=== PATIENT | female | born 1960 | race Caucasian/White ===

== ENCOUNTER → 2017-11-13 10:33 | Outpatient (CLI) | payer MEDICARE, MEDICAID, SELFPAY ==
--- NOTE | 2017-11-13 10:44 | CT_ITS ---
STUDY: CT BRAIN WITHOUT CONTRAST REASON FOR EXAM: Female, 57 years old. Dizziness. Blurred vision. Upper extremity tingling x4 months. RADIATION DOSAGE (If Supplied By Facility): CTDIvol = ( 44.99 ) mGy, DLP = ( 728.62 ) mGycm TECHNIQUE: Transaxial CT imaging of the brain was performed without administration of intravenous contrast material. Coronal and sagittal reconstructions were performed. Individualized dose optimization techniques were used for this CT. COMPARISON: None. FINDINGS: Normal soft tissue structures. Normal calvarium. Prominent CSF space overlying the left anterior temporal pole may represent benign arachnoid cyst. The ventricles and cisterns are normal. Normal white matter tracts of the cerebral hemispheres. Normal basal ganglia and thalami. Normal brainstem. Normal cerebellum. There is no intracranial hemorrhage. There are no findings of an acute ischemic infarction. Normal visualized paranasal sinuses. CT/Brain/Head without Contrast IMPRESSION: 1. 0.7 x 1.6 cm benign arachnoid cyst overlying the left anterior temporal pole. 2. Normal CT brain without contrast. Electronically Signed: Brennon Quick MD at 12:20 EDT , Service support ,
--- NOTE | 2017-11-13 10:44 | CT_ITS ---
STUDY: CT CERVICAL SPINE WITHOUT CONTRAST REASON FOR EXAM: Female, 57 years old. Dizziness, blurring vision and upper extremity tingling x4 months. History of Parkinson's. RADIATION DOSAGE (If Supplied By Facility): CTDIvol = ( 12.74 ) mGy, DLP = ( 213.98 ) mGycm TECHNIQUE: High resolution transaxial imaging was performed without contrast material. Sagittal and coronal images were reconstructed. Individualized dose optimization techniques were used for this CT. COMPARISON: None FINDINGS: Normal craniovertebral junction. Normal anterior atlantoaxial articulation. Normal odontoid process. Normal cervical lordosis. Normal vertebral bodies and posterior osseous elements. C2-3: Normal endplates. Normal disc height and morphology. Normal central canal and intervertebral neuroforamina. Moderate left C2-C3 due to facet arthropathy. Normal right facet joint. C3-4: Normal endplates. Normal disc height and morphology. Normal central canal and intervertebral neuroforamina. Mild to moderate degenerative facet arthropathy. C4-5: Normal endplates. Normal disc height and morphology. Normal central canal and intervertebral neuroforamina. C5-6: Pronounced disc space height narrowing with anterior and posterior marginal spurs. Normal central canal. Degenerative vacuum phenomenon in the medial aspect of the left intervertebral neural foramina coming from the disc space. Normal bilateral intervertebral neural foramina. C6-7: Pronounced disc space height narrowing with anterior and posterior marginal spurs. Normal central canal and bilateral intervertebral neural foramina. C7-T1: Normal endplates. Normal disc height and morphology. Normal central canal and intervertebral neuroforamina. Normal visualized soft tissue structures. CT/Spine Cervical without Contras IMPRESSION: 1. No acute fracture or malalignment of the cervical spine and the craniocervical junction. 2. Pronounced C5-C6 and C6-C7 degenerative disc space height narrowing. 3. No CT evidence of central canal stenosis or intervertebral neuroforamina stenosis. Electronically Signed: Brennon Quick MD at 12:31 EDT , Service support ,
== END ==
PROVIDERS: Family Provider Family Medicine; PCP Family Medicine; Visit Provider Nurse Practitioner Acute Care
DX: G93.0 Cerebral cysts (principal); M48.02 Spinal stenosis, cervical region; H53.8 Other visual disturbances; R42 Dizziness and giddiness; R20.2 Paresthesia of skin
CPT/HCPCS: 70450; 72125

== ENCOUNTER 2018-07-29 16:30 | Outpatient (RCR) | payer MEDICARE, MEDICAID, SELFPAY ==
--- NOTE | 2018-09-12 09:35 | HP.PTEVAL_ITS ---
Patient's Visit Information EDSON SHEPPARD is a 58 year old F referred to Physical Therapy by JOSE JUAN Antunez with a diagnosis of Cervical spine pain. Date of Evaluation: 06/22/18 Physical Therapist: Neno Antunez DPT - Visit Plan Frequency: 2x /Week Duration: 4 Weeks Plan: Start with stretching, DN, posture control exercises to reduce stress on cervical spine and shoulders. - Subjective Findings: Pt. is here today for her initial evaluation with dianosis of neck pain. Pt. has a history of PD for many years. Pt. reports taking new medication and his having more tremoring and neck pain. She reports I know its the meds that I am taking, its a side effect. Pt. reports being very limited in mobility and after taking her medication she tremorrs uncomtrollable at rest and with mobility. Pt. reports having pain throughout cervical spine 5/10 pain currently. No radiating pain into UEs. Pt. reprots pain is at times unbearable. Pt. reports that if she does not take her meds she can not move. Pt. is hopeful to reduce symptoms in order to get back to all recreational and daily activities without limitations. - Pain Cervical spine Pain Intensity (Out of 10): 3 Pain Intensity Range: 2, 8 - Objective POSTURE: Pt. has rounded shoulders, FH posture. Pt. while sitting has writhing movements of arms and neck. pt. reports these are uncomtrollable and seem to happen after ttaking her new medications. PALPATION: Pt. has very tight muscle tone throughotu neck extensors, bilaterally. Pt. has tenderness throughout cervical spine and UT musculature. NEURO: Pt. has normal DTR of bilateral UEs, normal senation of bilateral UEs. ROM: CERVICAL SPINE: flexion nil loss increase NW, ext mod loss increase NW, rotation mod loss bilat increase NW, SB mod loss bilat increase NW. MMT: Pt. has 4/5 cervical isometrics and 4/5 BUE strength generally. - Special Tests C/S Radiculapathy - Left Upper limb tension test: Negative C/S Radiculapathy - Right Upper limb tension test: Negative C/S Radiculapathy - Left Spurlings: Negative C/S Radiculapathy - Right Spurlings: Negative C/S Radiculapathy - Left Cervical distraction: Negative C/S Radiculapathy - Right Cervical distraction: Negative C/S Radiculapathy - Left Relief test: Negative C/S Radiculapathy - Right Relief test: Negative C/S Radiculapathy - Valsalva: Negative Cervical Sitting: Protrusion - Mechanical Response: No effect Cervical Sitting: Protrusion - Symptoms During Testing: No effect Cervical Sitting: Protrusion - Symptoms After Testing: No effect Cervical Sitting: Retraction - Mechanical Response: No effect Cervical Sitting: Retraction - Symptoms During Testing: Increases Cervical Sitting: Retraction - Symptoms After Testing: No worse Cervical Sitting: Retraction-Extension - Mechanical Response: No effect Cerv Sitting: Retraction-Extension - Symptoms During Testing: Abolishes Cerv Sitting: Retraction-Extension - Symptoms After Testing: No worse Cervical Sitting: Sidebend Right - Mechanical Response: No effect Cervical Sitting: Sidebend Right - Symptoms During Testing: Increases Cervical Sitting: Sidebend Right - Symptoms After Testing: No worse Cervical Sitting: Sidebend Left - Mechanical Response: No effect Cervical Sitting: Sidebend Left - Symptoms During Testing: Increases Cervical Sitting: Sidebend Left - Symptoms After Testing: No worse Cervical Sitting: Rotation Right - Mechanical Response: No effect Cervical Sitting: Rotation Right - Symptoms During Testing: Increases Cervical Sitting: Rotation Right - Symptoms After Testing: No worse Cervical Sitting: Rotation Left - Symptoms During Testing: Increases Cervical Sitting: Rotation Left - Symptoms After Testing: No worse Cervical Sitting: Flexion - Mechanical Response: No effect Cervical Sitting: Flexion - Symptoms During Testing: Increases Cervical Sitting: Flexion - Symptoms After Testing: No worse - Goals Goal 1:: Pt. to be I with HEP. Goal Time Frame: 4-6 Weeks Goal 2:: Pt. to have decreased cervical spine pain at rest to 0-2/10 pain. Goal Time Frame: 4-6 Weeks Goal 3:: Pt. to sleep throughout the night without increase in symptoms. Goal Time Frame: 4-6 Weeks Goal 4:: Pt. to have improved posture throughout therapy session. Goal Time Frame: 4-6 Weeks Goal 5:: Pt. to be educated in good prophalaxis to reduce cervical spine symptoms. Goal Time Frame: 4-6 Weeks - Rehabilitation Potential Physical Therapy Diagnosis: Pt. has signs and symptoms of neck pain and shoulder pain related to tightness and posture from PD symptoms. Pt. has limited cerivcal spine ROM and difficulty maintaining proper posture. Pt. has increased symtoms with stretching with higher levels of msucle tone. Pt. would benefit from PT to reduce muscle tightness and progess postural control. Rehabilitation Potential: Fair - Anticipated Interventions Patient/Client Instruction: Educate patient on: Condition, Plan of Care, Risk Factors, Benefits of Fitness Program For the Purpose of:: To decrease pain, To increase ROM, To facilitate caregiver knowledge, To improve self management, To prevent re-injury, To improve ability to perform tasks related to life management, To improve tolerance to ADL's Therapeutic Exercise to Include: Strength training, Power training, Postural training, Flexibilty training, via Neurocom Balance Mas, Active ROM, Dot Exercises For the Purpose of:: To decrease pain, To increase ROM, To improve nutrient delivery to tissue, To increase oxygenation perfusion, To improve muscle pe rformance and motor function, To improve health of tissue, To decrease soft tissue restriction Manual Therapy Techniques to Include: Mobilization, Passive ROM, Functional dry needling, Soft tissue mobilization For the Purpose of:: To decrease pain, To increase ROM, To improve nutrient delivery to tissue, To increase oxygenation perfusion, To improve muscle performance and motor function Thank you for the opportunity to evaluate your patient. For Medicare and Medicare HMO plans, please review the plan of care and approve it. It will need to be FAXED BACK to us at [phone] for Medicare purposes. For Medicare only, by signing this I certify the plan of care. Please let me know if there are questions or concerns regarding this plan of care. Physician Signature: Date:
--- NOTE | 2018-09-26 13:47 | HP.PTDCSUM ---
HP - PT D/C Summary It has been my pleasure to treat EDSON SHEPPARD under orders from JOSE JUAN Antunez, for the diagnosis of Cervical spine pain for a total of 7 visit(s). Discharge Date: 07/29/18 Please see the following information for a summary of their discharge status. - Subjective Subjective: Pt. reports overall minimal change in her neck pain. Pt. reports that she continues to have increased writhing movements of her neck, but seem to have reduced in clinic. Pt. reprots ahving 3/10 pain in her neck this date. - Pain Cervical spine Pain Intensity (Out of 10): 3 - Overall Improvement % Improvement: 50 - Objective Objective/Function: ROM: cervical spine: flexion nil loss, ext mod loss, rotation min loss bilat, SB min loss bilat. Pain with end range ext this date, no pain with rest of movement. Pt. continues to have increased difficulty with postural corrections and difficulty maintaining proper postures. Pt. continues to have difficulty with walking. Pt. reports that she has noticing now increased stiffness throughout with body since reducing meds. Pt. desires to trial stretching and activites on own at this point intime, - Goals Goal 1:: Pt. to be I with HEP. Goal Progress: Goal Met Goal 2:: Pt. to have decreased cervical spine pain at rest to 0-2/10 pain. Goal Progress: Progressing Goal 3:: Pt. to sleep throughout the night without increase in symptoms. Goal Progress: Progressing Goal 4:: Pt. to have improved posture throughout therapy session. Goal Progress: Not Progressing Goal 5:: Pt. to be educated in good prophalaxis to reduce cervical spine symptoms. Goal Progress: Progressing - Plan Plan: Start with stretching, DN, posture control exercises to reduce stress on cervical spine and shoulders. - D/C Information Discharge Comments: Pt. was seen for her neck pain and stiffness. In PT, pt. trialed stretching, manual activities, DN and postural control. Pt. had mild relief with stretching and DN. Pt. will be DC to HEP at this point in time. If there are questions or concerns regarding this patient's physical therapy, please feel free to call me at [phone]. Thank you for the referral of this patient. Sincerely, Neno Antunez DPT
== END 2018-07-29 19:00 | disposition home or self-care (01) ==
LOC: PT 16:30
PROVIDERS: Family Provider Family Medicine; PCP Family Medicine; Referring Provider Nurse Practitioner Acute Care; Visit Provider Nurse Practitioner Acute Care
DX: M54.2 Cervicalgia (principal); M25.512 Pain in left shoulder; M25.511 Pain in right shoulder
CPT/HCPCS: 97110; 97140; 97162

== ENCOUNTER 2022-07-21 13:06 | Observation (INO) | payer MEDICARE, MEDICAID, SELFPAY ==
[2022-07-21 13:07] VITALS: BP 147/94; PULSE 74; RESP 16; TEMP 37.1; O2SAT 100; BMI 21.9
--- NOTE | 2022-07-21 14:59 | EKG12_ITS ---
Test Reason : WEAKNESS Blood Pressure : / mmHG Vent. Rate : 074 BPM Atrial Rate : 074 BPM P-R Int : 138 ms QRS Dur : 086 ms QT Int : 454 ms P-R-T Axes : 107 075 102 degrees QTc Int : 503 ms Normal sinus rhythm Cannot rule out Inferior infarct , age undetermined Abnormal ECG Confirmed by ALBERTO BERGERON, FRIDA ([id number]), photographic editor KAREY ALVARADO ([id number]) on 07/22/2022 9:18:14 AM Referred By: Confirmed By:FRIDA DOMINGUEZ MD
--- NOTE | 2022-07-21 15:00 | EX.ED.DYSGE1 ---
HPI History of Present Illness Chief Complaint: Weakness Detail of Chief Complaint: Unable to ambulate Informant: patient Onset/Context/Timing Onset: Weeks Context: Gradual Onset Timing: Continuous Current Severity: Mild Maximum Severity: Mild Narrative Narrative: 61-year-old female history stroke, ITP and Parkinson's disease. States she is progressively been getting more weak over the last 2 weeks. States she is having difficulty even walking around her home now with her walker and does not think she is able to even do so now. Lives at home with her son. She denies any nausea vomiting or diarrhea. No dysuria or cough. No chest or abdominal pain. She denies any recent illness or hospitalization. Prior similar symptoms: Yes Recent Illness/Hospitalization: No PFSH PFSH Medical History Abnormality of gait Acquired hypothyroidism Balance problems Chronic ITP (idiopathic thrombocytopenia) CVA (cerebral vascular accident) Left foot drop Osteoarthritis Home Medications carbidopa 10 mg-levodopa 100 mg tablet 0.5 tab PO TID 05/22/16 [History Last Taken Unknown] levothyroxine 112 mcg tablet 100 mcg PO DAILY 05/22/16 [History Last Taken Unknown] lisinopril 20 mg tablet 20 mg PO DAILY 05/22/16 [History Last Taken Unknown] ropinirole 0.25 mg tablet (Requip) 0.25 mg PO QHS 05/22/16 [History Last Taken Unknown] diclofenac sodium 1 % topical gel (Voltaren Arthritis Pain) 1 ea topical 4X/DAY PRN PRN Pain 07/21/22 [History Last Taken Unknown] docusate sodium 100 mg capsule 100 mg PO BID PRN Constipation 07/21/22 [History Last Taken Unknown] polyethylene glycol 3350 17 gram oral powder packet (Miralax) 17 g PO DAILY 07/21/22 [History Last Taken Unknown] Allergy/AdvReac Type Severity Reaction Status Date / Time omeprazole Allergy Unknown Verified 07/21/22 13:09 simvastatin [From Zocor] Allergy Unknown Verified 07/21/22 13:09 ropinirole AdvReac Mild Unknown Verified 07/21/22 13:09 Social History Smoking Status: Former smoker ROS ROS ED ROS Narrative Denies recent illness. Generalized weakness. Review of Systems ROS Unobtainable: Denies due to encephalopathy Constitutional Constitutional ED: Denies chills or fever(s) Eyes Eyes: Denies blurry vision ENT ENT ED: Denies ear pain Cardiovascular Cardiovascular: Denies chest pain Respiratory/Chest Respiratory/Chest: Denies cough or dyspnea Gastrointestinal Gastrointestinal: Denies abdominal pain, diarrhea, melena, nausea or vomiting Genitourinary Genitourinary ED: Denies dysuria or hematuria Musculoskeletal Musculoskeletal: Denies arthralgias Integumentary Denies abscess Neurologic Neurologic: Denies headache(s) Psychiatric Psychiatric: Denies anxiety Endocrine Endocrinology: Denies cold intolerance Hematologic/Lymphatic Hematologic/Lymphatic: Reports none Allergic/Immunologic Allergic/Immunologic ED: Denies mouth swelling or tongue swelling EXAM Physical Exam Narrative Exam Narrative: 61-year-old female no acute distress. Vital signs stable afebrile. Pulse ox high percent on room air no hypoxia. H EENT exam unremarkable. Neck nontender. Lungs clear to auscultation bilaterally. Heart regular rhythm rate about 75 no murmur. Chest wall nontender. Abdomen soft nontender. Moving all 4 extremities. Normal bods developer strength. Dorsi plantarflexion intact. She does seem generally weak. But there is no localized or unilateral weakness. Back nontender. Neurologically she is awake and alert. Const Vital Signs: 07/21/22 13:07 07/21/22 14:32 Temperature 98.8 F Temperature Source Temporal Pulse Rate 74 Respiratory Rate 16 Respiratory Effort Normal Non-Labored Respiratory Pattern Normal Blood Pressure 147/94 H Blood Pressure Mean 111 Pulse Ox 100 Oxygen Delivery Method Room Air Positive well nourished and well developed; Negative for obese, cachectic, contractures or unkempt General Appearance ED: well developed and NAD; Negative for unkempt, cachectic, contractures, cyanotic, diaphoretic or pallor Nutritional Appearance: Negative for cachectic or obese HEENT Reports dry mucous membranes Negative for trauma Mouth ED: Yes dry mucous membranes Mouth: dry mucous membranes Eyes PERRL and EOMs intact bilaterally General Eye ED: Negative for pale conjunctiva, scleral icterus or other Neck no lymphadenopathy, supple and no JVD General: Negative for tenderness Lymph Lymphatic: Negative for other Chest Wall inspection of chest normal and palpation of chest normal Chest: Negative for other Resp normal respiratory effort and clear to auscultation bilaterally Effort and Inspection: Negative for retractions Auscultation: Negative for rales, rhonchi or wheezes Cardio regular rate, regular rhythm, S1 normal heart sound, S2 normal heart sound and no murmurs Palpation: Negative for palpable S3 Rate: Negative for bradycardia Rhythm: Negative for abnormal rhythm GI normal to inspection, nondistended, normoactive bowel sounds, non-distended and no masses Inspection: Negative for abdominal distention Auscultation: normoactive bowel sounds Palpation: soft; Negative for tender or guarding Back/Spine no CVA tenderness General Back: Negative for CVA tenderness Cervical Spine: Negative for cervical spine tenderness Thoracic Spine / Upper Back: Negative for thoracic spinal tenderness Lumbar Spine / Lower Back: Negative for lumbar spinal tenderness Extremity normal to inspection General Extremety ED: Negative for edema or tenderness General Extremity: Negative for edema Neuro oriented x3 and CN's II-XII intact bilaterally Sensorium / Orientation: alert Motor Exam: general weakness; Negative for strength 5/5 throughout Psych mental status grossly normal Appearance: Negative for unkempt Attitude: No agitated Mood & Affect: Negative for depressed, anxious or tearful Skin no rashes or lesions noted and no wounds General Skin Exam: Negative for jaundice or pallor Lesions: No lesion noted Rashes: No rashes noted Trauma: Negative for abrasion MDM MDM MDM Narrative Medical decision making narrative: 61-year-old female with history of Parkinson's generally developed weakness over last 2 weeks and now is unable to ambulate. Exam benign other than generalized weakness. Screening labs will be performed. Most likely she is going to need to be admitted for physical therapy and further evaluation. Repeat exam unchanged. At 4:30 PM. Patient is unable to ambulate she is too weak. I will speak to the hospitalist about admission. Lab Data Attestation: I reviewed the patient's lab results. Lab results narrative: CBC shows a white count of 6.1. H&H of 13.2 and 38. Platelets 237. CMP shows a gap of 9 normal BUN of 13 creatinine 0.77. Glucose of 91 liver enzymes are normal. Labs: Laboratory Results - last 24 hr 07/21/22 07/21/22 15:14 15:14 WBC 6.1 RBC 4.11 L Hgb 13.2 Hct 38.3 MCV 93.2 MCH 32.1 H MCHC 34.5 RDW Std Deviation 42.8 RDW Coeff of Annie 12.5 Plt Count 237 MPV 11.6 Sodium 142 Potassium 3.8 Chloride 108 H Carbon Dioxide 25.0 Anion Gap 9 BUN 13 Creatinine 0.77 Estim Creat Clear Calc 67.29 Est GFR (MDRD) Af Amer 97 Est GFR (MDRD) Non-Af 80 BUN/Creatinine Ratio 16.9 Glucose 91 Calcium 9.3 Total Bilirubin 0.40 AST 25 ALT 19 Alkaline Phosphatase 77 Total Protein 7.3 Albumin 3.9 Globulin 3.4 Albumin/Globulin Ratio 1.1 Rhythm Strip Rhythm Strip: Sinus Rhythm Rate: 74 Ectopy: None EKG Initial EKG: Attestation: I personally reviewed and interpreted this EKG as follows: Interpretation: Sinus Rhythm and No Acute Injury Pattern Comments: Normal sinus rhythm rate of 74 there is a bunch of artifact on the EKG due to her tremors due to Parkinson's disease. There is significant artifact. Discharge Plan Dx/Rx/DC Orders Clinical Impression: Generalized weakness, Unable to ambulate, Hx of Parkinson's disease Disposition Disposition: Acute Care Hospital [facility]
[2022-07-21] MEDS: 0.9% Normal Saline 1,000 ML 1000 ML IV (15:15)
[2022-07-21 15:19] LABS: Hematocrit 38.3 % (37-47); Hemoglobin 13.2 g/dL (12.0-15.0); Mean Corp Hgb Conc 34.5 g/dL (32-36); Mean Corpuscular Hgb 32.1 pg (27.0-32.0); Mean Corpuscular Volume 93.2 fL (81-99); Mean Platelet Vol. 11.6 fl (6.2-12.0); Platelet Count 237 K/mm3 (150-450); RBC Distribution Width CV 12.5 % (11.6-14.6); RBC Distribution Width SD 42.8 fl (35.1-43.9); Red Blood Count 4.11 M/mm3 (4.2-5.4); White Blood Count 6.1 K/mm3 (4.4-11.0)
[2022-07-21 15:52] LABS: ALB/GLOB Ratio 1.1 RATIO (0.9-2.4); AST(SGOT) 25 U/L (15-37); Alanine Aminotransfer ALT/SGPT 19 U/L (13-56); Albumin, Serum 3.9 g/dL (3.2-5.0); Alkaline Phosphatase 77 U/L (45-117); Anion Gap 9 (5-15); BUN 13 mg/dL (7-18); BUN/Creat Ratio 16.9 RATIO (10-20); Calcium,Total 9.3 mg/dL (8.5-10.1); Chloride 108 mmol/L (98-107); Creatinine, Serum 0.77 mg/dL (0.55-1.02); EST Glomerular Filtration Rate 80 mL/min (>60); Est Glom Filt Rate - Afr Amer 97 mL/min (>60); Estimated Creatinine Clearance 67.29 ml/min; Globulin 3.4 g/dL (2.2-4.2); Glucose 91 mg/dL (74-106); Potassium 3.8 mmol/L (3.5-5.1); Protein, Total 7.3 g/dL (6.4-8.2); Sodium Level 142 mmol/L (136-145)
[2022-07-21 16:21] LABS: Bacteria 0 SEEN /hpf (None Seen); Mucous, Urine 0 SEEN /hpf (<or=2+); Red Blood Cells-Urine 0 SEEN /hpf (0-5); Squamous Epithelial Cells - UA 0 SEEN /hpf (5-10)
[2022-07-21 16:47] LABS: Color, Urine Yellow (Yellow); Glucose, Dipstick Normal (Normal); Ketone-Dipstick Negative (Negative); Leukocyte Esterase-Dipstick Negative /ul (Negative); Nitrite-Dipstick Negative (Negative); Occult Blood-Urine 50 /ul (Negative); Protein-Dipstick Negative (Negative); Urine Bilirubin Dipstick Negative (Negative); Urine Clarity Clear (Clear); Urine Urobilinogen Normal (Normal); Urine pH 6.5 (5.0 - 8.0)
[2022-07-21 16:55] LABS: White Blood Cells 0-5 SEEN /hpf (0-5)
[2022-07-21 17:01] VITALS: BP 130/88; PULSE 87; RESP 19; TEMP 36.9; O2SAT 97
[2022-07-21 17:02] VITALS: O2SAT 97
--- NOTE | 2022-07-21 17:51 | PCM.HP.STD ---
HPI - General General Date of Admission: 07/21/22 Date of Service: 07/21/22 Chief Complaint: Neurolysed weakness, inability to walk HPI Narrative EDSON SHEPPARD, is a 61 F who presents to the emergency room at [facility] with complaints of extreme weakness today and inability to ambulate and perform ADLs at home. Patient lives with her son, she has a long history of Parkinson's disease-it appears she is on minimal medicine for the Parkinson's disease however-she states that in the past she was on larger doses but she had side effects. Work-up in the emergency room included labs which were unremarkable except for some occult blood in the urine. Patient will be placed in observation status on [facility] 3, she will be seen by PT and OT, she may need to go to an extended care facility for short-term inpatient rehab services, I briefly discussed this with her in the presence of her son, she states that she was not able to make up her mind without input from her sister who is her POA. FORMERLY [facility], [facility] Medical History Abnormality of gait Acquired hypothyroidism Balance problems Chronic ITP (idiopathic thrombocytopenia) CVA (cerebral vascular accident) Left foot drop Osteoarthritis Home Medications carbidopa 10 mg-levodopa 100 mg tablet 0.5 tab PO TID parkinsons 05/22/16 [History Last Taken 07/21/22] levothyroxine 112 mcg tablet 100 mcg PO DAILY thyroid 05/22/16 [History Last Taken 07/21/22] lisinopril 20 mg tablet 20 mg PO DAILY bp 05/22/16 [History Last Taken 07/21/22] ropinirole 0.25 mg tablet (Requip) 0.25 mg PO QHS restless leg 05/22/16 [History Last Taken 07/20/22] acetaminophen 500 mg tablet 500 mg PO Q6H PRN Pain 07/21/22 [History Last Taken 07/21/22] polyethylene glycol 3350 17 gram oral powder packet (Miralax) 17 g PO DAILY PRN Constipation 07/21/22 [History Last Taken 3 Days Ago ~07/18/22] Allergy/AdvReac Type Severity Reaction Status Date / Time omeprazole Allergy Unknown Verified 07/21/22 13:09 simvastatin [From Zocor] Allergy Unknown Verified 07/21/22 13:09 ropinirole AdvReac Mild Unknown Verified 07/21/22 13:09 Social History Smoking Status: Former smoker ROS Constitutional Constitutional: Reports fatigue and weakness; Denies anorexia, change in weight, chills, fever(s), malaise or night sweats Eyes Eyes: Denies blurry vision, change in vision, discharge from eye(s) or eye pain Cardiovascular Cardiovascular: Denies chest pain, claudication, dyspnea on exertion, edema, lightheadedness or palpitations Respiratory/Chest Respiratory/Chest: Denies cough, excessive phlegm production, hemoptysis, shortness of breath at rest or shortness of breath with exertion Gastrointestinal Gastrointestinal: Denies abdominal pain, constipation, diarrhea, dyspepsia, hematemesis, hematochezia, melena, nausea or vomiting Genitourinary Genitourinary: Denies dysuria, hematuria, nocturia, urinary frequency, urinary hesitancy, urinary incontinence or urinary urgency Musculoskeletal Musculoskeletal: Denies back pain, joint pain, joint stiffness, joint swelling, myalgias or neck pain Neurologic Neurologic: Reports abnormal gait and focal weakness; Denies abnormal speech, confusion, dizziness, headache(s), loss of vision, numbness, other visual disturbances, paresthesias, syncope or tingling Psychiatric Psychiatric: Denies anxiety, cognitive impairment, depression, irritability, mood swings or suicidal ideation Endocrine Endocrinology: Denies change in body appearance, cold intolerance, excessive sweating, heat intolerance, polydipsia or polyuria Hematologic/Lymphatic Hematologic/Lymphatic: Denies none, anemia, easy bleeding, easy bruising or lymphadenopathy Allergic/Immunologic Allergic/Immunologic: Denies rhinitis, urticaria, eczemia or asthma Vital Signs Vital Signs Vital Signs: 07/21/22 13:07 07/21/22 14:32 07/21/22 17:01 Temperature 98.8 F 98.4 F Temperature Source Temporal Temporal Pulse Rate 74 87 Respiratory Rate 16 19 H Respiratory Effort Normal Non-Labored Respiratory Pattern Normal Blood Pressure 147/94 H 130/88 H Blood Pressure Mean 111 102 Pulse Ox 100 97 Oxygen Delivery Method Room Air Room Air 07/21/22 17:02 Temperature Temperature Source Pulse Rate Respiratory Rate Respiratory Effort Respiratory Pattern Blood Pressure Blood Pressure Mean Pulse Ox 97 Oxygen Delivery Method Room Air Weight Weight: 59.874 kg Body Mass Index (BMI) 21.9 Physical Exam Const alert, oriented x3 and no apparent distress Constitutional Narrative: She appears frail, appears older than stated General Appearance: cooperative, well kempt and well developed Orientation / Consciousness: awake, oriented to person, oriented to place and oriented to time HEENT normocephalic, head/scalp atraumatic, hearing grossly normal bilaterally and moist oral mucous membranes Eyes PERRL, EOMs intact bilaterally and conjunctivae normal Neck supple, no JVD, thyroid normal and no carotid bruits General: trachea midline Resp normal respiratory effort, no retractions, no use of accessory muscles and clear to auscultation bilaterally Auscultation: Negative for rales, rhonchi or wheezes Cardio regular rate, regular rhythm, S1 normal heart sound, S2 normal heart sound, no murmurs, no rub and no gallops GI normal to inspection, nondistended, normoactive bowel sounds, soft to palpation, non-tender and non-distended Extremity no clubbing, cyanosis or edema Skin no rashes or lesions noted General Skin Exam: no breakdown Neuro oriented x3, CN's II-XII intact bilaterally, moves all extremities, no focal motor deficits and no sensory deficits noted Neuro Narrative: Patient exhibits overall weakness, she has a resting tremor which is obvious in her feet Sensorium / Orientation: awake, alert, oriented to person, oriented to place and oriented to time Speech: speech normal Psych affect normal Results Lab / Micro Data Result Diagrams: 07/21/22 15:14 07/21/22 15:14 Labs: Laboratory Results - last 24 hr 07/21/22 15:14: WBC 6.1, RBC 4.11 L, Hgb 13.2, Hct 38.3, MCV 93.2, MCH 32.1 H, MCHC 34.5, RDW Std Deviation 42.8, RDW Coeff of Annie 12.5, Plt Count 237, MPV 11.6 07/21/22 15:14: Sodium 142, Potassium 3.8, Chloride 108 H, Carbon Dioxide 25.0, Anion Gap 9, BUN 13, Creatinine 0.77, Estim Creat Clear Calc 67.29, Est GFR (MDRD) Af Amer 97, Est GFR (MDRD) Non-Af 80, BUN/Creatinine Ratio 16.9, Glucose 91, Calcium 9.3, Total Bilirubin 0.40, AST 25, ALT 19, Alkaline Phosphatase 77, Total Protein 7.3, Albumin 3.9, Globulin 3.4, Albumin/Globulin Ratio 1.1 07/21/22 16:16: Urine Color Yellow, Urine Clarity Clear, Urine pH 6.5, Ur Specific [place] 1.010, Urine Protein Negative, Urine Glucose (UA) Normal, Urine Ketones Negative, Urine Occult Blood 50 H, Urine Nitrite Negative, Urine Bilirubin Negative, Urine Urobilinogen Normal, Ur Leukocyte Esterase Negative, Urine RBC 0 SEEN, Urine WBC 0-5 SEEN, Ur Squamous Epith Cells 0 SEEN, Urine Bacteria 0 SEEN, Urine Mucus 0 SEEN Rhythm Strip Rhythm Strip: Sinus Rhythm Rate: 74 Ectopy: None Assessment & Plan Assessment/Plan (1) Parkinson disease: PLAN: Plan 1. Generalized weakness/debility-patient will be placed into observation status on [facility] 3, she will be seen by PT and OT, she may need short-term placement in a halfway facility for rehab services. #2 Parkinson's disease-I have kept her on her home medications for Parkinson's disease #3 hypothyroidism-patient will remain on Synthroid #4 essential hypertension-patient will remain on her lisinopril Charges/Coding Visit Charges OBSV E&M: 41129 Initial observation care L3
[2022-07-21 18:00] VITALS: BMI 21.8
[2022-07-21] MEDS: Acetaminophen 500 MG Tablet PO (19:48)
[2022-07-21 21:15] VITALS: BP 123/81; PULSE 78; RESP 16; TEMP 36.6; O2SAT 97
[2022-07-21] MEDS: Pramipexole Di-HCl 0.125 MG Tablet PO (21:42)
[2022-07-21] MEDS: Heparin Injection (Vial) 5,000 UNIT/ML VIAL 5000 UNIT SC (21:46)
[2022-07-22] VITALS (9 sets, daily range): BP systolic 78–115; BP diastolic 45–78; PULSE 64–81; RESP 16; TEMP 36.6–37.7; O2SAT 96–99
[2022-07-22] MEDS: Levothyroxine 100 MCG Tablet PO (06:03)
--- NOTE | 2022-07-22 07:44 | PCM.PN.HOSP ---
Objective Data Objective Data Vital Signs: Vital Signs Temp Pulse Resp BP Pulse Ox O2 Del Method 98.4 F 81 16 115/67 97 Room Air 07/22/22 06:08 07/22/22 06:08 07/22/22 06:08 07/22/22 06:08 07/22/22 06:08 07/22/22 06:08 Oxygen Delivery Method Room Air Weight: 131 lb Body Mass Index (BMI) 21.8 Intake & Output: Intake and Output for Last 24 Hours 07/20/22 07/21/22 07/22/22 23:59 23:59 23:59 Intake Total 1000 / 1000 Output Total 300 / 300 Balance 1000 / 1000 -300 / -300 Lab / Micro Data Result Diagrams: 07/21/22 15:14 07/21/22 15:14 Labs: Laboratory Results - last 24 hr 07/21/22 15:14: WBC 6.1, RBC 4.11 L, Hgb 13.2, Hct 38.3, MCV 93.2, MCH 32.1 H, MCHC 34.5, RDW Std Deviation 42.8, RDW Coeff of Annie 12.5, Plt Count 237, MPV 11.6 07/21/22 15:14: Sodium 142, Potassium 3.8, Chloride 108 H, Carbon Dioxide 25.0, Anion Gap 9, BUN 13, Creatinine 0.77, Estim Creat Clear Calc 67.29, Est GFR (MDRD) Af Amer 97, Est GFR (MDRD) Non-Af 80, BUN/Creatinine Ratio 16.9, Glucose 91, Calcium 9.3, Total Bilirubin 0.40, AST 25, ALT 19, Alkaline Phosphatase 77, Total Protein 7.3, Albumin 3.9, Globulin 3.4, Albumin/Globulin Ratio 1.1 07/21/22 16:16: Urine Color Yellow, Urine Clarity Clear, Urine pH 6.5, Ur Specific [place] 1.010, Urine Protein Negative, Urine Glucose (UA) Normal, Urine Ketones Negative, Urine Occult Blood 50 H, Urine Nitrite Negative, Urine Bilirubin Negative, Urine Urobilinogen Normal, Ur Leukocyte Esterase Negative, Urine RBC 0 SEEN, Urine WBC 0-5 SEEN, Ur Squamous Epith Cells 0 SEEN, Urine Bacteria 0 SEEN, Urine Mucus 0 SEEN Rhythm Strip Rhythm Strip: Sinus Rhythm Rate: 74 Ectopy: None Physical Exam Narrative Seen and examined. Patient has history of Parkinson disease and a stroke. She has chronic bilateral lower extremity weakness, right more than left. Physical exam General: Alert, Oriented x3, Cooperative HEENT: Atraumatic, PERRLA, EOMI, Normocephalic Oral: No Gingival or Mucosal Lesions/ Ulcerations Neck: Supple, No JVD, Negative Carotid Bruits Lungs: Air entry diminished in bilateral lung bases. No crepitation/rhonchi Cardiovascular: Regular rate, Regular Rhythm, Normal S1, Normal S2, No murmurs Abdomen: Bowel Sounds Present, Soft, Non Tender, Non-Distended : No renal angle tenderness. No suprapubic tenderness. Extremities: No edema, Capillary Refill Less than 3 Seconds Skin: No rashes, No breakdown Musculoskeletal: No Tenderness to Palpation of Joints or Extremities, right leg gradually fall to bed by 5 seconds and left leg drops immediately. ROM restricted. Left foot drop. Neurological: Cranial nerves II-XII grossly intact, Hypertonia. DTR 2/4. Muscle strength decreased. Resting tremors Psych/Mental Status: Flat affect. Assessment & Plan Assessment/Plan (1) Parkinson disease: PLAN: Plan Patient has history of Parkinson's disease, stroke and ITP admitted with fatigue, progressively weak and frail for last 2 weeks. 1. Generalized weakness/debility- patient is admitted under observation status on [facility] 3, PT and OT, she may need short-term placement in a long term facility for rehab services. patient was having difficult ambulation even with walker. No dysuria, nausea vomiting or diarrhea. No URI symptoms. No focal chest pain or headache. Patient has bilateral lower extremity weakness, chronic in nature. She also has history of a stroke as mentioned in past history. #2 Parkinson's disease- home medications for Parkinson's disease. Continue Sinemet. She follows neurologist in [facility], [place], Dr. Phyllis Brooks #3 hypothyroidism-on Synthroid #4 essential hypertension-monitor BP, continue lisinopril 5. Bowel and bladder care: Patient did not have bowel movement for 2 to 3 days. On senna S and MiraLAX. Teardrop. Charges/Coding Visit Charges Inpatient E&M: 68273 Subs Hosp L2
--- NOTE | 2022-07-22 08:07 | CASEMGMT ---
Social Work Taya Fulton ([phone]) Direction Home CM called to report pt has Passport Waiver services and requested discharge information be sent to when pt leaves. Pt receives home delivered meals, a manager personal through [employer] and an Emergency Response Button. ANANDA Gonzalez
[2022-07-22] MEDS: Carbidopa/Levodopa 10/100 Tablet PO ×3 (09:32→17:07)
[2022-07-22] MEDS: Lisinopril 20 MG Tablet PO (09:32)
[2022-07-22] MEDS: Heparin Injection (Vial) 5,000 UNIT/ML VIAL 5000 UNIT SC ×2 (09:33→22:12)
--- NOTE | 2022-07-22 09:52 | CASEMGMT ---
Social Work? SW in to meet with pt following update from physical therapy team that pt would benefit from rehab unit placement due to Parkinson's diagnosis. SW introduced self and role at the hospital. Pt agreeable to discussing discharge planning. A list of rehab providers including quality and resource use data and consistent with the patient?s preferred geographic region, medical needs, and insurance network were provided from the [employer] Guide. Pt preferred provider is [facility]. Pt shared concern with home responsibilities and is hopefully to be home within 1-2 weeks so financial responsibilities can be cared for before they are due. REYNA checked with Chichi at [facility]. Chichi able to accept pt. Precert has been started. PLAN: [facility], pending precert.? ANANDA Gonzalez?
--- NOTE | 2022-07-22 10:48 | CASEMGMT ---
DONITA CM in to discuss ROSE form with patient. RN CM explained ROSE form, patient voiced understanding. Pt signed form and filed in chart. Pt provided with a copy of signed ROSE form. Patient had no further questions or concerns at this time.
[2022-07-22] MEDS: Acetaminophen 500 MG Tablet PO (11:53)
--- NOTE | 2022-07-22 12:10 | CHAPLAIN ---
Type of Pastoral Visit _x__ Initial Visit ___ Follow-up Visit ___ On-call Visit ___ General Patient Visit ___ Spiritual Assessment ___ Family Conference ___ Bereavement ___ Rapid Response ___ Code Blue ___ Other (describe below) Pastoral Care Referral From _x__ Patient ___ Family ___ Nurse ___ Physician ___ Tourist Escort ___ Calculator Operator ___ Other (describe below) Sacrament/Intervention _x__ Active listening ___ Anointing ___ Rastafari ___ Bereavement ___ Communion ___ Gabriela exploration ___ _x__ Life review _x__ Prayer ___ Reconciliation ___ Sacrament of Sick _x__ Supportive presence ___ Wedding ___ Other (describe below) Pastoral Comments patient is very welcoming and expresses interest in talking about life, her health situation, son, and past gabriela experience; pt desires contact/presence and prayer for support;
[2022-07-22] MEDS: Senna/Docusate Sodium 1 Tablet 2 TABLET PO ×2 (15:27→22:12)
[2022-07-22] MEDS: Glycerin/Hypromellose/PEG400 15 ml Bottle 1 DRP EACH EYE (15:27)
[2022-07-22] MEDS: Pramipexole Di-HCl 0.125 MG Tablet PO (22:11)
[2022-07-23 03:54] VITALS: BP 95/72; PULSE 66; RESP 16; TEMP 36.7; O2SAT 100
[2022-07-23] MEDS: Levothyroxine 100 MCG Tablet PO (05:34)
[2022-07-23] MEDS: Carbidopa/Levodopa 10/100 Tablet PO ×3 (07:44→16:55)
[2022-07-23] MEDS: Senna/Docusate Sodium 1 Tablet 2 TABLET PO (07:44)
[2022-07-23] MEDS: Lisinopril 20 MG Tablet PO (07:45)
[2022-07-23] MEDS: Polyethylene Glycol 3350 17 GM PACKET PO (07:45)
[2022-07-23] MEDS: Heparin Injection (Vial) 5,000 UNIT/ML VIAL 5000 UNIT SC ×2 (07:45→21:10)
[2022-07-23 08:19] VITALS: BP 109/73; PULSE 62; RESP 18; TEMP 37.2; O2SAT 100
--- NOTE | 2022-07-23 13:14 | PN.HOSP_ITS ---
Subjective Subjective Patient seen and examined. She had no active complaints today and had an uneventful night. Review of systems is otherwise negative. SHe has remained hemodynamically stable. Objective Data Objective Data Vital Signs: Vital Signs Temp Pulse Resp BP Pulse Ox O2 Del Method 99 F 62 18 109/73 100 Room Air 07/23/22 08:19 07/23/22 08:19 07/23/22 08:19 07/23/22 08:19 07/23/22 08:19 07/23/22 08:19 Oxygen Delivery Method Room Air Weight: 131 lb Body Mass Index (BMI) 21.8 Intake & Output: Intake and Output for Last 24 Hours 07/21/22 07/22/22 07/23/22 23:59 23:59 23:59 Intake Total 1000 / 1000 Output Total 650 / 650 1000 / 1000 Balance 1000 / 1000 -650 / -650 -1000 / -1000 Lab / Micro Data Result Diagrams: 07/21/22 15:14 07/21/22 15:14 Rhythm Strip Rhythm Strip: Sinus Rhythm Rate: 74 Ectopy: None Physical Exam Const alert, oriented x3 and no apparent distress HEENT head/scalp atraumatic, moist oral mucous membranes and oropharynx normal Head and Scalp: normocephalic Mouth: oral and palatal mucosa normal Eyes PERRL, EOMs intact bilaterally and conjunctivae normal Neck no lymphadenopathy and supple Resp normal respiratory effort, no retractions and no use of accessory muscles Cardio regular rate, regular rhythm, S1 normal heart sound, S2 normal heart sound and no murmurs GI normal to inspection, nondistended, normoactive bowel sounds, soft to palpation, non-tender and non-distended Extremity normal to inspection, full ROM and no clubbing, cyanosis or edema Neuro oriented x3, CN's II-XII intact bilaterally, moves all extremities and no focal motor deficits Sensorium / Orientation: awake and alert Motor Exam: strength 5/5 throughout Psych affect normal Assessment & Plan Assessment/Plan (1) Parkinson disease: (2) Unable to ambulate: (3) Dyskinesia: PLAN: Plan #Debility and weakness due to Parkinson's disease * PT/OT On board * fall precautions * #Parkinson;s disease: on levodopa/carbidopa #HYpothyroidism: on synthroid # Benign essential hypertension; on lisinopril DVT prophylaxis: lovenox Disposition: awaiting placement Charges/Coding Visit Charges OBSV E&M: 27205 Subsequent observation care L2
[2022-07-23 14:30] VITALS: BP 91/59; PULSE 78; RESP 18; TEMP 37.9; O2SAT 99
[2022-07-23] MEDS: Acetaminophen 500 MG Tablet PO (15:57)
[2022-07-23 16:00] LABS: Color, Urine Yellow (Yellow); Glucose, Dipstick Normal (Normal); Ketone-Dipstick 5 mg/dl (Negative); Leukocyte Esterase-Dipstick 500 /ul (Negative); Mucous, Urine 0 SEEN /hpf (<or=2+); Nitrite-Dipstick Negative (Negative); Occult Blood-Urine 50 /ul (Negative); Protein-Dipstick Negative (Negative); Specific Gravity, Urine 1.015 (1.002-1.030); Urine Bilirubin Dipstick Negative (Negative); Urine Clarity Clear (Clear); Urine Urobilinogen Normal (Normal)
[2022-07-23 16:15] LABS: Red Blood Cells-Urine 0-5 SEEN /hpf (0-5); White Blood Cells 5-10 SEEN /hpf (0-5)
[2022-07-23 16:16] LABS: Bacteria RARE /hpf (None Seen); Squamous Epithelial Cells - UA 0-5 SEEN /hpf (5-10)
[2022-07-23 21:06] VITALS: BP 98/65; PULSE 67; RESP 18; TEMP 36.6; O2SAT 98
[2022-07-23] MEDS: Pramipexole Di-HCl 0.125 MG Tablet PO (21:10)
[2022-07-24 03:04] VITALS: BP 93/58; PULSE 65; RESP 18; TEMP 36.8; O2SAT 97
[2022-07-24] MEDS: Levothyroxine 100 MCG Tablet PO (06:16)
[2022-07-24 06:17] LABS: Absolute Lymphocyte Count 1.96 X10^3/uL (0.83-4.51); Absolute Neutrophil Count 3.1 X10^3/uL (2.0-7.7); Basophil# 0.04 X10^3/uL; Basophil% 0.7 % (0-1); Eosinophil# 0.29 X10^3/uL; Eosinophils% 5.1 % (0-5); Hematocrit 41.4 % (37-47); Hemoglobin 13.2 g/dL (12.0-15.0); Lymphocyte # 1.96 X10^3/ul (0.83-4.51); Lymphocyte % 34.4 % (19-41); Mean Corp Hgb Conc 31.9 g/dL (32-36); Mean Corpuscular Hgb 30.4 pg (27.0-32.0); Mean Corpuscular Volume 95.4 fL (81-99); Mean Platelet Vol. 12.3 fl (6.2-12.0); Monocyte% 5.3 % (0-10); NRBC Flagged by Analyzer 0 % (0-5); Neutrophil # 3.08 X10^3/uL (2.7-7.7); Neutrophil % 54.1 % (47-70); Platelet Count 230 K/mm3 (150-450); RBC Distribution Width CV 12.5 % (11.6-14.6); RBC Distribution Width SD 44.6 fl (35.1-43.9); Red Blood Count 4.34 M/mm3 (4.2-5.4); White Blood Count 5.7 K/mm3 (4.4-11.0)
[2022-07-24 06:45] LABS: Anion Gap 6 (5-15); BUN 28 mg/dL (7-18); BUN/Creat Ratio 26.4 RATIO (10-20); Calcium,Total 8.6 mg/dL (8.5-10.1); Chloride 106 mmol/L (98-107); Creatinine, Serum 1.06 mg/dL (0.55-1.02); EST Glomerular Filtration Rate 56 mL/min (>60); Est Glom Filt Rate - Afr Amer 67 mL/min (>60); Estimated Creatinine Clearance 48.88 ml/min; Glucose 95 mg/dL (74-106); Potassium 4.2 mmol/L (3.5-5.1); Sodium Level 138 mmol/L (136-145)
--- NOTE | 2022-07-24 07:41 | PCM.DC ---
Discharge Instructions Diet Discharge Diet: Low fat / Low cholesterol Activity Discharge Activity: Return to Normal Activity Weight Bearing Status: Weight bearing as tolerated Dressing / Incision Call your doctor if you observe: Fever of 101 or Higher, Shortness of breath, Dizziness, Swelling in the ankles, Chest pain, Increased palpitations (irregular heartbeat) and Calf discomfort Follow Up Care Test Results: Test results from this visit will be discussed in further detail at your follow-up appointment, if applicable. Discharge Plan Admission Admit Date/Time: 07/21/22 17:40 Primary Reason for Your Visit: debility and weakness Attending Provider: Jeanna Rose Primary Care Provider: Lamonte Rolon Consulting Providers: Daren Cardenas ; Germain Jo Discharge Orders/Prescriptions Prescriptions: New lisinopril 5 mg tablet 5 mg PO DAILY Qty: 30 2RF Continued ropinirole [Requip] 0.25 MG tablet 0.25 mg PO QHS carbidopa-levodopa 1 TABLET tablet 0.5 tab PO TID levothyroxine 112 MCG tablet 100 mcg PO DAILY polyethylene glycol 3350 [Miralax] 17 gram Powder In Packet 17 g PO DAILY PRN (Reason: Constipation) acetaminophen 500 mg Tablet 500 mg PO Q6H PRN (Reason: Pain) Discontinued lisinopril 20 MG tablet 20 mg PO DAILY Referrals / Follow Up: Lamonte Rolon MD [Primary Care Provider] - Within 1 Week Disposition Disposition (needs filled in before D/C Order can be placed): [facility]
[2022-07-24] MEDS: Carbidopa/Levodopa 10/100 Tablet PO (08:01)
[2022-07-24] MEDS: Heparin Injection (Vial) 5,000 UNIT/ML VIAL 5000 UNIT SC (08:01)
[2022-07-24] MEDS: Senna/Docusate Sodium 1 Tablet 2 TABLET PO (08:01)
[2022-07-24 08:59] VITALS: BP 97/66; PULSE 64; RESP 18; TEMP 36.7; O2SAT 98
--- NOTE | 2022-07-24 14:00 | DS.PCM_ITS ---
Providers Date of Admission: 07/21/22 Date of Discharge: 07/24/22 Primary Care Physician: Dr. Lamonte Rolon MD Reason For Visit: GENERALIZED WEAKNESS, DEBILITY Diagnosis Discharge Diagnosis (1) Parkinson disease: Status: Chronic Code(s): G20 - Parkinson's disease (2) Unable to ambulate: Status: Acute Code(s): R26.2 - Difficulty in walking, not elsewhere classified (3) Dyskinesia: Status: Chronic Code(s): G24.9 - Dystonia, unspecified Plan #Debility and weakness due to Parkinson's disease * PT/OT On board * fall precautions * #Parkinson;s disease: on levodopa/carbidopa #HYpothyroidism: on synthroid # Benign essential hypertension; on lisinopril DVT prophylaxis: lovenox Disposition: awaiting placement Medications at Discharge Home Medications carbidopa 10 mg-levodopa 100 mg tablet 0.5 tab PO TID parkinsons 05/22/16 levothyroxine 112 mcg tablet 100 mcg PO DAILY thyroid 05/22/16 ropinirole 0.25 mg tablet (Requip) 0.25 mg PO QHS restless leg 05/22/16 acetaminophen 500 mg tablet 500 mg PO Q6H PRN Pain 07/21/22 polyethylene glycol 3350 17 gram oral powder packet (Miralax) 17 g PO DAILY PRN Constipation 07/21/22 lisinopril 5 mg tablet 5 mg PO DAILY bp 07/24/22 Hospital Course Operations None Procedures None Summary of Care Provided Minutes Spent on Discharge: 40 Hospital Course: Patient is a 61-year-old female with a past medical history as outlined was admitted through the ED with a complaint of generalized weakness and inability to ambulate and perform activities of daily living. Patient had a history of Parkinson's disease. She lives with her son. On admission labs were essentially unremarkable so she was admitted to be managed for debility likely due to Parkinson's disease. PT OT worked with her and she was deemed as needing skilled placement. Patient remained stable throughout her admission and was discharged to a alf facility on 07/24/2022. She is follow-up with her primary care doctor within 1 to 2 weeks. Patient seen and examined prior to discharge. She had no active complaints and had an uneventful night. She does still feel weak. Review of systems otherwise negative. Labs and vitals reviewed. Home medication reviewed and reconciled. Physical Exam Const alert, oriented x3 and no apparent distress Constitutional Narrative: She appears frail, appears older than stated General Appearance: cooperative, comfortable, well kempt and well developed Orientation / Consciousness: awake, oriented to person, oriented to place and oriented to time HEENT normocephalic, head/scalp atraumatic, hearing grossly normal bilaterally, moist oral mucous membranes and oropharynx normal Eyes PERRL, EOMs intact bilaterally and conjunctivae normal Neck no lymphadenopathy, supple, no JVD, thyroid normal and no carotid bruits General: trachea midline Resp normal respiratory effort, no retractions, no use of accessory muscles and clear to auscultation bilaterally Auscultation: Negative for rales, rhonchi or wheezes Cardio regular rate, regular rhythm, S1 normal heart sound, S2 normal heart sound, no murmurs, no rub and no gallops GI normal to inspection, nondistended, normoactive bowel sounds, soft to palpation, non-tender and non-distended Extremity normal to inspection, full ROM and no clubbing, cyanosis or edema Skin no rashes or lesions noted General Skin Exam: no breakdown Neuro oriented x3, CN's II-XII intact bilaterally, moves all extremities, no focal motor deficits and no sensory deficits noted Sensorium / Orientation: awake, alert, oriented to person, oriented to place and oriented to time Speech: speech normal Motor Exam: strength 5/5 throughout Psych affect normal Weight / BMI Weight Weight: 131 lb Body Mass Index (BMI) 21.8 ABG / Lab / Microbiology Data Result Diagrams: 07/24/22 05:53 07/24/22 05:53 Laboratory: Laboratory Results - last 24 hr 07/23/22 15:50: Urine Color Yellow, Urine Clarity Clear, Urine pH 5.0, Ur Specific [place] 1.015, Urine Protein Negative, Urine Glucose (UA) Normal, Urine Ketones 5 H, Urine Occult Blood 50 H, Urine Nitrite Negative, Urine Bilirubin Negative, Urine Urobilinogen Normal, Ur Leukocyte Esterase 500 H, Urine RBC 0-5 SEEN, Urine WBC 5-10 SEEN, Ur Squamous Epith Cells 0-5 SEEN, Urine Bacteria RARE, Urine Mucus 0 SEEN 07/24/22 05:53: WBC 5.7, RBC 4.34, Hgb 13.2, Hct 41.4, MCV 95.4, MCH 30.4, MCHC 31.9 L D, RDW Std Deviation 44.6 H, RDW Coeff of Annie 12.5, Plt Count 230, MPV 12.3 H, Immature Gran % (Auto) 0.400, Neut % (Auto) 54.1, Lymph % (Auto) 34.4, Petroleum % (Auto) 5.3, Eos % (Auto) 5.1 H, Baso % (Auto) 0.7, Absolute Neuts (auto) 3.1, Absolute Lymphs (auto) 1.96, Nucleated RBC % 0 07/24/22 05:53: Sodium 138, Potassium 4.2, Chloride 106, Carbon Dioxide 26.0, Anion Gap 6, BUN 28 H, Creatinine 1.06 H, Estim Creat Clear Calc 48.88, Est GFR (MDRD) Af Amer 67, Est GFR (MDRD) Non-Af 56 L, BUN/Creatinine Ratio 26.4 H, Glucose 95, Calcium 8.6 D/C Instructions Discharge Diet: Low fat / Low cholesterol Weight Bearing Status: Weight bearing as tolerated Call your doctor if you observe: Fever of 101 or Higher, Shortness of breath, Dizziness, Swelling in the ankles, Chest pain, Increased palpitations (irregular heartbeat) and Calf discomfort Meaningful Use Info Meaningful Use Diagnoses (Choose all that apply): None applicable Discharge Plan Admission Admit Date/Time: 07/21/22 17:40 Primary Reason for Your Visit: debility and weakness Attending Provider: Jeanna Rose Primary Care Provider: Lamonte Rolon Consulting Providers: Daren Cardenas ; Germain Jo Discharge Orders/Prescriptions Prescriptions: Continued ropinirole [Requip] 0.25 MG tablet 0.25 mg PO QHS carbidopa-levodopa 1 TABLET tablet 0.5 tab PO TID levothyroxine 112 MCG tablet 100 mcg PO DAILY polyethylene glycol 3350 [Miralax] 17 gram Powder In Packet 17 g PO DAILY PRN (Reason: Constipation) acetaminophen 500 mg Tablet 500 mg PO Q6H PRN (Reason: Pain) Discontinued lisinopril 20 MG tablet 20 mg PO DAILY No Action lisinopril 5 mg tablet 5 mg PO DAILY Referrals / Follow Up: Lamonte Rolon MD [Primary Care Provider] - Within 1 Week Disposition Disposition (needs filled in before D/C Order can be placed): [facility] Charges/Coding Visit Charges OBSV E&M: 38003 Observation care discharge
== END 2022-07-24 09:50 | disposition skilled nursing facility (03) ==
LOC: ED 16:32 → MS3 17:53
PROVIDERS: Admitting Provider Internal Medicine; Emergency Provider Emergency Medicine; PCP Family Medicine; Visit Provider Student in an Organized Health Care Education/Training Program
DX: G20 Parkinson's disease (principal); D69.3 Immune thrombocytopenic purpura; R53.81 Other malaise; Z86.73 Personal history of transient ischemic attack (TIA), and cerebral infarction without residual deficits; R26.2 Difficulty in walking, not elsewhere classified; G24.9 Dystonia, unspecified; Z87.891 Personal history of nicotine dependence; E03.9 Hypothyroidism, unspecified; I10 Essential (primary) hypertension; Z79.899 Other long term (current) drug therapy; Z79.890 Hormone replacement therapy
CPT/HCPCS: 99285; 36415; 80048; 80053; 81001; 85025; 85027; 87086; 87088; 92526; 92610; 93005; 96360; 96361; 96372; 97110; 97116; 97162; 97166; 97535; 99218; 99406; J7030; A4216; G0378

== ENCOUNTER 2022-07-24 10:00 | Inpatient (IN) | payer MEDICARE, MEDICAID, SELFPAY ==
[2022-07-24 10:11] VITALS: BP 114/77; PULSE 80; RESP 15; TEMP 36.8; O2SAT 99; BMI 21.4
[2022-07-24] MEDS: Acetaminophen 500 MG Tablet PO ×2 (12:39→20:34)
[2022-07-24] MEDS: Carbidopa/Levodopa 25/100 Tablet PO ×2 (14:31→17:16)
[2022-07-24 17:15] VITALS: O2SAT 100
[2022-07-24 20:00] VITALS: BP 104/68; PULSE 71; RESP 16; TEMP 37; O2SAT 97
[2022-07-24] MEDS: Heparin Injection (Vial) 5,000 UNIT/ML VIAL 5000 UNIT SC (20:35)
[2022-07-24] MEDS: Pramipexole Di-HCl 0.125 MG Tablet PO (20:35)
[2022-07-25 05:39] LABS: Hematocrit 37.4 % (37-47); Hemoglobin 12.1 g/dL (12.0-15.0); Mean Corp Hgb Conc 32.4 g/dL (32-36); Mean Corpuscular Volume 95.9 fL (81-99); Mean Platelet Vol. 12.2 fl (6.2-12.0); Platelet Count 213 K/mm3 (150-450); RBC Distribution Width CV 12.7 % (11.6-14.6); RBC Distribution Width SD 44.9 fl (35.1-43.9); White Blood Count 6.2 K/mm3 (4.4-11.0)
[2022-07-25 06:08] LABS: AST(SGOT) 22 U/L (15-37); Alanine Aminotransfer ALT/SGPT 25 U/L (13-56); Albumin, Serum 3.3 g/dL (3.2-5.0); Alkaline Phosphatase 66 U/L (45-117); Anion Gap 5 (5-15); BUN 35 mg/dL (7-18); BUN/Creat Ratio 34.3 RATIO (10-20); Calcium,Total 8.5 mg/dL (8.5-10.1); Chloride 107 mmol/L (98-107); Creatinine, Serum 1.02 mg/dL (0.55-1.02); EST Glomerular Filtration Rate 58 mL/min (>60); Est Glom Filt Rate - Afr Amer 70 mL/min (>60); Globulin 3.4 g/dL (2.2-4.2); Glucose 98 mg/dL (74-106); Magnesium 2.3 mg/dL (1.6-2.6); Phosphorus 4.1 mg/dL (2.5-4.9); Potassium 4.5 mmol/L (3.5-5.1); Protein, Total 6.7 g/dL (6.4-8.2); Sodium Level 138 mmol/L (136-145)
[2022-07-25] MEDS: Levothyroxine 100 MCG Tablet PO (06:12)
[2022-07-25] MEDS: Lisinopril 5 MG Tablet PO (07:49)
[2022-07-25] MEDS: Senna/Docusate Sodium 1 Tablet 2 TABLET PO ×2 (07:49→21:38)
[2022-07-25] MEDS: Carbidopa/Levodopa 25/100 Tablet PO ×3 (07:50→17:03)
[2022-07-25] MEDS: Heparin Injection (Vial) 5,000 UNIT/ML VIAL 5000 UNIT SC (08:23)
[2022-07-25 09:20] VITALS: BP 112/73; PULSE 83; RESP 18; TEMP 37.3; O2SAT 98
--- NOTE | 2022-07-25 09:54 | HP.PCM_ITS ---
HPI - General General Date of Admission: 07/24/22 Date of Service: 07/25/22 Chief Complaint: Generalized weakness and debility due to PD with inability to ambulate. HPI Narrative EDSON SHEPPARD, is a 61 YO F with a PMH of Parkinson's disease, hypothyroidism, chronic ITP, history of CVA?, left foot drop, hypertension and osteoarthritis who presented to the emergency department at [facility] on 07/21/2022 complaining of severe weakness with inability to ambulate. Lab was unremarkable. Vital signs were within normal limits and she was afebrile. She was admitted to the hospital for observation and was evaluated by PT/OT/ST. PT/OT recommended acute inpt rehab at discharge. She was transferred to the acute inpt unit at [facility] on 07/24/22 for 3 hours of therapy daily to restore function to a level she can safely go home with her son. All lab drawn this AM was personally reviewed. Other than having an elevated BUN/creatinine ratio her lab is unremarkable. The EMR for the most recent visit and past visits was reviewed. Notes form the PT/OT/ST evaluations at admission were reviewed. She had a fever on 07/23/2022 of 100.3 and a UA was done that showed 0-5 WBCs. The culture grew mixed gram-negative's and gram-positive's. She lists Ropinirole as an allergy but, she is currently taking Ropinirole? She has been diagnosed with mild oral pharyngeal dysphagia on a barium swallow in 2013. REPLACED BY [facility] Medical History (Updated 07/25/22 @ 11:[address] Kaylee Blankenship, ) Abnormality of gait Acquired hypothyroidism Balance problems Chronic ITP (idiopathic thrombocytopenia) CVA (cerebral vascular accident) Insomnia Left foot drop Osteoarthritis Home Medications carbidopa 10 mg-levodopa 100 mg tablet 0.5 tab PO TID parkinsons 05/22/16 [History Last Taken 07/21/22] levothyroxine 112 mcg tablet 100 mcg PO DAILY thyroid 05/22/16 [History Last Taken 07/21/22] ropinirole 0.25 mg tablet (Requip) 0.25 mg PO QHS restless leg 05/22/16 [History Last Taken 07/20/22] acetaminophen 500 mg tablet 500 mg PO Q6H PRN Pain 07/21/22 [History Last Taken 07/21/22] polyethylene glycol 3350 17 gram oral powder packet (Miralax) 17 g PO DAILY PRN Constipation 07/21/22 [History Last Taken 3 Days Ago ~07/18/22] lisinopril 5 mg tablet 5 mg PO DAILY bp 07/24/22 [History Last Taken Unknown] Allergy/AdvReac Type Severity Reaction Status Date / Time omeprazole Allergy Unknown Verified 07/21/22 13:09 simvastatin [From Zocor] Allergy Unknown Verified 07/21/22 13:09 ropinirole AdvReac Mild Unknown Verified 07/21/22 13:09 Social History (Updated 07/25/22 @ 10:[address] Kaylee Blankenship, DO) household members: family housing: house Smoking Status: Former smoker ROS Constitutional Constitutional: Reports body ache(s), difficulty sleeping, fatigue, malaise and weakness; Denies anorexia or chills Eyes Eyes: Denies blurry vision, burning, diplopia, discharge from eye(s) or double vision ENT HEENT: Reports dizziness and dry mouth; Denies dysphagia or vertigo Cardiovascular Cardiovascular: Reports cold extremities and dizziness; Denies chest pain or dyspnea Respiratory/Chest Respiratory/Chest: Reports chest tightness; Denies change in mental status, chest congestion, cough, tachypnea or wheezing Gastrointestinal Gastrointestinal: Reports constipation; Denies abdominal pain, belching, nausea or vomiting Genitourinary Genitourinary: Reports low back pain and urinary incontinence; Denies burning urination or dysuria Musculoskeletal Musculoskeletal: Reports difficulty walking, joint stiffness, muscle cramps, muscle weakness and tingling Neurologic Neurologic: Reports abnormal gait, abnormal movements, dizziness, tremor(s) and weakness; Denies behavior changes, confusion, disequilibrium, frequent falls, loss of vision, memory loss or vertigo Psychiatric Psychiatric: Reports abnormal sleep pattern, anhedonia, anxiety, depression, hopelessness, panic attacks and other Details: Has had hallucinations in the past associated with medications. She is not currently having hallucinations. Endocrine Endocrinology: Reports other Details: BP increases with anxiety ; Denies palpitations Hematologic/Lymphatic Hematologic/Lymphatic: Denies easy bleeding or easy bruising Allergic/Immunologic Allergic/Immunologic: Denies eczemia or asthma Vital Signs Vital Signs Vital Signs: 07/24/22 10:11 07/24/22 17:15 07/24/22 20:00 Temperature 98.2 F 98.6 F Temperature Source Temporal Temporal Pulse Rate 80 71 Respiratory Rate 15 16 Respiratory Effort Respiratory Depth Respiratory Pattern Blood Pressure 114/77 104/68 Blood Pressure Mean 89 80 Blood Pressure Source Monitor Monitor Blood Pressure Position Sitting Semi-Fowlers Blood Pressure Location Right Arm Left Arm Pulse Ox 99 100 97 Oxygen Delivery Method Room Air Room Air 07/24/22 20:00 07/25/22 09:20 Temperature 99.1 F Temperature Source Temporal Pulse Rate 71 83 Respiratory Rate 16 18 Respiratory Effort Normal Non-Labored Respiratory Depth Normal Respiratory Pattern Normal Blood Pressure 112/73 Blood Pressure Mean 86 Blood Pressure Source Monitor Blood Pressure Position Sitting Blood Pressure Location Left Arm Pulse Ox 97 98 Oxygen Delivery Method Room Air Room Air Weight Weight: 129 lb Body Mass Index (BMI) 21.4 Physical Exam Const alert, oriented x3 and no apparent distress Constitutional Narrative: she is very engaged in our conversation and is [id number] good eye contact. She has masked facies. Voice is a little weak but, projects fairly well and I have no difficulty understanding her. Having some resting tremors ....this increased when she started feeling anxious. General Appearance: cooperative and well developed HEENT normocephalic and hearing grossly normal bilaterally HEENT Narrative: MM are very dry Head and Scalp: atraumatic Face and Sinus: face symmetric Mouth: No thrush Eyes PERRL, EOMs intact bilaterally, conjunctivae normal and no scleral icterus Eyes Narrative: No mattering of the eyelids/eyelashes. Neck supple Chest Chest: symmetrical chest wall rise Resp normal respiratory effort, normal air movement and clear to auscultation bilaterally Effort and Inspection: able to speak in complete sentences Cardio regular rate, regular rhythm, S1 normal heart sound, S2 normal heart sound, no murmurs, no rub and no gallops Cardio Narrative: No ectopy GI normal to inspection, nondistended, normoactive bowel sounds, soft to palpation and non-tender GI Narrative: No guarding with palpation Extremity normal to inspection, normal capillary refill, no calf tenderness and no pedal edema Skin General Skin Exam: no breakdown Rashes: no rashes Neuro oriented x3, CN's II-XII intact bilaterally and moves all extremities Psych mental status grossly normal, thought process normal and cooperative; Negative for denies hallucinations, denies homicidal ideation or denies suicidal ideation Psych Narrative: Admits to having decreased motivation, apathy, hopelessness, anxiety, trouble staying asleep. Appearance: grossly normal, appropriate and well kempt Attitude: other anxious at times. Activity / Motor Behavior: appropriate eye contact Speech: soft Results Lab / Micro Data Result Diagrams: 07/25/22 05:11 07/25/22 05:11 Labs: Laboratory Results - last 24 hr 07/25/22 05:11: WBC 6.2, RBC 3.90 L, Hgb 12.1, Hct 37.4, MCV 95.9, MCH 31.0, MCHC 32.4, RDW Std Deviation 44.9 H, RDW Coeff of Annie 12.7, Plt Count 213, MPV 12.2 H 07/25/22 05:11: Sodium 138, Potassium 4.5, Chloride 107, Carbon Dioxide 26.0, Anion Gap 5, BUN 35 H, Creatinine 1.02, Estim Creat Clear Calc 50.80, Est GFR (MDRD) Af Amer 70, Est GFR (MDRD) Non-Af 58 L, BUN/Creatinine Ratio 34.3 H, Glucose 98, Calcium 8.5, Phosphorus 4.1, Magnesium 2.3, Total Bilirubin 0.30, AST 22, ALT 25, Alkaline Phosphatase 66, Total Protein 6.7, Albumin 3.3, Globulin 3.4, Albumin/Globulin Ratio 1.0 Assessment & Plan Assessment/Plan (1) Physical debility: (2) Generalized weakness: (3) Parkinson disease: (4) Abnormality of gait: (5) Balance problems: (6) Dyskinesia: (7) Dehydration: (8) Insomnia: (9) Mixed anxiety depressive disorder: (10) Gastroesophageal reflux disease: (11) Hypertension: (12) Hypothyroid: PLAN: On Levothyroxine (13) Chronic ITP (idiopathic thrombocytopenia): PLAN: Not currently thrombocytopenic. (14) Left foot drop: PLAN: Why? (15) Urge urinary incontinence: PLAN: Plan PLAN PT for gait stability OT for ADL's ST for evaluation Analgesics as needed Bowel protocol Fall precautions Assess for Anxiety/Depression GI prophylaxis-not needed at this time, she has no complaints of heartburn, epigastric pain or nausea. IDANIA hose and ambulation.....no hx of VTE and she is more active now than she has been at home Follow up with PCP and neurology following DC from IP Rehab AM lab including CMP, CBC, Mag and Phos personally reviewed Check a TSH and a T4. Start Effexor XR 37.5 mg daily. Start Estrogen vaginal cream for urge incontinence IV NS at 75cc/hr X 3 liters. Check orthostatic VS in the AM Unit Exclusion This patient is an acute care inpatient being housed in the excluded unit because of capacity issues related to the disaster or emergency.: Yes Charges/Coding Visit Charges Inpatient E&M: 76879 Init Hosp L2
--- NOTE | 2022-07-25 10:15 | REHABEVAL_ITS ---
Admission Information Primary Diagnosis:: Physical OD with generalized weakness, inability to ambulate or perform ADLs secondary to Parkinson's disease. Status Changes from Prescreening?: No changes Identified Actual Problem List:: Pain, ALteration in Cmfrt, Cognitve Impr/Memory Loss, Depression (suspected.), Bowel, Constipation, Mobility Impaired, Self Care Deficit, Fluid Change-Dehydration and Alteration-Leisure Activ. Potential Problem List:: DVT, Bleeding, Infection, UTI, Aspiration, Falls, Skin Integrity and Depression Risk of Complications DVT: IDANIA Marvin and - (Heparin 5000 units subcu every 12 hours) Bleeding: Monitor Lab Values, Nursing to Teach Precautions for anti-coagulation therapy., Wound, if applicable, to be assessed every shift. and Stroke patients assessed for lethargy or change in status. Infection: Clinical Staff to Monitor for S/S of infection: and S/S of infection include fever, redness, warmth, etc. Urinary Tract Infection: Monitor for frequency, burning, discomfort, or incontinence. and Nursing will obtain urine sample for urinalysis and C&S when ordered. Aspiration: Clinical staff will monitor for coughing, drooling, congestion., Speech will evaluate swallowing and dsyphasia. and Nursing will monitor patient swallowing during meals. Falls: Patient will be evaluated for Fall Precautions and Patient will be placed on Fall Precautions as indicated per protocol. Skin Breakdown: Nursing will assess skin daily using assessment tool. and Nursing will place on Skin Breakdown Precautions as indicated. Pain: Clinical staff will assess patient's pain level per protocol., Medications will be given, if needed, and the pain level reassessed. and Other methods: Massage, distraction, decrease stimulus, etc. used PRN. Plan of Care Patient requires physician specializing in physical medicine and rehab oversight to provide close medical supervision of rehab issues including: Pain Management, Sleep Problems, Bowel and Bladder, Medical and co-morbidity Management, DVT prophylaxis, Rehabilitation Leadership and Coordination of treatment team Patient needs Physical Therapy: For a minimum of 1 hour and At least 5 out of 7 days Patient needs Physical Therapy to improve:: Mobility, Strengthening, Transfers, Stretching, ROM, Endurance, Stairs, Gait and Balance Patient needs Occupational Therapy: For a minimum of 1 hour and At least 5 out of 7 days Patient needs Occupational Therapy to improve ADL's incl.: Eating, Grooming, Bathing, Dressing, Toileting, Toilet transfers, Community Reintegration, Higher functioning activities, Household tasks, Adaptive Equipment, Splinting and Other activities as determined Patient requires speech therapy: For a minimum of 1 hour and At least 5 out of 7 days Patient requires speech therapy for: Swallowing, Cognition, Language Skills and Compensatory Strategies Patient requires 24/7 Rehabilitation Nursing for: Pain Issues, Identifying and preventing risk factors, Monitoring and reporting current medical conditions, Assisting with ambulation, transfer, and all ADL's, Teaching patients about disease process and medications, Family teaching, Providing safe environment, Bowel and Bladder Issues, Skin integrity and Medication Management Patient needs International Controller/ Case Management for: Discharge Planning, Arranging Home Equipment or Services and Family Interventions Patient needs Dietary and Nutrition Services for: Adequate Nutrition, Nutritional Supplements and Nutritional Education Goals Patient will remain: free from falls and or injury at time of discharge. Patient will perform bed mobility at: MOD I level of assist. Patient will complete transfers from bed to chair at: MOD I level of assist. Patient will ambulate: with LRD and - (150 feet with the least restrictive device on various surfaces at mod I) Patient will complete upper body dressing at: MOD I level of assist. Patient will complete lower body dressing at: MOD I level of assist. Patient will complete toileting at: MOD I level of assist. Patient will perform bathing at: MOD I level of assist. Patient will complete grooming at: MOD I level of assist. Patient will complete home management skills at: MOD I level of assist. Patient will achieve: - (1 curb step with least restrictive device) Patient will have pain level of: of 3 or less Patient's skin will: remain intact Patient will receive: adequate nutrition. Discharge Planning Pt Prognosis for Sig. Practical Improv. w/in Reasonable Time: Good Estimated Length of stay (days): 21 Was Preadmission Assessment Accurate?: Yes
[2022-07-25 11:09] LABS: T4 Free Direct 1.38 ng/dL (0.76-1.46); Thyroid Stim Hormone (TSH) 1.18 uIU/mL (0.358-3.74)
[2022-07-25 11:17] VITALS: BP 119/84; BP 97/55; BP 98/53; PULSE 75; PULSE 77; PULSE 89
[2022-07-25] MEDS: Venlafaxine XR 37.5 MG Capsule PO (12:04)
[2022-07-25 15:15] VITALS: O2SAT 98
[2022-07-25] MEDS: 0.9% Normal Saline 1,000 ML 75 ML IV (15:37)
[2022-07-25] MEDS: Acetaminophen 500 MG Tablet PO (17:04)
[2022-07-25 19:33] VITALS: BP 98/53; PULSE 77; RESP 16; TEMP 37; O2SAT 100
[2022-07-25] MEDS: 0.9% Saline Lock 10 ML Syringe IV (20:35)
[2022-07-25] MEDS: Pramipexole Di-HCl 0.125 MG Tablet PO (21:38)
[2022-07-25] MEDS: Estrogens,Conj. 1 Tube 1 DOSE VAGINAL (21:38)
[2022-07-26] MEDS: 0.9% Normal Saline 1,000 ML 75 ML IV ×2 (05:36→20:07)
[2022-07-26] MEDS: Levothyroxine 100 MCG Tablet PO (05:36)
[2022-07-26] MEDS: Acetaminophen 500 MG Tablet PO ×2 (06:00→19:54)
[2022-07-26 07:14] VITALS: O2SAT 97
[2022-07-26] MEDS: Senna/Docusate Sodium 1 Tablet 2 TABLET PO (07:42)
[2022-07-26] MEDS: Venlafaxine XR 37.5 MG Capsule PO (07:42)
[2022-07-26] MEDS: Carbidopa/Levodopa 25/100 Tablet PO ×3 (07:42→17:18)
[2022-07-26] MEDS: Lisinopril 5 MG Tablet PO (07:43)
[2022-07-26 08:06] VITALS: BP 100/48; PULSE 74; RESP 16; TEMP 37.1; O2SAT 97
[2022-07-26 19:05] VITALS: BP 98/60; PULSE 69; RESP 17; TEMP 36.4; O2SAT 98
[2022-07-26] MEDS: Pramipexole Di-HCl 0.125 MG Tablet PO (21:00)
[2022-07-26] MEDS: Estrogens,Conj. 1 Tube 1 DOSE VAGINAL (21:00)
[2022-07-27] MEDS: Levothyroxine 100 MCG Tablet PO (05:07)
[2022-07-27 07:44] VITALS: BP 98/58; PULSE 78; RESP 12; TEMP 37.4; O2SAT 96
[2022-07-27] MEDS: Lisinopril 5 MG Tablet PO (08:02)
[2022-07-27] MEDS: Carbidopa/Levodopa 25/100 Tablet PO ×3 (08:04→16:45)
[2022-07-27] MEDS: Senna/Docusate Sodium 1 Tablet 2 TABLET PO ×2 (08:05→20:25)
[2022-07-27] MEDS: Venlafaxine XR 37.5 MG Capsule PO (08:05)
[2022-07-27] MEDS: Acetaminophen 500 MG Tablet PO ×2 (13:33→20:24)
--- NOTE | 2022-07-27 15:28 | PN_ITS ---
Subjective Subjective She had a temp of 99.4 this AM. No increased temps prior to this. BP has ranged from 91/50 9-119/84 since admission to rehab. She received 3 liters of IV NS over the weekend. Post void residuals are unremarkable. Nursing reports redness and some swelling at the site of a previous IV. Reviewed the PT and OT notes. Medication list was reviewed. Faith says that the tremors and cramping in her legs she gets at night has resolved with discontinuation of the ropinirole and Transition to Mirapex. She tells me that she is having pain in the trapezius muscles BL and also in the low back. The back pain gets better with stretching. She has a hard time standing up straight when using the FWW and she is bent at the waist. She had a CT of the cervical spine in 2018 that showed pronounced C5-C6 and C6-C7 degenerative disc space narrowing. There was no CT evidence of central canal stenosis or intravertebral neural foraminal stenosis at that time. Has not had thoracic or lumbar XRAYs at [facility]. she is also c/o chills and fatigue and attributes this to Effexor. I explained it is most likely due to 3 hours of therapy daily in a pt who is deconditioned. She denies CP, SOB at rest, palpitations, dysuria and cough. No N/V/abd cramping, diaphoresis. She tells me that her nose bled a little this AM and she has a dry scratchy throat. Objective Data Objective Data Vital Signs: Vital Signs Temp Pulse Resp BP Pulse Ox O2 Del Method 99.4 F H 78 12 98/58 L 96 Room Air 07/27/22 07:44 07/27/22 07:44 07/27/22 07:44 07/27/22 07:44 07/27/22 07:44 07/27/22 07:44 Oxygen Delivery Method Room Air Weight: 129 lb Body Mass Index (BMI) 21.4 Intake & Output: Intake and Output for Last 24 Hours 07/25/22 07/26/22 07/27/22 23:59 23:59 23:59 Intake Total 840 / 840 3360 / 3360 1240 / 1240 Output Total 150 / 150 375 / 375 500 / 500 Balance 690 / 690 2985 / 2985 740 / 740 Lab / Micro Data Result Diagrams: 07/25/22 05:11 07/25/22 05:11 Physical Exam Const alert, oriented x3 and no apparent distress Constitutional Narrative: Sitting in the recliner at the bedside. Appear to be in no acute distress. Having some tremors of her hands. Not classic pill rolling. She has a mild to mod masked faces. General Appearance: cooperative and well developed HEENT normocephalic Eyes PERRL and EOMs intact bilaterally Resp normal respiratory effort, normal air movement and clear to auscultation bilaterally Resp Narrative: No conversational dyspnea. Effort and Inspection: Negative for tachypneic Cardio regular rate, regular rhythm and no gallops GI normal to inspection, nondistended, normoactive bowel sounds, soft to palpation and non-tender GI Narrative: No guarding with palpation. Extremity no calf tenderness Extremity Narrative: She has tightness of the Trapezius muscles and has pain at the helen attachments of the trapezius and this is why she has a RUIZ at the back of her head. The lumbar paravertebral MM are also tight. General Extremity: Negative for edema Skin General Skin Exam: no breakdown Rashes: no rashes Neuro CN's II-XII intact bilaterally and no focal motor deficits Neuro Narrative: she has rigidity of muscles and tremors and also masked facies. She tends to somaticize and attributes muscle tightness to the new medicine she is taking. she has not had her dose of Carbidopa/Levodopa changed for a long time and she is willing to try increasing the dose. She is talkative and appropriate. Does not seem to be depressed to a significant degree. Psych Psych Narrative: anxious, making good eye contact. Sleeping well at night and denies hallucinati ons. Assessment & Plan Assessment/Plan (1) Physical debility: PLAN: Continue therapy. She is making progress. She is afraid to walk upright because she feels as though she is going to lose her balance. (2) Generalized weakness: PLAN: Very deconditioned. She is currently only on 5 mg of lisinopril today and her systolic blood pressure is in the 90s. She was taking 20 mg daily at home and was too weak to even stand up from a chair. Will decrease the dose to 2.5 mg daily and hold the dose if the systolic is less than 105. We will check orthostatic vital signs today. (3) Parkinson disease: PLAN: Still with rigidity and tremors. Will try increasing the AM dose of the Carbidopa/Levodopa to 100 mg/25 mg and see how it goes. Continue the Mirapex at night.....she is no longer getting the tremors and nightmares since she was changed to Mirapex that she was having at home. (4) Hypertension: PLAN: Continue to monitor at different times of the day. (5) Balance problems: (6) Dehydration: PLAN: Recheck a BMP in the AM....MM are still very dry. (7) Mixed anxiety depressive disorder: PLAN: COntinue Effexor XR 37.5 mg in the AM (8) Abnormality of gait: (9) Urge urinary incontinence: PLAN: UA was negative for infection in the hospital. OAB? Will have her follow up with Dr. Nova post NE. (10) Muscle tightness: PLAN: Arthritis compounded cream ordered BID. Will also schedule Tylenol every 8 H since it helps with her pain. Charges/Coding Visit Charges Inpatient E&M: 71957 Subs Hosp L2
[2022-07-27 15:31] VITALS: BP 125/82; BP 126/78; BP 138/90; PULSE 76; PULSE 78; PULSE 82
--- NOTE | 2022-07-27 17:54 | CASEMGMT ---
Social Work See attached assessment for complete details. Met with patient in room. Introduced self and social services manager role. Patient agreeable to speak with this social services manager. Patient plans to discharge to home with patient son. This social services manager educated patient on insurance benefits and next insurance update being due on 08/06/2022 with no guarantee of continued stay approval, patient voiced understanding. Patient to have team meeting in and reports that main contact lens polisher for patient is patient sister, Sarah. Social work to continue to follow. Светлана LEW, STUART
--- NOTE | 2022-07-27 17:57 | CASEMGMT ---
Social work Patient with high PHQ-9 score of 10/27 - Moderate depression on admission. Patient states to attribute depression to medical issues. This psychiatric social worker supervisor provided active listening and support. Patient reports to have been recently started on an antidepressant and hopeful that this will assist patient in managing mental health. Patient denies suicidal thoughts, plans, intents or history of. Patient aware of social work services and that social work will continue to follow up with patient throughout patient stay. Social Work to continue to follow. Светлана LEW, STUART
[2022-07-27 19:42] VITALS: BP 97/56; PULSE 80; RESP 16; TEMP 37.2; O2SAT 99
[2022-07-27] MEDS: Arthritis Pain Compound 60 CLICK TUBE TOPICAL (20:24)
[2022-07-27] MEDS: Pramipexole Di-HCl 0.125 MG Tablet PO (20:25)
[2022-07-27] MEDS: Estrogens,Conj. 1 Tube 1 DOSE VAGINAL (20:25)
[2022-07-27 20:37] VITALS: BP 92/54; PULSE 71
[2022-07-28] MEDS: Levothyroxine 100 MCG Tablet PO (05:31)
[2022-07-28] MEDS: Acetaminophen 500 MG Tablet PO ×3 (05:31→20:42)
[2022-07-28 05:40] VITALS: BP 94/49; PULSE 68; RESP 18; TEMP 36.8; O2SAT 96
[2022-07-28 06:07] LABS: Erythrocyte Sedimentation Rate 3 mm/hr (0-30)
[2022-07-28 06:09] LABS: Hematocrit 35.2 % (37-47); Hemoglobin 11.7 g/dL (12.0-15.0)
[2022-07-28 06:32] LABS: Anion Gap 6 (5-15); BUN 21 mg/dL (7-18); BUN/Creat Ratio 32.6 RATIO (10-20); Calcium,Total 8.9 mg/dL (8.5-10.1); Chloride 108 mmol/L (98-107); Creatinine, Serum 0.64 mg/dL (0.55-1.02); EST Glomerular Filtration Rate 99 mL/min (>60); Est Glom Filt Rate - Afr Amer 119 mL/min (>60); Estimated Creatinine Clearance 80.96 ml/min; Glucose 99 mg/dL (74-106); Potassium 3.8 mmol/L (3.5-5.1); Sodium Level 139 mmol/L (136-145)
[2022-07-28 07:27] VITALS: BP 98/60; PULSE 69; RESP 16; TEMP 36.8; O2SAT 97
[2022-07-28] MEDS: Carbidopa/Levodopa 25/100 Tablet PO ×3 (08:15→17:13)
[2022-07-28] MEDS: Venlafaxine XR 37.5 MG Capsule PO (08:15)
[2022-07-28] MEDS: Arthritis Pain Compound 60 CLICK TUBE TOPICAL ×2 (08:15→20:42)
[2022-07-28] MEDS: Senna/Docusate Sodium 1 Tablet 2 TABLET PO ×2 (08:16→20:42)
[2022-07-28] MEDS: Lisinopril 2.5 MG Tablet PO (08:16)
--- NOTE | 2022-07-28 13:39 | PN_ITS ---
Subjective Subjective Afebrile VSS - Lisinopril held today due to the systolic being < 105. Maintaining appropriate oxygen saturation on RA Oral intake is good. Discussed with nursing - no problems that need addressed Reviewed the PT/OT/ST notes - she was able to stand up straight at the parallel bars today but, then she had a back spasm and she had to sit sophie,. Medication list reviewed. Faith tells me the arthritis cream has helped with the pain in the shoulders and the low back. She is having less tremors with the increase in the Carbidopa/levodopa today. Still with some muscle rigidity. she is complaining of an occipital HE again today and I explained once again that the RUIZ is due to tight trapezius muscles secondary to muscle strain from OT/PT.......she has not exercised these muscles in a long time. She tells me she slept very well last night and awoke rested today. She denies chest pain, shortness of breath, lightheadedness, discharge. Lab was personally reviewed.Hemoglobin is down to 5.7 from 13.2 on 07/24/2022 but I suspect this is secondary to better hydration.The BUN is down from 35-21 and her creatinine today is 0.64 which is within her baseline. This is down from 1.06 on 07/24/2022.ESR is 3. Objective Data Objective Data Vital Signs: Vital Signs Temp Pulse Resp BP Pulse Ox O2 Del Method 98.2 F 69 16 98/60 97 Room Air 07/28/22 07:27 07/28/22 07:27 07/28/22 07:27 07/28/22 07:27 07/28/22 07:27 07/28/22 07:27 Oxygen Delivery Method Room Air Weight: 129 lb Body Mass Index (BMI) 21.4 Intake & Output: Intake and Output for Last 24 Hours 07/26/22 07/27/22 07/28/22 23:59 23:59 23:59 Intake Total 3360 / 3360 1490 / 1490 510 / 510 Output Total 375 / 375 500 / 500 Balance 2985 / 2985 990 / 990 510 / 510 Lab / Micro Data Result Diagrams: 07/28/22 05:52 07/28/22 05:52 Labs: Laboratory Results - last 24 hr 07/28/22 05:52: Hgb 11.7 L, Hct 35.2 L, ESR 3 07/28/22 05:52: Sodium 139, Potassium 3.8, Chloride 108 H, Carbon Dioxide 25.0, Anion Gap 6, BUN 21 H, Creatinine 0.64, Estim Creat Clear Calc 80.96, Est GFR (MDRD) Af Amer 119, Est GFR (MDRD) Non-Af 99, BUN/Creatinine Ratio 32.6 H, Glucose 99, Calcium 8.9 Physical Exam Const alert Constitutional Narrative: Less tremors today. Pleasant and appears in no distress. Talkative and smilin g. Cooperative with therapy and tries everything that is asked of her. Resp normal respiratory effort, normal air movement and clear to auscultation bilaterally Cardio regular rate, regular rhythm and no gallops GI normal to inspection, nondistended, normoactive bowel sounds, soft to palpation and non-tender Extremity no calf tenderness Extremity Narrative: she is having trapezius spasms and the muscles are tender to the touch. She is also having spasms of the paravertebral muscles of the lumbar spine. General Extremity: Negative for edema Skin General Skin Exam: no breakdown Rashes: no rashes Wounds: Negative for wounds noted Assessment & Plan Assessment/Plan (1) Physical debility: PLAN: Continue therapy (2) Parkinson disease: PLAN: Tolerating the increase in the dose of the carbidopa/levodopa in the AM.....will continue to give the whole tablet in the AM and continue to observe throughout the day......if no problems with the increased dose after a few days will increase the afternoon dose to a whole tablet for increased tremors and stiffness. (3) Generalized weakness: PLAN: Getting stronger. (4) Balance problems: (5) Insomnia: PLAN: not longer having trouble with sleep. (6) Mixed anxiety depressive disorder: PLAN: Continue the Effexor XR. (7) Urge urinary incontinence: PLAN: Hopefully will improve with the addition of the estrogen cream to her drug regimen. (8) Dehydration: PLAN: She is drinking more than she did and the creat has come down. (9) Muscle spasm of back: PLAN: Add Flexeril 5 mg TID PRN muscle spasm. Charges/Coding Visit Charges Inpatient E&M: 64711 Subs Hosp L2
[2022-07-28 14:00] VITALS: BP 95/56; PULSE 71; RESP 16; TEMP 36.7; O2SAT 100
--- NOTE | 2022-07-28 14:05 | RAD_ITS ---
EXAM: XR LUMBOSACRAL SPINE COMPLETE WITH FLEXION/EXTENSION, 6 OR MORE VIEWS CLINICAL INDICATION: pain and muscle spasm TECHNIQUE: Lateral, frontal, oblique and lateral flexion/extension views of the lumbar spine and sacrum. This report was created using [employer] report Optensity technology. COMPARISON: None. FINDINGS: VERTEBRAE: Diffuse facet arthropathy. No significant lino or retrolisthesis in neutral, flexed or extended position. Preserved vertebral body height. No fracture. No spondylolisthesis. Preservation of the normal lumbar lordosis. DISC SPACES: Degenerative changes of the intervertebral discs. GASTROINTESTINAL TRACT: Unremarkable as visualized. Included bowel gas pattern is non-obstructive. RAD/L/S Spine Comp/w Bending Views IMPRESSION: 1. No acute injuries identified involving the cervical spine. 2. Degenerative changes. Electronically Signed: Balwinder Harding MD at 0:21 EST ,
--- NOTE | 2022-07-28 16:04 | CHAPLAIN ---
Type of Pastoral Visit _x__ Initial Visit ___ Follow-up Visit ___ On-call Visit ___ General Patient Visit ___ Spiritual Assessment ___ Family Conference ___ Bereavement ___ Rapid Response ___ Code Blue ___ Other (describe below) Pastoral Care Referral From _x__ Patient ___ Family ___ Nurse ___ Physician ___ Axle Turner ___ Local [employer] ___ Other (describe below) Sacrament/Intervention _x__ Active listening ___ Anointing ___ Caodaism ___ Bereavement ___ Communion ___ Gabriela exploration ___ ___ Life review _x__ Prayer ___ Reconciliation ___ Sacrament of Sick _x__ Supportive presence ___ Wedding ___ Other (describe below) Pastoral Comments previously met this patient on [facility] and this is a follow up; pt is welcoming; pt expresses being tired from the therapy sessions but also states that I am more optimistic now than before and I feel better since the DR is giving me some medication for anxiety and changing my BP meds; pt welcomes the visit and a prayer for her support today
[2022-07-28 20:30] VITALS: BP 101/63; PULSE 68; RESP 18; TEMP 36.6; O2SAT 99
[2022-07-28] MEDS: Estrogens,Conj. 1 Tube 1 DOSE VAGINAL (20:41)
[2022-07-28] MEDS: Pramipexole Di-HCl 0.125 MG Tablet PO (20:42)
[2022-07-28 20:45] VITALS: O2SAT 98
[2022-07-29 05:12] VITALS: BP 100/60; PULSE 73; RESP 16; TEMP 36.7; O2SAT 96
[2022-07-29] MEDS: Acetaminophen 500 MG Tablet PO ×3 (05:13→20:07)
[2022-07-29] MEDS: Levothyroxine 100 MCG Tablet PO (05:13)
[2022-07-29] MEDS: Arthritis Pain Compound 60 CLICK TUBE TOPICAL ×3 (06:20→20:08)
[2022-07-29] MEDS: Carbidopa/Levodopa 25/100 Tablet PO ×3 (08:07→17:10)
[2022-07-29] MEDS: Venlafaxine XR 37.5 MG Capsule PO (08:07)
[2022-07-29] MEDS: Senna/Docusate Sodium 1 Tablet 2 TABLET PO (08:07)
[2022-07-29] MEDS: Lisinopril 2.5 MG Tablet PO (08:08)
[2022-07-29 09:00] VITALS: BP 120/70; PULSE 75; RESP 16; TEMP 36.8; O2SAT 95
[2022-07-29 14:00] VITALS: BP 103/62; PULSE 70; RESP 16; TEMP 36.7; O2SAT 95
[2022-07-29] MEDS: Pramipexole Di-HCl 0.125 MG Tablet PO (20:08)
[2022-07-29] MEDS: Estrogens,Conj. 1 Tube 1 DOSE VAGINAL (20:09)
[2022-07-29 21:10] VITALS: BP 102/64; PULSE 66; RESP 17; TEMP 36.6; O2SAT 98
[2022-07-30 05:00] VITALS: BP 105/62; PULSE 71; RESP 17; TEMP 37.1; O2SAT 96
[2022-07-30] MEDS: Acetaminophen 500 MG Tablet PO ×3 (05:40→21:06)
[2022-07-30] MEDS: Arthritis Pain Compound 60 CLICK TUBE TOPICAL ×3 (05:41→21:00)
[2022-07-30] MEDS: Levothyroxine 100 MCG Tablet PO (05:42)
[2022-07-30] MEDS: Lisinopril 2.5 MG Tablet PO (09:19)
[2022-07-30] MEDS: Carbidopa/Levodopa 25/100 Tablet PO ×3 (09:19→16:54)
[2022-07-30] MEDS: Venlafaxine XR 37.5 MG Capsule PO (09:19)
--- NOTE | 2022-07-30 12:45 | CASEMGMT ---
Social Work IDT met with patient and sister via conference call for Team meeting. Discussed patient's progress in PT/OT/ST/SN. Educated to [facility] [place] [facility] with [employer] 08/06 and continued stay is not guaranteed with each review. Pts goal is to return home with son and continuing with [employer] services. Cautioned insurance may issue DC for 08/07 as pt is making good progress. IDT recommending outpatient therapy at [facility] for PT/ST. Pt questioned about transportation. SW educated to [facility]. Pt agreeable. Educated to Parkinson's classes and support group at [facility]. Pt interested. SW provided resources for [facility] and Parkinson's groups. Pt appreciative. SW to continue to follow for DC planning. Kina Ortiz, ELECTRIC TRANSFER OPERATOR SENIOR MANAGEMENT CONSULTANT
[2022-07-30] MEDS: Naproxen 375 MG Tablet PO (16:55)
--- NOTE | 2022-07-30 18:58 | PN_ITS ---
Subjective Subjective Faith was seen on team rounds today. Her Sister Sarah participated by phone. Afebrile VSS-blood pressures have improved and have ranged from 100/60 to 120/70 for the past 2 days with the decrease in the Lisinopril dose to 2.5 mg daily. Maintaining appropriate oxygen saturation on RA Oral intake is good. She is eating 75 to 100% of her meals. Discussed with nursing - no problems that need addressed Reviewed the PT/OT/ST notes - Cognition is good and the ST is now addressing voice quality. Medication list reviewed. Low dose Flexeril was added to the drug regimen on Wednesday but, she has not requested this medication yet. She continues to c/o low back pain. Johanny tells me that now that we have increased the carbidopa/levodopa to 1 whole tablet of 100/25 in the AM that she is less stiff and he is ready to go when therapy comes to get her. I have noticed that she has less tremors in the mor nings also. No dyskinesia. She tells me that she awakens at night with tremors......may need to add a bedtime dose. She denies trouble swallowing, CP, SOB, palpitations, n/v/abd pain, burning with urination, calf pain. She is eating better at the hospital than she does at home. She receives Meals on Wheels at home. She is very motivated to get stronger so that she can continue to do more for herself at home and she is agreeable to attending the exercise program at [facility] for patients with PD. She was made aware that the hospital van can pick her up for class and then drop her back home when she is done. The LS spine XRAYS showed normal lumbar curve and no subluxation with flexion or extension. There is facet arthropathy and DDD and the disc space between L5-S1 is very narrow and it looks and though she may have an anterior spur. She denies any hx of PUD/GI bleed and also denies epigastric pain, N/V. Objective Data Objective Data Vital Signs: Vital Signs Temp Pulse Resp BP Pulse Ox O2 Del Method 98.7 F 71 17 105/62 96 Room Air 07/30/22 05:00 07/30/22 05:00 07/30/22 05:00 07/30/22 05:00 07/30/22 05:00 07/30/22 05:00 Oxygen Delivery Method Room Air Weight: 129 lb Body Mass Index (BMI) 21.4 Intake & Output: Intake and Output for Last 24 Hours 07/28/22 07/29/22 07/30/22 23:59 23:59 23:59 Intake Total 510 / 510 120 / 120 1280 / 1280 Output Total 600 / 600 Balance 510 / 510 120 / 120 680 / 680 Lab / Micro Data Result Diagrams: 07/28/22 05:52 07/28/22 05:52 Radiography Diagnostic Testing: Radiology Impression Lumbar Spine X-Ray 07/28/22 14:05 IMPRESSION: 1. No acute injuries identified involving the cervical spine. 2. Degenerative changes. Electronically Signed: Balwinder Harding MD at 0:21 EST , Physical Exam Const alert, oriented x3 and no apparent distress Resp normal respiratory effort, normal air movement and clear to auscultation bilaterally Cardio regular rate, regular rhythm and no gallops GI normal to inspection, nondistended, normoactive bowel sounds, soft to palpation and non-tender Extremity no calf tenderness General Extremity: Negative for edema Skin General Skin Exam: no breakdown Rashes: no rashes Assessment & Plan Assessment/Plan (1) Physical debility: (2) Generalized weakness: PLAN: Making good progress in therapy. (3) Parkinson disease: PLAN: Increase the dose of carbidopa/levodopa to 100/25 mg 3 times daily ....if she continues to be awakened at night with Tremors will add an HS dose. (4) Balance problems: (5) Abnormality of gait: (6) Chronic back pain: PLAN: Start a NSAID. Naprosyn 375 mg BID with food. Continue the arthritic compounded cream. (7) Facet arthropathy, lumbar: (8) Degenerative disc disease, lumbar: PLAN: Nahun prominent at L5-S1 (9) Dehydration: PLAN: Recheck a BMP on Wednesday. she is drinking more fluids. (10) Insomnia: PLAN: resolved (11) Mixed anxiety depressive disorder: PLAN: Tolerating Effexor at 37.5 mg with no adverse reactions. (12) Urge urinary incontinence: PLAN: Will see how she tolerates the changes in the medications listed above. If after a few days she is still having urge incontinence will consider a trial of Myrbetriq. Charges/Coding Visit Charges Inpatient E&M: 25711 Subs Hosp L2
[2022-07-30] MEDS: Pramipexole Di-HCl 0.125 MG Tablet PO (21:02)
[2022-07-30] MEDS: Estrogens,Conj. 1 Tube 1 DOSE VAGINAL (21:03)
[2022-07-30] MEDS: Senna/Docusate Sodium 1 Tablet 2 TABLET PO (21:04)
[2022-07-30 22:00] VITALS: BP 110/62; PULSE 69; RESP 18; TEMP 37.2; O2SAT 98
[2022-07-31] MEDS: Arthritis Pain Compound 60 CLICK TUBE TOPICAL ×3 (05:41→21:28)
[2022-07-31] MEDS: Levothyroxine 100 MCG Tablet PO (05:41)
[2022-07-31] MEDS: Carbidopa/Levodopa 25/100 Tablet PO ×3 (05:42→16:02)
[2022-07-31] MEDS: Acetaminophen 500 MG Tablet PO ×3 (05:47→21:26)
[2022-07-31 07:54] VITALS: BP 100/56; PULSE 68; RESP 16; TEMP 37; O2SAT 97
[2022-07-31] MEDS: Venlafaxine XR 37.5 MG Capsule PO (08:20)
[2022-07-31] MEDS: Naproxen 375 MG Tablet PO ×2 (08:20→17:33)
[2022-07-31] MEDS: Lisinopril 2.5 MG Tablet PO (08:21)
[2022-07-31] MEDS: Senna/Docusate Sodium 1 Tablet 2 TABLET PO ×2 (08:21→21:26)
[2022-07-31 19:28] VITALS: BP 92/61; PULSE 73; RESP 18; TEMP 37.3; O2SAT 98
[2022-07-31] MEDS: Pramipexole Di-HCl 0.125 MG Tablet PO (21:26)
[2022-07-31] MEDS: Estrogens,Conj. 1 Tube 1 DOSE VAGINAL (21:27)
[2022-08-01] MEDS: Acetaminophen 500 MG Tablet PO ×3 (05:56→20:49)
[2022-08-01] MEDS: Carbidopa/Levodopa 25/100 Tablet PO ×3 (05:56→16:36)
[2022-08-01] MEDS: Levothyroxine 100 MCG Tablet PO (05:57)
[2022-08-01] MEDS: Arthritis Pain Compound 60 CLICK TUBE TOPICAL ×3 (05:57→20:42)
[2022-08-01] MEDS: Naproxen 375 MG Tablet PO ×2 (07:45→16:36)
[2022-08-01] MEDS: Venlafaxine XR 37.5 MG Capsule PO (07:46)
[2022-08-01] MEDS: Lisinopril 2.5 MG Tablet PO (07:46)
[2022-08-01] MEDS: Senna/Docusate Sodium 1 Tablet 2 TABLET PO ×2 (07:46→20:43)
[2022-08-01 08:34] VITALS: BP 99/57; PULSE 70; RESP 16; TEMP 37; O2SAT 98
[2022-08-01] MEDS: Pramipexole Di-HCl 0.125 MG Tablet PO (20:43)
[2022-08-01 21:17] VITALS: BP 92/50; PULSE 70; RESP 16; TEMP 37.2; O2SAT 99
[2022-08-02] MEDS: Acetaminophen 500 MG Tablet PO ×3 (05:24→21:20)
[2022-08-02] MEDS: Carbidopa/Levodopa 25/100 Tablet PO ×3 (05:24→16:15)
[2022-08-02] MEDS: Levothyroxine 100 MCG Tablet PO (05:24)
[2022-08-02] MEDS: Arthritis Pain Compound 60 CLICK TUBE TOPICAL ×3 (05:25→21:20)
[2022-08-02] MEDS: Venlafaxine XR 37.5 MG Capsule PO (08:00)
[2022-08-02] MEDS: Senna/Docusate Sodium 1 Tablet 2 TABLET PO (08:00)
[2022-08-02] MEDS: Lisinopril 2.5 MG Tablet PO (08:01)
[2022-08-02] MEDS: Naproxen 375 MG Tablet PO ×2 (08:01→16:15)
[2022-08-02 08:34] VITALS: BP 100/56; PULSE 69; RESP 16; TEMP 36.6; O2SAT 96
--- NOTE | 2022-08-02 12:11 | PCM.PROGNOTE ---
Subjective Subjective Afebrile VSS - BP still on the low side even though the Lisinopril has been decreased from 20 mg daily to 2.5 mg daily Maintaining appropriate oxygen saturation on RA Oral intake is good Discussed with nursing - no problems that need addressed Reviewed the PT/OT/ST notes Medication list reviewed. She stated she has been sleeping well until last night. Last night she states she was up going to the BR. she is having urge incontinence.She had 1 week of Estrogen cream daily and is now on twice a week. She attributes this to a new medication but, the problem existed prior to this admission. The UA she had on 07/23 grew mixed GM neg and GM+ organisms. She tells me that she hardly has any tremors during the day now and only mild tremors at night. Not c/o dyskinesia. denies burning with urination and also denies CP, SOB, calf pain. She tells me her back is feeling better since the Naprosyn was added to the drug regimen. Objective Data Objective Data Vital Signs: Vital Signs Temp Pulse Resp BP Pulse Ox O2 Del Method 97.9 F 69 16 100/56 L 96 Room Air 08/02/22 08:34 08/02/22 08:34 08/02/22 08:34 08/02/22 08:34 08/02/22 08:34 08/02/22 08:34 Oxygen Delivery Method Room Air Weight: 133 lb 6.075 oz Body Mass Index (BMI) 21.4 Intake & Output: Intake and Output for Last 24 Hours 07/31/22 08/01/22 08/02/22 23:59 23:59 23:59 Intake Total 1720 / 1720 360 / 360 Output Total 1350 / 1350 200 / 200 Balance 370 / 370 160 / 160 Lab / Micro Data Result Diagrams: 07/28/22 05:52 07/28/22 05:52 Assessment & Plan Assessment/Plan (1) Debility: (2) Generalized weakness: (3) Parkinson disease: (4) Hypotension: (5) Urge urinary incontinence: (6) Mixed anxiety depressive disorder: PLAN: Plan 1. straight cath and send the urine for UA. 2. If no UTI consider trial of Ditropan or Myrbetriq 3. Continue therapy 4. DC Lisinopril 5. BMP and CBC in the AM Charges/Coding Visit Charges Inpatient E&M: 16342 Subs Hosp L2
[2022-08-02 16:25] LABS: Bacteria 0 SEEN /hpf (None Seen); Mucous, Urine 0 SEEN /hpf (<or=2+)
[2022-08-02 16:35] LABS: Color, Urine Yellow (Yellow); Urine Clarity Sl Cloudy (Clear)
[2022-08-02 16:36] LABS: Glucose, Dipstick Normal (Normal); Ketone-Dipstick 5 mg/dl (Negative); Leukocyte Esterase-Dipstick 100 /ul (Negative); Nitrite-Dipstick Negative (Negative); Occult Blood-Urine 150 /ul (Negative); Protein-Dipstick 30 mg/dl (Negative); Specific Gravity, Urine 1.015 (1.002-1.030); Urine Bilirubin Dipstick Negative (Negative); Urine Urobilinogen Normal (Normal)
[2022-08-02 16:41] LABS: Amorphous Sediment 1+ URATE; Red Blood Cells-Urine 10-25 SEEN /hpf (0-5); Squamous Epithelial Cells - UA 0-5 SEEN /hpf (5-10); White Blood Cells 10-25 SEEN /hpf (0-5)
[2022-08-02 19:54] VITALS: BP 90/53; PULSE 71; RESP 16; TEMP 36.6; O2SAT 98
[2022-08-02] MEDS: Pramipexole Di-HCl 0.125 MG Tablet PO (21:20)
[2022-08-03] MEDS: Levothyroxine 100 MCG Tablet PO (05:38)
[2022-08-03] MEDS: Acetaminophen 500 MG Tablet PO ×3 (05:38→20:43)
[2022-08-03] MEDS: Carbidopa/Levodopa 25/100 Tablet PO ×3 (05:38→16:19)
[2022-08-03] MEDS: Arthritis Pain Compound 60 CLICK TUBE TOPICAL ×3 (05:39→20:48)
[2022-08-03 05:51] LABS: Hematocrit 37.3 % (37-47); Hemoglobin 12.4 g/dL (12.0-15.0); Mean Corp Hgb Conc 33.2 g/dL (32-36); Mean Corpuscular Hgb 32.3 pg (27.0-32.0); Mean Corpuscular Volume 97.1 fL (81-99); Mean Platelet Vol. 11.7 fl (6.2-12.0); Platelet Count 232 K/mm3 (150-450); RBC Distribution Width CV 13.2 % (11.6-14.6); RBC Distribution Width SD 47.2 fl (35.1-43.9); Red Blood Count 3.84 M/mm3 (4.2-5.4); White Blood Count 5.8 K/mm3 (4.4-11.0)
[2022-08-03 06:28] LABS: Anion Gap 4 (5-15); BUN 23 mg/dL (7-18); BUN/Creat Ratio 34.5 RATIO (10-20); Calcium,Total 8.8 mg/dL (8.5-10.1); Chloride 109 mmol/L (98-107); Creatinine, Serum 0.67 mg/dL (0.55-1.02); EST Glomerular Filtration Rate 95 mL/min (>60); Est Glom Filt Rate - Afr Amer 115 mL/min (>60); Estimated Creatinine Clearance 77.34 ml/min; Glucose 95 mg/dL (74-106); Sodium Level 141 mmol/L (136-145)
[2022-08-03 07:23] VITALS: BP 111/70; PULSE 65; RESP 16; TEMP 36.9; O2SAT 99
[2022-08-03] MEDS: Senna/Docusate Sodium 1 Tablet 2 TABLET PO ×2 (08:05→20:43)
[2022-08-03] MEDS: Venlafaxine XR 37.5 MG Capsule PO (08:05)
[2022-08-03] MEDS: Naproxen 375 MG Tablet PO ×2 (08:05→16:19)
--- NOTE | 2022-08-03 12:21 | PCM.PROGNOTE ---
Subjective Subjective Afebrile VSS Maintaining appropriate oxygen saturation on RA Oral intake is not being accurately recorded. Patient tells me she drinks at least 1 large cup (800 cc) of water daily. Discussed with nursing - no problems that need addressed Reviewed the PT/OT/ST notes Medication list reviewed. All lab was personally reviewed. Hemoglobin is 12.4 today. Platelets and white blood cell count are within normal limits. The BUN is elevated at 23 and the creatinine is 0.67 which is stable. Urine yesterday had 10-25 WBCs and 10-25 RBCs with +1 urate and no bacteria. Urine culture is pending. she conitnues to complain of urge incontinence and nocturia. She denies dysuria. Faith denies cough, lightheadedness, chest pain, shortness of breath, abdominal pain, nausea, vomiting and abdominal pain. She tells me she has a hard time sleeping at night because she is up to urinate a lot. The nurses say she is sleeping well and they only have her 1-2 times at night. IDANIA hose are in place, Objective Data Objective Data Vital Signs: Vital Signs Temp Pulse Resp BP Pulse Ox O2 Del Method 98.4 F 65 16 111/70 99 Room Air 08/03/22 07:23 08/03/22 07:23 08/03/22 07:23 08/03/22 07:23 08/03/22 07:23 08/03/22 07:23 Oxygen Delivery Method Room Air Weight: 133 lb 6.075 oz Body Mass Index (BMI) 21.4 Intake & Output: Intake and Output for Last 24 Hours 08/01/22 08/02/22 08/03/22 23:59 23:59 23:59 Intake Total 1720 / 1720 760 / 760 360 / 360 Output Total 1350 / 1350 500 / 500 200 / 200 Balance 370 / 370 260 / 260 160 / 160 Lab / Micro Data Result Diagrams: 08/03/22 05:32 08/03/22 05:32 Labs: Laboratory Results - last 24 hr 08/02/22 16:00: Urine Color Yellow, Urine Clarity Sl Cloudy, Urine pH 5.0, Ur Specific [place] 1.015, Urine Protein 30 H, Urine Glucose (UA) Normal, Urine Ketones 5 H, Urine Occult Blood 150 H, Urine Nitrite Negative, Urine Bilirubin Negative, Urine Urobilinogen Normal, Ur Leukocyte Esterase 100 H, Urine RBC 10-25 SEEN, Urine WBC 10-25 SEEN, Ur Squamous Epith Cells 0-5 SEEN, Amorphous Sediment 1+ URATE, Urine Bacteria 0 SEEN, Urine Mucus 0 SEEN 08/03/22 05:32: WBC 5.8, RBC 3.84 L, Hgb 12.4, Hct 37.3, MCV 97.1, MCH 32.3 H, MCHC 33.2, RDW Std Deviation 47.2 H, RDW Coeff of Annie 13.2, Plt Count 232, MPV 11.7 08/03/22 05:32: Sodium 141, Potassium 4.0, Chloride 109 H, Carbon Dioxide 28.0, Anion Gap 4 L, BUN 23 H, Creatinine 0.67, Estim Creat Clear Calc 77.34, Est GFR (MDRD) Af Amer 115, Est GFR (MDRD) Non-Af 95, BUN/Creatinine Ratio 34.5 H, Glucose 95, Calcium 8.8 Physical Exam Const alert General Appearance: cooperative HEENT Mouth: dry mucous membranes Resp clear to auscultation bilaterally Cardio regular rate and regular rhythm GI normal to inspection, nondistended, normoactive bowel sounds, soft to palpation and non-tender Extremity no calf tenderness Skin General Skin Exam: no breakdown Rashes: no rashes Assessment & Plan Assessment/Plan (1) Physical debility: (2) Generalized weakness: (3) Parkinson disease: (4) Hypotension: (5) Chronic back pain: (6) Insomnia: (7) Dehydration: (8) Balance problems: PLAN: Plan 1. Continue therapy 2. Plan DC for Wednesday - home with OP therapy or HHC? Pt is still in the process of deciding what she wants. 3. Await the results of the urine culture to make a decision about antibiotics 4. Continue estrogen 5. Consider a trial of Ditropan at at bedtime to see if her complaints of nocturia decrease although I am not sure she is even having nocturia because there is a discrepancy between what Faith tells me and what the night nurses tell me. 6. I think she may benefit from some psychotherapy as an outpatient. She has many somatic complaints, she is anxious and she blames how she is feeling on side effects of new meds with regularity even though the medications are not known to cause the complaints she has. Charges/Coding Visit Charges Inpatient E&M: 08862 Subs Hosp L2
[2022-08-03 13:13] LABS: Uric Acid 5.1 mg/dL (2.6-6.0)
--- NOTE | 2022-08-03 14:22 | CASEMGMT ---
Addendum entered by Kina Ortiz 08/05/22 10:10: [facility] can accept pt with SOC 08/10. Notified pt. Left message with [employer] CM to notify of DC and request to start services. Addendum entered by Kina Ortiz 08/04/22 10:08: SW followed up on all 4 [facility] agencies to determine acceptance. Will continue to follow. Original Note: Social Work Collaborated with IDT and discussed setting DC date for pt. IDT in agreement for DC 08/07. SW spoke with pt and pt excited and agreeable to DC. Pt requesting HHC vs OP therapy r/t the upcoming weather and not wanting to go out of the house. No DME needs. Provided [facility] Van resources and [employer], support group resources. D/t pt's insurance, SW made referral to several [facility] agencies and will present options to pt to choose. Plan: DC home 08/07, [facility] PT/OT/[facility]
[2022-08-03 20:00] VITALS: BP 98/42; PULSE 73; RESP 14; TEMP 36.9; O2SAT 99
[2022-08-03 20:15] VITALS: O2SAT 99
[2022-08-03] MEDS: Pramipexole Di-HCl 0.125 MG Tablet PO (20:43)
[2022-08-03] MEDS: Estrogens,Conj. 1 Tube 1 DOSE VAGINAL (20:45)
[2022-08-04] MEDS: Acetaminophen 500 MG Tablet PO ×3 (04:35→22:30)
[2022-08-04] MEDS: Arthritis Pain Compound 60 CLICK TUBE TOPICAL ×3 (04:35→22:31)
[2022-08-04] MEDS: Levothyroxine 100 MCG Tablet PO (04:35)
[2022-08-04] MEDS: Carbidopa/Levodopa 25/100 Tablet PO ×3 (06:08→16:29)
[2022-08-04 07:36] VITALS: BP 104/55; PULSE 69; RESP 16; TEMP 37.2; O2SAT 97
[2022-08-04] MEDS: Naproxen 375 MG Tablet PO ×2 (08:57→16:29)
[2022-08-04] MEDS: Venlafaxine XR 37.5 MG Capsule PO (08:57)
[2022-08-04] MEDS: Senna/Docusate Sodium 1 Tablet 2 TABLET PO ×2 (08:57→22:30)
[2022-08-04 20:17] VITALS: BP 123/77; PULSE 65; RESP 16; TEMP 37.1; O2SAT 97
[2022-08-04] MEDS: Pramipexole Di-HCl 0.125 MG Tablet PO (22:30)
[2022-08-05] MEDS: Acetaminophen 500 MG Tablet PO ×3 (05:25→21:23)
[2022-08-05] MEDS: Carbidopa/Levodopa 25/100 Tablet PO ×3 (05:26→16:07)
[2022-08-05] MEDS: Levothyroxine 100 MCG Tablet PO (05:26)
[2022-08-05] MEDS: Arthritis Pain Compound 60 CLICK TUBE TOPICAL ×3 (07:29→21:24)
[2022-08-05 07:47] VITALS: BP 126/79; PULSE 70; RESP 12; TEMP 37.2; O2SAT 97
[2022-08-05] MEDS: Naproxen 375 MG Tablet PO ×2 (08:00→16:06)
[2022-08-05] MEDS: Venlafaxine XR 37.5 MG Capsule PO (08:00)
--- NOTE | 2022-08-05 13:52 | PN_ITS ---
Subjective Subjective Day 09/05 of Keflex Afebrile VSS-blood pressures are better off lisinopril and the blood pressure this a.m. was 126/79. Heart rate is within normal limits. Maintaining appropriate oxygen saturation on RA Oral intake is good Discussed with nursing - Nursing tells me that Faith is sleeping well at night and not getting up to use the restroom frequently Reviewed the PT/OT/ST notes Medication list reviewed. Urine culture done 08/02/2022 grew less than 1000 colonies of E. coli. It was a straight cath. She is doing well. Her only complaint is urinary frequency and urgency. She was incontinent last night again and this is embarrassing to her. She is sleeping well at night. She tells me that she got up 6 times last night to urinate. No F/C/S. No flank pain and no nausea. She feels much calmer now than she did at admission to rehab. She is gaining more confidence in her ability to do well at home. Still thinking that any new change in how she is feeling is due to medication. Told me today that she is wondering if some medication she was on in the past could have caused the PD. Objective Data Objective Data Vital Signs: Vital Signs Temp Pulse Resp BP Pulse Ox O2 Del Method 98.9 F 70 12 126/79 H 97 Room Air 08/05/22 07:47 08/05/22 07:47 08/05/22 07:47 08/05/22 07:47 08/05/22 07:47 08/05/22 07:47 Oxygen Delivery Method Room Air Weight: 133 lb 6.075 oz Body Mass Index (BMI) 21.4 Intake & Output: Intake and Output for Last 24 Hours 08/03/22 08/04/22 08/05/22 23:59 23:59 23:59 Intake Total 960 / 960 Output Total 1000 / 1000 200 / 200 Balance -40 / -40 -200 / -200 Lab / Micro Data Result Diagrams: 08/03/22 05:32 08/03/22 05:32 Micro: Microbiology 08/02/22 Unknown Urine Catheter - Catheter Urine Culture - Final Escherichia coli Physical Exam Const alert, oriented x3 and no apparent distress General Appearance: cooperative Neck supple Resp normal respiratory effort, normal air movement and clear to auscultation bi laterally Resp Narrative: No conversational dyspnea. Effort and Inspection: able to speak in complete sentences Cardio regular rate, regular rhythm, no murmurs and no gallops GI normal to inspection, nondistended, normoactive bowel sounds, soft to palpation and non-tender GI Narrative: No guarding with palpation. Extremity no calf tenderness Extremity Narrative: Tells me that her back is feeling better. she is able to stand up str General Extremity: Negative for edema Skin General Skin Exam: no breakdown Rashes: no rashes Neuro CN's II-XII intact bilaterally, moves all extremities and no focal motor deficits Assessment & Plan Assessment/Plan (1) Debility: (2) Generalized weakness: (3) Parkinson disease: (4) Hypotension: (5) Urge urinary incontinence: (6) Mixed anxiety depressive disorder: PLAN: Plan 1. Start Keflex since this was a straight cath urine and she has urgency and frequency 2. Start Ditropan 5 mg QHS to help with nocturia 3. Plan DC home for Wednesday and she is good with this. She is looking forward to going home and being with her son. 4. We discussed the need to maintain a regular exercise routine to prevent the decline that happens when patients with PD quit moving. She plans on going to the PD therapy classes at [facility]. Charges/Coding Visit Charges Inpatient E&M: 55210 Subs Hosp L2
[2022-08-05] MEDS: Cephalexin 500 MG Capsule PO ×2 (14:50→21:23)
[2022-08-05 19:47] VITALS: BP 124/71; PULSE 69; RESP 15; TEMP 37; O2SAT 97
[2022-08-05] MEDS: Pramipexole Di-HCl 0.125 MG Tablet PO (21:23)
[2022-08-05] MEDS: Senna/Docusate Sodium 1 Tablet 2 TABLET PO (21:23)
[2022-08-05] MEDS: Oxybutynin 5 MG Tablet PO (21:23)
[2022-08-06] MEDS: Acetaminophen 500 MG Tablet PO ×3 (04:57→21:10)
[2022-08-06] MEDS: Levothyroxine 100 MCG Tablet PO (04:58)
[2022-08-06] MEDS: Carbidopa/Levodopa 25/100 Tablet PO ×3 (04:58→16:21)
[2022-08-06] MEDS: Cephalexin 500 MG Capsule PO ×3 (04:58→21:09)
[2022-08-06] MEDS: Arthritis Pain Compound 60 CLICK TUBE TOPICAL ×3 (06:08→21:08)
[2022-08-06 07:40] VITALS: BP 107/66; PULSE 66; RESP 12; TEMP 37.4; O2SAT 97
[2022-08-06] MEDS: Naproxen 375 MG Tablet PO ×2 (07:45→16:21)
[2022-08-06] MEDS: Venlafaxine XR 37.5 MG Capsule PO (07:45)
[2022-08-06 19:58] VITALS: BP 99/57; PULSE 75; RESP 16; TEMP 36.8; O2SAT 96
[2022-08-06] MEDS: Estrogens,Conj. 1 Tube 1 DOSE VAGINAL (21:08)
[2022-08-06] MEDS: Pramipexole Di-HCl 0.125 MG Tablet PO (21:09)
[2022-08-06] MEDS: Oxybutynin 5 MG Tablet PO (21:09)
[2022-08-06] MEDS: Senna/Docusate Sodium 1 Tablet 2 TABLET PO (21:11)
[2022-08-07] MEDS: Levothyroxine 100 MCG Tablet PO (05:01)
[2022-08-07] MEDS: Carbidopa/Levodopa 25/100 Tablet PO ×2 (05:01→11:04)
[2022-08-07] MEDS: Cephalexin 500 MG Capsule PO (05:01)
[2022-08-07] MEDS: Arthritis Pain Compound 60 CLICK TUBE TOPICAL (05:02)
[2022-08-07] MEDS: Acetaminophen 500 MG Tablet PO (05:06)
[2022-08-07] MEDS: Naproxen 375 MG Tablet PO (07:34)
[2022-08-07] MEDS: Venlafaxine XR 37.5 MG Capsule PO (07:35)
[2022-08-07] MEDS: Senna/Docusate Sodium 1 Tablet 2 TABLET PO (07:38)
[2022-08-07 08:39] VITALS: BP 123/75; PULSE 74; RESP 18; TEMP 36.6; O2SAT 99
--- NOTE | 2022-08-07 10:21 | PCM.DC ---
Discharge Instructions Diet Discharge Diet: - (heart healthy - low fat, low salt.) Activity Discharge Activity: May Not Drive, May Shower and Use Walker Weight Bearing Status: Full weight bearing Dressing / Incision Call your doctor if you observe: Fever of 101 or Higher, Inability to urinate, Inability to have a bowel movement, Shortness of breath, Dizziness, Fainting spells, Swelling in the ankles, Chest pain, Increased palpitations (irregular heartbeat), Calf discomfort and Uncontrolled pain Follow Up Care Please Follow Up With: Lamonte Rolon MD When: 08/14/2022 at 10 AM Test Results: Test results from this visit will be discussed in further detail at your follow-up appointment, if applicable. Pending Tests Upon Discharge: none Discharge Plan Admission Admit Date/Time: 07/24/22 10:00 Primary Reason for Your Visit: Generalized weakness in pt with Parkinson's disease. Attending Provider: Kaylee Blankenship Primary Care Provider: Lamonte Rolon Instructions Patient Instructions: Parkinson Disease Medicine Tips, Parkinson Disease Day to Day, Parkinson Disease Emotions Additional Instructions / Restrictions: 1. I think the low blood pressure had a lot to do with the recent decline in your abilities. You were too weak to exercise properly and you lost muscle. Your blood pressure is normal now and you are on no medications for blood pressure. I recommend you purchase a BP cuff and take your BP at home. Write the numbers down along with the date and time of day and take this record to your family doctor. I believe you get very anxious when you go to the doctor and this increases your BP when you are there and so the doctor increases your medication. Once you are home the BP goes down because you are relaxed and when you take the medication the BP gets too low. 2. As you know Parkinson's disease is a progressive illness and medications have to be adjusted when your symptoms change. this is normal. One thing that really helps to prevent functional decline is regular exercise. There is an exercise program specifically for patients with Parkinson's disease at [facility]. I [id number] you sign up for the program. The hospital van can pick you up at home and drop you at [facility] and then take you home when you are through. It is a free service. 3. Take your medications exactly as instructed and with Parkinson's disease it helps to take the medications at the same time every day. 4. the only place you can get the cream we have been applying to your back is the hospital retail pharmacy. I am giving you a written prescription for the cream. Insurance may not pay for this. 5. It has been a pleasure meeting you Faith and I am very happy to see how much you improved. If you ever need a tune up in the future we will be happy to care for you again. Take care of yourself and HAPPY HOLIDAYS. IF YOU HAVE ANY QUESTIONS AFTER LEAVING REHAB PLEASE DO NOT HESITATE TO CALL ME. OFFICE: [phone] CELL: [phone]. Discharge Orders/Prescriptions Prescriptions: New cephalexin 500 mg Capsule 500 mg PO Q8 Qty: 15 0RF Rx Instructions: 1 TAB EVERY 8 HOURS until gone for urinary tract infection. Premarin 0.625 mg/gram Cream 1 dose vaginal MoTh@2200 Qty: 1 0RF pramipexole 0.125 mg Tablet 0.125 mg PO QHS Qty: 30 0RF carbidopa-levodopa 25-100 mg Tablet 1 tab PO 0600,1100,1600 Qty: 90 0RF venlafaxine 37.5 mg Capsule,Extended Release 24hr 37.5 mg PO DAILY Qty: 30 0RF naproxen 375 mg Tablet 375 mg PO BIDCM Qty: 60 0RF sennosides-docusate sodium [Stool Softener-Stimulant Laxat] 8.6-50 mg Tablet 2 tab PO BID Qty: 120 0RF oxybutynin chloride 5 mg Tablet 5 mg PO QHS Qty: 30 0RF Continued polyethylene glycol 3350 [Miralax] 17 gram Powder In Packet 17 g PO DAILY PRN (Reason: Constipation) acetaminophen 500 mg Tablet 500 mg PO Q6H PRN (Reason: Pain) levothyroxine 112 MCG tablet 100 mcg PO DAILY Qty: 30 0RF Discontinued ropinirole [Requip] 0.25 MG tablet 0.25 mg PO QHS carbidopa-levodopa 1 TABLET tablet 0.5 tab PO TID lisinopril 5 mg tablet 5 mg PO DAILY Referrals / Follow Up: Lamonte Rolon MD [Primary Care Provider] - 08/14/22 10:00 am ([facility] [phone]) Gale Ramos MD [Non-Staff] - 01/19/23 1:30 pm ([facility] [address] [facility], [address] [phone]) Disposition Disposition (needs filled in before D/C Order can be placed): Home Health Service
--- NOTE | 2022-08-07 11:05 | PCM.DC.SUM ---
Providers Date of Admission: 07/24/22 Date of Discharge: 08/07/22 Primary Care Physician: Dr. Lamonte Rolon MD Reason For Visit: DEBILITY due to generalizerd weakness due to PD Diagnosis Discharge Diagnosis (1) Debility: Status: Acute Code(s): R53.81 - Other malaise Plan: Good improvement with therapy. suspect she was not able to exercise at home due to severe fatigue and lightheadedness related to hypotension. (2) Generalized weakness: Status: Acute Code(s): R53.1 - Weakness (3) Parkinson disease: Status: Chronic Code(s): G20 - Parkinson's disease Plan: Carbidopa/levodopa 100/25 mg increased to 1 whole tablet 3 times daily with good results. (4) Hypotension: Status: Acute Code(s): I95.9 - Hypotension, unspecified Plan: Resolved with discontinuation of lisinopril. Blood pressure on the day of discharge was 123/75 with a pulse of 74. I suspect she has white coat hypertension and I recommended she obtain a BP cuff and take her BP at home and record it to take to her next appt with her PCP. (5) Urge urinary incontinence: Status: Chronic Code(s): N39.41 - Urge incontinence Plan: Started on Estrogen cream with no significant improvement but, it may take a few months to help so it is continued at discharge. Straight cath UA had 10-25 WBCs per high-power field and 10-25 RBCs per high-powered field. Culture grew less than 1000 colonies of E. coli however since she is symptomatic we elected to treat with 7 days of Keflex 500 mg p.o. 3 times daily. She has complained of nocturia many times......at times telling me she had to get 6 times at night but, nursing tells me that she has been sleeping through the night? She tells me that the Ditropan helped so will continue at [facility]. (6) Mixed anxiety depressive disorder: Status: Acute Code(s): F41.8 - Other specified anxiety disorders Plan: Started on Effexor and anxiety has lessened. She is more verbal and outgoing than at admission. No adverse SE with Effexor. DC on current dose of 37.5 mg daily (7) Cystitis: Status: Acute Code(s): N30.90 - Cystitis, unspecified without hematuria Plan: E. Coli - will treat with 7 days of Keflex. R to fluoroquinolones. Suggest she follow up with Dr. Patsy Nova, urologist, if the aforementioned tx is not successful. (8) Chronic back pain: Status: Chronic Code(s): M54.9 - Dorsalgia, unspecified; G89.29 - Other chronic pain Plan: Much better with the addition of Naprosyn 375 mg BID to her drug regimen. (9) Degenerative disc disease, lumbar: Status: Chronic Code(s): M51.36 - Other intervertebral disc degeneration, lumbar region (10) Facet arthropathy, lumbar: Status: Chronic Code(s): M47.816 - Spondylosis without myelopathy or radiculopathy, lumbar region (11) Left foot drop: Status: Chronic Code(s): M21.372 - Foot drop, left foot (12) Chronic ITP (idiopathic thrombocytopenia): Status: Chronic Code(s): D69.3 - Immune thrombocytopenic purpura Plan: Has had no thrombocytopenia while on acute rehab. (13) Balance problems: Status: Acute Code(s): R26.89 - Other abnormalities of gait and mobility (14) Gastroesophageal reflux disease: Status: Chronic Code(s): K21.9 - Gastro-esophageal reflux disease without esophagitis (15) Hypothyroid: Status: Chronic Code(s): E03.9 - Hypothyroidism, unspecified Plan DC home with [facility] F/U with Dr. Rolon F/U with Dr. Patsy Nova for urine incontinence if the sx continue. Recommend she follow up at [facility] for the Parkinson's exercise program following discontinuation from [facility] therapy No driving. Medications at Discharge Home Medications acetaminophen 500 mg tablet 500 mg PO Q6H PRN Pain 07/21/22 polyethylene glycol 3350 17 gram oral powder packet (Miralax) 17 g PO DAILY PRN Constipation 07/21/22 carbidopa 25 mg-levodopa 100 mg tablet 1 tab PO 0600,1100,1600 #90 tabs 08/07/22 cephalexin 500 mg capsule 500 mg PO Q8 #15 caps 08/07/22 conjugated estrogens 0.625 mg/gram vaginal cream (Premarin) 1 dose vaginal MoTh@2200 #1 tube 08/07/22 levothyroxine 100 mcg tablet (Euthyrox) 100 mcg PO DAILY #30 tabs 08/07/22 naproxen 375 mg tablet 375 mg PO BIDCM #60 tabs 08/07/22 oxybutynin chloride 5 mg tablet 5 mg PO QHS #30 tabs 08/07/22 pramipexole 0.125 mg tablet 0.125 mg PO QHS #30 tabs 08/07/22 sennosides 8.6 mg-docusate sodium 50 mg tablet (Stool Softener-Stimulant Laxative) 2 tab PO BID #120 tabs 08/07/22 venlafaxine 37.5 mg capsule,extended release 24 hr 37.5 mg PO DAILY #30 caps 08/07/22 Hospital Course Operations None Procedures None Summary of Care Provided Minutes Spent on Discharge: 40 Hospital Course: FAITH SHEPPARD, is a 61 YO F with a PMH of Parkinson's disease, hypothyroidism, chronic ITP, history of CVA?, left foot drop, hypertension and osteoarthritis who presented to the emergency department at [facility] on 07/21/2022 complaining of severe weakness with inability to ambulate.?Does exercises daily but, recently had to exercise while lying in bed due to severe weakness/fatigue and lightheadedness when standing. Lab was unremarkable at admission. She was admitted to the hospital for observation and was evaluated by PT/OT/ST.? PT/OT recommended acute inpt rehab at discharge.? BP's were very low in the hospital and the Lisinopril dose was decreased from 20 mg daily to 5 mg at [facility] from the acute side of [facility]. She was transferred to the acute inpt unit at [facility] on 07/24/22 for 3 hours of therapy daily to restore function to a level she can safely go home with her son. Faith was very anxious at admission to rehab, fidgeting and restless and increased tremors when anxious. She admitted to feeling depressed. After discussing options for tx with we elected to start Effexor XR which may also help with chronic pain in addition to treating anxiety and depression. She had no adverse reactions to this medication and it was effective in controlling anxiety and improving depression. At [facility] she was still anxious about going home but, she was coping better. She was interactive with staff, less tentative when talking and feeling more positive ablout her future. Faith had continued lightheadedness and fatigue the first few days of admission to rehab and the BP's were low. Lisinopril was decreased to 2.5 mg daily and BP's still remained low and it was discontinued. I suspect Faith has an element of white coat hypertension. When she is anxious her BP goes up...this happened in the ED when her BP was good and following transfer to the [facility] she was hypotensive. I recommended she obtain a BP cuff and start taking her BP at home. She is to keep a record of the day and time of day and bring the record to Dr. Rolon at her next visit. After the hypotension resolved she did very well in therapy and did everything that was asked of her. She complained of urge urinary incontinence while in the hospital and a clean catch UA showed 0-5 RBCs and 5-10 WBCs per high-power field. The culture grew 1000-10,000 mixed gram-negative's and gram-positive's. She was not treated for a UTI. After arriving in rehab she was started on Estrogen cream. After 7-10 days she continued to c/o urge incontinence and nocturia. She told me at one point that she had gotten 6 times at night and it was interfering with her sleep. I queried the nurses and was told that she slept well and was up 1 time only? We obtained another UA on 08/02/2022 and it was obtained via straight cath. Urine was slightly cloudy and had 10-25 RBCs and 10-25 WBCs per high-power field it was negative for nitrite and there were no bacteria seen. There were + 1 urate crystals in the urine. Because she had a low-grade temp of 99.3 on 08/06/2022, she had persistent complaints of urge incontinence and she had not been previously treated for UTI we elected to treat with Keflex for 7 days. The urine culture grew E. coli that was resistant to ciprofloxacin and levofloxacin but, there were only 1,000 colonies (it was a straight cath). She was given Ditropan at HS for a few nights prior to DC and she told me that the nocturia had resolved. She was discharged with RX's for estrogen cream, 5 days of Keflex to complete a 7 day course and Ditropan at HS. she was instructed to increase her water intake. Rhonda did very well in therapy. Prior to [facility] she was independent with eating and grooming and supervision/set up for upper body dressing, lower body dressing and bathing. She was independent with toileting and toilet transfer. She was supervision/set up for tub/shower transfer. She was able to do 5 sit to stands in 30 seconds from a chair using her upper extremities. She had ambulated 245 feet with a Rollator walker at mod I. She had completed 1 modified [address] step with a Rollator walker at standby assist. Faith was discharged from acute rehab on 08/07/22. Faith requested home health care rather than outpatient therapy at discharge. She had no DME needs. She was made aware that [facility] has a regular exercise program for patients with PD and the hospital van could transport her if she desired to participate in this program. Faith has many somatic complaints and when she complains she uusually attributes the complaint to one of the new meds, The things she complains about are not common side effects of the medications and when she is informed of this she quits complaining and does not mention it again. She even wonders if one of the medications she has had in the past made her get Parkinson's disease. At discharge she told me she had gained 6 lbs while in rehab and her clothes were feeling to tight. She weighed 132 lbs at presentation to the hospital and 132.9 at [facility]. I told her weights in the hospital are not always accurate and vary with the time of day the weight was obtained, the clothing she has on, if she was weighed with her shoes on, etc. I think Faith would benefit from psychotherapy and may need to have the Effexor increased to 75 mg daily in aonther 2 weeks if she continues to have somatic complaints. Physical Exam Const alert, oriented x3 and no apparent distress Constitutional Narrative: Voice is projecting better and is louder and more understandable General Appearance: cooperative and well developed HEENT normocephalic and hearing grossly normal bilaterally Mouth: dry mucous membranes Eyes PERRL, EOMs intact bilaterally, conjunctivae normal and no scleral icterus Eyes Narrative: No mattering of the eyelids/eyelashes. Neck supple Resp normal respiratory effort, normal air movement and clear to auscultation bilaterally Resp Narrative: No conversational dyspnea. Effort and Inspection: Negative for tachypneic Cardio regular rate, regular rhythm, S1 normal heart sound, S2 normal heart sound, no murmurs, no rub and no gallops Cardio Narrative: No ectopy GI normal to inspection, nondistended, normoactive bowel sounds, soft to palpation and non-tender GI Narrative: No guarding with palpation. Extremity normal to inspection, normal capillary refill, no calf tenderness and no pedal edema Extremity Narrative: Tells me that her back is feeling better. She is able to stand up straight now and is no longer having muscle spasms when she stands up straight. General Extremity: Negative for edema Skin General Skin Exam: no breakdown Rashes: no rashes Wounds: Negative for wounds noted Neuro oriented x3, CN's II-XII intact bilaterally, moves all extremities and no focal motor deficits Coordination / Balance: [id number] test normal and [id number] test normal Psych mental status grossly normal, thought process normal and cooperative; Negative for denies hallucinations, denies homicidal ideation or denies suicidal ideation Psych Narrative: Anxious about going home and having a lot to do, making good eye contact. Sleeping well at night and denies hallucinations since she has been in the hosptal. Appearance: grossly normal, appropriate and well kempt Attitude: other anxious at times. No longer fidgeting and restless when I am talking with her. Affect is less flat than at admission. More modulation to her voice and she is speaking louder and projecting better Activity / Motor Behavior: appropriate eye contact Speech: soft Weight / BMI Weight Weight: 132 lb 15.02 oz Body Mass Index (BMI) 21.4 ABG / Lab / Microbiology Data Result Diagrams: 08/03/22 05:32 08/03/22 05:32 Microbiology: Microbiology 08/02/22 Unknown Urine Catheter - Catheter Urine Culture - Final Escherichia coli D/C Instructions Discharge Diet: - (heart healthy - low fat, low salt.) Weight Bearing Status: Full weight bearing Call your doctor if you observe: Fever of 101 or Higher, Inability to urinate, Inability to have a bowel movement, Shortness of breath, Dizziness, Fainting spells, Swelling in the ankles, Chest pain, Increased palpitations (irregular heartbeat), Calf discomfort and Uncontrolled pain Pending Tests Upon Discharge: none Please Follow Up With: Lamonte Rolon MD When: 08/14/2022 at 10 AM Meaningful Use Info Meaningful Use Diagnoses (Choose all that apply): None applicable Discharge Plan Admission Admit Date/Time: 07/24/22 10:00 Primary Reason for Your Visit: Generalized weakness in pt with Parkinson's disease. Attending Provider: Kaylee Blankenship Primary Care Provider: Lamonte Rolon Instructions Patient Instructions: Parkinson Disease Medicine Tips, Parkinson Disease Day to Day, Parkinson Disease Emotions Additional Instructions / Restrictions: 1. I think the low blood pressure had a lot to do with the recent decline in your abilities. You were too weak to exercise properly and you lost muscle. Your blood pressure is normal now and you are on no medications for blood pressure. I recommend you purchase a BP cuff and take your BP at home. Write the numbers down along with the date and time of day and take this record to your family doctor. I believe you get very anxious when you go to the doctor and this increases your BP when you are there and so the doctor increases your medication. Once you are home the BP goes down because you are relaxed and when you take the medication the BP gets too low. 2. As you know Parkinson's disease is a progressive illness and medications have to be adjusted when your symptoms change. this is normal. One thing that really helps to prevent functional decline is regular exercise. There is an exercise program specifically for patients with Parkinson's disease at [facility]. I [id number] you sign up for the program. The hospital van can pick you up at home and drop you at [facility] and then take you home when you are through. It is a free service. 3. Take your medications exactly as instructed and with Parkinson's disease it helps to take the medications at the same time every day. 4. the only place you can get the cream we have been applying to your back is the hospital retail pharmacy. I am giving you a written prescription for the cream. Insurance may not pay for this. 5. It has been a pleasure meeting you Faith and I am very happy to see how much you improved. If you ever need a tune up in the future we will be happy to care for you again. Take care of yourself and HAPPY HOLIDAYS. IF YOU HAVE ANY QUESTIONS AFTER LEAVING REHAB PLEASE DO NOT HESITATE TO CALL ME. OFFICE: [phone] CELL: [phone]. Discharge Orders/Prescriptions Prescriptions: New cephalexin 500 mg Capsule 500 mg PO Q8 Qty: 15 0RF Rx Instructions: 1 TAB EVERY 8 HOURS until gone for urinary tract infection. Premarin 0.625 mg/gram Cream 1 dose vaginal MoTh@2200 Qty: 1 0RF pramipexole 0.125 mg Tablet 0.125 mg PO QHS Qty: 30 0RF carbidopa-levodopa 25-100 mg Tablet 1 tab PO 0600,1100,1600 Qty: 90 0RF venlafaxine 37.5 mg Capsule,Extended Release 24hr 37.5 mg PO DAILY Qty: 30 0RF naproxen 375 mg Tablet 375 mg PO BIDCM Qty: 60 0RF sennosides-docusate sodium [Stool Softener-Stimulant Laxat] 8.6-50 mg Tablet 2 tab PO BID Qty: 120 0RF oxybutynin chloride 5 mg Tablet 5 mg PO QHS Qty: 30 0RF levothyroxine [Euthyrox] 100 mcg tablet 100 mcg PO DAILY Qty: 30 0RF Continued polyethylene glycol 3350 [Miralax] 17 gram Powder In Packet 17 g PO DAILY PRN (Reason: Constipation) acetaminophen 500 mg Tablet 500 mg PO Q6H PRN (Reason: Pain) Discontinued ropinirole [Requip] 0.25 MG tablet 0.25 mg PO QHS carbidopa-levodopa 1 TABLET tablet 0.5 tab PO TID levothyroxine 112 MCG tablet 100 mcg PO DAILY lisinopril 5 mg tablet 5 mg PO DAILY Referrals / Follow Up: Lamonte Rolon MD [Primary Care Provider] - 08/14/22 10:00 am ([facility] [phone]) Gale Ramos MD [Non-Staff] - 01/19/23 1:30 pm ([facility] [address], [address] [phone]) Disposition Disposition (needs filled in before D/C Order can be placed): Home Health Service Charges/Coding Visit Charges Inpatient E&M: 09932 Disch Hosp
[2022-08-07 13:20] VITALS: BP 123/75; PULSE 74; RESP 18; TEMP 36.6; O2SAT 99
--- NOTE | 2022-08-07 13:20 | NURSING ---
Patient aware of discharge instructions and verbalized understanding. Son here to pick up driver patient.
== END 2022-08-07 13:20 | disposition home health service (06) | DRG 57 ==
PROVIDERS: Admitting Provider Internal Medicine; PCP Family Medicine; Visit Provider Internal Medicine
DX: G20 Parkinson's disease (principal); D69.3 Immune thrombocytopenic purpura; N30.00 Acute cystitis without hematuria; M51.36 Other intervertebral disc degeneration, lumbar region; I10 Essential (primary) hypertension; F41.8 Other specified anxiety disorders; K21.9 Gastro-esophageal reflux disease without esophagitis; E03.9 Hypothyroidism, unspecified; M21.372 Foot drop, left foot; N39.41 Urge incontinence; B96.20 Unspecified Escherichia coli [E. coli] as the cause of diseases classified elsewhere; Z87.891 Personal history of nicotine dependence; G89.29 Other chronic pain; Z79.899 Other long term (current) drug therapy; Z79.890 Hormone replacement therapy
CPT/HCPCS: 36415; 72114; 80048; 80053; 81001; 83735; 84100; 84439; 84443; 84550; 85014; 85018; 85025; 85027; 85652; 87077; 87086; 87088; 87186; 92507; 92523; 92526; 92610; 93005; 97110; 97116; 97129; 97130; 97162; 97166; 97530; 97535; 97760; 97802; 99285; 99406; J7030; A4216

== ENCOUNTER 2023-07-08 10:18 | Observation (INO) | payer MEDICARE, MEDICAID, SELFPAY ==
[2023-07-08 10:20] VITALS: BP 145/94; PULSE 89; RESP 18; TEMP 37; O2SAT 98; BMI 22.2
--- NOTE | 2023-07-08 10:41 | EKG12_ITS ---
Test Reason : Blood Pressure : / mmHG Vent. Rate : 079 BPM Atrial Rate : 079 BPM P-R Int : 138 ms QRS Dur : 074 ms QT Int : 396 ms P-R-T Axes : 069 056 045 degrees QTc Int : 454 ms Normal sinus rhythm Normal ECG Confirmed by YADIEL BERGERON, GENNY ([id number]), editor at large LEVAR HESTER ([id number]) on 07/12/2023 8:12:38 AM Referred By: Confirmed By:TATI COTTO MD
--- NOTE | 2023-07-08 10:47 | EX.ED.DYSGE1 ---
HPI History of Present Illness Chief Complaint: Weakness Informant: patient Onset/Context/Timing Onset: Days Narrative Narrative: .Patient presents with complaints of increased weakness and neck and head pain head she states she is has the symptoms chronically they seem to worsen over the past day or 2. Her Parkinson's medication was decreased about a week ago and she is not sure if this is related. She also reports increased frequency in urination and pressure in her lower abdomen and in the flank area bilaterally. She felt that she had a fever at home. She states that she was on the commode this morning and too weak to get up. [facility] Medical History Abnormality of gait Acquired hypothyroidism Balance problems Chronic back pain Chronic ITP (idiopathic thrombocytopenia) CVA (cerebral vascular accident) Degenerative disc disease, lumbar Dyskinesia Facet arthropathy, lumbar Gastroesophageal reflux disease Generalized weakness Hypertension Hypothyroid Insomnia Left foot drop Osteoarthritis Parkinson disease Home Medications acetaminophen 500 mg tablet 500 mg PO Q6H PRN Pain 07/21/22 [History Last Taken 07/21/22] polyethylene glycol 3350 17 gram oral powder packet (Miralax) 17 g PO DAILY PRN Constipation 07/21/22 [History Last Taken 3 Days Ago ~07/18/22] levothyroxine 100 mcg tablet (Euthyrox) 100 mcg PO DAILY #30 tabs 08/07/22 [Rx Last Taken Unknown] naproxen 375 mg tablet 375 mg PO BIDCM #60 tabs 08/07/22 [Rx Last Taken Unknown] carbidopa 25 mg-levodopa 100 mg tablet 0.5 tab PO .6X/DAY 07/08/23 [History Last Taken Unknown] polyethylene glycol 3350 17 gram/dose oral powder (ClearLax) 17 g PO DAILY 07/08/23 [History Last Taken Unknown] sertraline 25 mg tablet 25 mg PO DAILY 07/08/23 [History Last Taken Unknown] Allergy/AdvReac Type Severity Reaction Status Date / Time omeprazole Allergy Unknown Verified 07/08/23 10:20 simvastatin [From Zocor] Allergy Unknown Verified 07/08/23 10:20 ropinirole AdvReac Mild Unknown Verified 07/08/23 10:20 Social History household members: family housing: house Smoking Status: Former smoker ROS ROS ED Constitutional Constitutional ED: Reports fever(s) and subjective; Denies chills Eyes Eyes: Denies change in vision or discharge from eye(s) ENT ENT ED: Denies discharge from eye(s), rhinorrhea or sore throat Cardiovascular Cardiovascular: Reports chest pain; Denies palpitations Respiratory/Chest Respiratory/Chest: Denies cough or dyspnea Gastrointestinal Gastrointestinal: Denies abdominal pain, diarrhea, nausea or vomiting Genitourinary Genitourinary ED: Reports dysuria and urinary frequency Musculoskeletal Musculoskeletal: Reports back pain and neck pain; Denies extremity pain Integumentary Denies Abrasions or rash Neurologic Neurologic: Reports headache(s); Denies weakness Psychiatric Psychiatric: Reports anxiety; Denies depression Endocrine Endocrinology: Denies polydipsia or polyuria Allergic/Immunologic Allergic/Immunologic ED: Denies lip swelling or urticaria EXAM Physical Exam Const Vital Signs: 07/08/23 10:20 07/08/23 10:25 07/08/23 12:11 Temperature 98.6 F Temperature Source Oral Pulse Rate 89 80 Respiratory Rate 18 18 Respiratory Effort Normal Non-Labored Respiratory Pattern Normal Blood Pressure 145/94 H 128/88 H Blood Pressure Mean 111 101 Pulse Ox 98 100 Oxygen Delivery Method Room Air Room Air 07/08/23 13:16 Temperature Temperature Source Pulse Rate 82 Respiratory Rate 18 Respiratory Effort Respiratory Pattern Blood Pressure 135/81 H Blood Pressure Mean 99 Pulse Ox 99 Oxygen Delivery Method Room Air Positive cachectic General Appearance ED: cachectic Nutritional Appearance: cachectic HEENT Reports moist mucous membranes Eyes EOMs intact bilaterally Chest Wall inspection of chest normal and palpation of chest normal Resp normal respiratory effort and clear to auscultation bilaterally Cardio regular rate and regular rhythm GI non-tender Palpation: soft Extremity normal to inspection Neuro oriented x3 Neuro Narrative: Tremor noted to the bilateral upper extremities consistent with her Parkinson's. Psych mental status grossly normal Skin no rashes or lesions noted MDM MDM MDM Narrative Medical decision making narrative: Patient placed on maple products maker. EKG obtained to evaluate for cardiac arrhythmia/ischemia. Labwork obtained to evaluate for leukocytosis, anemia, and electrolyte derangement. Chest x-ray obtained to evaluate for acute lung pathology, cardiac size, or mediastinal abnormality. Urinalysis obtained to evaluate for infection/hematuria. CT flank obtained given patient's urinary symptoms and bilateral flank pain. History & Record Review Discussion w/independent historian: Patient Additional record(s) reviewed:: Prior labs Lab Data Attestation: I reviewed the patient's lab results. Labs: Laboratory Results - last 24 hr 07/08/23 07/08/23 10:55 12:00 WBC 5.1 RBC 4.59 Hgb 13.8 Hct 42.5 MCV 92.6 MCH 30.1 MCHC 32.5 RDW Std Deviation 42.1 RDW Coeff of Annie 12.5 Plt Count 248 MPV 12.1 H Immature Gran % (Auto) 0.400 Neut % (Auto) 64.4 Lymph % (Auto) 27.1 [place] % (Auto) 6.3 Eos % (Auto) 1.0 Baso % (Auto) 0.8 Absolute Neuts (auto) 3.3 Absolute Lymphs (auto) 1.38 Nucleated RBC % 0 Sodium 139 Potassium 4.3 Chloride 107 Carbon Dioxide 28.0 Anion Gap 4 L BUN 11 Creatinine 0.76 Estim Creat Clear Calc 67.29 Est GFR (MDRD) Af Amer 99 Est GFR (MDRD) Non-Af 82 BUN/Creatinine Ratio 14.6 Glucose 100 Calcium 9.2 Urine Color Yellow Urine Clarity Sl. Cloudy Urine pH 7.0 Ur Specific [place] 1.010 Urine Protein Negative Urine Glucose (UA) Normal Urine Ketones 5 H Urine Occult Blood 25 H Urine Nitrite Negative Urine Bilirubin Negative Urine Urobilinogen Normal Ur Leukocyte Esterase 25 H Urine RBC 0 SEEN Urine WBC 0 SEEN Ur Squamous Epith Cells 10-25 SEEN Urine Bacteria 0 SEEN Urine Mucus 0 SEEN Radiography Chest X-Ray - ED: 1 View, Read by ED Physician, Chronic Changes and No Infiltrates Diagnostic Testing: Clinical Impression(s) from Imaging Studies Chest X-Ray 07/08/23 11:28 IMPRESSION: No acute abnormality seen. Electronically Signed: Alistair Glynn MD at 12:02 EST , Abdomen/Pelvis CT 07/08/23 11:35 IMPRESSION: Negative examination for renal stone. Colonic diverticulosis without acute diverticulitis. Moderate stool in the colon. Electronically Signed: Angela Gamez MD at 12:05 EST , EKG Initial EKG: Attestation: I personally reviewed and interpreted this EKG as follows: Interpretation: Sinus Rhythm (Sinus at 79 with no acute ischemia.) Treatment and Re-Evaluation :: CBC was normal white count 5.1 with a hemoglobin of 13.8. Differential unremarkable. Chemistry is unremarkable and glucose is normal at 100. Urinalysis obtained via straight cath reveals 10-25 epithelial cells but no evidence of infection. No hematuria. Chest x-ray per my interpretation was chronic changes with no focal infiltrate. EKG is sinus rhythm with no ischemia. CT flank obtained given her bilateral flank pain. This reveals moderate stool burden with no obstruction. Test results are discussed with the patient. She states that she was not able to walk at home today. I asked nursing staff to get her up and ambulate her with her walker. Staff states she was able to stand at the side of the bed but not take any steps. I will speak with hospitalist regarding admission for weakness and inability to ambulate. Discharge Plan Triage Chief Complaint: Weakness ED Provider: Marisol Campa Dx/Rx/DC Orders Clinical Impression: Weakness generalized, Unable to ambulate, Parkinson's disease Prescriptions: No Action polyethylene glycol 3350 [Miralax] 17 gram Powder In Packet 17 g PO DAILY PRN (Reason: Constipation) acetaminophen 500 mg Tablet 500 mg PO Q6H PRN (Reason: Pain) naproxen 375 mg Tablet 375 mg PO BIDCM Qty: 60 0RF levothyroxine [Euthyrox] 100 mcg tablet 100 mcg PO DAILY Qty: 30 0RF polyethylene glycol 3350 [ClearLax] 17 gram/dose powder 17 g PO DAILY sertraline 25 mg tablet 25 mg PO DAILY carbidopa-levodopa 25-100 mg Tablet 0.5 tab PO .6X/DAY Rx Instructions: 0630,0930,1230,1530,1830,2100 Primary Care Provider: Lamonte Rolon Referrals: Lamonte Rolon MD [Primary Care Provider] - Disposition Disposition: Acute Care [facility]
[2023-07-08 11:05] LABS: Absolute Lymphocyte Count 1.38 X10^3/uL (0.83-4.51); Absolute Neutrophil Count 3.3 X10^3/uL (2.0-7.7); Basophil# 0.04 X10^3/uL; Basophil% 0.8 % (0-1); Eosinophil# 0.05 X10^3/uL; Hematocrit 42.5 % (37-47); Hemoglobin 13.8 g/dL (12.0-15.0); Lymphocyte # 1.38 X10^3/ul (0.83-4.51); Lymphocyte % 27.1 % (19-41); Mean Corp Hgb Conc 32.5 g/dL (32-36); Mean Corpuscular Hgb 30.1 pg (27.0-32.0); Mean Corpuscular Volume 92.6 fL (81-99); Mean Platelet Vol. 12.1 fl (6.2-12.0); Monocyte# 0.32 X10^3/uL; Monocyte% 6.3 % (0-10); NRBC Flagged by Analyzer 0 % (0-5); Neutrophil # 3.28 X10^3/uL (2.7-7.7); Neutrophil % 64.4 % (47-70); Platelet Count 248 K/mm3 (150-450); RBC Distribution Width CV 12.5 % (11.6-14.6); RBC Distribution Width SD 42.1 fl (35.1-43.9); Red Blood Count 4.59 M/mm3 (4.2-5.4); White Blood Count 5.1 K/mm3 (4.4-11.0)
[2023-07-08] MEDS: LORazepam 0.5 MG Tablet PO (11:22)
[2023-07-08] MEDS: 0.9% Normal Saline (1000mL) 1,000 ML 150 ML IV (11:22)
--- NOTE | 2023-07-08 11:28 | RAD_ITS ---
STUDY: X-RAY CHEST REASON FOR EXAM: Female, 62 years old. Cp TECHNIQUE: Single AP portable view of the chest. COMPARISON: None. FINDINGS: The lungs are clear and expanded. There is no demonstrated pleural abnormality. Normal size heart. Normal mediastinum and tim. Normal visualized pulmonary arteries. There is atherosclerotic calcification of the aortic arch with tortuosity. There are degenerative changes of the visualized thoracic spine. Normal visualized ribs, clavicles, and shoulders. There is no demonstrated abnormality of the visualized soft tissue structures of the upper abdomen. RAD/Chest 1 View (Portable) IMPRESSION: No acute abnormality seen. Electronically Signed: Alistair Glynn MD at 12:02 [facility] ,
[2023-07-08 11:30] LABS: Anion Gap 4 (5-15); BUN 11 mg/dL (7-18); BUN/Creat Ratio 14.6 RATIO (10-20); Calcium,Total 9.2 mg/dL (8.5-10.1); Chloride 107 mmol/L (98-107); Creatinine, Serum 0.76 mg/dL (0.55-1.02); EST Glomerular Filtration Rate 82 mL/min (>60); Est Glom Filt Rate - Afr Amer 99 mL/min (>60); Estimated Creatinine Clearance 67.29 ml/min; Glucose 100 mg/dL (74-106); Potassium 4.3 mmol/L (3.5-5.1); Sodium Level 139 mmol/L (136-145)
--- NOTE | 2023-07-08 11:35 | CT_ITS ---
HISTORY: flank pain. TECHNIQUE: Helically acquired images were obtained of the abdomen and pelvis without oral or IV contrast. A radiation dose optimization technique was used for this scan. 425 images. COMPARISON: None. FINDINGS: LOWER CHEST: Calcified right lower lobe granuloma. Calcified paraesophageal lymph nodes. BOWEL: Bowel including appendix nondilated. Moderate stool in the colon. Colonic diverticulosis without focal pericolonic inflammatory change. PERITONEUM: No significant free fluid. Calcified gastrohepatic lymph nodes. LIVER: Nonenlarged. GALLBLADDER/BILIARY TREE: Gallbladder present. SPLEEN: Calcified granulomas. PANCREAS/ADRENAL GLANDS: Unremarkable. KIDNEYS AND URETERS: No nephrolithiasis or obstructing ureteral calculus. VESSELS: No abdominal aortic aneurysm. Mild atherosclerosis. PELVIC ORGANS: Unremarkable. BONES: Degenerative change. CT/Abdomen/Pelvis without Cont IMPRESSION: Negative examination for renal stone. Colonic diverticulosis without acute diverticulitis. Moderate stool in the colon. Electronically Signed: Angela Gamez MD at 12:05 EST ,
[2023-07-08 12:03] LABS: Bacteria 0 SEEN /hpf (None Seen); Color, Urine Yellow (Yellow); Glucose, Dipstick Normal (Normal); Ketone-Dipstick 5 mg/dl (Negative); Leukocyte Esterase-Dipstick 25 /ul (Negative); Mucous, Urine 0 SEEN /hpf (<or=2+); Nitrite-Dipstick Negative (Negative); Occult Blood-Urine 25 /ul (Negative); Protein-Dipstick Negative (Negative); Red Blood Cells-Urine 0 SEEN /hpf (0-5); Urine Bilirubin Dipstick Negative (Negative); Urine Clarity Sl. Cloudy (Clear); Urine Urobilinogen Normal (Normal); White Blood Cells 0 SEEN /hpf (0-5)
[2023-07-08 12:09] LABS: Squamous Epithelial Cells - UA 10-25 SEEN /hpf (5-10)
[2023-07-08 12:11] VITALS: BP 128/88; PULSE 80; RESP 18; O2SAT 100
[2023-07-08 13:16] VITALS: BP 135/81; PULSE 82; RESP 18; O2SAT 99
--- NOTE | 2023-07-08 13:49 | ED.RN ---
pt took own parkinson med per Dr Lokesh guadalupe
[2023-07-08 13:56] VITALS: BP 135/81; PULSE 81; RESP 16; TEMP 37; O2SAT 98
--- NOTE | 2023-07-08 14:25 | PCM.HP.STD ---
HPI - General General Date of Admission: 07/08/23 HPI Narrative EDSON SHEPPARD, is a 62 F who presents to the hospital with weakness this been going on for the last several months however she has noticed it worse over the last couple of days and this is about a week after her Parkinson's medications were adjusted. She went from taking Sinemet 1 tablet 3 times a day to half a tablet 6 times a day but she does not feel like this has done anything. She denies any fevers or chills, infectious work-up is negative. She talks about having worsening tremors and during my evaluation she is holding her arms across her chest and she is having a body roll type of movement in her upper body with her legs being still. When I do do my physical exam and take her arms to see if she has any leadpipe rigidity the body roll stops if I do any other type of physical exam the body roll stops but then when we start talking about her tremors it restarts again. She states that she lives alone and in the ED today when they try to get her up she was able to stand with a walker but unable to walk. [facility] Medical History Abnormality of gait Acquired hypothyroidism Balance problems Chronic back pain Chronic ITP (idiopathic thrombocytopenia) CVA (cerebral vascular accident) Degenerative disc disease, lumbar Dyskinesia Facet arthropathy, lumbar Gastroesophageal reflux disease Generalized weakness Hypertension Hypothyroid Insomnia Left foot drop Osteoarthritis Parkinson disease Home Medications acetaminophen 500 mg tablet 500 mg PO Q6H PRN Pain 07/21/22 [History Last Taken 07/21/22] polyethylene glycol 3350 17 gram oral powder packet (Miralax) 17 g PO DAILY PRN Constipation 07/21/22 [History Last Taken 3 Days Ago ~07/18/22] levothyroxine 100 mcg tablet (Euthyrox) 100 mcg PO DAILY #30 tabs 08/07/22 [Rx Last Taken Unknown] naproxen 375 mg tablet 375 mg PO BIDCM #60 tabs 08/07/22 [Rx Last Taken Unknown] carbidopa 25 mg-levodopa 100 mg tablet 0.5 tab PO .6X/DAY 07/08/23 [History Last Taken Unknown] polyethylene glycol 3350 17 gram/dose oral powder (ClearLax) 17 g PO DAILY 07/08/23 [History Last Taken Unknown] sertraline 25 mg tablet 25 mg PO DAILY 07/08/23 [History Last Taken Unknown] Allergy/AdvReac Type Severity Reaction Status Date / Time omeprazole Allergy Unknown Verified 07/08/23 10:20 simvastatin [From Zocor] Allergy Unknown Verified 07/08/23 10:20 ropinirole AdvReac Mild Unknown Verified 07/08/23 10:20 Family History (Updated 07/08/23 @ 15:[address] Tyrel Jj MD) Other Heart disease no surgical history Social History household members: family housing: house Smoking Status: Former smoker ROS Constitutional Constitutional: Reports weakness; Denies chills, fatigue, fever(s) or malaise Eyes Eyes: Denies blurry vision ENT HEENT: Denies headache(s) or nasal discharge Cardiovascular Cardiovascular: Denies chest pain, dyspnea on exertion or syncope Respiratory/Chest Respiratory/Chest: Denies cough, shortness of breath at rest or shortness of breath with exertion Gastrointestinal Gastrointestinal: Denies constipation, diarrhea, nausea or vomiting Genitourinary Genitourinary: Denies dysuria Neurologic Neurologic: Reports tremor(s); Denies focal weakness or numbness Psychiatric Psychiatric: Denies anxiety or depression Vital Signs Vital Signs Vital Signs: 07/08/23 10:20 07/08/23 10:25 07/08/23 12:11 Temperature 98.6 F Temperature Source Oral Pulse Rate 89 80 Respiratory Rate 18 18 Respiratory Effort Normal Non-Labored Respiratory Pattern Normal Blood Pressure 145/94 H 128/88 H Blood Pressure Mean 111 101 Pulse Ox 98 100 Oxygen Delivery Method Room Air Room Air 07/08/23 13:16 07/08/23 13:56 Temperature 98.6 F Temperature Source Pulse Rate 82 81 Respiratory Rate 18 16 Respiratory Effort Respiratory Pattern Blood Pressure 135/81 H 135/81 H Blood Pressure Mean 99 99 Pulse Ox 99 98 Oxygen Delivery Method Room Air Weight Weight: 133 lb 13.129 oz Body Mass Index (BMI) 22.2 Physical Exam Narrative General: Alert, Oriented x3, Cooperative, No apparent distress HEENT: Atraumatic, PERRLA, EOMI, Normocephalic Oral: Moist Mucosa Neck: Supple, No JVD Lungs: Diminished, Normal air movement, No rhonchi, No wheeze, No rales Cardiovascular: Regular rate, Regular Rhythm, Normal S1, Normal S2, No murmurs Abdomen: Soft, Non Tender, Non-Distended, No Hepato-splenomegaly Extremities: No edema, Capillary Refill Less than 3 Seconds Skin: No rashes, No breakdown Musculoskeletal: No Tenderness to Palpation of Joints or Extremities Neurological: She has tremors that resolved when distracted, no leadpipe rigidity, strength appears to be intact, sensation is normal Psych/Mental Status: Flat Results Lab / Micro Data 07/08/23 10:55 07/08/23 10:55 Labs: Laboratory Results - last 24 hr 07/08/23 10:55: WBC 5.1, RBC 4.59, Hgb 13.8, Hct 42.5, MCV 92.6, MCH 30.1, MCHC 32.5, RDW Std Deviation 42.1, RDW Coeff of Annie 12.5, Plt Count 248, MPV 12.1 H, Immature Gran % (Auto) 0.400, Neut % (Auto) 64.4, Lymph % (Auto) 27.1, [place] % (Auto) 6.3, Eos % (Auto) 1.0, Baso % (Auto) 0.8, Absolute Neuts (auto) 3.3, Absolute Lymphs (auto) 1.38, Nucleated RBC % 0, Sodium 139, Potassium 4.3, Chloride 107, Carbon Dioxide 28.0, Anion Gap 4 L, BUN 11, Creatinine 0.76, Estim Creat Clear Calc 67.29, Est GFR (MDRD) Af Amer 99, Est GFR (MDRD) Non-Af 82, BUN/Creatinine Ratio 14.6, Glucose 100, Calcium 9.2 07/08/23 12:00: Urine Color Yellow, Urine Clarity Sl. Cloudy, Urine pH 7.0, Ur Specific [place] 1.010, Urine Protein Negative, Urine Glucose (UA) Normal, Urine Ketones 5 H, Urine Occult Blood 25 H, Urine Nitrite Negative, Urine Bilirubin Negative, Urine Urobilinogen Normal, Ur Leukocyte Esterase 25 H, Urine RBC 0 SEEN, Urine WBC 0 SEEN, Ur Squamous Epith Cells 10-25 SEEN, Urine Bacteria 0 SEEN, Urine Mucus 0 SEEN Radiology Impression Chest X-Ray 07/08/23 11:28 IMPRESSION: No acute abnormality seen. Electronically Signed: Alistair Glynn MD at 12:02 EST , Abdomen/Pelvis CT 07/08/23 11:35 IMPRESSION: Negative examination for renal stone. Colonic diverticulosis without acute diverticulitis. Moderate stool in the colon. Electronically Signed: Angela Gamez MD at 12:05 EST , Assessment & Plan Assessment/Plan (1) Parkinson's disease: (2) Unable to ambulate: (3) Weakness generalized: PLAN: Plan 1. Generalized weakness and debility ? Unclear as to the etiology at this time, she does have Parkinson's disease with recent medication adjustments of the cumulative dose is still the same per day ? We will have her evaluated by PT and OT ? Will consult case management for disposition 2. Parkinson's disease ? We will continue with her current dosing as this was just changed about a week ago 3. Hypothyroidism ? Stable ? Continue with Synthroid 4. Anxiety/depression ? Stable ? Continue Zoloft DVT: Lovenox, it is listed that she has a history of ITP so we will monitor platelet count and if necessary discontinue Lovenox and place her on SCDs 75 minutes was spent on direct patient care, including documentation as well as chart review and collaboration with colleagues Charges/Coding Visit Charges Inpatient E&M: 96641 Init Hosp L3
[2023-07-08 18:00] VITALS: BMI 20.6
[2023-07-08 18:12] VITALS: BP 100/65; PULSE 71; RESP 16; TEMP 37.3; O2SAT 98
[2023-07-08] MEDS: 0.9% Saline Lock 10 ML Syringe IV (19:01)
[2023-07-08 20:02] VITALS: BP 108/73; PULSE 78; RESP 18; TEMP 36.9; O2SAT 100
[2023-07-08] MEDS: Ensure Plus High Protein 120 ML LIQUID PO (20:15)
[2023-07-08] MEDS: Carbidopa/Levodopa 25/100 Tablet PO (20:15)
[2023-07-08] MEDS: Naproxen 375 MG Tablet PO (20:15)
[2023-07-09 04:30] VITALS: BP 114/72; PULSE 70; RESP 18; TEMP 37.1; O2SAT 98
[2023-07-09 05:08] LABS: Absolute Lymphocyte Count 1.81 X10^3/uL (0.83-4.51); Absolute Neutrophil Count 2.1 X10^3/uL (2.0-7.7); Basophil# 0.03 X10^3/uL; Basophil% 0.7 % (0-1); Eosinophil# 0.26 X10^3/uL; Eosinophils% 5.7 % (0-5); Hematocrit 37.7 % (37-47); Hemoglobin 12.2 g/dL (12.0-15.0); Lymphocyte # 1.81 X10^3/ul (0.83-4.51); Lymphocyte % 39.6 % (19-41); Mean Corp Hgb Conc 32.4 g/dL (32-36); Mean Corpuscular Hgb 31.1 pg (27.0-32.0); Mean Corpuscular Volume 96.2 fL (81-99); Mean Platelet Vol. 12.3 fl (6.2-12.0); Monocyte# 0.32 X10^3/uL; NRBC Flagged by Analyzer 0 % (0-5); Neutrophil # 2.14 X10^3/uL (2.7-7.7); Neutrophil % 46.8 % (47-70); Platelet Count 218 K/mm3 (150-450); RBC Distribution Width CV 12.7 % (11.6-14.6); RBC Distribution Width SD 44.9 fl (35.1-43.9); Red Blood Count 3.92 M/mm3 (4.2-5.4); White Blood Count 4.6 K/mm3 (4.4-11.0)
[2023-07-09 05:31] LABS: Anion Gap 5 (5-15); BUN 12 mg/dL (7-18); BUN/Creat Ratio 20.4 RATIO (10-20); Calcium,Total 8.3 mg/dL (8.5-10.1); Chloride 111 mmol/L (98-107); Creatinine, Serum 0.59 mg/dL (0.55-1.02); EST Glomerular Filtration Rate 109 mL/min (>60); Est Glom Filt Rate - Afr Amer 132 mL/min (>60); Estimated Creatinine Clearance 85.62 ml/min; Glucose 98 mg/dL (74-106); Sodium Level 142 mmol/L (136-145)
[2023-07-09] MEDS: Levothyroxine 100 MCG Tablet PO (06:12)
[2023-07-09] MEDS: Carbidopa/Levodopa 25/100 Tablet PO ×6 (06:14→21:53)
--- NOTE | 2023-07-09 07:54 | PCM.PN.HOSP ---
Reason for Visit Reason for Visit: Diagnoses Parkinson's disease without dyskinesia, without mention of fluctuations (07/08/23) Difficulty in walking, not elsewhere classified (07/08/23) Weakness (07/08/23) Subjective Subjective Patient has diagnosis of Parkinson disease since 2007 . Objective Data Objective Data Vital Signs: Vital Signs Temp Pulse Resp BP Pulse Ox O2 Del Method 98.7 F 70 18 114/72 98 Room Air 07/09/23 04:30 07/09/23 04:30 07/09/23 04:30 07/09/23 04:30 07/09/23 04:30 07/09/23 04:30 Oxygen Delivery Method Room Air Weight: 124 lb 1.924 oz Body Mass Index (BMI) 20.6 Intake & Output: Intake and Output for Last 24 Hours 07/07/23 07/08/23 07/09/23 23:59 23:59 23:59 Intake Total 1000 / 1120 520 / 520 Output Total 800 / 800 Balance 1000 / 1120 -280 / -280 Lab / Micro Data 07/09/23 04:30 07/09/23 04:30 Labs: Laboratory Results - last 24 hr 07/08/23 10:55: WBC 5.1, RBC 4.59, Hgb 13.8, Hct 42.5, MCV 92.6, MCH 30.1, MCHC 32.5, RDW Std Deviation 42.1, RDW Coeff of Annie 12.5, Plt Count 248, MPV 12.1 H, Immature Gran % (Auto) 0.400, Neut % (Auto) 64.4, Lymph % (Auto) 27.1, [place] % (Auto) 6.3, Eos % (Auto) 1.0, Baso % (Auto) 0.8, Absolute Neuts (auto) 3.3, Absolute Lymphs (auto) 1.38, Nucleated RBC % 0, Sodium 139, Potassium 4.3, Chloride 107, Carbon Dioxide 28.0, Anion Gap 4 L, BUN 11, Creatinine 0.76, Estim Creat Clear Calc 67.29, Est GFR (MDRD) Af Amer 99, Est GFR (MDRD) Non-Af 82, BUN/Creatinine Ratio 14.6, Glucose 100, Calcium 9.2 07/08/23 12:00: Urine Color Yellow, Urine Clarity Sl. Cloudy, Urine pH 7.0, Ur Specific [place] 1.010, Urine Protein Negative, Urine Glucose (UA) Normal, Urine Ketones 5 H, Urine Occult Blood 25 H, Urine Nitrite Negative, Urine Bilirubin Negative, Urine Urobilinogen Normal, Ur Leukocyte Esterase 25 H, Urine RBC 0 SEEN, Urine WBC 0 SEEN, Ur Squamous Epith Cells 10-25 SEEN, Urine Bacteria 0 SEEN, Urine Mucus 0 SEEN 07/09/23 04:30: WBC 4.6, RBC 3.92 L, Hgb 12.2, Hct 37.7, MCV 96.2, MCH 31.1, MCHC 32.4, RDW Std Deviation 44.9 H, RDW Coeff of Annie 12.7, Plt Count 218, MPV 12.3 H, Immature Gran % (Auto) 0.200, Neut % (Auto) 46.8 L, Lymph % (Auto) 39.6, [place] % (Auto) 7.0, Eos % (Auto) 5.7 H, Baso % (Auto) 0.7, Absolute Neuts (auto) 2.1, Absolute Lymphs (auto) 1.81, Nucleated RBC % 0, Sodium 142, Potassium 4.0, Chloride 111 H, Carbon Dioxide 26.0, Anion Gap 5, BUN 12, Creatinine 0.59, Estim Creat Clear Calc 85.62, Est GFR (MDRD) Af Amer 132, Est GFR (MDRD) Non-Af 109, BUN/Creatinine Ratio 20.4 H, Glucose 98, Calcium 8.3 L Radiography Diagnostic Testing: Radiology Impression Chest X-Ray 07/08/23 11:28 IMPRESSION: No acute abnormality seen. Electronically Signed: Alistair Glynn MD at 12:02 EST , Abdomen/Pelvis CT 07/08/23 11:35 IMPRESSION: Negative examination for renal stone. Colonic diverticulosis without acute diverticulitis. Moderate stool in the colon. Electronically Signed: Angela Gamez MD at 12:05 EST , Physical Exam Narrative Seen and examined. Patient has long history of Parkinson's disease diagnosed in . Patient follows neurologist Dr. Irene Brooks's as an outpatient. Has been on Sinemet since then. Patient started having symptoms of dyskinesia, dystonia, tiredness and fatigue for last 5 years. She has end of dose deterioration of involuntary movement which gets better about 1 hour after taking medication about and then restart saturating in 3 hours. She has difficulty in the posturing herself. She states he did not have a significant tremor but has difficulty in posture, rigidity, balance as her symptoms of Parkinson during diagnosis. Physical exam General: Alert, Oriented x3, Cooperative, looks older than her age. HEENT: Atraumatic, PERRLA, EOMI, Normocephalic Oral: No Gingival or Mucosal Lesions/ Ulcerations Neck: Supple, No JVD, Negative Carotid Bruits Lungs: Air entry diminished in bilateral lung bases. No crepitation/rhonchi Cardiovascular: Regular rate, Regular Rhythm, Normal S1, Normal S2, No murmurs Abdomen: Bowel Sounds Present, Soft, Non Tender, Non-Distended : No renal angle tenderness. No suprapubic tenderness. Extremities: No edema, Capillary Refill Less than 3 Seconds Skin: No rashes, No breakdown Musculoskeletal: No Tenderness to Palpation of Joints or Extremities Neurological: Cranial nerves II-XII grossly intact, DTR 2+/4. dyskinesia, involuntary movement and dystonia of an upper trunk, head and neck. No significant resting tremor. No hypertonia. Psych/Mental Status: Flat affect. Flat facies Assessment & Plan Assessment/Plan (1) Parkinson's disease: (2) Unable to ambulate: (3) Weakness generalized: PLAN: Plan 62-year-old female came to ED with generalized weakness, neck and head pain with involuntary motor movements, dyskinesia ongoing for last several months but worse over last couple days to 1 week after her Parkinson medications were adjusted. No fever or chills. 1. Generalized weakness and debility mainly involuntary motor movement dysmetria, dyskinesia and dystonia, gait ataxia ? Most likely due to end of dose deterioration and on and off phenomena of Sinemet. Orthostatic blood pressure ordered for tomorrow and. SOC consult. Will need adjustment of her medications mainly Sinemet ? Evaluation and management by PT and OT ? consult case management for disposition 2. Parkinson's disease ? continue with her current dosing as this was just changed about a week ago 3. Hypothyroidism ? Continue with Synthroid 4. Anxiety/depression ? 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 Repeat platelet count is 218,000. Charges/Coding Addendum Addendum: Total time of the visit including total time spent in counseling or coordination of care, (more than 50% of the total time, spent in obtaining medical information from nurses and other ancillary care providers,explaining to the patient about labs, imaging, diagnosis and management of active complex medical conditions), detailed history taking, side effects of Sinemet, review of labs and imaging is 40 minutes. Visit Charges Inpatient E&M: 49048 Subs Hosp L3
[2023-07-09] MEDS: Sertraline 50 MG Tablet 25 MG PO (08:17)
[2023-07-09] MEDS: Polyethylene Glycol 3350 17 GM PACKET PO (08:17)
[2023-07-09] MEDS: Naproxen 375 MG Tablet PO ×2 (08:17→15:58)
[2023-07-09] MEDS: Enoxaparin 40 MG/0.4 ML Syringe SC (08:20)
[2023-07-09 10:30] VITALS: BP 108/69; PULSE 70; RESP 18; TEMP 37.2; O2SAT 100
--- NOTE | 2023-07-09 12:14 | CASEMGMT ---
Social Work SW?to room to meet with patient for initial transition planning/care coordination?assessment.?SW?introduced self and role at [facility].? Pt voices understanding and consents to?assessment.? Pt is A/Ox4 and answers all questions appropriately.?? Care providers, pharmacy, and demographics verified. PCP: Ольга Specialists: [facility] Preferred Pharmacy: [facility] Insurance: [employer] Prescription Benefit:?yes Living Will/HPOA:?yes, pt states she has completed a living will and health care POA naming her son and sister. Documents are not currently on file. LNOK: son Omar Olivier and sister Keri Fraser Living Arrangements: Pt lives in a one story apartment with no steps to enter. Pt lives with her son who works nights and often sleeps during the day. Pt states she has difficulty with ADLs but has been able to complete. Pt can microwave meals but do nothing else. Transportation:?pt's son drives pt to appointments and get groceries DME: ? rollator and shower bench PLAN: Pt requesting SNF placement for short term rehab prior to returning home. A list of SNF providers including quality and resource use data and consistent with the patient?s preferred geographic region, medical needs, and insurance network were provided from the [employer] Guide. Pt prefers to stay at [facility] for rehab, but if unable next choice is [facility]. Referral to RU/TCU and they are unable to accept. Referral sent to [facility]. SW will await determination of acceptance. ANANDA Rodrigez
--- NOTE | 2023-07-09 12:55 | CASEMGMT ---
Addendum entered by Evelyn Paredes 07/09/23 14:41: Social Work SW met with pt to follow up on discharge plan. Pt states she spoke with her sister and has decided to go to SNF for short term rehab. Pt preferred provider is [facility]. Referral to [facility] and they are able to accept and will start precert at this time. Plan: [facility], pending precert ANANDA Rodrigez Original Note: Social Work Phone call to [facility] who state admissions is out of the building today. REYNA met with pt and updated that [facility] RU[facility]TCU is unable to accept and CC is not available. SW redirected pt back to the SNF list. Pt now asking if she can return home. Discharge options discussed. Pt is requesting time to consider and speak with her sister. SW will follow up. ANANDA Rodrigez
--- NOTE | 2023-07-09 15:03 | CASEMGMT ---
Social Work PASRR completed in [facility]. Pt made aware that [facility] can accept. Precert is pending at this time and [facility] will call the unit when precert has been obtained. Plan: [facility], pending precert ANANDA Rodrigez
--- NOTE | 2023-07-09 15:08 | CASEMGMT ---
Social Work Pt has services through the [facility] Home Waiver program. Taya Fulton is pt Grain Farmworker and pt receives home health aids 2xweek, home delivered meals and a medical alert. Phone call to Taya and updated on admission and discharge plan. Discharge orders to be faxed to Taya at discharge. ANANDA Rodrigez
[2023-07-09] MEDS: Ensure Plus High Protein 120 ML LIQUID PO (16:00)
[2023-07-09 17:00] VITALS: BP 110/73; PULSE 85; RESP 18; TEMP 36.7; O2SAT 99
[2023-07-09 21:50] VITALS: BP 108/73; PULSE 68; RESP 18; TEMP 36.8; O2SAT 98
[2023-07-09] MEDS: APIXABAN 2.5 MG TABLET (WCH) PO (22:00)
[2023-07-10] VITALS (7 sets, daily range): BP systolic 99–137; BP diastolic 62–97; PULSE 72–91; RESP 16–18; TEMP 36.6–37.2; O2SAT 98
[2023-07-10] MEDS: Carbidopa/Levodopa 25/100 Tablet PO ×6 (05:51→21:46)
[2023-07-10] MEDS: Levothyroxine 100 MCG Tablet PO (05:51)
[2023-07-10 07:11] LABS: Absolute Lymphocyte Count 1.36 X10^3/uL (0.83-4.51); Absolute Neutrophil Count 3.2 X10^3/uL (2.0-7.7); Basophil# 0.04 X10^3/uL; Basophil% 0.8 % (0-1); Eosinophil# 0.15 X10^3/uL; Hematocrit 38.3 % (37-47); Hemoglobin 12.5 g/dL (12.0-15.0); Lymphocyte # 1.36 X10^3/ul (0.83-4.51); Lymphocyte % 27.1 % (19-41); Mean Corp Hgb Conc 32.6 g/dL (32-36); Mean Corpuscular Hgb 30.9 pg (27.0-32.0); Mean Corpuscular Volume 94.8 fL (81-99); Mean Platelet Vol. 12.2 fl (6.2-12.0); Monocyte# 0.24 X10^3/uL; Monocyte% 4.8 % (0-10); NRBC Flagged by Analyzer 0 % (0-5); Neutrophil # 3.22 X10^3/uL (2.7-7.7); Neutrophil % 64.1 % (47-70); Platelet Count 218 K/mm3 (150-450); RBC Distribution Width CV 12.5 % (11.6-14.6); RBC Distribution Width SD 43.8 fl (35.1-43.9); Red Blood Count 4.04 M/mm3 (4.2-5.4)
[2023-07-10 07:45] LABS: Anion Gap 2 (5-15); BUN 22 mg/dL (7-18); BUN/Creat Ratio 32.7 RATIO (10-20); Calcium,Total 8.6 mg/dL (8.5-10.1); Chloride 112 mmol/L (98-107); Creatinine, Serum 0.67 mg/dL (0.55-1.02); EST Glomerular Filtration Rate 94 mL/min (>60); Est Glom Filt Rate - Afr Amer 113 mL/min (>60); Estimated Creatinine Clearance 75.39 ml/min; Glucose 102 mg/dL (74-106); Potassium 3.8 mmol/L (3.5-5.1); Sodium Level 141 mmol/L (136-145)
[2023-07-10] MEDS: Naproxen 375 MG Tablet PO ×2 (08:32→16:58)
[2023-07-10] MEDS: Sertraline 50 MG Tablet 25 MG PO (10:00)
[2023-07-10] MEDS: Polyethylene Glycol 3350 17 GM PACKET PO (10:00)
[2023-07-10] MEDS: APIXABAN 2.5 MG TABLET (WCH) PO ×2 (10:07→21:50)
[2023-07-10] MEDS: Ensure Plus High Protein 120 ML LIQUID PO (10:07)
[2023-07-10] MEDS: Glycerin/Hypromellose/PEG400 15 ml Bottle 2 DRP EACH EYE (12:30)
[2023-07-10] MEDS: Menthol/Lanolin/Calamine/Znox 113 GM Tube 1 APPLIC TOPICAL ×2 (12:58→21:46)
--- NOTE | 2023-07-10 13:18 | PCM.PN.HOSP ---
Reason for Visit Reason for Visit: Diagnoses Parkinson's disease without dyskinesia, without mention of fluctuations (07/08/23) Difficulty in walking, not elsewhere classified (07/08/23) Weakness (07/08/23) Objective Data Objective Data Vital Signs: Vital Signs Temp Pulse Resp BP Pulse Ox O2 Del Method 97.9 F 80 16 105/67 98 Room Air 07/10/23 12:44 07/10/23 12:52 07/10/23 12:44 07/10/23 12:44 07/10/23 12:44 07/10/23 12:52 Oxygen Delivery Method Room Air Weight: 124 lb 1.924 oz Body Mass Index (BMI) 20.6 Intake & Output: Intake and Output for Last 24 Hours 07/08/23 07/09/23 07/10/23 23:59 23:59 23:59 Intake Total 1000 / 1120 1370 / 1570 320 / 320 Output Total 1100 / 1100 400 / 400 Balance 1000 / 1120 270 / 470 -80 / -80 Lab / Micro Data 07/10/23 06:37 07/10/23 06:37 Labs: Laboratory Results - last 24 hr 07/10/23 06:37: WBC 5.0, RBC 4.04 L, Hgb 12.5, Hct 38.3, MCV 94.8, MCH 30.9, MCHC 32.6, RDW Std Deviation 43.8, RDW Coeff of Annie 12.5, Plt Count 218, MPV 12.2 H, Immature Gran % (Auto) 0.200, Neut % (Auto) 64.1, Lymph % (Auto) 27.1, [place] % (Auto) 4.8, Eos % (Auto) 3.0, Baso % (Auto) 0.8, Absolute Neuts (auto) 3.2, Absolute Lymphs (auto) 1.36, Nucleated RBC % 0, Sodium 141, Potassium 3.8, Chloride 112 H, Carbon Dioxide 27.0, Anion Gap 2 L, BUN 22 H, Creatinine 0.67, Estim Creat Clear Calc 75.39, Est GFR (MDRD) Af Amer 113, Est GFR (MDRD) Non-Af 94, BUN/Creatinine Ratio 32.7 H, Glucose 102, Calcium 8.6 Physical Exam Narrative Seen and examined. Patient still has significant symptoms of upper body involuntary movements as described below. Not seen by SOC neurologist yet. Patient has long history of Parkinson's disease diagnosed in . Patient follows neurologist Dr. Irene Brooks's as an outpatient. Has been on Sinemet since then. Patient started having symptoms of dyskinesia, dystonia, tiredness and fatigue for last 5 years. She has end of dose deterioration of involuntary movement which gets better about 1 hour after taking medication about and then restart saturating in 3 hours. She has difficulty in the posturing herself. She states he did not have a significant tremor but has difficulty in posture, rigidity, balance as her symptoms of Parkinson during diagnosis. Physical exam General: Alert, Oriented x3, Cooperative, looks older than her age. HEENT: Atraumatic, PERRLA, EOMI, Normocephalic Oral: No Gingival or Mucosal Lesions/ Ulcerations Neck: Supple, No JVD, Negative Carotid Bruits Lungs: Air entry diminished in bilateral lung bases. No crepitation/rhonchi Cardiovascular: Regular rate, Regular Rhythm, Normal S1, Normal S2, No murmurs Abdomen: Bowel Sounds Present, Soft, Non Tender, Non-Distended : No renal angle tenderness. No suprapubic tenderness. Extremities: No edema, Capillary Refill Less than 3 Seconds Skin: No rashes, No breakdown Musculoskeletal: No Tenderness to Palpation of Joints or Extremities. ROM full and intact. Muscle strength 4+/5 at knees and hip joints. Neurological: Cranial nerves II-XII grossly intact, DTR 2+/4. dyskinesia, involuntary movement and dystonia of an upper trunk, head and neck. No significant resting tremor. No hypertonia. Psych/Mental Status: Flat affect. Flat facies Assessment & Plan Assessment/Plan (1) Parkinson's disease: QUALIFIERS: Dyskinesia presence: with dyskinesia Fluctuating manifestations: with fluctuating manifestations Qualified Code(s): G20.B2 - Parkinson's disease with dyskinesia, with fluctuations (2) Unable to ambulate: (3) Weakness generalized: PLAN: Plan [id number] female came to ED with generalized weakness, neck and head pain with involuntary motor movements, dyskinesia ongoing for last several months but worse over last couple days to 1 week after her Parkinson medications were adjusted. No fever or chills. 1. Generalized weakness and debility mainly involuntary motor movement dysmetria, dyskinesia and dystonia, gait ataxia ? Most likely due to end of dose deterioration and on and off phenomena of Sinemet. SOC consult. Will need adjustment of her medications mainly Sinemet ? Evaluation and management by PT and OT 07/10: Significant symptoms of dyskinesia, gait ataxia. Orthostatic blood pressure ordered without standing. Patient might need SNF. SOC consult ordered not seen yet. Consult case management for disposition 2. Parkinson's disease ? continue with her current dosing as this was just changed about a week ago 3. Hypothyroidism ? Continue with Synthroid 4. Anxiety/depression ? 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 Repeat platelet count is 218,000. Charges/Coding Visit Charges Inpatient E&M: 01679 Subs Hosp L2
[2023-07-10] MEDS: 0.9% Saline Lock 10 ML Syringe IV ×2 (16:45→18:57)
[2023-07-10] MEDS: Lactated Ringers 500 ML 999 ML IV (16:48)
[2023-07-11 02:00] VITALS: BP 104/64; PULSE 67; RESP 16; TEMP 37; O2SAT 97
[2023-07-11] MEDS: Levothyroxine 100 MCG Tablet PO (06:03)
[2023-07-11] MEDS: Menthol/Lanolin/Calamine/Znox 113 GM Tube 1 APPLIC TOPICAL ×3 (06:03→21:23)
[2023-07-11] MEDS: Carbidopa/Levodopa 25/100 Tablet PO ×6 (06:03→21:20)
[2023-07-11] MEDS: Naproxen 375 MG Tablet PO ×2 (07:54→16:38)
[2023-07-11] MEDS: Ensure Plus High Protein 120 ML LIQUID PO (07:54)
[2023-07-11 08:00] VITALS: BP 103/63; PULSE 65; RESP 18; TEMP 36.6; O2SAT 97
--- NOTE | 2023-07-11 09:33 | PCM.PN.HOSP ---
Reason for Visit Reason for Visit: Diagnoses Parkinson's disease without dyskinesia, without mention of fluctuations (07/08/23) Parkinson's disease with dyskinesia, with fluctuations (07/08/23) Difficulty in walking, not elsewhere classified (07/08/23) Weakness (07/08/23) Objective Data Objective Data Vital Signs: Vital Signs Temp Pulse Resp BP Pulse Ox O2 Del Method 97.8 F 65 18 103/63 97 Room Air 07/11/23 08:00 07/11/23 08:00 07/11/23 08:00 07/11/23 08:00 07/11/23 08:00 07/11/23 08:00 Oxygen Delivery Method Room Air Weight: 124 lb 1.924 oz Body Mass Index (BMI) 20.6 Intake & Output: Intake and Output for Last 24 Hours 07/09/23 07/10/23 07/11/23 23:59 23:59 23:59 Intake Total 1370 / 1570 820 / 820 Output Total 1100 / 1100 400 / 600 550 / 550 Balance 270 / 470 420 / 220 -550 / -550 Lab / Micro Data 07/10/23 06:37 07/10/23 06:37 Physical Exam Narrative Seen and examined. Patient states that her back and lower extremities are very stiff. She has hard time in walking. Her upper body shaking/involuntary movements are better. Waiting to see SOC neurologist. Patient has not bowel movement for last 3 to 4 days. Additional history: Patient has long history of Parkinson's disease diagnosed in . Patient follows neurologist Dr. Irene Brooks's as an outpatient. Has been on Sinemet since then. Patient started having symptoms of dyskinesia, dystonia, tiredness and fatigue for last 5 years. She has end of dose deterioration of involuntary movement which gets better about 1 hour after taking medication about and then restart saturating in 3 hours. She has difficulty in the posturing herself. She states he did not have a significant tremor but has difficulty in posture, rigidity, balance as her symptoms of Parkinson during diagnosis. Physical exam General: Alert, Oriented x3, Cooperative, looks older than her age. HEENT: Atraumatic, PERRLA, EOMI, Normocephalic Oral: No Gingival or Mucosal Lesions/ Ulcerations Neck: Supple, No JVD, Negative Carotid Bruits Lungs: Air entry diminished in bilateral lung bases. No crepitation/rhonchi Cardiovascular: Regular rate, Regular Rhythm, Normal S1, Normal S2, No murmurs Abdomen: Bowel Sounds Present, Soft, Non Tender, Non-Distended : No renal angle tenderness. No suprapubic tenderness. Extremities: No edema, Capillary Refill Less than 3 Seconds Skin: No rashes, No breakdown Musculoskeletal: No Tenderness to Palpation of Joints or Extremities. ROM full and intact. Muscle strength 4+/5 at knees and hip joints. Neurological: Cranial nerves II-XII grossly intact, DTR 2+/4. dyskinesia, involuntary movement and dystonia of an upper trunk, head and neck. No significant resting tremor. No hypertonia. Psych/Mental Status: Flat affect. Flat facies Assessment & Plan Assessment/Plan (1) Parkinson's disease: QUALIFIERS: Dyskinesia presence: with dyskinesia Fluctuating manifestations: with fluctuating manifestations Qualified Code(s): G20.B2 - Parkinson's disease with dyskinesia, with fluctuations (2) Unable to ambulate: (3) Weakness generalized: PLAN: Plan [id number] female came to ED with generalized weakness, neck and head pain with involuntary motor movements, dyskinesia ongoing for last several months but worse over last couple days to 1 week after her Parkinson medications were adjusted. No fever or chills. 1. Generalized weakness and debility mainly involuntary motor movement dysmetria, dyskinesia and dystonia, gait ataxia ? Most likely due to end of dose deterioration and on and off phenomena of Sinemet. SOC consult. Will need adjustment of her medications mainly Sinemet ? Evaluation and management by PT and OT 07/10: Significant symptoms of dyskinesia, gait ataxia. Orthostatic blood pressure ordered without standing. Patient might need SNF. SOC consult ordered not seen yet. Consult case management for disposition 07/11: Patient back and lower extremities are more stiff. Dyskinesia symptoms involuntary movement are better. Has left hand resting tremor typical of Parkinson's disease. Waiting for SOC consult. 2. Parkinson's disease ? continue with her current dosing as this was just changed about a week ago 3. Hypothyroidism ? Continue with Synthroid 07/11: TSH ordered for tomorrow AM 4. Anxiety/depression ? Continue Zoloft 5. Patient complained of constipation has not moved bowel for 2 to 3 days. Stool softeners including Dulcolax suppository ordered. DVT: Lovenox, it is listed that she has a history of ITP so we will monitor platelet count and if necessary discontinue Lovenox and place her on SCDs. Repeat platelet count is 218,000. Charges/Coding Visit Charges Inpatient E&M: 10265 Subs Hosp L2
[2023-07-11] MEDS: Glycerin/Hypromellose/PEG400 15 ml Bottle 2 DRP EACH EYE (09:51)
[2023-07-11] MEDS: Sertraline 50 MG Tablet 25 MG PO (09:51)
[2023-07-11] MEDS: APIXABAN 2.5 MG TABLET (WCH) PO ×2 (10:11→21:23)
--- NOTE | 2023-07-11 12:34 | NURSING ---
talked with patient regarding SOC consult as camera/robot in room. pt states this a.m. when robot was brought into room someone came on and said physician would be with her then noone else ever popped on.
--- NOTE | 2023-07-11 14:45 | NURSING ---
talked with [facility] staff member states they are aware of consult and physician's are occupied with code strokes at this time. Verbalized they are hopeful they will have someone assigned to the patient soon. [id number] received call from PCU charge nurse whom states received call from [facility] stating they will have someone seeing the patient by 17:00
[2023-07-11 14:57] VITALS: BP 128/72; PULSE 81; RESP 18; TEMP 36.6; O2SAT 100
[2023-07-11 20:00] VITALS: BP 126/77; PULSE 75; RESP 16; TEMP 37.2; O2SAT 96
[2023-07-11] MEDS: Senna/Docusate Sodium 1 Tablet 2 TABLET PO (21:21)
[2023-07-12 02:00] VITALS: BP 112/68; PULSE 76; RESP 16; TEMP 37.1; O2SAT 100
[2023-07-12] MEDS: Levothyroxine 100 MCG Tablet PO (05:37)
[2023-07-12] MEDS: Carbidopa/Levodopa 25/100 Tablet PO ×6 (05:37→21:04)
[2023-07-12] MEDS: Menthol/Lanolin/Calamine/Znox 113 GM Tube 1 APPLIC TOPICAL ×3 (05:38→21:08)
[2023-07-12 05:53] LABS: Thyroid Stim Hormone (TSH) 0.02 uIU/mL (0.358-3.74)
--- NOTE | 2023-07-12 07:51 | PCM.PN.HOSP ---
Reason for Visit Reason for Visit: Diagnoses Parkinson's disease without dyskinesia, without mention of fluctuations (07/08/23) Parkinson's disease with dyskinesia, with fluctuations (07/08/23) Difficulty in walking, not elsewhere classified (07/08/23) Weakness (07/08/23) Subjective Subjective Still with tremulousness. Feels ok after taking Sinemet, then stiff again. Objective Data Objective Data Vital Signs: Vital Signs Temp Pulse Resp BP Pulse Ox O2 Del Method 37.1 C 76 16 112/68 100 Room Air 07/12/23 02:00 07/12/23 02:00 07/12/23 02:00 07/12/23 02:00 07/12/23 02:00 07/12/23 02:00 Oxygen Delivery Method Room Air Weight: 56.3 kg Body Mass Index (BMI) 20.6 Intake & Output: Intake and Output for Last 24 Hours 07/10/23 07/11/23 07/12/23 23:59 23:59 23:59 Intake Total 820 / 820 Output Total 400 / 600 550 / 1050 1300 / 1300 Balance 420 / 220 -550 / -1050 -1300 / -1300 Lab / Micro Data 07/10/23 06:37 07/10/23 06:37 Labs: Laboratory Results - last 24 hr 07/12/23 04:36: TSH 0.02 L Physical Exam Const alert and no apparent distress Constitutional Narrative: up in chair. gives very thorough history of her symptoms, medication history. HEENT head/scalp atraumatic and moist oral mucous membranes Neuro Sensorium / Orientation: awake and alert Assessment & Plan Assessment/Plan (1) Parkinson's disease: QUALIFIERS: Dyskinesia presence: with dyskinesia Fluctuating manifestations: with fluctuating manifestations Qualified Code(s): G20.B2 - Parkinson's disease with dyskinesia, with fluctuations (2) Unable to ambulate: (3) Weakness generalized: PLAN: Plan Generalized weakness and debility mainly involuntary motor movement dysmetria, dyskinesia and dystonia, gait ataxia 07/10: Significant symptoms of dyskinesia, gait ataxia. Orthostatic blood pressure ordered without standing. Patient might need SNF. SOC consult ordered not seen yet. Consult case management for disposition 07/11: Patient back and lower extremities are more stiff. Dyskinesia symptoms involuntary movement are better. Has left hand resting tremor typical of Parkinson's disease. Waiting for SOC consult. Through [facility]: Patient had a visit on June 29 where her pramipexole was discontinued and the carbidopa/levodopa was increased from 1 tab 4 times per day(0620, 1120, 1620 and 4095-1903) (previously TID). Also started on sertraline. When I spoke with the patient today, she states that she couldn't tolerate the 1 QID and was changed to 6x/day, which was better tolerated. PT OT eval and treat. UA abnormal (unfortunately a dipstick) start CTX. Follow up Ucx. Parkinson's disease? continue with her current dosing as this was just changed about a week ago Hypothyroidism? Continue with Synthroid 07/11: TSH ordered for tomorrow AM Anxiety/depression? Continue Zoloft constipation has not moved bowel for 2 to 3 days. Stool softeners including Dulcolax suppository ordered. DVT: Lovenox, it is listed that she has a history of ITP so we will monitor platelet count and if necessary discontinue Lovenox and place her on SCDs. Repeat platelet count is 218,000. Disposition: plan for SNF upon discharge. Charges/Coding Visit Charges Inpatient E&M: 29201 Subs Hosp L2
[2023-07-12] MEDS: Naproxen 375 MG Tablet PO ×2 (08:21→18:18)
[2023-07-12 08:33] VITALS: BP 123/67; PULSE 90; RESP 18; TEMP 36.9; O2SAT 97
[2023-07-12] MEDS: APIXABAN 2.5 MG TABLET (WCH) PO ×2 (08:43→21:04)
[2023-07-12] MEDS: Senna/Docusate Sodium 1 Tablet 2 TABLET PO ×2 (08:44→21:05)
[2023-07-12] MEDS: Polyethylene Glycol 3350 17 GM PACKET PO (08:44)
[2023-07-12] MEDS: Sertraline 50 MG Tablet 25 MG PO (08:45)
--- NOTE | 2023-07-12 09:49 | CASEMGMT ---
Social Work As per [facility], we have authorization for pt go to go [facility] today, SW will notify physician. STUART Noriega
[2023-07-12 11:52] LABS: T4 Free Direct 1.46 ng/dL (0.76-1.46)
[2023-07-12] MEDS: Glycerin/Hypromellose/PEG400 15 ml Bottle 2 DRP EACH EYE (12:47)
[2023-07-12 14:36] LABS: Color, Urine Yellow (Yellow); Glucose, Dipstick Normal (Normal); Ketone-Dipstick 5 mg/dl (Negative); Leukocyte Esterase-Dipstick 500 /ul (Negative); Nitrite-Dipstick Negative (Negative); Occult Blood-Urine 50 /ul (Negative); Protein-Dipstick 15 mg/dl (Negative); Specific Gravity, Urine 1.025 (1.002-1.030); Urine Clarity Sl. Cloudy (Clear); Urine Urobilinogen 1 mg/dl (Normal)
[2023-07-12 14:37] LABS: Urine Bilirubin Dipstick 1 mg/dL (Negative)
[2023-07-12 15:14] VITALS: BP 117/69; PULSE 78; RESP 16; TEMP 36.7; O2SAT 98
[2023-07-12] MEDS: 0.9% Normal Saline (250mL Bag) 250 ML 15 ML IV (18:17)
[2023-07-12] MEDS: Ceftriaxone 1 GM/50 ML BAG IV (18:17)
[2023-07-12] MEDS: 0.9% Saline Lock 10 ML Syringe IV (18:17)
[2023-07-12 21:16] VITALS: BP 94/60; PULSE 72; RESP 18; TEMP 36.9; O2SAT 97
[2023-07-13 05:00] VITALS: BP 101/62; PULSE 69; RESP 16; TEMP 37.2; O2SAT 96
[2023-07-13] MEDS: Levothyroxine 100 MCG Tablet PO (06:20)
[2023-07-13] MEDS: Carbidopa/Levodopa 25/100 Tablet PO ×4 (06:20→15:15)
[2023-07-13] MEDS: Menthol/Lanolin/Calamine/Znox 113 GM Tube 1 APPLIC TOPICAL (06:21)
--- NOTE | 2023-07-13 07:36 | PN.HOSP_ITS ---
Subjective Subjective Feels weak after working with therapy. Objective Data Objective Data Vital Signs: Vital Signs Temp Pulse Resp BP Pulse Ox O2 Del Method 37.2 C 69 16 101/62 96 Room Air 07/13/23 05:00 07/13/23 05:00 07/13/23 05:00 07/13/23 05:00 07/13/23 05:00 07/13/23 05:00 Oxygen Delivery Method Room Air Weight: 56.3 kg Body Mass Index (BMI) 20.6 Intake & Output: Intake and Output for Last 24 Hours 07/11/23 07/12/23 07/13/23 23:59 23:59 23:59 Intake Total 1100 / 1100 Output Total 550 / 1050 1300 / 1300 500 / 500 Balance -550 / -1050 -200 / -200 -500 / -500 Lab / Micro Data 07/10/23 06:37 07/10/23 06:37 Labs: Laboratory Results - last 24 hr 07/12/23 04:36: Free T4 1.46 07/12/23 14:14: Urine Color Yellow, Urine Clarity Sl. Cloudy, Urine pH 5.0, Ur Specific [place] 1.025, Urine Protein 15 H, Urine Glucose (UA) Normal, Urine Ketones 5 H, Urine Occult Blood 50 H, Urine Nitrite Negative, Urine Bilirubin 1 H, Urine Urobilinogen 1 H, Ur Leukocyte Esterase 500 H Physical Exam Const alert and no apparent distress Constitutional Narrative: Tremors. Masked facies. Nontoxic. Assessment & Plan Assessment/Plan (1) Parkinson's disease: QUALIFIERS: Dyskinesia presence: with dyskinesia Fluctuating manifestations: with fluctuating manifestations Qualified Code(s): G20.B2 - Parkinson's disease with dyskinesia, with fluctuations PLAN: Generalized weakness and debility mainly involuntary motor movement dysmetria, dyskinesia and dystonia, gait ataxia Through [facility]: Patient had a visit on June 29 where her pramipexole was discontinued and the carbidopa/levodopa was increased from 1 tab 4 times per day(0620, 1120, 1620 and [id number]) (previously TID). Also started on sertraline. When I spoke with the patient today, she states that she couldn't tolerate the 1 QID and was changed to 6x/day, which was better tolerated. PT OT eval and treat. Concerned this may be exacerbated due to UTI. UA abnormal (unfortunately a dipstick) start CTX. Follow up Ucx. Urine culture pending. Patient has previously had a pansensitive E. coli, will continue treatments with nitrofurantoin. Follow-up with neurology (2) Weakness generalized: PLAN: Secondary to PD. PLAN: Plan Chronic conditions: * Hypothyroidism? Continue with Synthroid. TSH low, but free T4 WNL. No change to medication needed. * Anxiety/depression? Continue Zoloft * constipation has not moved bowel for 2 to 3 days. Stool softeners including D ulcolax suppository ordered. * ITP: stable DVT: Lovenox Disposition: Discharge to SNF
[2023-07-13] MEDS: Naproxen 375 MG Tablet PO (08:49)
[2023-07-13 08:53] VITALS: BP 123/87; PULSE 73; RESP 16; TEMP 36.6; O2SAT 100
[2023-07-13] MEDS: APIXABAN 2.5 MG TABLET (WCH) PO (09:11)
[2023-07-13] MEDS: Senna/Docusate Sodium 1 Tablet 2 TABLET PO (09:11)
[2023-07-13] MEDS: Sertraline 50 MG Tablet 25 MG PO (09:12)
[2023-07-13] MEDS: 0.9% Saline Lock 10 ML Syringe IV (09:20)
--- NOTE | 2023-07-13 11:55 | TREXTCAR_ITS ---
Diet Diet Order/Speech Therapy: 07/08/23 19:32 Diet: Regular - General Food consistency:: Regular Liquid Consistency:: Regular/Thin Routine Orders/Code Status Code Status: Full Code Therapies Weight Bearing: Full weight bearing Physical Therapy: Eval and Treat Occupational Therapy: Eval and Treat Problem/Diagnosis (1) Parkinson's disease: Status: Acute Code(s): G20.A1 - Parkinson's disease without dyskinesia, without mention of fluctuations Plan: Generalized weakness and debility mainly involuntary motor movement dysmetria, dyskinesia and dystonia, gait ataxia Through [facility]: Patient had a visit on June 29 where her pramipexole was discontinued and the carbidopa/levodopa was increased from 1 tab 4 times per day(0620, 1120, 1620 and 3126-6820) (previously TID). Also started on sertraline. When I spoke with the patient today, she states that she couldn't tolerate the 1 QID and was changed to 6x/day, which was better tolerated. PT OT eval and treat. Concerned this may be exacerbated due to UTI. UA abnormal (unfortunately a dipstick) start CTX. Follow up Ucx. Urine culture pending. Patient has previously had a pansensitive E. coli, will continue treatments with nit rofurantoin. Follow-up with neurology (2) Weakness generalized: Status: Acute Code(s): R53.1 - Weakness Plan: Secondary to PD. Plan Chronic conditions: * Hypothyroidism? Continue with Synthroid. TSH low, but free T4 WNL. No change to medication needed. * Anxiety/depression? Continue Zoloft * constipation has not moved bowel for 2 to 3 days. Stool softeners including Dulcolax suppository ordered. * ITP: stable DVT: Lovenox Disposition: Discharge to SNF Allergies/Procedures Done in Hospital Allergies omeprazole Allergy (Verified 07/08/23 10:20) Unknown simvastatin [From Zocor] Allergy (Verified 07/08/23 10:20) Unknown ropinirole Adverse Reaction (Mild, Verified 07/08/23 10:20) Unknown 'SIDE EFFECTS, DOSAGE REDUCED, PT STILL TAKES Procedures: None Type of Care/Length of Stay Estimated LOS: Convalescent Care Less Than 30 days Type of Care Needed: Skilled Rehab Potential: Fair Prognosis: Good Additional Orders/Day of Discharge Day of Discharge: 07/13/23 Dietary and Speech Recommendations Dietitian Recommendations/Changes: Continue liberal regular diet w/ ONS at [facility] Continue to follow and monitor for changes in pt nutritional status Discharge Plan Admission Admit Date/Time: 07/08/23 15:35 Primary Reason for Your Visit: weakness. UTI. Attending Provider: Erick Palmer Primary Care Provider: Lamonte Rolon Consulting Providers: Tyrel Jj; Germain Jo Instructions Additional Instructions / Restrictions: Follow up with neurology in 1-2 months. Discharge Orders/Prescriptions Prescriptions: New sennosides-docusate sodium [Stool Softener-Stimulant Laxat] 8.6-50 mg Tablet 2 tab PO BID Qty: 0 0RF bisacodyl 10 mg Suppository 10 mg CA DAILY PRN (Reason: CONSTIPATION) Qty: 0 0RF Artificial Tears(mt-htep-qhaq) 1-0.2-0.2 % Drops 2 drp EACH EYE Q1H PRN (Reason: DRY EYES) Qty: 0 0RF Ensure Plus High Protein 0.08 gram-1.5 kcal/mL Liquid 120 ml PO 4X/DAY Qty: 0 0RF nitrofurantoin monohyd/m-cryst [Macrobid] 100 mg capsule 100 mg PO BID Qty: 10 0RF Rx Instructions: must administer with a meal/food Continued polyethylene glycol 3350 [Miralax] 17 gram Powder In Packet 17 g PO DAILY PRN (Reason: Constipation) acetaminophen 500 mg Tablet 500 mg PO Q6H PRN (Reason: Pain) naproxen 375 mg Tablet 375 mg PO BIDCM Qty: 60 0RF levothyroxine [Euthyrox] 100 mcg tablet 100 mcg PO DAILY Qty: 30 0RF polyethylene glycol 3350 [ClearLax] 17 gram/dose powder 17 g PO DAILY sertraline 25 mg tablet 25 mg PO DAILY carbidopa-levodopa 25-100 mg Tablet 0.5 tab PO .6X/DAY Rx Instructions: 0630,0930,1230,1530,1830,2100 Referrals / Follow Up: Lamonte Rolon MD [Primary Care Provider] - Within 2 Weeks Disposition Disposition (needs filled in before D/C Order can be placed): Alf Facility (1) Parkinson's disease Qualifiers: Dyskinesia presence: with dyskinesia Fluctuating manifestations: with fluctuating manifestations Qualified Code(s): G20.B2 - Parkinson's disease with dyskinesia, with fluctuations
--- NOTE | 2023-07-13 12:01 | DS.PCM_ITS ---
Providers Date of Admission: 07/08/23 Primary Care Physician: Dr. Lamonte Rolon MD Reason For Visit: DEBILITY Diagnosis Discharge Diagnosis (1) Parkinson's disease: Status: Acute Code(s): G20.A1 - Parkinson's disease without dyskinesia, without mention of fluctuations Qualifiers: Dyskinesia presence: with dyskinesia Fluctuating manifestations: with fluctuating manifestations Qualified Code(s): G20.B2 - Parkinson's disease with dyskinesia, with fluctuations Plan: Generalized weakness and debility mainly involuntary motor movement dysmetria, dyskinesia and dystonia, gait ataxia Through [facility]: Patient had a visit on June 29 where her pramipexole was d iscontinued and the carbidopa/levodopa was increased from 1 tab 4 times per day(0620, 1120, 1620 and 2930-3443) (previously TID). Also started on sertraline. When I spoke with the patient today, she states that she couldn't tolerate the 1 QID and was changed to 6x/day, which was better tolerated. PT OT eval and treat. Concerned this may be exacerbated due to UTI. UA abnormal (unfortunately a dipstick) start CTX. Follow up Ucx. Urine culture pending. Patient has previously had a pansensitive E. coli, will continue treatments with nitrofurantoin. Follow-up with neurology (2) Weakness generalized: Status: Acute Code(s): R53.1 - Weakness Plan: Secondary to PD. Plan Chronic conditions: * Hypothyroidism? Continue with Synthroid. TSH low, but free T4 WNL. No change to medication needed. * Anxiety/depression? Continue Zoloft * constipation has not moved bowel for 2 to 3 days. Stool softeners including Dulcolax suppository ordered. * ITP: stable DVT: Lovenox Disposition: Discharge to SNF Medications at Discharge Home Medications acetaminophen 500 mg tablet 500 mg PO Q6H PRN Pain 07/21/22 polyethylene glycol 3350 17 gram oral powder packet (Miralax) 17 g PO DAILY PRN Constipation 07/21/22 levothyroxine 100 mcg tablet (Euthyrox) 100 mcg PO DAILY #30 tabs 08/07/22 naproxen 375 mg tablet 375 mg PO BIDCM #60 tabs 08/07/22 carbidopa 25 mg-levodopa 100 mg tablet 0.5 tab PO .6X/DAY 07/08/23 polyethylene glycol 3350 17 gram/dose oral powder (ClearLax) 17 g PO DAILY 07/08/23 sertraline 25 mg tablet 25 mg PO DAILY 07/08/23 bisacodyl 10 mg rectal suppository 10 mg [place] DAILY PRN CONSTIPATION #0 ea 07/13/23 food supplemt, lactose-reduced 0.08 gram-1.5 kcal/mL oral liquid (Ensure Plus High Protein) 120 ml PO 4X/DAY #0 mL 07/13/23 nitrofurantoin monohydrate/macrocrystals 100 mg capsule (Macrobid) 100 mg PO BID #10 caps 07/13/23 peg [id number] 1 %-0.2 %-0.2 % eye drops (Artificial Tears (pg40 [id number])) 2 drp EACH EYE Q1H PRN DRY EYES #0 mL 07/13/23 sennosides 8.6 mg-docusate sodium 50 mg tablet (Stool Softener-Stimulant Laxative) 2 tab PO BID #0 tabs 07/13/23 Hospital Course Operations None Summary of Care Provided Minutes Spent on Discharge: 32 Hospital Course: Presents with weakness. Patient has known Parkinson's and has recently had her dosing adjusted Sinemet. Was taking 1 tablet 3 times a day then very recently increased to 4 times per day. She was unable to tolerate the 4 times a day so she was changed to half tablet 6 times per day. Despite that, she has not gotten weaker. Patient states that it does help her overall and that benefits outweigh the side effects with the Sinemet. Patient was seen by [facility] josephneuroemily torres who recommended continue with that treatment. Patient to follow-up with her outpatient neurologist. Patient may have a urinary tract infection so patient was started on ceftriaxone to be changed over to nitrofurantoin upon discharge. Weight / BMI Weight Weight: 56.3 kg Body Mass Index (BMI) 20.6 ABG / Lab / Microbiology Data 07/10/23 06:37 07/10/23 06:37 Laboratory: Laboratory Results - last 24 hr 07/12/23 14:14: Urine Color Yellow, Urine Clarity Sl. Cloudy, Urine pH 5.0, Ur Specific [place] 1.025, Urine Protein 15 H, Urine Glucose (UA) Normal, Urine Ketones 5 H, Urine Occult Blood 50 H, Urine Nitrite Negative, Urine Bilirubin 1 H, Urine Urobilinogen 1 H, Ur Leukocyte Esterase 500 H Meaningful Use Info Meaningful Use Diagnoses (Choose all that apply): None applicable Discharge Plan Admission Admit Date/Time: 07/08/23 15:35 Primary Reason for Your Visit: weakness. UTI. Attending Provider: Erick Palmer Primary Care Provider: Lamonte Rolon Consulting Providers: Tyrel Jj; Germain Jo Instructions Additional Instructions / Restrictions: Follow up with neurology in 1-2 months. Discharge Orders/Prescriptions Prescriptions: New sennosides-docusate sodium [Stool Softener-Stimulant Laxat] 8.6-50 mg Tablet 2 tab PO BID Qty: 0 0RF bisacodyl 10 mg Suppository 10 mg [place] DAILY PRN (Reason: CONSTIPATION) Qty: 0 0RF Artificial Tears(tk-hjji-ipwr) 1-0.2-0.2 % Drops 2 drp EACH EYE Q1H PRN (Reason: DRY EYES) Qty: 0 0RF Ensure Plus High Protein 0.08 gram-1.5 kcal/mL Liquid 120 ml PO 4X/DAY Qty: 0 0RF nitrofurantoin monohyd/m-cryst [Macrobid] 100 mg capsule 100 mg PO BID Qty: 10 0RF Rx Instructions: must administer with a meal/food Continued polyethylene glycol 3350 [Miralax] 17 gram Powder In Packet 17 g PO DAILY PRN (Reason: Constipation) acetaminophen 500 mg Tablet 500 mg PO Q6H PRN (Reason: Pain) naproxen 375 mg Tablet 375 mg PO BIDCM Qty: 60 0RF levothyroxine [Euthyrox] 100 mcg tablet 100 mcg PO DAILY Qty: 30 0RF polyethylene glycol 3350 [ClearLax] 17 gram/dose powder 17 g PO DAILY sertraline 25 mg tablet 25 mg PO DAILY carbidopa-levodopa 25-100 mg Tablet 0.5 tab PO .6X/DAY Rx Instructions: 0630,0930,1230,1530,1830,2100 Referrals / Follow Up: Lamonte Rolon MD [Primary Care Provider] - Within 2 Weeks Disposition Disposition (needs filled in before D/C Order can be placed): Nursing Home Facility Charges/Coding Visit Charges Inpatient E&M: 95455 Disch Hosp >30min
[2023-07-13 12:39] VITALS: BP 122/75; PULSE 72; RESP 16; TEMP 36.6; O2SAT 100
--- NOTE | 2023-07-13 13:01 | CASEMGMT ---
Addendum entered by Evelyn Paredes 07/13/23 13:43: Social Work Discharge orders and disposition faxed to Pt's Direction [employer]ic Taya Fulton. ANANDA Rodrigez Original Note: Social Work Precert has been obtained.? Physician updated and pt is ready for discharge today.?PASRR has been completed in [facility] and sent along with discharge orders to [facility] via [facility].? Transportation arranged with Physician ambulance for 2:30 pickup via wheelchair van.? SW met with pt and she is agreeable to discharge plan as stated above. With pt permission, phone call to pt sister Sarah and updated on discharge.? CC and bedside nurse notified of discharge time. Disposition:? [facility], skilled level of care. ANANDA Rodrigez
--- NOTE | 2023-07-13 13:07 | PHA.DC_ITS ---
Pharmacy [facility] has performed discharge medication reconciliation and counseling for this patient. The patient's discharge medication list was reviewed for discrepancies and discrepancies were resolved. The patient was counseled on the following discharge medications and changes in medications for homegoing were reviewed. The Reason for Use, instructions for use, and potential side effects were reviewed for all new medications. The patient's questions regarding all of their medications were answered. 1. Nitrofurantoin 100 mg PO BID x 5 days The patient was able to verbally demonstrate an understanding of their discharge medications. The patient was counselled on new medication by instructor adjunct pharmacy technician Hunter. Medications at Discharge Home Medications acetaminophen 500 mg tablet 500 mg PO Q6H PRN Pain 07/21/22 polyethylene glycol 3350 17 gram oral powder packet (Miralax) 17 g PO DAILY PRN Constipation 07/21/22 levothyroxine 100 mcg tablet (Euthyrox) 100 mcg PO DAILY #30 tabs 08/07/22 naproxen 375 mg tablet 375 mg PO BIDCM #60 tabs 08/07/22 carbidopa 25 mg-levodopa 100 mg tablet 0.5 tab PO .6X/DAY 07/08/23 polyethylene glycol 3350 17 gram/dose oral powder (ClearLax) 17 g PO DAILY 07/08/23 sertraline 25 mg tablet 25 mg PO DAILY 07/08/23 bisacodyl 10 mg rectal suppository 10 mg [place] DAILY PRN CONSTIPATION #0 ea 07/13/23 food supplemt, lactose-reduced 0.08 gram-1.5 kcal/mL oral liquid (Ensure Plus High Protein) 120 ml PO 4X/DAY #0 mL 07/13/23 nitrofurantoin monohydrate/macrocrystals 100 mg capsule (Macrobid) 100 mg PO BID #10 caps 07/13/23 peg [id number] 1 %-0.2 %-0.2 % eye drops (Artificial Tears ([id number])) 2 drp EACH EYE Q1H PRN DRY EYES #0 mL 07/13/23 sennosides 8.6 mg-docusate sodium 50 mg tablet (Stool Softener-Stimulant Laxative) 2 tab PO BID #0 tabs 07/13/23
--- NOTE | 2023-07-13 13:48 | NURSING ---
REPORT CALLED TO [facility]-
== END 2023-07-13 15:21 | disposition skilled nursing facility (03) ==
LOC: ED 15:23 → MS3 16:28
PROVIDERS: Internal Medicine; Admitting Provider Family Medicine; Emergency Provider Emergency Medicine; PCP Family Medicine
DX: G20.B2 Parkinson's disease with dyskinesia, with fluctuations (principal); D69.3 Immune thrombocytopenic purpura; R53.1 Weakness; G89.29 Other chronic pain; I10 Essential (primary) hypertension; Z87.891 Personal history of nicotine dependence; E03.9 Hypothyroidism, unspecified; F41.9 Anxiety disorder, unspecified; F32.A Depression, unspecified; Z79.899 Other long term (current) drug therapy; Z79.890 Hormone replacement therapy; K59.00 Constipation, unspecified
CPT/HCPCS: 36415; 71045; 74176; 80048; 81001; 81002; 84439; 84443; 85025; 87086; 87088; 93005; 96361; 96365; 96372; 97116; 97162; 97166; 97530; 97535; 97802; 99221; 99285; J7030; J7050; J7120; P9612; A4216; G0378

== ENCOUNTER 2023-09-07 09:51 | Inpatient (IN) | payer MEDICARE, MEDICAID, SELFPAY ==
[2023-09-07 09:53] VITALS: TEMP 36.8; BMI 21.2
[2023-09-07 09:56] VITALS: PULSE 85; RESP 16; O2SAT 98
[2023-09-07 09:59] VITALS: BP 152/89
--- NOTE | 2023-09-07 10:03 | EKG12_ITS ---
Test Reason : WEAKNESS Blood Pressure : / mmHG Vent. Rate : 078 BPM Atrial Rate : 078 BPM P-R Int : 152 ms QRS Dur : 068 ms QT Int : 464 ms P-R-T Axes : 066 075 072 degrees QTc Int : 528 ms Sinus rhythm with Fusion complexes Prolonged QT Abnormal ECG Confirmed by ALBERTO BERGERON, FRIDA ([id number]), photographic editor LEVAR HESTER ([id number]) on 09/08/2023 9:11:19 AM Referred By: Confirmed By:FRIDA DOMINGUEZ MD
[2023-09-07] MEDS: 0.9% Normal Saline (1000mL) 1,000 ML 1000 ML IV (10:12)
[2023-09-07 10:18] LABS: Absolute Neutrophil Count 3.2 X10^3/uL (2.0-7.7); Basophil# 0.04 X10^3/uL; Basophil% 0.8 % (0-1); Eosinophil# 0.04 X10^3/uL; Eosinophils% 0.8 % (0-5); Hematocrit 40.2 % (37-47); Hemoglobin 13.1 g/dL (12.0-15.0); Lymphocyte % 29.5 % (19-41); Mean Corp Hgb Conc 32.6 g/dL (32-36); Mean Corpuscular Hgb 31.3 pg (27.0-32.0); Mean Corpuscular Volume 95.9 fL (81-99); Mean Platelet Vol. 12.2 fl (6.2-12.0); Monocyte# 0.31 X10^3/uL; Monocyte% 6.1 % (0-10); NRBC Flagged by Analyzer 0 % (0-5); Neutrophil # 3.18 X10^3/uL (2.7-7.7); Neutrophil % 62.6 % (47-70); Platelet Count 248 K/mm3 (150-450); RBC Distribution Width CV 12.8 % (11.6-14.6); RBC Distribution Width SD 45.2 fl (35.1-43.9); Red Blood Count 4.19 M/mm3 (4.2-5.4); White Blood Count 5.1 K/mm3 (4.4-11.0)
[2023-09-07 10:34] LABS: Anion Gap 6 (5-15); BUN 16 mg/dL (7-18); BUN/Creat Ratio 20.2 RATIO (10-20); Chloride 106 mmol/L (98-107); Creatinine, Serum 0.79 mg/dL (0.55-1.02); EST Glomerular Filtration Rate 78 mL/min (>60); Est Glom Filt Rate - Afr Amer 94 mL/min (>60); Estimated Creatinine Clearance 63.88 ml/min; Glucose 86 mg/dL (74-106); Potassium 3.2 mmol/L (3.5-5.1); Sodium Level 142 mmol/L (136-145)
[2023-09-07 10:35] LABS: Bacteria 0 SEEN /hpf (None Seen); Mucous, Urine 0 SEEN /hpf (<or=2+); White Blood Cells 0 SEEN /hpf (0-5)
[2023-09-07 10:41] LABS: Color, Urine Yellow (Yellow); Glucose, Dipstick Normal (Normal); Ketone-Dipstick Negative (Negative); Leukocyte Esterase-Dipstick Negative /ul (Negative); Nitrite-Dipstick Negative (Negative); Occult Blood-Urine 50 /ul (Negative); Protein-Dipstick Negative (Negative); Urine Bilirubin Dipstick Negative (Negative); Urine Clarity Sl. Cloudy (Clear); Urine Urobilinogen Normal (Normal)
[2023-09-07 10:56] LABS: Red Blood Cells-Urine 0-5 SEEN /hpf (0-5); Squamous Epithelial Cells - UA 0-5 SEEN /hpf (5-10)
--- OUTSIDE RECORDS SUMMARY | 2023-09-07 12:03 | XMS RPT_ITS | CCD ---
Author Name Unknown Address [address] [place] [address] Organization [facility] Care Team Providers Care Automobile Wrecker Name Role Phone Saira Rolon MD Primary Care Provider Vicky Ramos MD Unavailable Kassi PT, Marylu Unavailable Saira Rolno MD Primary Care Provider Vicky Ramos MD Unavailable Kassi PT, Marylu Unavailable Sara SEWAGE TREATMENT PLANT OPERATOR.MARINA, Kelly K Unavailable Saira Rolon MD Primary Care Provider Vicky Ramos MD Unavailable Kassi PT, Marylu Unavailable Sara SEWAGE TREATMENT PLANT OPERATOR.MARINA, Kelly K Unavailable Tera SEWAGE TREATMENT PLANT OPERATOR.DESULPHURING OPERATOR, Jennifer Unavailable Kassi PT, Marylu Unavailable Sara SEWAGE TREATMENT PLANT OPERATOR.MARINA, Kelly K Unavailable Tera SEWAGE TREATMENT PLANT OPERATOR.MARINA, Jennifer Unavailable SAIRA ROLON Primary Care Unavailable VICKY RAMOS Attending Unavailable TRINITY, CHRISTOPHER Primary Care Unavailable PODLOGARKATLIN Referring Unavailable TRINITY, CHRISTOPHER Primary Care Unavailable SAIRA ROLON Attending Unavailable PODLOGARKATLIN Referring Unavailable AVINASHLEY, CHRISTOPHER Primary Care Unavailable AVINASHLEY, CHRISTOPHER Primary Care Unavailable PODLOGARKATLIN Attending Unavailable AVINASHLEY, CHRISTOPHER Primary Care Unavailable VICKY RAMOS Referring Unavailable VICKY RAMOS Attending Unavailable SAIRA ROLON Primary Care Unavailable KATLIN PAGE Attending Unavailable Allergies Allergy Classification Reported Allergen(s) Allergy Type Date of Onset Reaction(s) Facility (20 sources) Acetaminophen / HYDROcodone; Translations: [HYDROCODONE-ACETA MINOPHEN] Drug Allergy 7 Other: See Comments [facility] Work Phone: (20 sources) Amantadine; Translations: [AMANTADINE] Drug Allergy 9 Other: See Comments [facility] Work Phone: [phone] (20 sources) Escitalopram; Translations: [ESCITALOPRAM OXALATE] Drug Allergy 9 Shortness of Breath [facility] Work Phone: [phone] (20 sources) FLUoxetine; Translations: [FLUOXETINE] Drug Allergy 0 Other: See Comments [facility] Work Phone: [phone] (20 sources) Omeprazole; Translations: [OMEPRAZOLE] Drug Allergy 2 GI Upset, Vomiting [facility] Work Phone: (20 sources) rOPINIRole; Translations: [ROPINIROLE] Drug Allergy 2 Mental Status Change [facility] Work Phone: (20 sources) Simvastatin; Translations: [SIMVASTATIN] Drug Allergy 0 Intolerance [facility] Work Phone: Medications Current Medications Medication Drug Class(es) Dates Sig (Normalized) Sig (Original) carbidopa 25 mg / levodopa 100 mg oral tablet (20 sources) Aromatic Amino Acid Decarboxylation Inhibitor, Aromatic Amino Acid Start: 01-19-2023 End: 01-19-2024 take 1 tablet by mouth four times daily carbidopa-levodo pa (SINEMET) 25-100 mg per tablet Indications: Parkinson disease Take 1 tablet by mouth four times daily. 360 tablet 3 01/19/2023 01/19/2024 Active Completed/Discontinued Medications Medication Drug Class(es) Dates Sig (Normalized) Sig (Original) acetaminophen 500 mg oral tablet (20 sources) take 1 tablet by mouth every eight hours as needed acetaminophen (TYLENOL) 500 mg tablet Take 500 mg by mouth every 8 hours as needed for Pain. 0 Active Problems Active Problems Problem Classification Problem Date Documented Date Episodic/Chronic Acute cerebrovascular disease (15 sources) Cerebrovascular accident; Translations: [Cerebral infarction, unspecified] 06-10-2018 Chronic Anxiety disorders (16 sources) Anxiety; Translations: [Anxiety disorder, unspecified] Onset: 10-19-2022 Chronic Blindness and vision defects (1 source) Blurring of visual image; Translations: [Other visual disturbances] Episodic Coagulation and hemorrhagic disorders (20 sources) Chronic idiopathic thrombocytopenic purpura; Translations: [Immune thrombocytopenic purpura] Onset: 12-09-2018 12-09-2018 Chronic Esophageal disorders (20 sources) Gastroesophageal reflux disease; Translations: [Gastro-esophageal reflux disease without esophagitis] Onset: 08-06-2010 08-06-2010 Chronic Essential hypertension (20 sources) Essential hypertension; Translations: [Essential (primary) hypertension] Onset: 08-22-2009 Chronic Genitourinary symptoms and ill-defined conditions (4 sources) Urge incontinence of urine; Translations: [Urge incontinence] Onset: 10-19-2022 Chronic Genitourinary symptoms and ill-defined conditions (1 source) Increased frequency of urination; Translations: [Frequency of micturition] Episodic Headache; including migraine (1 source) Tension-type headache; Translations: [Tension-type headache, unspecified, not intractable] Chronic Malaise and fatigue (1 source) Asthenia; Translations: [Other malaise] Episodic Nutritional deficiencies (1 source) Vitamin D deficiency, unspecified; Translations: [Vitamin D deficiency] Onset: 08-18-2023 Chronic Osteoarthritis (20 sources) Osteoarthritis; Translations: [Unspecified osteoarthritis, unspecified site] 07-16-2020 Chronic Other aftercare (1 source) Post-discharge follow-up; Translations: [Encounter for follow-up examination after completed treatment for conditions other than malignant neoplasm] Episodic Other aftercare (1 source) Encounter for follow-up examination after completed treatment for conditions other than malignant neoplasm; Translations: [Hospital discharge follow-up] Onset: 08-18-2023 Episodic Other circulatory disease (20 sources) History of cerebrovascular accident; Translations: [Personal history of transient ischemic attack (TIA), and cerebral infarction without residual deficits] 08-12-2022 Episodic Other diseases of bladder and urethra (2 sources) Overactive bladder; Translations: [Overactive bladder] Chronic Other diseases of bladder and urethra (1 source) Overactive bladder; Translations: [OAB (overactive bladder)] Onset: 10-19-2022 Chronic Other liver diseases (1 source) Elevated liver enzymes level; Translations: [Abnormal levels of other serum enzymes] Episodic Other screening for suspected conditions (not mental disorders or infectious disease) (3 sources) Patient encounter status; Translations: [Encounter for screening for lipoid disorders] Onset: 08-18-2023 Episodic Parkinson`s disease (20 sources) Parkinson's disease; Translations: [Parkinson's disease] Onset: 12-10-2009 12-10-2009 Chronic Parkinson`s disease (2 sources) Parkinson`s disease; Translations: [Parkinson disease] Onset: 12-10-2009 Screening and history of mental health and substance abuse codes (20 sources) Tobacco use and exposure - finding; Translations: [Personal history of nicotine dependence] 07-16-2020 Episodic Spondylosis; intervertebral disc disorders; other back problems (5 sources) Acute low back pain; Translations: [Acute bilateral low back pain without sciatica] Episodic Sprains and strains (4 sources) Strain of neck muscle; Translations: [Strain of muscle, fascia and tendon at neck level, initial encounter] Episodic Thyroid disorders (20 sources) Acquired hypothyroidism; Translations: [Hypothyroidism, unspecified] Onset: 08-22-2009 Chronic Urinary tract infections (1 source) Acute cystitis; Translations: [Acute cystitis without hematuria] Episodic Past or Other Problems Problem Classification Problem Date Documented Date Episodic/Chronic Acquired foot deformities (20 sources) Left foot drop; Translations: [Foot drop, left foot] Onset: 08-21-2015 08-21-2015 Episodic Other liver diseases (1 source) Abnormal levels of other serum enzymes; Translations: [Elevated liver enzymes] Onset: 10-19-2022 Episodic Other nervous system disorders (20 sources) Abnormal gait; Translations: [Unspecified abnormalities of gait and mobility] Onset: 08-21-2015 08-21-2015 Episodic Other nervous system disorders (20 sources) Impairment of balance; Translations: [Other abnormalities of gait and mobility] Onset: 08-21-2015 08-21-2015 Episodic Other non-traumatic joint disorders (15 sources) Shoulder pain; Translations: [Pain in left shoulder] Onset: 07-26-2017 07-26-2017 Episodic Results Test Name Value Interpretation Reference Range Facil ity Vital Signs Date Time Vital Sign Value Performing Clinician Munir leo 06-29-2023 13:31-0400 Body height 162.6 cm Vicky Ramos MD Work Phone: [facility] 06-29-2023 13:31-0400 Body weight 56.79 kg Vicky Ramos MD Work Phone: [facility] 06-29-2023 13:31-0400 SaO2% (BldA) [Mass fraction] 98 % Vicky Ramos MD Work Phone: [facility] 02-16-2023 13:55-0400 Body weight 62.05 kg Katlin Podlogar SEWAGE TREATMENT PLANT OPERATOR.DESULPHURING OPERATOR Work Phone: [facility] 02-16-2023 13:55-0400 Diastolic blood pressure 80 mm[Hg] Katlin Podlogar SEWAGE TREATMENT PLANT OPERATOR.DESULPHURING OPERATOR Work Phone: [facility] 02-16-2023 13:55-0400 Heart rate 76 /min Katlin Podlogar SEWAGE TREATMENT PLANT OPERATOR.DESULPHURING OPERATOR Work Phone: [facility] 02-16-2023 13:55-0400 Respiratory rate 18 /min Katlin Podlogar SEWAGE TREATMENT PLANT OPERATOR.DESULPHURING OPERATOR Work Phone: [facility] 02-16-2023 13:55-0400 SaO2% (BldA) [Mass fraction] 97 % Katlin Podlogar SEWAGE TREATMENT PLANT OPERATOR.DESULPHURING OPERATOR Work Phone: [facility] 02-16-2023 13:55-0400 Systolic blood pressure 120 mm[Hg] Katlin Podlogar SEWAGE TREATMENT PLANT OPERATOR.DESULPHURING OPERATOR Work Phone: [facility] 10-19-2022 15:00-0500 Body weight 60.51 kg Saira Rolon MD Work Phone: [facility] 10-19-2022 15:00-0500 Diastolic blood pressure 78 mm[Hg] Saira Rolon MD Work Phone: [facility] 10-19-2022 15:00-0500 Heart rate 78 /min Saira Rolon MD Work Phone: [facility] 10-19-2022 15:00-0500 Respiratory rate 16 /min Saira Rolon MD Work Phone: [facility] 10-19-2022 15:00-0500 SaO2% (BldA) [Mass fraction] 98 % Saira Rolon MD Work Phone: [facility] 10-19-2022 15:00-0500 Systolic blood pressure 112 mm[Hg] Saira Rolon MD Work Phone: [facility] 08-14-2022 10:35-0500 Diastolic blood pressure 74 mm[Hg] Saira Rolon MD Work Phone: [facility] 08-14-2022 10:35-0500 Systolic blood pressure 136 mm[Hg] Saira Rolon MD Work Phone: [facility] 08-14-2022 09:58-0500 Body weight 62.32 kg Saira Rolon MD Work Phone: [facility] 08-14-2022 09:58-0500 Heart rate 69 /min Saira Rolon MD Work Phone: [facility] 08-14-2022 09:58-0500 Respiratory rate 16 /min Saira Rolon MD Work Phone: [facility] 08-14-2022 09:58-0500 SaO2% (BldA) [Mass fraction] 99 % Saira Rolon MD Work Phone: [facility] 03-18-2022 13:10-0400 Body temperature 98.8 [degF] Saira Rolon MD Work Phone: [facility] 03-18-2022 13:10-0400 Body weight 59.42 kg Saira Rolon MD Work Phone: [facility] 03-18-2022 13:10-0400 Diastolic blood pressure 80 mm[Hg] Saira Rolon MD Work Phone: [facility] 03-18-2022 13:10-0400 Heart rate 82 /min Saira Rolon MD Work Phone: [facility] 03-18-2022 13:10-0400 Respiratory rate 16 /min Saira Rolon MD Work Phone: [facility] 03-18-2022 13:10-0400 Systolic blood pressure 130 mm[Hg] Saira Rolon MD Work Phone: [facility] 02-25-2022 13:58-0400 Diastolic blood pressure 78 mm[Hg] Mi Nurse Work Phone: [facility] 02-25-2022 13:58-0400 Heart rate 72 /min Mi Nurse Work Phone: [facility] 02-25-2022 13:58-0400 Systolic blood pressure 120 mm[Hg] Mi Nurse Work Phone: [facility] 02-11-2022 14:09-0400 Body temperature 98.91 [degF] Saira Rolon MD Work Phone: [facility] 02-11-2022 14:09-0400 Body weight 57.61 kg Saira Rolon MD Work Phone: [facility] 02-11-2022 14:09-0400 Diastolic blood pressure 92 mm[Hg] Saira Rolon MD Work Phone: [facility] 02-11-2022 14:09-0400 Heart rate 75 /min Saira Rolon MD Work Phone: [facility] 02-11-2022 14:09-0400 Respiratory rate 16 /min Saira Rolon MD Work Phone: [facility] 02-11-2022 14:09-0400 SaO2% (BldA) [Mass fraction] 100 % Saira Rolon MD Work Phone: [facility] 02-11-2022 14:09-0400 Systolic blood pressure 140 mm[Hg] Saira Rolon MD Work Phone: [facility] 02-03-2022 12:47-0400 Body height 165.1 cm Kelly Reyes SEWAGE TREATMENT PLANT OPERATOR.DESULPHURING OPERATOR Work Phone: [facility] 02-03-2022 12:47-0400 Body weight 61.33 kg Kelly Reyes SEWAGE TREATMENT PLANT OPERATOR.DESULPHURING OPERATOR Work Phone: [facility] 02-03-2022 12:47-0400 SaO2% (BldA) [Mass fraction] 100 % Kelly Reyes SEWAGE TREATMENT PLANT OPERATOR.DESULPHURING OPERATOR Work Phone: [facility] 01-19-2022 13:48-0400 Body weight 60.87 kg Saira Rolon MD Work Phone: [facility] 01-19-2022 13:48-0400 Diastolic blood pressure 84 mm[Hg] Saira Rolon MD Work Phone: [facility] 01-19-2022 13:48-0400 Heart rate 68 /min Saira Rolon MD Work Phone: [facility] 01-19-2022 13:48-0400 Respiratory rate 16 /min Saira Rolon MD Work Phone: [facility] 01-19-2022 13:48-0400 SaO2% (BldA) [Mass fraction] 99 % Saira Rolon MD Work Phone: [facility] 01-19-2022 13:48-0400 Systolic blood pressure 132 mm[Hg] Saira Rolon MD Work Phone: [facility] Encounters Encounter Date Encounter Type Care Provider Facility Start: 08-18-2023 End: 08-19-2023 ambulatory KATLIN PODLOGAR Facility:[facility] Start: 08-09-2023 Telephone encounter Lamonte Rolon MD Work Phone: [facility] [place] Procedures Date Procedure Procedure Detail Performing Clinician Start: 06-09-2022 Lipid 1996 panel - S bess or Plasma Vicky Ramos MD Work Phone: Start: 01-19-2022 Urnls dip stick/tabl et rgnt auto w/o microscopy Saira Rolon MD Work Phone: Start: 08-05-2021 Adult depression screening assessment Saira Rolon MD Work Phone: Start: 04-15-2020 Mammography Lamonte Rolon MD Work Phone: Start: 04-13-2013 Colonoscopy Lamonte Rolon MD Work Phone: Plan of Treatment Date Care Activity Detail Author Start: 06-10-2028 Urine microalbumin profile [facility] Start: 06-09-2027 Lipid 1996 panel - S bess or Plasma Lipid Screening [facility] Start: 06-09-2027 Lipid panel Lipid Screening [facility] Start: 06-09-2027 LIPID SCREEN LIPID SCREEN [facility] Start: 10-19-2025 DIABETES SCREEN DIABETES SCREEN [facility] Start: 10-19-2025 Diabetes Screening Diabetes Screenin g [facility] Start: 08-14-2025 DIABETES SCREEN DIABETES SCREEN [facility] Start: 04-15-2025 HPV TESTING HPV TESTING [facility] Start: 04-15-2025 PAP TESTING PAP TESTING [facility] Start: 04-15-2025 Screening for malign ant neoplasm of cervix [facility] Start: 02-03-2025 DIABETES SCREEN DIABETES SCREEN [facility] Start: 02-17-2024 ANNUAL PCP TEAM INTEGRATED SPECIALIST VIOLETTA DISEASE VISIT ANNUAL PCP TEAM CHRONIC DISEASE VISIT [facility] Start: 01-16-2024 DIABETES SCREEN DIABETES SCREEN [facility] Start: 12-10-2023 LIPID SCREEN LIPID SCREEN [facility] Start: 10-19-2023 ANNUAL PCP TEAM INTEGRATED SPECIALIST VIOLETTA DISEASE VISIT ANNUAL PCP TEAM CHRONIC DISEASE VISIT [facility] Start: 10-19-2023 BP CONTROLLED (<130/80) BP CON TROLLED (<130/80) [facility] Start: 08-18-2023 End: 10-18-2023 CBC W Auto Differential panel - Blood CBC + DIFF Lab Routine Parkinson disease (HCC) Expected: 08/18/2023, Expires: 10/18/2023 [facility] Work Phone: Immunizations Immunization Date Immunization Notes Care Provider Baldo booker 06-10-2018 tetanus toxoid, redu joe diphtheria toxoid, and acellular pertussis vaccine, adsorbed Saira Rolon MD Work Phone: [facility] 06-10-2018 influenza virus vaccine, unspecified formulation Vicky Ramos MD Work Phone: [facility] 06-10-2013 influenza virus vaccine, whole virus Saira Rolon MD Work Phone: [facility] 05-28-2012 influenza virus vaccine, unspecified formulation Saira Rolon MD Work Phone: [facility] Payers Date Payer Category Payer Medicaid [employer] [id number] 2019-Present [phone] [address] [place] [address] Medicaid [id number] 2019 Medicare [employer] [id number] 2019-Present [phone] [address] [place] [address] Medicare [id number] 2019 Medicare [id number] 2018 Medicare [id number] Social History Date Type Detail Facility Start: 04-15-2020 End: 06-09-2022 Tobacco smoking status NHIS Ex-smoker [facility] Work Phone: History of tobacco use Cigarette Smoker C [facility] Work Phone: Start: 04-15-2020 End: 01-19-2023 Cigarettes smoked current (pack per day) - Reported 0.25 [facility] Work Phone: Start: 04-15-2020 End: 06-09-2022 Tobacco use and exposure Smokeless tobacco non-user [facility] Work Phone: Start: 08-05-2021 End: 06-29-2023 Alcohol intake Current non-drinker of alcohol (finding) [facility] Start: 04-15-2020 History SDOH Social Connections Phone 3 [facility] Start: 04-15-2020 History SDOH Social Connections Get Together 1 [facility] Start: 04-15-2020 History SDOH Social Connections Membership 2 [facility] Start: 04-15-2020 History SDOH Social Connections Living 5 [facility] Start: 04-15-2020 History SDOH Physica l Activity DPW 0 [facility] Start: 04-15-2020 Education 10 [facility] Start: 1960 Sex Assigned At Not on file C [facility] Start: 01-09-2022 End: 06-09-2022 Exposure to SARS-CoV-2 (event) Not sure [facility] History of tobacco use Current smoker [facility] Start: 04-15-2020 End: 01-19-2023 Social connection and isolation panel [facility] Work Phone: Do you belong to any clubs or organizations such as denominational groups, unions, fraPowelectrics or athletic groups, or school groups? No [facility] Work Phone: Are you now , , , , never or living with a partner? [facility] Work Phone: How hard is it for y ou to pay for the very basics like food, housing, medical care, and heating Not hard at all [facility] Work Phone: Do you feel stress - tense, restless, nervous, or anxious, or unable to sleep at night because your mind is troubled all the time - these days [OSQ] To some extent [facility] Work Phone: (I/We) worried whekayleigh er (my/our) food would run out before (I/we) got money to buy more. Never true [facility] Work Phone: Clinical Notes 07-26-2017 to 08-18-2023 Telephone Encounter - Renee Tate MA - 08/10/2023 1:08 PM ESTTelephone Encounter - Saira Rolon MD - 08/10/2023 11:40 AM ESTPatient Instructions Note Date & Type Note Facility 08-18-2023 Note HNO ID: [id number] Author: Katlin Page APRN.DESULPHURING OPERATOR Service: ? Author Type: Nurse Practitioner Type: Progress Notes Filed: 08/18/2023 3:08 PM Note Text: 08/18/2023 Patient presents with: Care Home Follow Up: Discharged 08/05/2023 SUBJECTIVE: This is a 62 year old, accompanied by son, that is here today for Above Complaints. Admitted to [facility] from 07/08/2023-07/13/2023 for weakness due to her Parkinson's. Discharged from [facility] and transferred to [facility] for rehab. Discharged from [facility] on 08/05/2023. Patient not to happy with care she receive there and is glad to be back home. Reports home health out to evaluate her needs on Wednesday ad is awaiting for insurance approval. Has home health aid who comes in two days a week to assist with ADL's. Using Rolator to get around at home. No recent falls. Still feels some weak. Taking her medications as prescribed. Has follow-up with neurologist scheduled on 09/29/2022 HYPOTHYROIDISM: taking and tolerating synthroid as prescribed without side effects. Has bee taking her 100 mcg since discharge because they did not give her script on discharge for the 88 mcg. TSH was down in June so it was switched Depression: taking Zoloft as prescribed with side effects. Feels it works for the most part. Has some down days. Denies SI, HI or insomnia Reports her toes are crooked on her left foot and it causes her pain to walk. Wondering if something could be done to help straighten them out Hospital records and available [facility] paperwork reviewed PAST MEDICAL HISTORY Diagnosis Date Anemia Anxiety state Chronic ITP (idiopathic thrombocytopenia) (HCC) CVA (cerebral vascular accident) (HCC) possible remote history based on ER visit in 05/2017. Can tolerate statins? History of tobacco abuse History of tobacco use HTN (hypertension) Hypothyroid Osteoarthritis lumbar spine, shoulders Overactive bladder Parkinson disease Dr. Ramos ALLERGIES Amantadine, Lexapro [Escitalopram Oxalate], Odell [Hydrocodone-Acetaminophen], Omeprazole, Prozac [Fluoxetine], Ropinirole, and Zocor [Simvastatin] MEDICATIONS Current Outpatient Medications Medication Sig levothyroxine (SYNTHROID) 100 mcg tablet Take 1 tablet by mouth once daily. Take on empty stomach. For thyroid DHIVY 25-100 mg per tablet Take 1/2 tablet every 3 hours. Take at 630am, 930 am, 1230pm, 330pm, 630 pm, and 930 pm carbidopa-levodopa (SINEMET) 25-100 mg per tablet Take 1 tablet by mouth four times daily. (Patient taking differently: Take 1 tablet by mouth four times daily. 620am, 1120am, 420pm and 9-10pm) sertraline (ZOLOFT) 25 mg tablet Take 1 tablet by mouth once daily. methyl salicylate/menthol (BENGAY TOPICAL) Apply to affected area. PRN Walker (ULTRA-LIGHT ROLLATOR) misc 1 Device once daily. To be used with ambulation. polyethylene glycol 3350 (MIRALAX, GLYCOLAX) 17 gram/dose powder Take 17 g by mouth once daily. COMPOUNDED PRESCRIPTION Rollator, shower chair w/transfer bench, raise toilet seat acetaminophen (TYLENOL) 500 mg tablet Take 500 mg by mouth every 8 hours as needed for Pain. No current facility-administered medications for this visit. Medications and allergies reviewed by this provider. SOCIAL HISTORY Social History Tobacco Use Smoking status: Former Packs/day: .25 Types: Cigarettes Smokeless tobacco: Never Vaping Use Vaping Use: Never used Substance Use Topics Alcohol use: No Drug use: No REVIEW OF SYSTEMS All other reviewed and negative other than HPI. OBJECTIVE: BP 138/90 Pulse 70 Resp 18 Wt 57.1 kg (125 lb 12.8 oz) LMP 10/15/2012 SpO2 98% BMI 21.59 kg/m? . Vital signs reviewed by this provider. APPEARANCE Well appearing, alert, in no acute distress, well-hydrated, well nourished. EYES conjunctiva and sclera normal. HEART RRR with normal S1 and S2, no murmurs, no gallops, no JVD appreciated Lungs: Lungs clear to auscultation, No wheezing, rales or rhonchi EXTREMITIES Extremities normal, No deformities, No skin discoloration, and No edema SKIN Skin color, texture, turgor normal, no suspicious rashes or lesions to exposed skin LEFT FOOT: Hammering to 3rd and 4 th toe observed. 5th toes crosses under the 4th toe. No TTP or opens wounds observed BP Controlled (<130/80) Never done Mammogram Screening due on 04/15/2021 Depression Assessment Never done Colorectal Cancer Screening due on 04/13/2023 Influenza Vaccine(1) due on 02/27/2024 RSV Vaccine(1 - 1-dose 60+ series) due on 08/18/2024 Shingrix Vaccine(1 of 2) due on 08/18/2024 Covid-19 Vaccine(1) due on 08/18/2024 Annual PCP Team Chronic Disease Visit due on 08/18/2024 Pap Testing due on 04/15/2025 HPV Testing due on 04/15/2025 Diabetes Screening due on 10/19/2025 Lipid Screening due on 06/09/2027 DTaP,Tdap,Td Vaccine(2 - Td or Tdap) due on 06/10/2028 Hepatitis C Screening Completed (more content not included)... [facility] 08-10-2023 Miscellaneous Notes [facility] notified and verbalized understanding. Renee Tate MA Yes, will follow. Rm with [facility] calls to see if provider will follow their home care orders for PT following discharge from [facility] for rehab after hospitalization for Parkinson's exacerbation. Call back number is [phone] Michell Herr, DONITA documented in this encounter [facility] 07-13-2023 Miscellaneous Notes Discharge summary forwarded as requested. Taya Nurse [employer] from [facility] called to report that patient was admitted last evening to [facility] for Parkinson's Exacerbation. Taya requesting discharge summary to be faxed to [phone] Rachael Tay RN documented in this encounter [facility] 07-12-2023 Miscellaneous Notes Spoke to patient who was advised of provider's message and verbalized understanding. She thinks she will be discharged to a SNF for PT/OT and will call us with any questions or concerns. 3-month follow currently scheduled for 09/29/[address] Ramos. Attempted to reach patient with provider's recommendations. Left message to call back. Likely Parkinson's exacerbation due to illness. We can discuss Parkinson's medications once she is recovered from infections Currently admitted to [facility]. Patient called for ambulance for the following reasons; Couldn't walk No strength Couldn't move Couldn't get off toilet Ran into wall Scooted to living room chair Unsure what testing has been done during admission Fever 102.0, prior to admission Experiencing hot and cold flashes Patient is aware that while admitted she is under the care of hospital staff. Discussed exacerbation of symptoms during times of stress and illness Call to patient. No answer. Left voicemail to return call. Faith phoned - changes were made to her Sinemet at the 06/29 OV and she is having extreme difficulty moving. She is hoping to speak with someone today to discuss going back to previous regimen. [phone] documented in this encounter [facility] 07-05-2023 Miscellaneous Notes Patient has been identified by name and date of : Yes Requested Prescriptions Pending Prescriptions Disp Refills levothyroxine (SYNTHROID) 100 mcg tablet 90 tablet 1 Sig: Take 1 tablet by mouth once daily. Take on empty stomach. For thyroid RX INSTRUCTIONS: Patient aware RX will be sent to pharmacy. No need to notify patient. Yvonne Mora documented in this encounter [facility] 06-30-2023 Miscellaneous Notes Received PA request for Dhivy 25-100 mg received from Felice. PA started and approved on cover my meds. Sawyer: [id number] Dates 05/31/23-06/29/24 documented in this encounter [facility] 06-29-2023 Note HNO ID: [id number] Author: Vicky Ramos MD Service: ? Author Type: Physician Type: Progress Notes Filed: 06/29/2023 3:01 PM Note Text: [facility] - FOLLOW UP EVALUATION Saira Rolon MD [address] [facility] [address] I had the pleasure of seeing Ms. Miramontes for follow up today. She is a 62 year old right-handed female with a history of Parkinson's disease since 2008. She is seen with a son. Subjective Previous Plan-01/19/2023 Visit: Stop pramipexole - Change carbidopa-levodopa to 1 tab 4 times a day, times listed in table below - Start sertraline for anxiety and depression. This can take 4-6 weeks to work. If not helping please let us know and we can increase the dose - exercise - Interval History: After last visit she felt better for about a month. Currently everything is worse. Seems she feels best in the morning before medications. Has to shower at 4A before she takes her medications. Takes multiple medications spaced out. Then hot flashes, sweating. Feels tired and weak. Frequent urination. More 'shaking' on inside and outside. Cannot stand up straight. Gets worse as the day goes on. Feels tired all the time. Cannot sit still all day. Trouble talking. Dentures fall out. Frequent urination more after Sinemet doses. More constipation. Takes prune juice and clear lax. Feels bloated after taking any of her medications. Drinks 3- 16 ounces water per day, 2 cups coffee, 1 cup milk. Stopped Myrbetriq due to hallucinations. Monsters under the dresser. Hear things at bedtime. Ears are clogged up. Just over 10 lb weight loss since last visit. Boost/Ensure make her feel bloated, thinks it is the milk. Sleeps 2 hours at a time. About 5 hours total. Parkinson's Medication Schedule - as of the start of the visit: Medications 630 1130 430 Bed-9 pm or later Sinemet 25/100 1 1 1 1 Parkinson's Motor Complications Medication benefit onset: 30 minutes Medication duration: 3.5 hours Wearing off: yes Painful off-state dystonia: no Dyskinesia: yes Prior Anti-Parkinson Therapies Amantadine IR (Comment: hallucinations) Carbidopa/Levodopa Carbidopa/Levodopa ER (Rytary) (Comment: not covered) Pramipexole Rasagiline Ropinirole Rotigitine Questionnaires In addition, the following areas that may be affected by abnormal involuntary movements were evaluated: Daily activities Difficulties with eatin (none) Difficulties in dressing: Yes (slight) Difficulties with hygiene activities: Yes (slight) Difficulties with handwriting: Yes (moderate) Difficulties with doing hobbies and other activities: Yes (slight) cannot do housework. Difficulties turning in bed: Yes (slight) Difficulties getting out of bed, car or chair: Yes (mild) Tremors/Gait/Balance Shaking or tremors: Yes (moderate) Walking and balance problems: Yes (moderate) Number of falls in the Last Month: 0 Gait freezing: Yes (moderate) Autonomic/Pain Lightheadeness on standing: Yes (mild) Urinary problems: Yes (severe) Constipation problems: Yes (moderate) Pain and other sensations: Yes (moderate) Speech/Swallowing Speech problems: Yes (slight) Drooling: Yes (slight) Chewing and swallowing problems: Yes (slight) sometimes trouble with bread. maybe due to dry mouth. Sleep/Fatigue Sleep problems: Yes (mild) Daytime sleepiness: Yes (mild) Fatigue: Yes (mild) Mood/Behavior Depression: PHQ-9 Score: 6 usually representing mild (5-9) depression. Anxiety: FREDO-7 Total Score: 9 usually representing mild (5-9) anxiety. Finally, the following table shows the patient's overall global physical and mental health using the PROMIS scale: PROMIS-10 Flowsheet Row Office Visit from 06/29/2023 in Neurology Office Visit from 01/19/2023 in Neurology Global Physical Health T Score 34.9 26.7 Global Mental Health T Score 45.8 45.8 0-10 Standard Pain Scale 3 3 *PROMIS-10 scoring scale: mean = 50, over 50 is above average, under 50 is below average ALLERGIES Allergen Reactions Amantadine Other: See Comments Hallucinations Lexapro [Escitalopr* Shortness of Breath Blurred vision, spaced out Odell [Hydrocodone-* Other: See Comments [place] like bugs were crawling all over me Omeprazole GI Upset, Vomiting Prozac [Fluoxetine] Other: See Comments Weight gain Ropinirole Mental Status Change Hallucinations. Zocor [Simvastatin] Intolerance Significant High muscle enzymes. Current Outpatient Medications Medication Sig carbidopa-levodopa (SINEMET) 25-100 mg per tablet Take 1 tablet by mouth four times daily. (Patient taking differently: Take 1 tablet by mouth four times daily. 620am, 1120am, 420pm and 9-10pm) sertraline (ZOLOFT) 25 mg tablet Take 1 tablet by mouth once daily. methyl salicylate/menthol (BENGAY TOPICAL) Apply to affected area. PRN levothyroxine (SYNTHROID) 100 mcg tablet Take 1 tablet by mouth once daily. Take on empty stomac (more content not included)... [facility] 06-29-2023 Instructions Vicky Ramos MD - 06/29/2023 2:35 PM EDT It was a pleasure to see you today. We addressed the following diagnoses: Parkinson's disease with dyskinesia and fluctuating manifestations (primary encounter diagnosis) My recommendations are as follows: We will continue carbidopa-levodopa. Try the Dhivy version of it which are easier to break. We will have to see if insurance will cover it. If Dhivy isn't covered then see if the pharmacy can get scored carbidopa-levodopa tablets - Movement Disorders Medication Schedule: Medications [phone] 330 630 930pm carbidopa/levodopa (or Dhivy) 08/31 Return in about 3 months (around 09/29/2023). If there are any concerns before your next visit, please call or you can send a message through [employer]. You can also now schedule and select appointments through [employer]. Vicky Ramos MD documented in this encounter [facility] 06-29-2023 History of Presen t illness Narrative [facility] - FOLLOW UP EVALUATION Saira Rolon MD [address] [facility] [address] I had the pleasure of seeing Ms. Miramontes for follow up today. She is a 62 year old right-handed female with a history of Parkinson's disease since 2008. She is seen with a son. Subjective Previous Plan-01/19/2023 Visit: Stop pramipexole - Change carbidopa-levodopa to 1 tab 4 times a day, times listed in table below - Start sertraline for anxiety and depression. This can take 4-6 weeks to work. If not helping please let us know and we can increase the dose - exercise - Interval History: After last visit she felt better for about a month. Currently everything is worse. Seems she feels best in the morning before medications. Has to shower at 4A before she takes her medications. Takes multiple medications spaced out. Then hot flashes, sweating. Feels tired and weak. Frequent urination. More 'shaking' on inside and outside. Cannot stand up straight. Gets worse as the day goes on. Feels tired all the time. Cannot sit still all day. Trouble talking. Dentures fall out. Frequent urination more after Sinemet doses. More constipation. Takes prune juice and clear lax. Feels bloated after taking any of her medications. Drinks 3- 16 ounces water per day, 2 cups coffee, 1 cup milk. Stopped Myrbetriq due to hallucinations. Monsters under the dresser. Hear things at bedtime. Ears are clogged up. Just over 10 lb weight loss since last visit. Boost/Ensure make her feel bloated, thinks it is the milk. Sleeps 2 hours at a time. About 5 hours total. Parkinson's Medication Schedule - as of the start of the visit: Medications 630 1130 430 Bed-9 pm or later Sinemet 25/100 1 1 1 1 Parkinson's Motor Complications Medication benefit onset: 30 minutes Medication duration: 3.5 hours Wearing off: yes Painful off-state dystonia: no Dyskinesia: yes Prior Anti-Parkinson Therapies Amantadine IR (Comment: hallucinations) Carbidopa/Levodopa Carbidopa/Levodopa ER (Rytary) (Comment: not covered) Pramipexole Rasagiline Ropinirole Rotigitine Questionnaires In addition, the following areas that may be affected by abnormal involuntary movements were evaluated: Daily activities Difficulties with eatin (none) Difficulties in dressing: Yes (slight) Difficulties with hygiene activities: Yes (slight) Difficulties with handwriting: Yes (moderate) Difficulties with doing hobbies and other activities: Yes (slight) cannot do housework. Difficulties turning in bed: Yes (slight) Difficulties getting out of bed, car or chair: Yes (mild) Tremors/Gait/Balance Shaking or tremors: Yes (moderate) Walking and balance problems: Yes (moderate) Number of falls in the Last Month: 0 Gait freezing: Yes (moderate) Autonomic/Pain Lightheadeness on standing: Yes (mild) Urinary problems: Yes (severe) Constipation problems: Yes (moderate) Pain and other sensations: Yes (moderate) Speech/Swallowing Speech problems: Yes (slight) Drooling: Yes (slight) Chewing and swallowing problems: Yes (slight) sometimes trouble with bread. maybe due to dry mouth. Sleep/Fatigue Sleep problems: Yes (mild) Daytime sleepiness: Yes (mild) Fatigue: Yes (mild) Mood/Behavior Depression: PHQ-9 Score: 6 usually representing mild (5-9) depression. Anxiety: FREDO-7 Total Score: 9 usually representing mild (5-9) anxiety. Finally, the following table shows the patient's overall global physical and mental health using the PROMIS scale: PROMIS-10 Flowsheet Row Office Visit from 06/29/2023 in Neurology Office Visit from 01/19/2023 in Neurology Global Physical Health T Score 34.9 26.7 Global Mental Health T Score 45.8 45.8 0-10 Standard Pain Scale 3 3 *PROMIS-10 scoring scale: mean = 50, over 50 is above average, under 50 is below average ALLERGIES Allergen Reactions Amantadine Other: See Comments Hallucinations Lexapro [Escitalopr* Shortness of Breath Blurred vision, spaced out [place] [Hydrocodone-* Other: See Comments [place] like bugs were crawling all over me Omeprazole GI Upset, Vomiting Prozac [Fluoxetine] Other: See Comments Weight gain Ropinirole Mental Status Change Hallucinations. Zocor [Simvastatin] Intolerance Significant High muscle enzymes. Current Outpatient Medications Medication Sig carbidopa-levodopa (SINEMET) 25-100 mg per tablet Take 1 tablet by mouth four times daily. (Patient taking differently: Take 1 tablet by mouth four times daily. 620am, 1120am, 420pm and 9-10pm) sertraline (ZOLOFT) 25 mg tablet Take 1 tablet by mouth once daily. methyl salicylate/menthol (BENGAY TOPICAL) Apply to affected area. PRN levothyroxine (SYNTHROID) 100 mcg tablet Take 1 tablet by mouth once daily. Take on empty stomach. For thyroid Walker (ULTRA-LIGHT ROLLATOR) misc 1 Device once daily. To be used with ambulation. polyethylene glycol 3350 (MIRALAX, GLYCOLAX) 17 gram/dose powder Take 17 g by mouth once daily. COMPOUNDED PRESCRIPTION Rollator, shower chair w/transfer bench, raise toilet seat acetaminophen (TYLENOL) 500 mg tablet Take 500 mg by mouth every 8 hours as needed for Pain. DHIVY 25-100 mg per tablet Take 1/2 tablet every 3 hours. Take at 630am, 930 am, 1230pm, 330pm, 630 pm, and 930 pm No current facility-administered medications for this visit. Objective Vital Signs: Ht 162.6 cm (5' 4 ) Wt 56.8 kg (125 lb 3.2 oz) LMP 10/15/2012 SpO2 98% BMI 21.49 kg/m Orthostatic Vitals: Sitting: BP 121/78 Pulse 84 Standing: BP 119/85 Pulse 93 Weight: 56.8 kg (125 lb 3.2 oz) Height: 162.6 cm (5' 4 ) Patient's last menstrual period was 10/15/2012. Body mass index is 21.49 kg/m . General Physical Examination: General: Awake, alert, interactive, no acute distress, good nutritional status, normal development, well-kept General Neurological Examination: Neurological Exam Mental Status Awake and alert. Language is fluent with no aphasia. Motor Dyskinesia first part of visit abruptly changed to tremor for the remainder. This occurred about shelter through her Sinemet dose cycle. Movement Disorders Scales Performed: MDS-UPDRS Motor subscale condition of exam Medication Off/On/Naiive ON Time of UPDRS Time of Last Medication 1115 Last Medication Taken Sinemet 25/100 1 tab DBS Right N/A DBS Left N/A MDS-UPDRS Motor subscale scores Speech 2-Mild. Loss of modulation, diction, or volume, with a few words unclear, but the overall sentences easy to follow. Facial Expression 2-Mild. In addition to decreased eye-blink frequency, Masked facies present in the lower face as well, namely fewer movements around the mouth, such as less spontaneous smiling, but lips not parted. Rigidity Neck 0-Normal. No rigidity. Rigidity Right Upper Extremity 0-Normal. No rigidity. Rigidity Left Upper Extremity 1-Slight. Rigidity only detected with activation maneuver. Rigidity Right Lower Extremity 0-Normal. No rigidity. Rigidity Left Lower Extremity 0-Normal. No rigidity. Finger Taps Right 3-Moderate. a) more than 5 interruptions during tapping or at least one longer arrest (freeze) in ongoing movement, b) moderate slowing, c) the amplitude decrements starting after the 1st tap. Finger Taps Left 3-Moderate. a) more than 5 interruptions during tapping or at least one longer arrest (freeze) in ongoing movement, b) moderate slowing, c) the amplitude decrements starting after the 1st tap. Hand Movements Right 1-Slight. a) the regular rhythm is broken with one or two interruptions or hesitations of the movement, b) slight slowing, c) the amplitude decrements near the end of the task. Hand Movements Left 1-Slight. a) the regular rhythm is broken with one or two interruptions or hesitations of the movement, b) slight slowing, c) the amplitude decrements near the end of the task. Arm Movements Right 1-Slight. a) the regular rhythm is broken with one or two interruptions or hesitations of the movement, b) slight slowing, c) the amplitude decrements near the end of the sequence. Arm Movements Left 1-Slight. a) the regular rhythm is broken with one or two interruptions or hesitations of the movement, b) slight slowing, c) the amplitude decrements near the end of the sequence. Toe Taps Right 0-Normal. No problem. Toe Taps Left 0-Normal. No problem. Leg Agility Right 0-Normal. No problems. Leg Agility Left 0-Normal. No problems. Arise From Chair 2-Mild. Pushes self up from arms of chair without difficulty. Gait 3-Moderate. Requires an assistance device for safe walking (walking stick, walker) but not a person. Gait Freezing 1-Slight. Freezing on starting, turning, or walking through doorway with a single halt during any of these events, but then continues smoothly without freezing during straight walking. Posture Stability 0-Normal. No problems: recovers with one or two steps. (deferred) Posture 3-Moderate. Stooped posture, scoliosis or leaning to one side that cannot be corrected volitionally to a normal posture by the patient. Body Bradykinesia 1-Slight. Slight global slowness and poverty of spontaneous movements. Postural Tremor Hand Right 0-Normal. No tremor. Postural Tremor Hand Left 0-Normal. No tremor. Kinetic Tremor Right 0-Normal. No tremor. Kinetic Tremor Left 0-Normal. No tremor. Rest Tremor Amplitude Right Upper Extremity 1-Slight. < 1 cm in maximal amplitude. Rest Tremor Amplitude Left Upper Extremity 2-Mild. > 1 cm but < 3 cm in maximal amplitude. Rest Tremor Amplitude Right Lower Extremity 0-Normal. No tremor. Rest Tremor Amplitude Left Lower Extremity 0-Normal. No tremor. Rest Tremor Amplitude Lip/Jaw 0-Normal. No tremor. Rest Tremor Constancy 4-Severe. Tremor at rest is present > 75% of the entire examination period. MDS-UPDRS Motor subscale totals Left Total 8 Right Total 6 Midline Total 14 Tremor Total / 10 7 PIGD Total / 3 4 Overall Total 32 % Change Compared to Last Filed Total Assessment and Plan: Assessment Ms. Miramontes is a right-handed 62 year old female with Parkinson's since 2008. Main issue continues to be motor fluctuations with dyskinesia at low levodopa doses and tremor. She has had difficulty tolerating multiple other medications for Parkinson's and depression. Multiple symptoms but hard to tease out if what fluctuates vs is persistent. During the visit today she was initially dyskinetic then abruptly changed to having tremor. Suspect she is cycling between off and on with little to no good time between. Will fractionate the carbidopa-levodopa doses and take 1/2 tab every 3 hours. Her current Sinemet pills are not scored and she would have difficulty cutting them. Will see if Dhivy will be covered. In the office she was easily able to break a Dhivy demo pill in half but could not break into quarters. In the future consider LRT if we continue to have difficulty figuring out her regimen. Will continue with sertraline for now for anxiety. Continue pushing protein for weight loss. Tremor and dyskinesia is likely affecting her ability to maintain weight. She didn't like Effexor in the past due to weight gain, may need to restart it instead of sertraline. The following are the current problems noted and addressed during this visit: Parkinson's disease with dyskinesia and fluctuating manifestations (primary encounter diagnosis) Plan 06/29/2023 Visit: We will continue carbidopa-levodopa. Try the Dhivy version of it which are easier to break. We will have to see if insurance will cover it. If Dhivy isn't covered then see if the pharmacy can get scored carbidopa-levodopa tablets - Updated Movement Disorders Medication Schedule: Medications [phone] 330 630 930pm carbidopa/levodopa (or Dhivy) 25/100 /2 /2 2 2 08/31 08/31 Return at or around: 09/29/23 Level of service : 91757 + 1 units 22652 ( > 55 min, [id number] for each 15 min > 40). Time spent 59 min on the day of service, which included preparing to see the patient, [id number] patient care, completing clinical documentation, performing a medically appropriate examination, counseling and educating the patient/family/caregiver, and ordering medications, tests, or procedures. Thank you for allowing me to be part of the clinical care of this patient! I look forward to continued participation in the patient s care with you. Please do not hesitate to call with any questions. Sincerely, Vicky Ramos MD documented in this encounter [facility] 04-21-2023 Note Patient Outreach (IN [facility]) FAITH MIRAMONTES ([id number]) 1960 F Date Time Provider Department 04/21/23 SAIRA ROLON During your visit today, we recorded the following information about you: Allergies As of Date: 04/21/2023 Noted Allergy Reaction AMANTADINE 06/23/2019 14 - Other: See Comments Comments: Hallucinations LEXAPRO (ESCITALOPRAM OXALATE) 06/23/2019 12 - Shortness of Breath Comments: Blurred vision, spaced out NORCO (HYDROCODONE-ACETAMINOPHEN) 07/09/2017 14 - Other: See Comments Comments: [place] like bugs were crawling all over me OMEPRAZOLE 09/16/2011 8 - GI Upset 11 - Vomiting PROZAC (FLUOXETINE) 12/29/2019 14 - Other: See Comments Comments: Weight gain ROPINIROLE 01/21/2012 1 - Mental Status Change Comments: Hallucinations. ZOCOR (SIMVASTATIN) 03/25/2010 5 - Intolerance Comments: Significant High muscle enzymes. Date Reviewed: 01/19/2023 Reviewed by: Vicky Ramos MD - Fully Assessed Visit Diagnosis:Encounter for screening mammogram for breast cancer [Z12.31] Order(s):[facility] SCREENING [[id number]] Order #: [id number] FUTURE Prescriptions as of 04/26/2023 - carbidopa-levodopa (SINEMET) 25-100 mg per tablet Take 1 tablet by mouth four times daily. - sertraline (ZOLOFT) 25 mg tablet Take 1 tablet by mouth once daily. - methyl salicylate/menthol (BENGAY TOPICAL) Apply to affected area. PRN - levothyroxine (SYNTHROID) 100 mcg tablet Take 1 tablet by mouth once daily. Take on empty stomach. For thyroid - pramipexole (MIRAPEX) 0.125 mg tablet Take 1 tablet by mouth daily at bedtime. - Walker (ULTRA-LIGHT ROLLATOR) misc 1 Device once daily. To be used with ambulation. - polyethylene glycol 3350 (MIRALAX, GLYCOLAX) 17 gram/dose powder Take 17 g by mouth once daily. - COMPOUNDED PRESCRIPTION Rollator, shower chair w/transfer bench, raise toilet seat - acetaminophen (TYLENOL) 500 mg tablet Take 500 mg by mouth every 8 hours as needed for Pain. Problem List As Of Date 04/21/2023 Noted Resolved Essential hypertension with goal blood pressure*08/22/2009 Acquired hypothyroidism [E03.9] 08/22/2009 Parkinson Disease [G20] 12/10/2009 GERD (gastroesophageal reflux disease) [K21.9] 08/06/2010 Abnormality of gait [R26.9] 08/21/2015 Left foot drop [M21.372] 08/21/2015 Balance problems [R26.89] 08/21/2015 Acute pain of left shoulder [M25.512] 07/26/2017 08/12/2022 History of tobacco use [Z87.891] History of CVA (cerebrovascular accident) [Z86.* Chronic ITP (idiopathic thrombocytopenia) (HCC)* Osteoarthritis [M19.90] Anxiety state [F41.1] 10/19/2022 Encounter Status:Closed by ANGELIQUE GARCIAUSEGurmeet on 04/26/23 [facility] 02-16-2023 Note HNO ID: [id number] Author: Katlin Page APRN.DESULPHURING OPERATOR Service: ? Author Type: Nurse Practitioner Type: Progress Notes Filed: 02/16/2023 3:08 PM Note Text: 02/16/2023 Patient presents with: Recheck: 4 month follow up parkinson disease SUBJECTIVE: This is a 62 year old that is here today for Above Complaints. Since last office visit has been in good health without ER visits or hospitalizations. HTN: Patient is compliant with meds Yes Monitors bp at home: Yes. Denies side effects: Yes. Chest pain: No. Dyspnea: No. Edema: No. Palpitations: No. Syncope: No. Headache: No. Dizziness: No. Recent follow-up with neuro for her Parkinson's. Per patient she was placed on Zoloft but she thinks it is making her tremors worse as well as making her gain weight and increasing constipation. Has reached out to neuro about this Quit taking the myrebiq due to just made her not feel well. HYPOTHYROIDISM: taking synthroid as prescribed without side effects PAST MEDICAL HISTORY Diagnosis Date Anemia Anxiety state Chronic ITP (idiopathic thrombocytopenia) ([facility]) CVA (cerebral vascular accident) ([facility]) possible remote history based on ER visit in 05/2017. Can tolerate statins? History of tobacco abuse History of tobacco use HTN (hypertension) Hypothyroid Osteoarthritis lumbar spine, shoulders Overactive bladder Parkinson disease ([facility]) Dr. Ramos ALLERGIES Amantadine, Lexapro [Escitalopram Oxalate], Odell [Hydrocodone-Acetaminophen], Omeprazole, Prozac [Fluoxetine], Ropinirole, and Zocor [Simvastatin] MEDICATIONS Current Outpatient Medications Medication Sig carbidopa-levodopa (SINEMET) 25-100 mg per tablet Take 1 tablet by mouth four times daily. sertraline (ZOLOFT) 25 mg tablet Take 1 tablet by mouth once daily. methyl salicylate/menthol (BENGAY TOPICAL) Apply to affected area. PRN levothyroxine (SYNTHROID) 100 mcg tablet Take 1 tablet by mouth once daily. Take on empty stomach. For thyroid pramipexole (MIRAPEX) 0.125 mg tablet Take 1 tablet by mouth daily at bedtime. Walker (ULTRA-LIGHT ROLLATOR) misc 1 Device once daily. To be used with ambulation. polyethylene glycol 3350 (MIRALAX, GLYCOLAX) 17 gram/dose powder Take 17 g by mouth once daily. COMPOUNDED PRESCRIPTION Rollator, shower chair w/transfer bench, raise toilet seat acetaminophen (TYLENOL) 500 mg tablet Take 500 mg by mouth every 8 hours as needed for Pain. No current facility-administered medications for this visit. Medications and allergies reviewed by this provider. SOCIAL HISTORY Social History Tobacco Use Smoking status: Former Packs/day: 0.25 Types: Cigarettes Smokeless tobacco: Never Vaping Use Vaping Use: Never used Substance Use Topics Alcohol use: No Drug use: No REVIEW OF SYSTEMS All other reviewed and negative other than HPI. OBJECTIVE: BP 120/80 Pulse 76 Resp 18 Wt 62.1 kg (136 lb 12.8 oz) LMP 10/15/2012 SpO2 97% BMI 23.48 kg/m? . Vital signs reviewed by this provider. APPEARANCE Well appearing, alert, in no acute distress, well-hydrated, well nourished. EYES PERRLA, conjunctiva and sclera normal. HEART RRR with normal S1 and S2, no murmurs, no gallops, no JVD appreciated LUNG clear to auscultation. No wheezes, rhonchi or rales EXTREMITIES Extremities normal, No deformities, No skin discoloration, and No edema Component Latest Ref Rng AND Units 08/14/2022 WBC 3.70 - 11.00 k/uL 7.10 RBC 3.90 - 5.20 m/uL 3.93 Hemoglobin 11.5 - 15.5 g/dL 12.4 Hematocrit 36.0 - 46.0 % 37.9 MCV 80.0 - 100.0 fL 96.4 MCH 26.0 - 34.0 pg 31.6 MCHC 30.5 - 36.0 g/dL 32.7 RDW-CV 11.5 - 15.0 % 13.2 Platelet Count 150 - 400 k/uL 290 MPV 9.0 - 12.7 fL 12.4 Neut% % 64.2 Abs Neut (ANC) 1.45 - 7.50 k/uL 4.56 Lymph% % 27.3 Abs Lymph 1.00 - 4.00 k/uL 1.94 [place]% % 5.4 Abs [place] <0.87 k/uL 0.38 Eosin% % 2.1 Abs Eosin <0.46 k/uL 0.15 Baso% % 0.7 Abs Baso <0.11 k/uL 0.05 Immature Gran % % 0.3 IMMATURE GRANS (ABS) <0.10 k/uL <0.03 NRBC /100 WBC 0.0 Absolute nRBC <0.01 k/uL <0.01 DTYPE Auto Protein, Total 6.3 - 8.0 g/dL 7.1 Albumin 3.9 - 4.9 g/dL 4.3 Calcium 8.5 - 10.2 mg/dL 9.1 Bilirubin, Total 0.2 - 1.3 mg/dL 0.3 Alkaline Phosphatase 34 - 123 U/L 79 AST 13 - 35 U/L 62 (H) ALT 7 - 38 U/L 22 Glucose 74 - 99 mg/dL 87 BUN 7 - 21 mg/dL 13 Creatinine 0.58 - 0.96 mg/dL 0.68 Sodium 136 - 144 mmol/L 141 Potassium 3.7 - 5.1 mmol/L 4.3 Chloride 97 - 105 mmol/L 105 CO2 22 - 30 mmol/L 25 Anion Gap 9 - 18 mmol/L 11 eGFR >=60 mL/min/1.73mA? 98 TSH 0.270 - 4.200 mIU/L 1.860 Component Latest Ref Rng AND Units 10/19/2022 Protein, Total 6.3 - 8.0 g/dL 7.4 Albumin 3.9 - 4.9 g/dL 4.5 Calcium 8.5 - 10.2 mg/dL 9.5 Bilirubin, Total 0.2 - 1.3 mg/dL 0.2 Alkaline Phosphatase 34 - 123 U/L 89 AST 13 - 35 U/L 30 ALT 7 - 38 U/L 18 Glucose 74 - 99 mg/dL 87 BUN 7 - 21 mg/dL 13 Creatinine 0.58 - 0.96 mg/dL 0.69 Sodiu (more content not included)... [facility] 02-16-2023 History of Presen t illness Narrative 02/16/2023 Patient presents with: Recheck: 4 month follow up parkinson disease SUBJECTIVE: This is a 62 year old that is here today for Above Complaints. Since last office visit has been in good health without ER visits or hospitalizations. HTN: Patient is compliant with meds Yes Monitors bp at home: Yes. Denies side effects: Yes. Chest pain: No. Dyspnea: No. Edema: No. Palpitations: No. Syncope: No. Headache: No. Dizziness: No. Recent follow-up with neuro for her Parkinson's. Per patient she was placed on Zoloft but she thinks it is making her tremors worse as well as making her gain weight and increasing constipation. Has reached out to neuro about this Quit taking the myrebiq due to just made her not feel well. HYPOTHYROIDISM: taking synthroid as prescribed without side effects PAST MEDICAL HISTORY Diagnosis Date Anemia Anxiety state Chronic ITP (idiopathic thrombocytopenia) (HCC) CVA (cerebral vascular accident) ([facility]) possible remote history based on ER visit in 05/2017. Can tolerate statins? History of tobacco abuse History of tobacco use HTN (hypertension) Hypothyroid Osteoarthritis lumbar spine, shoulders Overactive bladder Parkinson disease ([facility]) Dr. Ramos ALLERGIES Amantadine, Lexapro [Escitalopram Oxalate], Odell [Hydrocodone-Acetaminophen], Omeprazole, Prozac [Fluoxetine], Ropinirole, and Zocor [Simvastatin] MEDICATIONS Current Outpatient Medications Medication Sig carbidopa-levodopa (SINEMET) 25-100 mg per tablet Take 1 tablet by mouth four times daily. sertraline (ZOLOFT) 25 mg tablet Take 1 tablet by mouth once daily. methyl salicylate/menthol (BENGAY TOPICAL) Apply to affected area. PRN levothyroxine (SYNTHROID) 100 mcg tablet Take 1 tablet by mouth once daily. Take on empty stomach. For thyroid pramipexole (MIRAPEX) 0.125 mg tablet Take 1 tablet by mouth daily at bedtime. Walker (ULTRA-LIGHT ROLLATOR) misc 1 Device once daily. To be used with ambulation. polyethylene glycol 3350 (MIRALAX, GLYCOLAX) 17 gram/dose powder Take 17 g by mouth once daily. COMPOUNDED PRESCRIPTION Rollator, shower chair w/transfer bench, raise toilet seat acetaminophen (TYLENOL) 500 mg tablet Take 500 mg by mouth every 8 hours as needed for Pain. No current facility-administered medications for this visit. Medications and allergies reviewed by this provider. SOCIAL HISTORY Social History Tobacco Use Smoking status: Former Packs/day: 0.25 Types: Cigarettes Smokeless tobacco: Never Vaping Use Vaping Use: Never used Substance Use Topics Alcohol use: No Drug use: No REVIEW OF SYSTEMS All other reviewed and negative other than HPI. OBJECTIVE: BP 120/80 Pulse 76 Resp 18 Wt 62.1 kg (136 lb 12.8 oz) LMP 10/15/2012 SpO2 97% BMI 23.48 kg/m . Vital signs reviewed by this provider. APPEARANCE Well appearing, alert, in no acute distress, well-hydrated, well nourished. EYES PERRLA, conjunctiva and sclera normal. HEART RRR with normal S1 and S2, no murmurs, no gallops, no JVD appreciated LUNG clear to auscultation. No wheezes, rhonchi or rales EXTREMITIES Extremities normal, No deformities, No skin discoloration, and No edema Component Latest Ref Rng & Units 08/14/2022 WBC 3.70 - 11.00 k/uL 7.10 RBC 3.90 - 5.20 m/uL 3.93 Hemoglobin 11.5 - 15.5 g/dL 12.4 Hematocrit 36.0 - 46.0 % 37.9 MCV 80.0 - 100.0 fL 96.4 MCH 26.0 - 34.0 pg 31.6 MCHC 30.5 - 36.0 g/dL 32.7 RDW-CV 11.5 - 15.0 % 13.2 Platelet Count 150 - 400 k/uL 290 MPV 9.0 - 12.7 fL 12.4 Neut% % 64.2 Abs Neut (ANC) 1.45 - 7.50 k/uL 4.56 Lymph% % 27.3 Abs Lymph 1.00 - 4.00 k/uL 1.94 [place]% % 5.4 Abs [place] <0.87 k/uL 0.38 Eosin% % 2.1 Abs Eosin <0.46 k/uL 0.15 Baso% % 0.7 Abs Baso <0.11 k/uL 0.05 Immature Gran % % 0.3 IMMATURE GRANS (ABS) <0.10 k/uL <0.03 NRBC /100 WBC 0.0 Absolute nRBC <0.01 k/uL <0.01 DTYPE Auto Protein, Total 6.3 - 8.0 g/dL 7.1 Albumin 3.9 - 4.9 g/dL 4.3 Calcium 8.5 - 10.2 mg/dL 9.1 Bilirubin, Total 0.2 - 1.3 mg/dL 0.3 Alkaline Phosphatase 34 - 123 U/L 79 AST 13 - 35 U/L 62 (H) ALT 7 - 38 U/L 22 Glucose 74 - 99 mg/dL 87 BUN 7 - 21 mg/dL 13 Creatinine 0.58 - 0.96 mg/dL 0.68 Sodium 136 - 144 mmol/L 141 Potassium 3.7 - 5.1 mmol/L 4.3 Chloride 97 - 105 mmol/L 105 CO2 22 - 30 mmol/L 25 Anion Gap 9 - 18 mmol/L 11 eGFR >=60 mL/min/1.73m 98 TSH 0.270 - 4.200 mIU/L 1.860 Component Latest Ref Rng & Units 10/19/2022 Protein, Total 6.3 - 8.0 g/dL 7.4 Albumin 3.9 - 4.9 g/dL 4.5 Calcium 8.5 - 10.2 mg/dL 9.5 Bilirubin, Total 0.2 - 1.3 mg/dL 0.2 Alkaline Phosphatase 34 - 123 U/L 89 AST 13 - 35 U/L 30 ALT 7 - 38 U/L 18 Glucose 74 - 99 mg/dL 87 BUN 7 - 21 mg/dL 13 Creatinine 0.58 - 0.96 mg/dL 0.69 Sodium 136 - 144 mmol/L 142 Potassium 3.7 - 5.1 mmol/L 4.1 Chloride 97 - 105 mmol/L 104 CO2 22 - 30 mmol/L 25 Anion Gap 9 - 18 mmol/L 13 eGFR >=60 mL/min/1.73m 97 SHINGRIX VACCINE(1 of 2) Never done MAMMOGRAM due on 04/15/2021 DEPRESSION ASSESSMENT Never done COLORECTAL CANCER SCREENING due on 04/13/2023 COVID-19 VACCINE(1) due on 06/09/2023 INFLUENZA(Season Ended) due on 04/30/2023 ANNUAL PCP TEAM CHRONIC DISEASE VISIT due on 10/19/2023 BP CONTROLLED (<130/80) due on 10/19/2023 PAP TESTING due on 04/15/2025 HPV TESTING due on 04/15/2025 DIABETES SCREEN due on 10/19/2025 LIPID SCREEN due on 06/09/2027 DTAP,TDAP,TD(2 - Td or Tdap) due on 06/10/2028 HEPATITIS C SCREENING Completed HIV SCREENING Completed ASSESSMENT/PLAN: 1. Essential hypertension with goal blood pressure less than 140/90 - ICD9: 401.9, ICD10: I10 (primary diagnosis) - Controlled - Continue current medications - Recommend home blood pressure monitoring, to bring results to next visit - Encouraged sodium restriction, DASH or Mediterranean diet - Recommend regular aerobic exercise - Follow up in 6 months for hypertension visit - COMP METABOLIC PANEL 2. Screening for hyperlipidemia - ICD9: V77.91, ICD10: Z13.220 - LIPID PANEL BASIC 3. Parkinson disease (HCC) - ICD9: 332.0, ICD10: G20 - needs to reach out to neuro about her tremors - CBC + DIFF 4. Acquired hypothyroidism - ICD9: 244.9, ICD10: E03.9 - Instructed patient on importance of taking on an empty stomach either first thing in the morning or at bedtime. - continue current dose of Synthroid 0.100 mg - Follow up in 6 months - TSH BLD 5. Anxiety - ICD9: 300.00, ICD10: F41.9 - recommend she reach out to neuro regarding the Zoloft and he thought it is increasing her tremors - declines counseling 6. OAB (overactive bladder) - ICD9: 596.51, ICD10: N32.81 - does not want to try another medication at this time Katlin Page APRN.MARINA Prescription instructions reviewed with patient as applicable. Patient advised if symptoms do not improve or if symptoms worsen sooner, to contact their primary care physician. Potential red flag symptoms discussed with the patient. Reviewed appropriate action plan to take if red flag symptoms occur. Patient agreeable to treatment plan. I spent a total of 25 minutes on the date of the service which included preparing to see the patient, [id number] patient care, completing clinical documentation, obtaining and/or reviewing separately obtained history, performing a medically appropriate examination, counseling and educating the patient/family/caregiver, and ordering medications, tests, or procedures. documented in this encounter [facility] 01-19-2023 Note HNO ID: [id number] Author: Vicky Ramos MD Service: ? Author Type: Physician Type: Progress Notes Filed: 01/19/2023 4:35 PM Note Text: [facility] - FOLLOW UP EVALUATION No referring provider defined for this encounter. Saira Rolon MD [id number] [facility] [id number] I had the pleasure of seeing Ms. Miramontes for follow up today. She is a 62 year old right-handed female with a history of Parkinson's disease since 2008. She is seen with a son. Subjective Previous Plan-08/05/2021 Visit: 1. I have ordered Kynmobi from our specialty pharmacy. This is the under the tongue medication that you use when your medication wears off. You will get a call from the pharmacy and also the [facility] Nurse regarding this when it is ready. 2. For now continue your medications as you are taking them, but stop the 1/2 tab of the morning ropinirole and only take 1 tab at night. 3. In the meantime, if you would like try Dopa Macuna, you can try this with 1/4 tab Sinemet four times per day. Take 1-2 dopa macuna with each dose of sinemet. Interval History: Last seen 2020. Scheduled for follow-up several months ago and sent to ED for high BP. States follow-up keeps getting delayed by her being in the hospital. Seen by neurology at [place], Sinemet increased, added Mirapex. Shaking on the inside. Just cannot stop. Mostly after Sinemet dose. Lasts all day. Some shaking on the outside. Has thrown her out of bed. Can feel cold. States both medications (Sinemet and pramipexole) make her go to the bathroom a lot right after taking them. After MN she is urinating constantly. Feels tired in the morning because she is up all night. Runs to bathroom and is frozen. Waits 1 hour to take AM Sinemet due to her thyroid medication. Then it makes her tired for 90 minutes. In the mornings her legs are curling and uncontrollable. Trying to ride exercise bike. Feels anxious, keyed up. Afraid to make lunch because she will dump it on the floor. Gets frozen at times. Best time of day is after midnight. Only a few hours per day that feel good. Currently feels exhausted. Stopped Myrbetriq because it made her BP go up- 149/96 and then gradually came down. BP down to 120s off it. It didn't help that much at night. Uses bladder protection at night. Cuts back on fluids after dinner. Pramipexole makes her feel like her ears are plugged up. Hears people in the house with tv on and no one is there. This happens after 7P. Pramipexole dose is at 9p. Does chair exercise. Off Effexor since caused weight gain. Clothes are not fitting. Fell in September- out of her bed because shaking so bad. Rolled out of bed. Reports tremor but also large movements that knock her out of bed. During gait testing today we encountered another patient with what looked like significant dyskinesia and she stated she can look like that at night but not as severe. Parkinson's Medication Schedule - as of the start of the visit: Medications 630 1130 430 Bed Sinemet 25/100 1 1 1 pramipexole 0.25 mg 1 Parkinson's Motor Complications Medication benefit onset: 30 minutes Medication duration: 3.5 hours Wearing off: yes Painful off-state dystonia: no Dyskinesia: yes Prior Anti-Parkinson Therapies Amantadine IR (Comment: hallucinations) Carbidopa/Levodopa Carbidopa/Levodopa ER (Rytary) (Comment: not covered) Pramipexole Rasagiline Ropinirole Rotigitine Questionnaires In addition, the following areas that may be affected by abnormal involuntary movements were evaluated: Daily activities Difficulties with eatin (none) Difficulties in dressing: Yes (mild) Difficulties with hygiene activities: Yes (slight) Difficulties with handwriting: Yes (mild) Difficulties with doing hobbies and other activities: 0 (none) Difficulties turning in bed: Yes (slight) Difficulties getting out of bed, car or chair: Yes (moderate) Tremors/Gait/Balance Shaking or tremors: Yes (severe) Walking and balance problems: Yes (moderate) Number of falls in the Last Month: 0 Gait freezing: Yes (severe) Autonomic/Pain Lightheadeness on standing: Yes (slight) Urinary problems: Yes (slight) Constipation problems: Yes (mild) Pain and other sensations: Yes (moderate) Speech/Swallowing Speech problems: Yes (mild) Drooling: Yes (mild) Chewing and swallowing problems: Yes (slight) Sleep/Fatigue Sleep problems: Yes (moderate) Daytime sleepiness: Yes (mild) Fatigue: Yes (severe) Mood/Behavior Depression: PHQ-9 Score: 11 usually representing moderate (10-14) depression. Anxiety: FREDO-7 Total Score: 12 usually representing moderate (10-14) anxiety. Finally, the following table shows the patient's overall global physical and mental health using the PROMIS scale: PROMIS-10 Flowsheet Row Office Visit from 01/19/2023 in Neurology Office Visit from 08/05/2021 in Neurology Global Physical Health T Score 26.7 (more content not included)... [facility] 01-01-2023 Miscellaneous Notes Patient has been identified by name and date of : Yes Requested Prescriptions Pending Prescriptions Disp Refills levothyroxine (SYNTHROID) 100 mcg tablet 90 tablet 1 Sig: Take 1 tablet by mouth once daily. Take on empty stomach. For thyroid RADHA-10/19/22 Labs-10/19/22 NOV-02/16/23 med filled 05/28/22 RX INSTRUCTIONS: Patient aware RX will be sent to pharmacy. No need to notify patient. Yvonne Mora documented in this encounter [facility] 10-21-2022 Miscellaneous Notes Pt called and is notified of providers results and instructions. Pt voices understanding. Ting Saravia RN Order approved. Thanks. Left message for patient to call office back. Lab client services can add culture, please sign order Faith Noble Ma ----- Message from Saira Rolon MD sent at 10/20/2022 1:05 PM EST ----- UA positive for WBC and RBC. Please contact lab to reflex culture. Push PO fluids and start Myrbetriq as discussed in office for overactive bladder. ----- Message from Saira Rolon MD sent at 10/21/2022 8:04 AM EST ----- Normal blood work. Awaiting urine culture results. Please call patient and let her know her liver enzymes are within normal range. Katlin Page APRN.CNP documented in this encounter [facility] 10-19-2022 Note HNO ID: [id number] Author: Saira Rolon MD Service: ? Author Type: Physician Type: Progress Notes Filed: 10/20/2022 8:42 AM Note Text: Chief Complaint Patient presents with: Follow Up: 2 month HPI Faith Miramontes is a 62 year old female who presents here today for Above Complaints.. Accompanied today by her son. Previous HPI: Patient admitted to [facility] from 07/24 to 08/07 for debility due to generalized weakness from her Parkinsons. While inpatient, worked with PT/OT and had good improvement. Carbidopa/Levodopa 100/25 increased to 1 tablet 3 times per day. Discontinued her requip due to tremors and lisinopril due to hypotension and BP on discharge was 123/775. Started on vaginal estrogen cream for urge incontinence and treated with abx for possible UTI. Recommended f/u with urology Dr. Nova. Given Effexor 37.5 mg for anxiety symptoms which did seem to improve her mood. Discharged home with [facility]. Since discharge, patient states that her strength is improving. Riding exercise bike 10 minutes per day. Unable to vacuum, take out her laundry, change her sheets, cook on the stove. Is able to use restroom on her own, bathe herself, cook in microwave, wash dishes, manage her medication. Living in apartment on ground floor. Son helps by grocery shopping, preparing meals, paying bills, cleaning around house, laundry. Meals on wheels comes once per week and gets 7 meals. Gained 6 lbs while in the hospital due to eating better/more often. Not eating full meals at home, but will eat sandwiches, snacks, and prepared meals when hungry. Today is the last day of her Keflex for UTI. Admits to urinary frequency without dysuria, hematuria, but symptoms are improving. Using estrogen cream 2 times per week. Anxiety improved with Effexor. Admits to mild fatigue and dry mouth. BP at home off of her lisinopril has been running 110-130/65-80. States that her higher dose of her Sinemet helping with ability to move and shake without side effects on higher dosage. PT has been out to see patient with current plan to see pt twice a week x 4 weeks for balance, transfers, and safety. OT called with plan of care for pt. They will see her 1 time a week for 1 week, then 2 times a week for 3 weeks for ADLs, I ADLs, transfers and Parkinson's management strategies Interim: Patient brought in a full page paper with a list of possible side effects from her medication. States that she stopped her Effexor XR on 2 because the thinks it was making her have visual hallucinations. This was started for her anxiety and does not think her symptoms have worsened. Denies panic symptoms, SI/HI. Refusing alternative rx or counseling. Also stopped her oxybutynin because it was causing blurred vision, dry mouth, headache, vomiting. Oxybutynin was started during her last hospitalization. Without her medication, she is still having up to 5 episodes of incontinence per night and has to wear depends. Not taking her vaginal estrogen cream either due to rash. Did not follow up with urology. Weight down 4 lbs since last OV because she is eating 1 meal per day instead of 3. States that she does not have much appetite. Gets meals on wheels, 1 meal per day. BP well controlled on lisinopril. Brought in readings from home which are similar to today. Past medical history, appointments, medications, allergies reviewed. Previous Medical History PAST MEDICAL HISTORY Diagnosis Date Anemia Chronic ITP (idiopathic thrombocytopenia) (HCC) CVA (cerebral vascular accident) (HCC) possible remote history based on ER visit in 05/2017. Can tolerate statins? History of tobacco abuse History of tobacco use HTN (hypertension) Hypothyroid Osteoarthritis lumbar spine, shoulders Parkinson disease (HCC) Dr. Ramos Previous Surgical History PAST SURGICAL HISTORY Procedure Laterality Date DELIVERY ONLY 2002 , low transverse INDUCED - EVACUATION 82 PAST SURGICAL HISTORY OF 2006 left 3-5 toes hammertoe repair Family History FAMILY HISTORY Problem Relation Age of Onset Cancer Father Stomach/ metastasized, pancreatic Hypertension Father Hypertension Mother Diabetes Mother Parkinson?s Disease Maternal Grandmother Thyroid No Family History Coronary Artery Disease No Family History Hyperlipidemia No Family History Blood Clots No Family History Factor 5 Leiden No Family History DVT No Family History Stroke No Family History Blood Disease No Family History Systemic Lupus Erythematosus No Family History Multiple Sclerosis No Family History Alzheimer's Disease No Family History Dementia No Family History Bipolar disorder No Family History Schizophrenia No Family History Aneurysm No Family History Patient Allergies ALLERGIES Allergen Reactions Amantadine Other: See Comments Hallucinations Lexapro [Escitalopr* Shortness of Breath Blurred visi (more content not included)... [facility] 10-19-2022 History of Presen t illness Narrative Chief Complaint Patient presents with: Follow Up: 2 month HPI Faith Miramontes is a 62 year old female who presents here today for Above Complaints.. Accompanied today by her son. Previous HPI: Patient admitted to [facility] from 07/24 to 08/07 for debility due to generalized weakness from her Parkinsons. While inpatient, worked with PT/OT and had good improvement. Carbidopa/Levodopa 100/25 increased to 1 tablet 3 times per day. Discontinued her requip due to tremors and lisinopril due to hypotension and BP on discharge was 123/775. Started on vaginal estrogen cream for urge incontinence and treated with abx for possible UTI. Recommended f/u with urology Dr. Nova. Given Effexor 37.5 mg for anxiety symptoms which did seem to improve her mood. Discharged home with [facility]. Since discharge, patient states that her strength is improving. Riding exercise bike 10 minutes per day. Unable to vacuum, take out her laundry, change her sheets, cook on the stove. Is able to use restroom on her own, bathe herself, cook in microwave, wash dishes, manage her medication. Living in apartment on ground floor. Son helps by grocery shopping, preparing meals, paying bills, cleaning around house, laundry. Meals on wheels comes once per week and gets 7 meals. Gained 6 lbs while in the hospital due to eating better/more often. Not eating full meals at home, but will eat sandwiches, snacks, and prepared meals when hungry. Today is the last day of her Keflex for UTI. Admits to urinary frequency without dysuria, hematuria, but symptoms are improving. Using estrogen cream 2 times per week. Anxiety improved with Effexor. Admits to mild fatigue and dry mouth. BP at home off of her lisinopril has been running 110-130/65-80. States that her higher dose of her Sinemet helping with ability to move and shake without side effects on higher dosage. PT has been out to see patient with current plan to see pt twice a week x 4 weeks for balance, transfers, and safety. OT called with plan of care for pt. They will see her 1 time a week for 1 week, then 2 times a week for 3 weeks for ADLs, I ADLs, transfers and Parkinson's management strategies Interim: Patient brought in a full page paper with a list of possible side effects from her medication. States that she stopped her Effexor XR on 10/02 because the thinks it was making her have visual hallucinations. This was started for her anxiety and does not think her symptoms have worsened. Denies panic symptoms, SI/HI. Refusing alternative rx or counseling. Also stopped her oxybutynin because it was causing blurred vision, dry mouth, headache, vomiting. Oxybutynin was started during her last hospitalization. Without her medication, she is still having up to 5 episodes of incontinence per night and has to wear depends. Not taking her vaginal estrogen cream either due to rash. Did not follow up with urology. Weight down 4 lbs since last OV because she is eating 1 meal per day instead of 3. States that she does not have much appetite. Gets meals on wheels, 1 meal per day. BP well controlled on lisinopril. Brought in readings from home which are similar to today. Past medical history, appointments, medications, allergies reviewed. Previous Medical History PAST MEDICAL HISTORY Diagnosis Date Anemia Chronic ITP (idiopathic thrombocytopenia) (HCC) CVA (cerebral vascular accident) (HCC) possible remote history based on ER visit in 05/2017. Can tolerate statins? History of tobacco abuse History of tobacco use HTN (hypertension) Hypothyroid Osteoarthritis lumbar spine, shoulders Parkinson disease (HCC) Dr. Ramos Previous Surgical History PAST SURGICAL HISTORY Procedure Laterality Date DELIVERY ONLY 2002 , low transverse INDUCED - EVACUATION 82 PAST SURGICAL HISTORY OF 2006 left 3-5 toes hammertoe repair Family History FAMILY HISTORY Problem Relation Age of Onset Cancer Father Stomach/ metastasized, pancreatic Hypertension Father Hypertension Mother Diabetes Mother Parkinson s Disease Maternal Grandmother Thyroid No Family History Coronary Artery Disease No Family History Hyperlipidemia No Family History Blood Clots No Family History Factor 5 Leiden No Family History DVT No Family History Stroke No Family History Blood Disease No Family History Systemic Lupus Erythematosus No Family History Multiple Sclerosis No Family History Alzheimer's Disease No Family History Dementia No Family History Bipolar disorder No Family History Schizophrenia No Family History Aneurysm No Family History Patient Allergies ALLERGIES Allergen Reactions Amantadine Other: See Comments Hallucinations Lexapro [Escitalopr* Shortness of Breath Blurred vision, spaced out [place] [Hydrocodone-* Other: See Comments [place] like bugs were crawling all over me Omeprazole GI Upset, Vomiting Prozac [Fluoxetine] Other: See Comments Weight gain Ropinirole Mental Status Change Hallucinations. Zocor [Simvastatin] Intolerance Significant High muscle enzymes. Current Medications Current Outpatient Medications on File Prior to Visit Medication Sig senna-docusate (SENNA-S) 8.6-50 mg per tablet Take 1 tablet by mouth as needed for constipation. carbidopa-levodopa (SINEMET) 25-100 mg per tablet Take 1 tablet by mouth three times daily. pramipexole (MIRAPEX) 0.125 mg tablet Take 1 tablet by mouth daily at bedtime. Walker (ULTRA-LIGHT ROLLATOR) misc 1 Device once daily. To be used with ambulation. levothyroxine (SYNTHROID) 100 mcg tablet Take 1 tablet by mouth once daily. Take on empty stomach. For thyroid diclofenac (VOLTAREN ARTHRITIS PAIN) 1 % topical gel Apply 2 g to affected area four times daily as needed. COMPOUNDED PRESCRIPTION Rollator, shower chair w/transfer bench, raise toilet seat acetaminophen (TYLENOL) 500 mg tablet Take 500 mg by mouth every 8 hours as needed for Pain. oxybutynin XL (DITROPAN XL) 5 mg 24 hr tablet Take 1 tablet by mouth daily at bedtime. (Patient not taking: Reported on 10/19/2022) conjugated estrogens (PREMARIN) vaginal cream Use 1 g vaginally two times a week. (Patient not taking: Reported on 10/19/2022) venlafaxine ER (EFFEXOR XR) 37.5 mg 24 hr capsule Take 1 capsule by mouth once daily. (Patient not taking: Reported on 10/19/2022) docusate sodium (COLACE) 100 mg capsule Take 1 capsule by mouth twice daily as needed for constipation. polyethylene glycol 3350 (MIRALAX, GLYCOLAX) 17 gram/dose powder Take 17 g by mouth once daily. No current facility-administered medications on file prior to visit. Social History Social History Tobacco Use Smoking status: Former Packs/day: 0.25 Types: Cigarettes Smokeless tobacco: Never Vaping Use Vaping Use: Never used Substance Use Topics Alcohol use: No Drug use: No Review of Symptoms REVIEW OF SYSTEMS GENERAL: No weight loss, malaise or fevers RESPIRATORY: Negative for cough, hemoptysis, wheezing, COPD, dyspnea or shortness of breath CARDIOVASCULAR: Negative for chest pain, leg swelling, hypertension, CHF or palpitations GI: No nausea, vomiting, or diarrhea SKIN: Negative for lesions, rash, and itching EXAM: BP 112/78 Pulse 78 Resp 16 Wt 60.5 kg (133 lb 6.4 oz) LMP 10/15/2012 SpO2 98% BMI 22.20 kg/m General Appearance: Well appearing, alert, in no acute distress, well-hydrated, well nourished.. Skin: Skin color, texture, turgor normal, no suspicious rashes or lesions. Lungs: Lungs clear to auscultation. No wheezing, rhonchi, rales.. Heart: RRR without murmur, gallop, or rubs. No ectopy. Abdomen: Abdomen soft, non-tender. Bowel sounds normal. No masses, organomegaly. Positive for left flank pain. Extremities: No deformities, edema, skin discoloration, clubbing or cyanosis. Good capillary refill. . Health Maintenance List BP CONTROLLED (<130/80) Never done SHINGRIX VACCINE(1 of 2) Never done MAMMOGRAM due on 04/15/2021 DEPRESSION ASSESSMENT Never done INFLUENZA(1) due on 02/26/2023 COVID-19 VACCINE(1) due on 06/09/2023 COLORECTAL CANCER SCREENING due on 04/13/2023 ANNUAL PCP TEAM CHRONIC DISEASE VISIT due on 08/14/2023 PAP TESTING due on 04/15/2025 HPV TESTING due on 04/15/2025 DIABETES SCREEN due on 08/14/2025 LIPID SCREEN due on 06/09/2027 DTAP,TDAP,TD(2 - Td or Tdap) due on 06/10/2028 HEPATITIS C SCREENING Completed HIV SCREENING Completed Data reviewed Component Latest Ref Rng & Units 06/09/2022 08/14/2022 WBC 3.70 - 11.00 k/uL 7.10 RBC 3.90 - 5.20 m/uL 3.93 Hemoglobin 11.5 - 15.5 g/dL 12.4 Hematocrit 36.0 - 46.0 % 37.9 MCV 80.0 - 100.0 fL 96.4 MCH 26.0 - 34.0 pg 31.6 MCHC 30.5 - 36.0 g/dL 32.7 RDW-CV 11.5 - 15.0 % 13.2 Platelet Count 150 - 400 k/uL 290 MPV 9.0 - 12.7 fL 12.4 Neut% % 64.2 Abs Neut (ANC) 1.45 - 7.50 k/uL 4.56 Lymph% % 27.3 Abs Lymph 1.00 - 4.00 k/uL 1.94 [place]% % 5.4 Abs [place] <0.87 k/uL 0.38 Eosin% % 2.1 Abs Eosin <0.46 k/uL 0.15 Baso% % 0.7 Abs Baso <0.11 k/uL 0.05 Immature Gran % % 0.3 IMMATURE GRANS (ABS) <0.10 k/uL <0.03 NRBC /100 WBC 0.0 Absolute nRBC <0.01 k/uL <0.01 DTYPE Auto Protein, Total 6.3 - 8.0 g/dL 7.1 Albumin 3.9 - 4.9 g/dL 4.3 Calcium 8.5 - 10.2 mg/dL 9.1 Bilirubin, Total 0.2 - 1.3 mg/dL 0.3 Alkaline Phosphatase 34 - 123 U/L 79 AST 13 - 35 U/L 62 (H) ALT 7 - 38 U/L 22 Glucose 74 - 99 mg/dL 87 BUN 7 - 21 mg/dL 13 Creatinine 0.58 - 0.96 mg/dL 0.68 Sodium 136 - 144 mmol/L 141 Potassium 3.7 - 5.1 mmol/L 4.3 Chloride 97 - 105 mmol/L 105 CO2 22 - 30 mmol/L 25 Anion Gap 9 - 18 mmol/L 11 eGFR >=60 mL/min/1.73m 98 Total Cholesterol, Nonfasting <200 mg/dL 169 Triglycerides, Nonfasting <150 mg/dL 108 HDL Cholesterol, Nonfasting >39 mg/dL 58 LDL Cholesterol, Nonfasting <100 mg/dL 89 Non HDL Cholesterol, Nonfasting <130 mg/dL 111 VLDL Cholesterol, Nonfasting <30 mg/dL 22 Total Chol/HDL Ratio, Nonfasting <5.10 mg/dL 2.91 LDL/HDL Ratio, Nonfasting <2.54 mg/dL 1.53 TSH 0.270 - 4.200 mIU/L 0.554 1.860 Component Latest Ref Rng & Units 08/14/2022 Color Yellow Colorless Clarity Clear Clear Glucose, Urine Trace, Negative Negative Bilirubin, Urine Negative Negative Ketones, Urine Trace, Negative Negative Specific [place], Ur 1.005 - 1.030 1.006 Hemoglobin/Blood,Ur Negative, Trace Trace pH, Urine 5.0 - 8.0 6.5 Protein, Urine Trace, Negative Negative Urobilinogen Negative Negative Nitrites Negative Negative Leukest Negative, 25 Michelle/mL Negative WBC, Urine 0-5 /HPF 0-5 /HPF RBC, Urine 0-3 /HPF 0-3 /HPF Epithelial Cells /HPF Few ASSESSMENT/PLAN: 1. Parkinson disease (HCC) - ICD9: 332.0, ICD10: G20 (primary diagnosis) Improved on current regimen. F/u with neurology as scheduled. 2. Anxiety state - ICD9: 300.00, ICD10: F41.1 Patient states that her symptoms are stable despite stopping Effexor and hallucinations have resolved. Will monitor. 3. OAB (overactive bladder) - ICD9: 596.51, ICD10: N32.81 Stop Detrol and start Myrbetriq. Repeat UA. Red flags for re-assessment reviewed with patient in detail. - MIRABEGRON ER 25 MG TABLET,EXTENDED RELEASE 24 HR - URINALYSIS WITH MICROSCOPIC, REFLEX CULTURE 4. Urge incontinence of urine - ICD9: 788.31, ICD10: N39.41 5. Essential hypertension with goal blood pressure less than 140/90 - ICD9: 401.9, ICD10: I10 - good control - Continue current medication(s) - Encouraged dietary sodium restriction/DASH diet - Recommended regular aerobic exercise. - Reviewed risks of HTN and principles of treatment - Goal of BP <140/90 6. Acquired hypothyroidism - ICD9: 244.9, ICD10: E03.9 - Instructed patient on importance of taking on an empty stomach either first thing in the morning or at bedtime. - continue current dose of Synthroid 0.100 mg Weight decreasing. Discussed eating 3 meals per day at home. Saira Rolon MD documented in this encounter [facility] 09-17-[address]. [address] Estela @ [facility] calling to let PCP know patient is discharged from speech therapy today . She met her goals and will continue with home program of daily vocal exercises and twice weekly swallow exercises. Miladis Etienne RN documented in this encounter [facility] 09-10-2022 Miscellaneous Notes OK thanks. Estela BRAGG with [facility] called and is notified of providers message. She voices understanding. She also wanted to let the provider know that the Pt reports she stopped taking her Naproxen about 6 days ago. The Pt reported a dry throat and plugged ears. Medication was not found on our medication list to update. Ting Saravia, RN OK for verbal order as requested. Estela BRAGG with [facility] called in to reports she went out and did the evaluation on the Pt today. She states beginning 09/06/22 she will be seeing the Pt once a week for 2 weeks. She will be seeing her for in home exercise program of the voice and swallowing. She is asking for a verbal order to extend all goals until 09/17/22, since they had to wait so long for insurance authorization. documented in this encounter [facility] 09-10-2022 Miscellaneous Notes agree Michelle calling from [facility] to report plan of care for patient and occupational theray will visit patient 1 time a week for first week, 2 times a week for 2 weeks and 1 time a week for 1 week. Occupational therapy will work with patient on IADLs. No call back needed. Rachael Tay RN documented in this encounter [facility] 09-03-2022 Miscellaneous Notes The following approved medication requests have been transmitted electronically. Requested Prescriptions Signed Prescriptions Disp Refills carbidopa-levodopa (SINEMET) 25-100 mg per tablet 270 tablet 1 Sig: Take 1 tablet by mouth three times daily. Authorizing Provider: VICKY RAMOS pramipexole (MIRAPEX) 0.125 mg tablet 90 tablet 1 Sig: Take 1 tablet by mouth daily at bedtime. Authorizing Provider: VICKY RAMOS MD Patient calling to request refills on medications prescribed/changed during her last hospital stay at [place]. Scripts to go to [facility] in [place] for 90 day supply. Last OV: 02/03/22 with Kelly Future OV: 01/19/23 with JOSE LUIS Requested Prescriptions Pending Prescriptions Disp Refills carbidopa-levodopa (SINEMET) 25-100 mg per tablet 270 tablet 1 Sig: Take 1 tablet by mouth three times daily. pramipexole (MIRAPEX) 0.125 mg tablet 90 tablet 1 Sig: Take 1 tablet by mouth daily at bedtime. Dafne Vinson documented in this encounter [facility] 09-03-2022 Miscellaneous Notes Called and left a detailed voicemail notifying Renee [facility] of providers message. Hospital phone number was left in case she had any questions. Ting Saravia RN OK for VO. Renee, nurse @ [facility] calling to request new orders (verbal okay) for ST/OT. There was a delay in start of care since 08/16 while waiting for insurance approval. Her phone # [phone]. Miladis Etienne RN documented in this encounter [facility] 09-03-2022 Miscellaneous Notes Patient reports she needs refill of the pended medication. Not on current med list. Patient reports the hospital prescribed it when she was admitted there (discharged 08-07-22). Please advise. Patient has been identified by name and date of : Yes, Provider Dr. Rolon Date 09-03-22 Time 1:45 pm Patient phones for refill(s): Requested Prescriptions Pending Prescriptions Disp Refills oxybutynin XL (DITROPAN XL) 5 mg 24 hr tablet 30 tablet 5 Sig: Take 1 tablet by mouth daily at bedtime. Date of last office visit with pcp: 08-14-22. Next appt: 10-19-22 Last 2 Encounter Wt Readings: Date: Wt: 08/14/2022 62.3 kg (137 lb 6.4 oz) 03/18/2022 59.4 kg (131 lb) Previous labs/tests for medication: Blood Pressure: BUN (mg/dL) Date Value 08/14/2022 13 01/15/2021 8 Sodium (mmol/L) Date Value 08/14/2022 141 01/15/2021 139 Last 1 Encounter BP Readings: Date: BP: 08/14/2022 136/74[recheck[ Liver Function: ALT (U/L) Date Value 08/14/2022 22 01/15/2021 8 AST (U/L) Date Value 08/14/2022 62 01/15/2021 29 Please advise. Thank you. Michelle Rubio RN documented in this encounter [facility] 08-17-2022 Miscellaneous Notes Pt called and is notified of providers results and instructions. Pt voices understanding. Ting Saravia RN Please call patient and let her know her blood work shows mild elevation in one liver enzyme- recommend repeat on 3 months. The rest of her blood work was in normal limits. Urine results normal as well. Continue current medications. Katlin Page APRN.MARINA documented in this encounter [facility] 08-14-2022 History of Presen t illness Narrative Chief Complaint Patient presents with: Hospital F/U HPI Faith Miramontes is a 61 year old female who presents here today for Hospital Discharge Follow up. Accompanied today by her son. Patient admitted to [facility] from 07/24 to 08/07 for debility due to generalized weakness from her Parkinsons. While inpatient, worked with PT/OT and had good improvement. Carbidopa/Levodopa 100/25 increased to 1 tablet 3 times per day. Discontinued her requip due to tremors and lisinopril due to hypotension and BP on discharge was 123/775. Started on vaginal estrogen cream for urge incontinence and treated with abx for possible UTI. Recommended f/u with urology Dr. Nova. Given Effexor 37.5 mg for anxiety symptoms which did seem to improve her mood. Discharged home with [facility]. Since discharge, patient states that her strength is improving. Riding exercise bike 10 minutes per day. Unable to vacuum, take out her laundry, change her sheets, cook on the stove. Is able to use restroom on her own, bathe herself, cook in microwave, wash dishes, manage her medication. Living in apartment on ground floor. Son helps by grocery shopping, preparing meals, paying bills, cleaning around house, laundry. Meals on wheels comes once per week and gets 7 meals. Gained 6 lbs while in the hospital due to eating better/more often. Not eating full meals at home, but will eat sandwiches, snacks, and prepared meals when hungry. Today is the last day of her Keflex for UTI. Admits to urinary frequency without dysuria, hematuria, but symptoms are improving. Using estrogen cream 2 times per week. Anxiety improved with Effexor. Admits to mild fatigue and dry mouth. BP at home off of her lisinopril has been running 110-130/65-80. States that her higher dose of her Sinemet helping with ability to move and shake without side effects on higher dosage. PT has been out to see patient with current plan to see pt twice a week x 4 weeks for balance, transfers, and safety. OT called with plan of care for pt. They will see her 1 time a week for 1 week, then 2 times a week for 3 weeks for ADLs, I ADLs, transfers and Parkinson's management strategies. Past medical history, appointments, medications, allergies reviewed. Previous Medical History PAST MEDICAL HISTORY Diagnosis Date Anemia Chronic ITP (idiopathic thrombocytopenia) ([facility]) CVA (cerebral vascular accident) ([facility]) possible remote history based on ER visit in 05/2017. Can tolerate statins? History of tobacco abuse History of tobacco use HTN (hypertension) Hypothyroid Osteoarthritis lumbar spine, shoulders Parkinson disease ([facility]) Dr. Ramos Previous Surgical History PAST SURGICAL HISTORY Procedure Laterality Date DELIVERY ONLY 2002 , low transverse INDUCED - EVACUATION 82 PAST SURGICAL HISTORY OF 2006 left 3-5 toes hammertoe repair Family History FAMILY HISTORY Problem Relation Age of Onset Cancer Father Stomach/ metastasized, pancreatic Hypertension Father Hypertension Mother Diabetes Mother Parkinson s Disease Maternal Grandmother Thyroid No Family History Coronary Artery Disease No Family History Hyperlipidemia No Family History Blood Clots No Family History Factor 5 Leiden No Family History DVT No Family History Stroke No Family History Blood Disease No Family History Systemic Lupus Erythematosus No Family History Multiple Sclerosis No Family History Alzheimer's Disease No Family History Dementia No Family History Bipolar disorder No Family History Schizophrenia No Family History Aneurysm No Family History Patient Allergies ALLERGIES Allergen Reactions Amantadine Other: See Comments Hallucinations Lexapro [Escitalopr* Shortness of Breath Blurred vision, spaced out [place] [Hydrocodone-* Other: See Comments [place] like bugs were crawling all over me Omeprazole GI Upset, Vomiting Prozac [Fluoxetine] Other: See Comments Weight gain Ropinirole Mental Status Change Hallucinations. Zocor [Simvastatin] Intolerance Significant High muscle enzymes. Current Medications Current Outpatient Medications on File Prior to Visit Medication Sig carbidopa-levodopa (SINEMET) 25-100 mg per tablet Take 0.5 tablets by mouth three times daily. rOPINIRole (REQUIP) 0.25 mg tablet Take 1 tablet by mouth daily at bedtime. Walker (ULTRA-LIGHT ROLLATOR) misc 1 Device once daily. To be used with ambulation. docusate sodium (COLACE) 100 mg capsule Take 1 capsule by mouth twice daily as needed for constipation. levothyroxine (SYNTHROID) 100 mcg tablet Take 1 tablet by mouth once daily. Take on empty stomach. For thyroid diclofenac (VOLTAREN ARTHRITIS PAIN) 1 % topical gel Apply 2 g to affected area four times daily as needed. lisinopril (ZESTRIL, PRINIVIL) 20 mg tablet Take 1 tablet by mouth once daily. polyethylene glycol 3350 (MIRALAX, GLYCOLAX) 17 gram/dose powder Take 17 g by mouth once daily. COMPOUNDED PRESCRIPTION Rollator, shower chair w/transfer bench, raise toilet seat acetaminophen (TYLENOL) 500 mg tablet Take 500 mg by mouth every 8 hours as needed for Pain. No current facility-administered medications on file prior to visit. Social History Social History Tobacco Use Smoking status: Former Packs/day: 0.25 Types: Cigarettes Smokeless tobacco: Never Vaping Use Vaping Use: Never used Substance Use Topics Alcohol use: No Drug use: No Review of Symptoms REVIEW OF SYSTEMS GENERAL: No weight loss, malaise or fevers NECK: Negative for lumps, goiter, pain and significant neck swelling RESPIRATORY: Negative for cough, hemoptysis, wheezing, COPD, dyspnea or shortness of breath CARDIOVASCULAR: Negative for chest pain, leg swelling, hypertension, CHF or palpitations GI: No nausea, vomiting, or diarrhea SKIN: Negative for lesions, rash, and itching EXAM: BP 136/74 Pulse 69 Resp 16 Wt 62.3 kg (137 lb 6.4 oz) LMP 10/15/2012 SpO2 99% BMI 22.86 kg/m General Appearance: Well appearing, alert, in no acute distress, well-hydrated, well nourished.. Skin: Skin color, texture, turgor normal, no suspicious rashes or lesions. Lungs: Lungs clear to auscultation. No wheezing, rhonchi, rales.. Heart: RRR without murmur, gallop, or rubs. No ectopy. Abdomen: Normal abdominal exam, Abdomen soft, non-tender. Bowel sounds normal. No masses, organomegaly. Extremities: No deformities, edema, skin discoloration, clubbing or cyanosis. Good capillary refill. . Neuro: slowed speech, mild tremor in left hand with rest and intention. Seated in wheelchair today. Health Maintenance List BP CONTROLLED (<130/80) Never done SHINGRIX VACCINE(1 of 2) Never done MAMMOGRAM due on 04/15/2021 DEPRESSION ASSESSMENT Never done INFLUENZA(1) due on 02/26/2023 COVID-19 VACCINE(1) due on 06/09/2023 COLORECTAL CANCER SCREENING due on 04/13/2023 ANNUAL PCP TEAM CHRONIC DISEASE VISIT due on 06/09/2023 DIABETES SCREEN due on 02/03/2025 PAP TESTING due on 04/15/2025 HPV TESTING due on 04/15/2025 LIPID SCREEN due on 06/09/2027 DTAP,TDAP,TD(2 - Td or Tdap) due on 06/10/2028 HEPATITIS C SCREENING Completed HIV SCREENING Completed Data reviewed Component Latest Ref Rng & Units 02/03/2022 06/09/2022 WBC 3.70 - 11.00 k/uL 6.39 RBC 3.90 - 5.20 m/uL 4.38 Hemoglobin 11.5 - 15.5 g/dL 13.6 Hematocrit 36.0 - 46.0 % 40.4 MCV 80.0 - 100.0 fL 92.2 MCH 26.0 - 34.0 pg 31.1 MCHC 30.5 - 36.0 g/dL 33.7 RDW-CV 11.5 - 15.0 % 12.1 Platelet Count 150 - 400 k/uL 250 MPV 9.0 - 12.7 fL 11.5 Neut% % 59.7 Abs Neut (ANC) 1.45 - 7.50 k/uL 3.82 Lymph% % 30.2 Abs Lymph 1.00 - 4.00 k/uL 1.93 [place]% % 6.6 Abs [place] <0.87 k/uL 0.42 Eosin% % 2.7 Abs Eosin <0.46 k/uL 0.17 Baso% % 0.6 Abs Baso <0.11 k/uL 0.04 Immature Gran % % 0.2 IMMATURE GRANS (ABS) <0.10 k/uL <0.03 NRBC /100 WBC 0.0 Absolute nRBC <0.01 k/uL <0.01 DTYPE Auto Protein, Total 6.3 - 8.0 g/dL 7.6 Albumin 3.9 - 4.9 g/dL 4.8 Calcium 8.5 - 10.2 mg/dL 9.5 Bilirubin, Total 0.2 - 1.3 mg/dL 0.4 Alkaline Phosphatase 34 - 123 U/L 85 AST ALT 7 - 38 U/L <5 (L) Glucose 74 - 99 mg/dL 96 BUN 7 - 21 mg/dL 11 Creatinine 0.58 - 0.96 mg/dL 0.73 Sodium 136 - 144 mmol/L 141 Potassium 3.7 - 5.1 mmol/L 4.4 Chloride 97 - 105 mmol/L 104 CO2 22 - 30 mmol/L 27 Anion Gap 9 - 18 mmol/L 10 eGFR >=60 mL/min/1.73m 93 Total Cholesterol, Nonfasting <200 mg/dL 169 Triglycerides, Nonfasting <150 mg/dL 108 HDL Cholesterol, Nonfasting >39 mg/dL 58 LDL Cholesterol, Nonfasting <100 mg/dL 89 Non HDL Cholesterol, Nonfasting <130 mg/dL 111 VLDL Cholesterol, Nonfasting <30 mg/dL 22 Total Chol/HDL Ratio, Nonfasting <5.10 mg/dL 2.91 LDL/HDL Ratio, Nonfasting <2.54 mg/dL 1.53 TSH 0.270 - 4.200 mIU/L 0.554 ASSESSMENT/PLAN: 1. Debility - ICD9: 799.3, ICD10: R53.81 (primary diagnosis) Improving. Continue home exercises, PT/OT/ST. Will monitor. 2. Parkinson disease (HCC) - ICD9: 332.0, ICD10: G20 Improved on higher dose Sinemet. Off Requip. F/u with neurology. - CARBIDOPA 25 MG-LEVODOPA 100 MG TABLET 3. Acute cystitis without hematuria - ICD9: 595.0, ICD10: N30.00 Symptoms improved with abx. - COMP METABOLIC PANEL - CBC + DIFF 4. Essential hypertension with goal blood pressure less than 140/90 - ICD9: 401.9, ICD10: I10 - good control - Continue current medication(s) - Encouraged dietary sodium restriction/DASH diet - Recommended regular aerobic exercise. - Reviewed risks of HTN and principles of treatment - Goal of BP <140/90 5. Acquired hypothyroidism - ICD9: 244.9, ICD10: E03.9 - Instructed patient on importance of taking on an empty stomach either first thing in the morning or at bedtime. - continue current dose of Synthroid 0.100 mg - TSH BLD 6. Urge incontinence - ICD9: 788.31, ICD10: N39.41 Check UA. - URINALYSIS WITH MICROSCOPIC, REFLEX CULTURE 7. Anxiety - ICD9: 300.00, ICD10: F41.9 Improved on Effexor. Will continue and recheck at next OV. 8. Hospital discharge follow-up - ICD9: V67.59, ICD10: Z09 Doing well on discharge. Feels safe at home. Son agreeable to continue helping care for her. I spent a total of 40 minutes on the date of the service which included preparing to see the patient, [id number] patient care, completing clinical documentation, obtaining and/or reviewing separately obtained history, performing a medically appropriate examination, and counseling and educating the patient/family/caregiver. Saira Rolon MD documented in this encounter [facility] 08-13-2022 Miscellaneous Notes Summary reviewed and sent to scanning Received discharge summary from [facility] Placed on Dr. Ramos desk for review documented in this encounter [facility] 08-11-2022 Miscellaneous Notes Renee telephoned and made aware of providers response. Sweta Nick LPN Ok to continue with Keflex for UTI. Synthroid 100 mcg daily would be my recommendation based on her last TSH with us. Renee [facility] called in and reports that on [facility] paperwork page 2 Pt was started on Keflex 500 mg every 8 hours 15 capsules for a UTI. She was also asking about Pts Levothyroxine on her DC list it says 112 mcg where ours says 100 mcgs. She was asking which one provider wanted them to go with. I looked and saw on 06/09/22 her TSH was 0.554 and provider said no change to regimen from the 100 mcg. Please call and advise. Called and left a detailed voicemail notifying Renee of [facility] of providers message. Hospital phone number was left in case she had any information on where the Keflex was started. Ting Saravia RN I am not seeing Keflex on her discharge paperwork. Where was this started? May continue use as prescribed while we are getting additional records. Ok for Castro Resendiz use. Renee with [facility] is calling about a couple of meds that pt has that are not on pt med list Cephalexin 500 mg bid for UTI. RX will be finished 08/14/22 Bengay- Use on neck, back, and shoulders prn. Renee is asking for verbal for these meds. Call Renee with 's message. [place] LPN documented in this encounter [facility] 08-10-2022 Miscellaneous Notes Agree. DHIRAJ: Marisol with [facility] HC PT calls with PT plan of care: Will see pt twice a week x 4 weeks for balance, transfers, and safety. [place] LPN documented in this encounter [facility] 08-05-2022 Miscellaneous Notes Phoned Teri with [facility] and advised her of provider's message. Reviewed and agree. Recommend f/u in office 1-2 weeks after discharge from rehab. Teri from [facility] calls and states that patient will be discharged from [facility] Rehab on 08/07/2022 with the diagnosis of Debility. Teri asking if provider willing to follow patient with orders for Speech therapy, Physical therapy, and Occupational therapy. Teri asking of provider also ok with delay start of care till 08/10/2022? If agreeable please give Teri a call back [phone]. Thank you, Rachael Tay RN documented in this encounter [facility] 07-27-2022 Miscellaneous Notes The following approved medication requests have been transmitted electronically. Requested Prescriptions Signed Prescriptions Disp Refills carbidopa-levodopa (SINEMET) 25-100 mg per tablet 45 tablet 5 Sig: Take 0.5 tablets by mouth three times daily. Authorizing Provider: VICKY RAMOS rOPINIRole (REQUIP) 0.25 mg tablet 30 tablet 5 Sig: Take 1 tablet by mouth daily at bedtime. Authorizing Provider: VICKY RAMOS MD Medications pended please review. No future OV scheduled Patients sister is calling in on behalf of Faith. Faith had an appt tomorrow, but canceled it due to being hospitalized for over a week now. Wanting a refill on her parkinsons medication .. Sister did not know the exact name, but said she would call us tomorrow in the event we weren't able to refill it.. Please advise. Thanks documented in this encounter [facility] 07-22-2022 Miscellaneous Notes Reports printed and on PCP's desk. Nancie Chapman Ma Reviewed. Please obtain records. Sheila- CM- [facility]- phoned to let pcp know, patient was admitted to [facility] last night, with Dx: generalized weakness, Parkinson flare- unable to walk. documented in this encounter [facility] 06-25-2022 Miscellaneous Notes Order and Bucu-xs-Ajcy forwarded to number as requested. Order printed. Please fax as requested. Office received fax from [facility] requesting a Rollator order for pt. Please fax rx and any Face to Face chart notes to [phone] ATTN: Zhou Yuan. Nancie Chapman Ma documented in this encounter [facility] 06-15-2022 Miscellaneous Notes Patient telephoned and made aware. Agreeable to sending it to [facility] for a try. Order and patient demographincs faxed to [facility] central scheduling at [phone]. Sweta Nick LPN Please notify patient [facility] home care is at capacity. Order for non [facility] home health is in the system already as alternative. Thank you for the referral of your patient to [facility]. At this time, we are at capacity and are unable to accept your patient. In order to help your patient receive quality home care, we have included reputable agencies that service this area: [facility] - , or [facility] - . Please contact this agency and they will work with your patient to arrange timely services. Thank you, SHIVANI Montoya 06/15/2022 11:53 AM documented in this encounter [facility] 06-15-2022 Miscellaneous Notes Patient aware. Will attempt to call [facility]. Sweta Nick LPN I put in new order for [facility]- not sure if they cover this area or not. Katlin Page APRN.CNP Patient telephoned and made aware. She wants it to be throught [facility]. Please place order, it's still in there as Non [facility]. Sweta Nick LPN Order placed. Dr. Rolon had put in non [facility] home health for PT. She will need to let us know where to send order for this. Katlin Page APRN.CNP Patient calling, states she called [facility] to restart her PT. They told the order was cancelled so they will need a new order to restart. Patient asking for this to be sent. Please advise. documented in this encounter [facility] 05-28-2022 Miscellaneous Notes Last office visit: 03/18/22 F/u scheduled: 06/09/22 Nancie Chapman Ma Patient has been identified by name and date of : Yes Requested Prescriptions Pending Prescriptions Disp Refills levothyroxine (SYNTHROID) 100 mcg tablet 90 tablet 3 Sig: Take 1 tablet by mouth once daily. Take on empty stomach. For thyroid RX INSTRUCTIONS: Patient aware RX will be sent to pharmacy. No need to notify patient. Yulia Lennon [employer] documented in this encounter [facility] 03-18-2022 Nurse Note VISUAL ACUITY: Today's exam: Vision Correction? Glasses: RIGHT EYE: 20/30 LEFT EYE: 20/ 50 BOTH EYES: 20/30 documented in this encounter [facility] 03-18-2022 History of Presen t illness Narrative Chief Complaint Patient presents with: headaches and blurry vision HPI Faith Miramontes is a 61 year old female who presents here today for Above Complaints. Accompanied today by her sister Sarah. We increased her lisinopril from 10 mg to 20 mg daily at her last appointment in January for uncontrolled HTN. She was not having any side effects on the lower dosage, but did note some blurred vision at her last appointment. Today, complaining of occipital headaches on a daily basis with radiation down the back of her neck. Has been treating with tylenol which does not help with pain. Lying down in bed helps with pain. Pain lasts for about a couple hours at a time. Usually occurs after she takes her medications. Associated with bilateral blurred vision and fatigue. Has not been for eye exam recently. Denies black spots, or loss of vision, slurred speech, facial droop, sudden numbness/tingling/weakness. BP at home has been well controlled with readings in the 110-130/70-80's range since we increased her lisinopril. Notes that she has been having a harder time with mobility related to her Parkinsons. Taking her sinemet as prescribed. Has not yet reached out to her neurologist for worsening symptoms. Has not called home health yet for PT neck and back pain. Was unable to tolerate NSAIDs and muscle relaxer at her last appointment. Has number at home. Has been treating neck pain with hairspring assembler for heat which does help loosen her up some. Discussed use of heating pad since it is less likely to cause saavedra. Past medical history, appointments, medications, allergies reviewed. Previous Medical History PAST MEDICAL HISTORY Diagnosis Date Anemia Chronic ITP (idiopathic thrombocytopenia) (HCC) CVA (cerebral vascular accident) (HCC) possible remote history based on ER visit in 05/2017. Can tolerate statins? History of tobacco use HTN (hypertension) Hypothyroid Osteoarthritis lumbar spine, shoulders Parkinson disease (HCC) Dr. Ramos Previous Surgical History PAST SURGICAL HISTORY Procedure Laterality Date DELIVERY ONLY 2002 , low transverse INDUCED - EVACUATION 82 PAST SURGICAL HISTORY OF 2006 left 3-5 toes hammertoe repair Family History FAMILY HISTORY Problem Relation Age of Onset Cancer Father Stomach/ metastasized, pancreatic Hypertension Father Hypertension Mother Diabetes Mother Parkinson s Disease Maternal Grandmother Thyroid No Family History Coronary Artery Disease No Family History Hyperlipidemia No Family History Blood Clots No Family History Factor 5 Leiden No Family History DVT No Family History Stroke No Family History Blood Disease No Family History Systemic Lupus Erythematosus No Family History Multiple Sclerosis No Family History Alzheimer's Disease No Family History Dementia No Family History Bipolar disorder No Family History Schizophrenia No Family History Aneurysm No Family History Patient Allergies ALLERGIES Allergen Reactions Amantadine Other: See Comments Hallucinations Lexapro [Escitalopr* Shortness of Breath Blurred vision, spaced out [place] [Hydrocodone-* Other: See Comments [place] like bugs were crawling all over me Omeprazole GI Upset, Vomiting Prozac [Fluoxetine] Other: See Comments Weight gain Ropinirole Mental Status Change Hallucinations. Zocor [Simvastatin] Intolerance Significant High muscle enzymes. Current Medications Current Outpatient Medications on File Prior to Visit Medication Sig lisinopril (ZESTRIL, PRINIVIL) 20 mg tablet Take 1 tablet by mouth once daily. carbidopa-levodopa (SINEMET) 25-100 mg per tablet Take 0.5 tablets by mouth three times daily. levothyroxine (SYNTHROID) 100 mcg tablet Take 1 tablet by mouth once daily. Take on empty stomach. For thyroid polyethylene glycol 3350 (CLEARLAX) 17 gram/dose powder Take 17 g by mouth once daily. rOPINIRole (REQUIP) 0.25 mg tablet Take 1 tablet by mouth daily at bedtime. COMPOUNDED PRESCRIPTION Rollator, shower chair w/transfer bench, raise toilet seat acetaminophen (TYLENOL) 500 mg tablet Take 500 mg by mouth every 8 hours as needed for Pain. No current facility-administered medications on file prior to visit. Social History Social History Tobacco Use Smoking status: Former Smoker Packs/day: 0.25 Types: Cigarettes Smokeless tobacco: Never Used Vaping Use Vaping Use: Never used Substance Use Topics Alcohol use: No Drug use: No Review of Symptoms REVIEW OF SYSTEMS See HPI EXAM: BP 130/80 Pulse 82 Temp 37.1 C (98.8 F) (Right Tympanic) Resp 16 Wt 59.4 kg (131 lb) LMP 10/15/2012 BMI 21.80 kg/m VISUAL ACUITY: Today's exam: Vision Correction? Glasses: RIGHT EYE: 20/30 LEFT EYE: 20/ 50 BOTH EYES: 20/30 General Appearance: Well appearing, alert, in no acute distress, well-hydrated, well nourished.. Skin: Skin color, texture, turgor normal, no suspicious rashes or lesions. Eyes: Anicteric sclera. Pupils are equally round and reactive to light. Extraocular movements are intact. . Head: atraumatic, normocephalic. No TTP over occiput. Neck: No TTP over cervical spine or paraspinal muscles. Normal ROM. Lungs: Lungs clear to auscultation. No wheezing, rhonchi, rales.. Heart: RRR without murmur, gallop, or rubs. No ectopy. Extremities: No deformities, edema, skin discoloration, clubbing or cyanosis. Good capillary refill. Health Maintenance List COVID-19 VACCINE(1) Never done SHINGRIX VACCINE(1 of 2) Never done MAMMOGRAM due on 04/15/2021 INFLUENZA(1) due on 04/30/2022 DEPRESSION SCREENING due on 08/05/2022 ANNUAL PCP TEAM CHRONIC DISEASE VISIT due on 02/11/2023 BP CONTROLLED (<130/80) due on 02/25/2023 COLORECTAL CANCER SCREENING due on 04/13/2023 LIPID SCREEN due on 12/10/2023 DIABETES SCREEN due on 02/03/2025 PAP TESTING due on 04/15/2025 HPV TESTING due on 04/15/2025 DTAP,TDAP,TD(2 - Td or Tdap) due on 06/10/2028 HEPATITIS C SCREENING Completed HIV SCREENING Completed Data reviewed Component Latest Ref Rng & Units 02/03/2022 WBC 3.70 - 11.00 k/uL 6.39 RBC 3.90 - 5.20 m/uL 4.38 Hemoglobin 11.5 - 15.5 g/dL 13.6 Hematocrit 36.0 - 46.0 % 40.4 MCV 80.0 - 100.0 fL 92.2 MCH 26.0 - 34.0 pg 31.1 MCHC 30.5 - 36.0 g/dL 33.7 RDW-CV 11.5 - 15.0 % 12.1 Platelet Count 150 - 400 k/uL 250 MPV 9.0 - 12.7 fL 11.5 Neut% % 59.7 Abs Neut (ANC) 1.45 - 7.50 k/uL 3.82 Lymph% % 30.2 Abs Lymph 1.00 - 4.00 k/uL 1.93 [place]% % 6.6 Abs [place] <0.87 k/uL 0.42 Eosin% % 2.7 Abs Eosin <0.46 k/uL 0.17 Baso% % 0.6 Abs Baso <0.11 k/uL 0.04 Immature Gran % % 0.2 IMMATURE GRANS (ABS) <0.10 k/uL <0.03 NRBC /100 WBC 0.0 Absolute nRBC <0.01 k/uL <0.01 DTYPE Auto Protein, Total 6.3 - 8.0 g/dL 7.6 Albumin 3.9 - 4.9 g/dL 4.8 Calcium 8.5 - 10.2 mg/dL 9.5 Bilirubin, Total 0.2 - 1.3 mg/dL 0.4 Alkaline Phosphatase 34 - 123 U/L 85 AST ALT 7 - 38 U/L <5 (L) Glucose 74 - 99 mg/dL 96 BUN 7 - 21 mg/dL 11 Creatinine 0.58 - 0.96 mg/dL 0.73 Sodium 136 - 144 mmol/L 141 Potassium 3.7 - 5.1 mmol/L 4.4 Chloride 97 - 105 mmol/L 104 CO2 22 - 30 mmol/L 27 Anion Gap 9 - 18 mmol/L 10 eGFR >=60 mL/min/1.73m 93 ASSESSMENT/PLAN: 1. Tension headache - ICD9: 307.81, ICD10: G44.209 (primary diagnosis) Will give rx for voltaren gel for PRN use and discussed heat, self massage, home exercises, and f/u with PT for muscle strain. Red flags for re-assessment reviewed with patient in detail. 2. Strain of neck muscle, subsequent encounter - ICD9: V58.89, 847.0, ICD10: S16.1XXD - DICLOFENAC 1 % TOPICAL GEL 3. Blurred vision, bilateral - ICD9: 368.8, ICD10: H53.8 Left eye worse than right on visual acuity today. Will have her follow up with optho for exam. Red flags for re-assessment reviewed with patient in detail. - CONSULT TO OPHTHALMOLOGY 4. Essential hypertension with goal blood pressure less than 140/90 - ICD9: 401.9, ICD10: I10 - good control - Continue current medication(s) - Encouraged dietary sodium restriction/DASH diet - Recommended regular aerobic exercise. - Reviewed risks of HTN and principles of treatment - Goal of BP <140/90 - Discussed that her symptoms are not likely related to increase in this medication. Had been on this dosage years ago without side effects. 5. Parkinson disease (HCC) - ICD9: 332.0, ICD10: G20 Patient complaining of worsening mobility. Discussed home PT and will have her contact neurology to discuss med adjustment. Saira Rolon MD documented in this encounter [facility] 02-25-2022 Miscellaneous Notes Thanks, Katlin Page APRN.DESULPHURING OPERATOR Patient telephoned and made aware of message below. Agreeable. Requesting appointment be made out a ways so son can schedule time off work. Appointment made for 03/18/[address] Rolon. Patient advised to make sooner appointment if symptoms become any worse, voices understanding. Sweta Nick LPN BP in good range. Continue current medications. She will need to make an appointment to discuss her various concerns. And from the list I would say it should be 40 minutes. Please assist in scheduling. Thanks, Katlin Page APRN.MARINA Manual Readin/86 Pulse: 75 BP Conner average: 120/78 P: 72 Repeat BP Check: 122/80 P73 #1 113/75 P72 #2 123/80 P72 #3 115/75 P71 #4 116/77 P70 #5 130/82 P73 #6 Reason for blood pressure check - Last BP elevated and Medication adjustment Patient is: Taking medication as prescribed Yes Took medication today Yes If no, date medication last taken N/A Experiencing side effects Yes BP was elevated at last appt 02/11/22. Lisinopril was increased to 20mg daily. Reports that she has been having problems with headaches, blurred vision, fatigue, and some shortness of breath since medication change. Also feels like her tremors are worse currently. Home readings have ranged 106-147/80-101 (she forgot part of her home monitor to compare readings). Also states that she continues with a burning sensation across her back at her shoulders; left worse than right. Denies any chest pain or dizziness. Drinks decaf. Past personal history of tobacco use; no current exposure. Alert and oriented. Pt has been identified by name and birthdate: Yes Allergies reviewed: Yes Latex allergy: no. Medication - prescribed and OTC reviewed and updated: Yes Do you need any prescription refills prior to your next visit: No Health Maintenance: Reviewed and not up to date and provider notified Patient advised that she would be contacted after review by air intercept controller. Rosalie Nolasco LPN documented in this encounter [facility] 02-25-2022 History of Presen t illness Narrative Manual Readin/86 Pulse: 75 BP Conner average: 120/78 P: 72 Repeat BP Check: 122/80 P73 #1 113/75 P72 #2 123/80 P72 #3 115/75 P71 #4 116/77 P70 #5 130/82 P73 #6 Reason for blood pressure check - Last BP elevated and Medication adjustment Patient is: Taking medication as prescribed Yes Took medication today Yes If no, date medication last taken N/A Experiencing side effects Yes BP was elevated at last appt 02/11/22. Lisinopril was increased to 20mg daily. Reports that she has been having problems with headaches, blurred vision, fatigue, and some shortness of breath since medication change. Also feels like her tremors are worse currently. Home readings have ranged 106-147/80-101 (she forgot part of her home monitor to compare readings). Also states that she continues with a burning sensation across her back at her shoulders; left worse than right. Denies any chest pain or dizziness. Drinks decaf. Past personal history of tobacco use; no current exposure. Alert and oriented. Pt has been identified by name and birthdate: Yes Allergies reviewed: Yes Latex allergy: no. Medication - prescribed and OTC reviewed and updated: Yes Do you need any prescription refills prior to your next visit: No Health Maintenance: Reviewed and not up to date and provider notified Patient advised that she would be contacted after review by Dr air intercept controller. Rosalie Nolasco LPN documented in this encounter [facility] 02-11-2022 History of Presen t illness Narrative Chief Complaint Patient presents with: ER F/U: Hypertension HPI Faith Miramontes is a 61 year old female who presents here today for ER Follow Up.. Patient evaluated at [facility] on 02/03 for complaint of high blood pressure at her neurologist's office. Was in 157/88 then jumped to 190 after standing her up. Improved to 189/98 in the ED. MDM as follows: Presents here with weakness. Has a history of Parkinson's with reported autonomic dysfunction per her family. She was feeling lightheaded and weak. Her blood pressure was higher than normal at her neurologist office that was sent here. She has not taken her blood pressure medication yet today. She also feels weak and is having a harder time walking. She is also due for her carbidopa. Patient does not have any acute neurologic symptoms. She has a significant tremor. She does not have any focal deficits. Blood pressures are noted here and are not significantly high. I did give her her dose of lisinopril. Labs are obtained. Urinalysis is still pending as well as an ambulatory trial. First troponin was 20. Second pending family would like to take the patient home and make arrangements for outpatient physical therapy. They would be advised to call their family physician for this. Voiced understanding. Care endorsed to Dr. Sadler for review and final dispositon. ED Continuation of Care Note February 03, 2022 4:28 PM Faith Miramontes was endorsed to me by Dr. Campbell The patient initially presented to the ED for weakness dizziness {ED patient did well. Is ambulating at baseline. Repeat troponins are unremarkable without a change greater than 10. Patient's UA is negative. Patient will be discharged for instructions and consultation with primary ED doc patient and family are aware of plans and Since discharge, patient has been checking her BP at home on about 3 times per day with readings in the 110-130/80-95. Taking her Lisinopril 10 mg daily as prescribed without side effects. Has been watching her salt intake and avoids caffeine. Admits to intermittent blurred vision. Denies headache, chest pain, palpitations, LE edema. No longer taking Mobic and flexeril for her back pain. Had to stop the meloxicam because it made her feel tired and flexeril made her feel drowsy. Did not get a call for home health for PT/OT. Past medical history, appointments, medications, allergies reviewed. Previous Medical History PAST MEDICAL HISTORY Diagnosis Date Anemia Chronic ITP (idiopathic thrombocytopenia) ([facility]) CVA (cerebral vascular accident) ([facility]) possible remote history based on ER visit in 05/2017. Can tolerate statins? History of tobacco use HTN (hypertension) Hypothyroid Osteoarthritis lumbar spine, shoulders Parkinson disease (HCC) Dr. Ramos Previous Surgical History PAST SURGICAL HISTORY Procedure Laterality Date DELIVERY ONLY 2002 , low transverse INDUCED - EVACUATION 82 PAST SURGICAL HISTORY OF 2006 left 3-5 toes hammertoe repair Family History FAMILY HISTORY Problem Relation Age of Onset Cancer Father Stomach/ metastasized, pancreatic Hypertension Father Hypertension Mother Diabetes Mother Parkinson s Disease Maternal Grandmother Thyroid No Family History Coronary Artery Disease No Family History Hyperlipidemia No Family History Blood Clots No Family History Factor 5 Leiden No Family History DVT No Family History Stroke No Family History Blood Disease No Family History Systemic Lupus Erythematosus No Family History Multiple Sclerosis No Family History Alzheimer's Disease No Family History Dementia No Family History Bipolar disorder No Family History Schizophrenia No Family History Aneurysm No Family History Patient Allergies ALLERGIES Allergen Reactions Amantadine Other: See Comments Hallucinations Lexapro [Escitalopr* Shortness of Breath Blurred vision, spaced out [place] [Hydrocodone-* Other: See Comments [place] like bugs were crawling all over me Omeprazole GI Upset, Vomiting Prozac [Fluoxetine] Other: See Comments Weight gain Ropinirole Mental Status Change Hallucinations. Zocor [Simvastatin] Intolerance Significant High muscle enzymes. Current Medications Current Outpatient Medications on File Prior to Visit Medication Sig lisinopril (ZESTRIL, PRINIVIL) 10 mg tablet Take 1 tablet by mouth once daily. carbidopa-levodopa (SINEMET) 25-100 mg per tablet Take 0.5 tablets by mouth three times daily. rOPINIRole (REQUIP) 0.25 mg tablet Take 1 tablet by mouth daily at bedtime. levothyroxine (SYNTHROID) 100 mcg tablet Take 1 tablet by mouth once daily. Take on empty stomach. For thyroid polyethylene glycol 3350 (CLEARLAX) 17 gram/dose powder Take 17 g by mouth once daily. COMPOUNDED PRESCRIPTION Rollator, shower chair w/transfer bench, raise toilet seat acetaminophen (TYLENOL) 500 mg tablet Take 500 mg by mouth every 8 hours as needed for Pain. meloxicam (MOBIC) 15 mg tablet Take 1 tablet by mouth once daily. With food. (Patient not taking: Reported on 02/11/2022 ) cyclobenzaprine (FLEXERIL) 5 mg tablet Take 1 tablet by mouth twice daily as needed for muscle spasm. (Patient not taking: Reported on 02/11/2022 ) No current facility-administered medications on file prior to visit. Social History Social History Tobacco Use Smoking status: Former Smoker Packs/day: 0.25 Types: Cigarettes Smokeless tobacco: Never Used Vaping Use Vaping Use: Never used Substance Use Topics Alcohol use: No Drug use: No Review of Symptoms REVIEW OF SYSTEMS See HPI EXAM: BP 140/92 Pulse 75 Temp 37.2 C (98.9 F) (Right Tympanic) Resp 16 Wt 57.6 kg (127 lb) LMP 10/15/2012 SpO2 100% BMI 21.13 kg/m General Appearance: Well appearing, alert, in no acute distress, well-hydrated, well nourished.. Skin: Skin color, texture, turgor normal, no suspicious rashes or lesions. Lungs: Lungs clear to auscultation. No wheezing, rhonchi, rales.. Heart: RRR without murmur, gallop, or rubs. No ectopy. Abdomen: Normal abdominal exam, Abdomen soft, non-tender. Bowel sounds normal. No masses, organomegaly. Extremities: No deformities, edema, skin discoloration, clubbing or cyanosis. Good capillary refill. Health Maintenance List COVID-19 VACCINE(1) Never done BP CONTROLLED (<130/80) Never done SHINGRIX VACCINE(1 of 2) Never done MAMMOGRAM due on 04/15/2021 INFLUENZA(Season Ended) due on 04/30/2022 DEPRESSION SCREENING due on 08/05/2022 ANNUAL PCP TEAM CHRONIC DISEASE VISIT due on 01/19/2023 COLORECTAL CANCER SCREENING due on 04/13/2023 LIPID SCREEN due on 12/10/2023 DIABETES SCREEN due on 02/03/2025 PAP TESTING due on 04/15/2025 HPV TESTING due on 04/15/2025 DTAP,TDAP,TD(2 - Td or Tdap) due on 06/10/2028 HEPATITIS C SCREENING Completed HIV SCREENING Completed Data reviewed Component Latest Ref Rng & Units 01/15/2021 02/03/2022 WBC 3.70 - 11.00 k/uL 6.59 6.39 RBC 3.90 - 5.20 m/uL 4.46 4.38 Hemoglobin 11.5 - 15.5 g/dL 13.7 13.6 Hematocrit 36.0 - 46.0 % 41.0 40.4 MCV 80.0 - 100.0 fL 91.9 92.2 MCH 26.0 - 34.0 pg 30.7 31.1 MCHC 30.5 - 36.0 g/dL 33.4 33.7 RDW-CV 11.5 - 15.0 % 12.9 12.1 Platelet Count 150 - 400 k/uL 217 250 MPV 9.0 - 12.7 fL 12.9 (H) 11.5 Neut% % 59.7 Abs Neut (ANC) 1.45 - 7.50 k/uL 3.82 Lymph% % 30.2 Abs Lymph 1.00 - 4.00 k/uL 1.93 [place]% % 6.6 Abs [place] <0.87 k/uL 0.42 Eosin% % 2.7 Abs Eosin <0.46 k/uL 0.17 Baso% % 0.6 Abs Baso <0.11 k/uL 0.04 Immature Gran % % 0.2 IMMATURE GRANS (ABS) <0.10 k/uL <0.03 NRBC /100 WBC 0.0 Absolute nRBC <0.01 k/uL <0.01 <0.01 DTYPE Auto Protein, Total 6.3 - 8.0 g/dL 7.3 7.6 Albumin 3.9 - 4.9 g/dL 4.4 4.8 Calcium 8.5 - 10.2 mg/dL 9.2 9.5 Bilirubin, Total 0.2 - 1.3 mg/dL 0.4 0.4 Alkaline Phosphatase 34 - 123 U/L 87 85 AST 29 Glucose 74 - 99 mg/dL 86 96 BUN 7 - 21 mg/dL 8 11 Creatinine 0.58 - 0.96 mg/dL 0.73 0.73 Sodium 136 - 144 mmol/L 139 141 Potassium 3.7 - 5.1 mmol/L 3.5 (L) 4.4 Chloride 97 - 105 mmol/L 103 104 CO2 22 - 30 mmol/L 26 27 Anion Gap 9 - 18 mmol/L 10 10 ALT 7 - 38 U/L 8 <5 (L) eGFR- >60 eGFR-All Other Races . >60 eGFR >=60 mL/min/1.73m 93 TSH 0.270 - 4.200 uU/mL 1.490 ASSESSMENT/PLAN: 1. Essential hypertension with goal blood pressure less than 140/90 - ICD9: 401.9, ICD10: I10 (primary diagnosis) - poor control - Increase lisinopril (Zestril/Prinivil) - Encouraged dietary sodium restriction/DASH diet - Recommended regular aerobic exercise. - Recommend home blood pressure monitoring, to bring results in on next visit - Follow up in 2 weeks for BP recheck. - Reviewed risks of HTN and principles of treatment - Goal of BP <140/90 2. Acute bilateral low back pain without sciatica - ICD9: 724.2, 338.19, ICD10: M54.50 Patient unable to tolerate Mobic and flexeril. Will have her treat with ice/heat, home exercises, and follow up with home health for PT/OT. Red flags for re-assessment reviewed with patient in detail. 3. Strain of neck muscle, initial encounter - ICD9: 847.0, ICD10: S16.1XXA Patient unable to tolerate Mobic and flexeril. Will have her treat with ice/heat, home exercises, and follow up with home health for PT/OT. Red flags for re-assessment reviewed with patient in detail. Saira Rolon MD documented in this encounter [facility] 02-04-2022 Miscellaneous Notes Patient was notified and aware of provider note Faith Noble Ma With high BP again today, would have her increase the lisinopril to 10 mg daily and continue to check daily blood pressures at home. Keep appointment next week. Call if BP consistently >140/90. Spoke with EC and gave her update. Was instructed to reach out to patient. Spoke with patient and she indicated that her blood pressure went up yesterday after she took Meloxicam and the Flexeril. She also became dizzy. The reason she to the ER. Patient has not taken these medication today as she feels they may have cause the side effects. Patient did indicated that her BP this morning was 149/100 but she indicated that it is normally high after she takes her parkinson medication but it normally comes back down. Patient is scheduled for next week for a 40 minute ER follow up. She was already on the schedule for 02/16 for follow up on other issues. Did not cancel this appointment in case this is needed. Francine Miramontes MA She already had a home health order in the system for PT/OT from 01/19. Would she like to schedule ER follow up in the next week to follow up on her high blood pressure? Patient went to see neurologist today and was sent to [facility] from office and they are suggesting PCP order home PT for patient. Please advise Sarah Patient's sister with any further questions. documented in this encounter [facility] 02-03-2022 Miscellaneous Notes Addended by: KELLY REYES on: 02/03/2022 01:33 PM Modules accepted: Orders documented in this encounter [facility] 02-03-2022 History of Presen t illness Narrative Ms. Miramontes presented to the clinic today for a follow-up appointment for management of her Parkinson's Disease. Upon arrival, she admitted to feeling lightheaded with blurry vision. Sitting vitals showed a BP of 165/88 and a pulse of 76. Upon standing, BP jumped up to 190/108 and pulse went up to 98. She started feeling short of breath and complained of a burning sensation in her shoulders and chest. Due to her spike in BP and being symptomatic, we advised her that she needed to be seen in the ED for further management and workup. Patient was in agreement. RN and JENNIFER took patient down in wheelchair. documented in this encounter [facility] 01-21-2022 Miscellaneous Notes Pt notified and voiced understanding. Nancie Chapman Ma ----- Message from Saira Rolon MD sent at 01/20/2022 5:59 PM EDT ----- Urine culture negative for infection and shows possible contamination. No need for antibiotic at this time. documented in this encounter [facility] 01-19-2022 History of Presen t illness Narrative Chief Complaint Patient presents with: Follow Up has numerous concerns: advised her to narrow to most important and will reschedule her for 40 Min follow to address the remaining concerns HPI Faith Miramontes is a 61 year old female who presents here today for Above Complaints.. Patient in today with list of 14 complaints, but most concerning today is back and neck pain which started a couple months ago. Patient states that her neck feels super stiff along with intermittent throbbing pain. Currently 3/10 and radiates down her back. Denies exacerbation. Has tried exercises/stretches at home which does help somewhat. Has also tried tylenol and Castro Resendiz. Denies fall/injury, fever/chills, headache, Also complaining of bilateral lower back pain. Described as constant tightness and aching pain, currently 4/10, without radiation down her legs. Exacerbated when she takes her Sinemet. Treating with tylenol and heating pad which does temporarily improve symptoms. Admits to urinary incontinence which started 1 month ago. Denies saddle anesthesia, loss of bowel control, fall/injury. Past medical history, appointments, medications, allergies reviewed. Previous Medical History PAST MEDICAL HISTORY Diagnosis Date Anemia Chronic ITP (idiopathic thrombocytopenia) (HCC) CVA (cerebral vascular accident) ([facility]) possible remote history based on ER visit in 05/2017. Can tolerate statins? History of tobacco use HTN (hypertension) Hypothyroid Osteoarthritis lumbar spine, shoulders Parkinson disease (HCC) Dr. Ramos Previous Surgical History PAST SURGICAL HISTORY Procedure Laterality Date DELIVERY ONLY 2002 , low transverse INDUCED - EVACUATION 82 PAST SURGICAL HISTORY OF 2006 left 3-5 toes hammertoe repair Family History FAMILY HISTORY Problem Relation Age of Onset Cancer Father Stomach/ metastasized, pancreatic Hypertension Father Hypertension Mother Diabetes Mother Parkinson s Disease Maternal Grandmother Thyroid No Family History Coronary Artery Disease No Family History Hyperlipidemia No Family History Blood Clots No Family History Factor 5 Leiden No Family History DVT No Family History Stroke No Family History Blood Disease No Family History Systemic Lupus Erythematosus No Family History Multiple Sclerosis No Family History Alzheimer's Disease No Family History Dementia No Family History Bipolar disorder No Family History Schizophrenia No Family History Aneurysm No Family History Patient Allergies ALLERGIES Allergen Reactions Amantadine Other: See Comments Hallucinations Lexapro [Escitalopr* Shortness of Breath Blurred vision, spaced out [place] [Hydrocodone-* Other: See Comments [place] like bugs were crawling all over me Omeprazole GI Upset, Vomiting Prozac [Fluoxetine] Other: See Comments Weight gain Ropinirole Mental Status Change Hallucinations. Zocor [Simvastatin] Intolerance Significant High muscle enzymes. Current Medications Current Outpatient Medications on File Prior to Visit Medication Sig lisinopril (ZESTRIL, PRINIVIL) 10 mg tablet Take 0.5 tablets by mouth once daily. levothyroxine (SYNTHROID) 100 mcg tablet Take 1 tablet by mouth once daily. Take on empty stomach. For thyroid carbidopa-levodopa (SINEMET) 25-100 mg per tablet Take 0.5 tablets by mouth three times daily. polyethylene glycol 3350 (CLEARLAX) 17 gram/dose powder Take 17 g by mouth once daily. COMPOUNDED PRESCRIPTION Rollator, shower chair w/transfer bench, raise toilet seat rOPINIRole (REQUIP) 0.25 mg tablet Take 1 tablet by mouth daily at bedtime. apomorphine (KYNMOBI) 10 mg sublingual film Dissolve 1 Film under the tongue as needed. Doses should be by at least 2 hours. Max of 5 doses per day. (Patient not taking: Reported on 01/19/2022 ) apomorphine (KYNMOBI) 94-67-09-25-30 mg sublingual film Dissolve 1 film under the tongue as needed for Off episodes. Start with 10 mg film. Assess response and if needed, increase dose by 5 mg increment 2-3 days later (Patient not taking: Reported on 01/19/2022 ) acetaminophen (TYLENOL) 500 mg tablet Take 500 mg by mouth every 8 hours as needed for Pain. No current facility-administered medications on file prior to visit. Social History Social History Tobacco Use Smoking status: Former Smoker Packs/day: 0.25 Types: Cigarettes Smokeless tobacco: Never Used Vaping Use Vaping Use: Never used Substance Use Topics Alcohol use: No Drug use: No Review of Symptoms REVIEW OF SYSTEMS See HPI EXAM: BP 132/84 Pulse 68 Resp 16 Wt 60.9 kg (134 lb 3.2 oz) LMP 10/15/2012 SpO2 99% BMI 22.33 kg/m General Appearance: Well appearing, alert, in no acute distress, well-hydrated, well nourished.. Skin: Skin color, texture, turgor normal, no suspicious rashes or lesions. Neck: No TTP over cervical spine. Limited lateral flexion and rotation due to pain/stiffness. Lungs: Lungs clear to auscultation. No wheezing, rhonchi, rales.. Heart: RRR without murmur, gallop, or rubs. No ectopy. Back:no pain to palpation of vertebrae, good flexion and extension, good range of motion, reflexes are 2+ and symmetric, motor and sensory appear to be normal, negative SLR test, no evidence of scoliosis. TTP over lumbar paraspinal muscles. Health Maintenance List COVID-19 VACCINE(1) Never done BP CONTROLLED (<130/80) Never done SHINGRIX VACCINE(1 of 2) Never done MAMMOGRAM due on 04/15/2021 INFLUENZA(Season Ended) due on 04/30/2022 ANNUAL PCP TEAM CHRONIC DISEASE VISIT due on 07/21/2022 DEPRESSION SCREENING due on 08/05/2022 COLORECTAL CANCER SCREENING due on 04/13/2023 LIPID SCREEN due on 12/10/2023 DIABETES SCREEN due on 01/16/2024 PAP TESTING due on 04/15/2025 HPV TESTING due on 04/15/2025 DTAP,TDAP,TD(2 - Td or Tdap) due on 06/10/2028 HEPATITIS C SCREENING Completed HIV SCREENING Completed ONE PNEUMOVAX PRIOR TO AGE 65 Addressed MENINGOCOCCAL CONJUGATE Aged Out Data reviewed Component Latest Ref Rng & Units 07/16/2020 01/15/2021 Protein, Total 6.3 - 8.0 g/dL 7.4 7.3 Albumin 3.9 - 4.9 g/dL 4.5 4.4 Calcium 8.5 - 10.2 mg/dL 9.7 9.2 Bilirubin, Total 0.2 - 1.3 mg/dL 0.3 0.4 Alkaline Phosphatase 34 - 123 U/L 92 87 AST 13 - 35 U/L 47 (H) 29 Glucose 74 - 99 mg/dL 88 86 BUN 7 - 21 mg/dL 13 8 Creatinine 0.58 - 0.96 mg/dL 0.78 0.73 Sodium 136 - 144 mmol/L 140 139 Potassium 3.7 - 5.1 mmol/L 3.9 3.5 (L) Chloride 97 - 105 mmol/L 101 103 CO2 22 - 30 mmol/L 24 26 Anion Gap 9 - 18 mmol/L 15 10 ALT 7 - 38 U/L 13 8 eGFR- >60 >60 eGFR-All Other Races . >60 >60 WBC 3.70 - 11.00 k/uL 6.59 RBC 3.90 - 5.20 m/uL 4.46 Hemoglobin 11.5 - 15.5 g/dL 13.7 Hematocrit 36.0 - 46.0 % 41.0 MCV 80.0 - 100.0 fL 91.9 MCH 26.0 - 34.0 pG 30.7 MCHC 30.5 - 36.0 g/dL 33.4 RDW-CV 11.5 - 15.0 % 12.9 Platelet Count 150 - 400 k/uL 217 MPV 9.0 - 12.7 fL 12.9 (H) Absolute nRBC <0.01 k/uL <0.01 TSH 0.270 - 4.200 uU/mL 1.490 Component Latest Ref Rng & Units 01/19/2022 GLUCOSE UA (POCT) Negative mg/dL Negative BILIRUBIN UA (POCT) Negative Negative KETONE UA (POCT) Negative mg/dL Negative SPECIFIC GRAVITY UA (POCT) 1.005 - 1.030 1.015 HEMOGLOBIN/BLOOD UA (POCT) Negative Moderate (A) PH UA (POCT) 4.5 - 8.0 6.0 PROTEIN UA (POCT) Negative mg/dL Negative UROBILINOGEN UA (POCT) Normal E.U./dL 0.2 NITRITE UA (POCT) Negative Negative LEUKOCYTES UA (POCT) Negative Negative COLOR UA (POCT) Yellow CLARITY UA (POCT) Clear ASSESSMENT/PLAN: 1. Strain of neck muscle, initial encounter - ICD9: 847.0, ICD10: S16.1XXA (primary diagnosis) Neck strain. Will treat with muscle relaxer, NSAIDs, ice/heat, home exercises and home PT/OT. - MELOXICAM 15 MG TABLET - CYCLOBENZAPRINE 5 MG TABLET - NON-[facility] 2. Acute bilateral low back pain without sciatica - ICD9: 724.2, 338.19, ICD10: M54.50 Muscle strain vs spasm. See above. If not improving or she develops worsening urinary symptoms, will obtain xray and MRI of lumbar spine. - MELOXICAM 15 MG TABLET - CYCLOBENZAPRINE 5 MG TABLET - NON-[facility] 3. Urge incontinence of urine - ICD9: 788.31, ICD10: N39.41 UA positive for blood. Will check micro and urine culture. May be 2/2 parkinsons and difficulty getting to restroom quickly as well. - UA DIP, URINE (POC) - URINALYSIS, WITH MICROSCOPIC - URINE CULTURE Saira Rolon MD documented in this encounter [facility] 12-01-2021 Miscellaneous Notes Last office visit: 07/21/21 F/u scheduled: 01/19/22 Nancie Chapman Ma Pharmacy verified in [facility] Patient has been identified by name and date of : Yes Patient aware RX will be sent to pharmacy. No need to notify patient. Patient phones for refill(s): Pending Prescriptions Disp Refills LISINOPRIL 10 MG TABLET 45 tablet 3 Sig: Take 0.5 tablets by mouth once daily. KECIA: No LEVOTHYROXINE 100 MCG TABLET 90 tablet 3 Sig: Take 1 tablet by mouth once daily. Take on empty stomach. For thyroid KECIA: No Date of last office visit : 07/21/2021 Date of next office visit : 01/19/2022 Last 2 Encounter Wt Readings: Date: Wt: 08/05/2021 62.3 kg (137 lb 6.4 oz) 07/21/2021 60.8 kg (134 lb) Please advise. Marisol Rivers Pss documented in this encounter [facility] documented as of this encounter (statuses as of 08/13/2022) [address]27-2017 History of Past illness Narrative* Problem Noted Date Resolved Date Acute pain of left shoulder 07/26/201707/30 documented as of this encounter (statuses as of 08/14/2022) [address]27-2017 History of Past illness Narrative* Problem Noted Date Resolved Date Acute pain of left shoulder 07/26/201707/30 documented as of this encounter (statuses as of 08/14/2022) [address] History of Past illness Narrative* Problem Noted Date Resolved Date Acute pain of left shoulder 07/26/201707/30 documented as of this encounter (statuses as of 08/15/2022) [address]27-2017 History of Past illness Narrative* Problem Noted Date Resolved Date Acute pain of left shoulder 07/26/201707/30 documented as of this encounter (statuses as of 08/17/2022) [address]-2017 History of Past illness Narrative* Problem Noted Date Resolved Date Acute pain of left shoulder 07/26/201707/30 documented as of this encounter (statuses as of 2022) [address] History of Past illness Narrative* Problem Noted Date Resolved Date Acute pain of left shoulder 07/26/201707/30 documented as of this encounter (statuses as of 09/10/2022) [address]2017 History of Past illness Narrative* Problem Noted Date Resolved Date Acute pain of left shoulder 07/26/201707/30 documented as of this encounter (statuses as of 09/10/2022) [address] History of Past illness Narrative* Problem Noted Date Resolved Date Acute pain of left shoulder 07/26/201707/30 documented as of this encounter (statuses as of 09/16/2022) [address] History of Past illness Narrative* Problem Noted Date Resolved Date Acute pain of left shoulder 07/26/201707/30 documented as of this encounter (statuses as of 09/17/2022) [address] History of Past illness Narrative* Problem Noted Date Resolved Date Acute pain of left shoulder 07/26/201707/30 documented as of this encounter (statuses as of 10/20/2022) [address]-2017 History of Past illness Narrative* Problem Noted Date Resolved Date Acute pain of left shoulder 07/26/201707/30 documented as of this encounter (statuses as of 10/21/2022) [address]-2017 History of Past illness Narrative* Problem Noted Date Resolved Date Acute pain of left shoulder 07/26/201707/30 documented as of this encounter (statuses as of 12/24/2022) [address]2017 History of Past illness Narrative* Problem Noted Date Resolved Date Acute pain of left shoulder 07/26/201707/30 documented as of this encounter (statuses as of 01/01/2023) [address]2017 History of Past illness Narrative* Problem Noted Date Resolved Date Acute pain of left shoulder 07/26/201707/30 documented as of this encounter (statuses as of 02/17/2023) [address]2017 History of Past illness Narrative* Problem Noted Date Diagnosed Date Resolved Date Acute pain of left shoulder 07/26/2017 08/12/2022 documented as of this encounter (statuses as of 04/26/2023) [address]2017 History of Past illness Narrative* Problem Noted Date Diagnosed Date Resolved Date Acute pain of left shoulder 07/26/2017 08/12/2022 documented as of this encounter (statuses as of 06/30/2023) [address]2017 History of Past illness Narrative* Problem Noted Date Diagnosed Date Resolved Date Acute pain of left shoulder 07/26/2017 08/12/2022 documented as of this encounter (statuses as of 07/01/2023) [address]2017 History of Past illness Narrative* Problem Noted Date Diagnosed Date Resolved Date Acute pain of left shoulder 07/26/2017 08/12/2022 documented as of this encounter (statuses as of 07/07/2023) [address]2017 History of Past illness Narrative* Problem Noted Date Diagnosed Date Resolved Date Acute pain of left shoulder 07/26/2017 08/12/2022 documented as of this encounter (statuses as of 07/13/2023) [facility]2017 History of Past illness Narrative* Problem Noted Date Diagnosed Date Resolved Date Acute pain of left shoulder 07/26/2017 08/12/2022 documented as of this encounter (statuses as of 08/11/2023) [facility] note* Diagnosis Essential hypertension with goal blood pressure less than 140/90 Acquired hypothyroidism Unspecified hypothyroidism [facility] [place] [facility] Diagnosis Strain of neck muscle, initial encounter- Primary Acute bilateral low back pain without sciatica Urge incontinence of urine Urge incontinence [facility] [place] [facility]* Diagnosis Parkinson disease (HCC) Paralysis agitans [facility] [place] [facility] Diagnosis Essential hypertension with goal blood pressure less than 140/90- Primary Acute bilateral low back pain without sciatica Strain of neck muscle, initial encounter documented [facility] [place] [facility] Diagnosis Essential hypertension with goal blood pressure less than 140/90- Primary [facility] [place] [facility]* Diagnosis Tension headache- Primary Strain of neck muscle, subsequent encounter Blurred vision, bilateral Other specified visual disturbances Essential hypertension with goal blood pressure less than 140/90 Parkinson disease (HCC) Paralysis agitans [facility] [place] [facility] Diagnosis Acquired hypothyroidism Unspecified hypothyroidism [facility] [place] [facility] Diagnosis Chronic midline low back pain without sciatica- Primary Acute bilateral low back pain with bilateral sciatica Acute bilateral low back pain without sciatica Strain of neck muscle, initial encounter [facility] [place] [facility] Diagnosis Parkinson disease (HCC)- Primary Paralysis agitans documented [facility] [place] [facility]* Diagnosis Parkinson disease (HCC) Paralysis agitans [facility] [place] [facility]* Diagnosis Debility- Primary Debility, unspecified Parkinson disease (HCC) Paralysis agitans Acute cystitis without hematuria Acute cystitis Essential hypertension with goal blood pressure less than 140/90 Acquired hypothyroidism Unspecified hypothyroidism Urge incontinence Anxiety Anxiety state, unspecified Hospital discharge follow-up Other follow-up examination documented [facility] this [facility] [place] [facility] Diagnosis Elevated liver enzymes- Primary Other nonspecific abnormal serum enzyme levels documented in this encounter [facility] note* Diagnosis Parkinson disease (HCC)- Primary Paralysis agitans Anxiety state Anxiety state, unspecified OAB (overactive bladder) Hypertonicity of bladder Urge incontinence of urine Urge incontinence Essential hypertension with goal blood pressure less than 140/90 Acquired hypothyroidism Unspecified hypothyroidism Chronic ITP (idiopathic thrombocytopenia) (HCC) Immune thrombocytopenic purpura [facility] [place] [facility]* Diagnosis Urinary frequency- Primary documented in this encounter [facility] note* Diagnosis Acquired hypothyroidism Unspecified hypothyroidism documented in this encounter [facility] note* Diagnosis Essential hypertension with goal blood pressure less than 140/90- Primary Screening for hyperlipidemia Screening for lipoid disorders Parkinson disease (HCC) Paralysis agitans Acquired hypothyroidism Unspecified hypothyroidism Anxiety Anxiety state, unspecified OAB (overactive bladder) Hypertonicity of bladder documented in this encounter [facility] note* Diagnosis Encounter for screening mammogram for breast cancer documented in this encounter [facility] note* Diagnosis Parkinson's disease with dyskinesia and fluctuating manifestations- Primary documented in this encounter [facility] note* Diagnosis Acquired hypothyroidism Unspecified hypothyroidism documented in this encounter [facility] for referral (narrative)* Diagnostic Procedure Only (Routine) - Pending Review Specialty Diagnoses / Procedures Referred By Lynda t Referred To Contact [facility] Diagnoses Encounter for screening mammogram for breast cancer Procedures PAYAL SCREENING SCREENING MAMMOGRAPHY BI 2-VIEW BREAST INC CAD Saira Rolon MD [address] [place] [address] [facility] [address] [place] [id number] Referral ID Status Reason Start Date Expiration Date Visits Requested Visits Authorized [id number] Pending Review Auto-Generat ed Referral 04/21/2023 05/20/2024 1 1 [facility] Advance Directives No Advanced Directives Records FoundDocuments on File Type Date Recorded Patient Filler In Expl anation Advance Directive(s) Latest Code Status on File Code Status Date Activated Date Inactivated Comments Full Code 04/28/2021 7:48 PM Documents on File Type Date Recorded Patient Filler In Expl anation Advance Directive(s) Advance Directive(s) 02/03/2022 2:54 PM Latest Code Status on File Code Status Date Activated Date Inactivated Comments Full Code 04/28/2021 7:48 PM 02/03/2022 1:13 PM Documents on File Type Date Recorded Patient Filler In Expl anation Advance Directive(s) Advance Directive(s) 02/03/2022 2:54 PM Latest Code Status on File Code Status Date Activated Date Inactivated Comments Full Code 04/28/2021 7:48 PM 02/03/2022 1:13 PM Latest Code Status on File Code Status Date Activated Date Inactivated Comments Full Code 04/28/2021 7:48 PM 02/03/2022 1:13 PM Latest Code Status on File Code Status Date Activated Date Inactivated Comments Full Code 04/28/2021 7:48 PM 02/03/2022 1:13 PM Reason for Referral Specialty Diagnoses / Procedures Referred By Contac t Referred To Contact Ophthalmology Diagnoses Blurred vision, bilateral Procedures CONSULT TO OPHTHALMOLOGY OFFICE/OUTPATIENT [facility] 60-74 MINUTES Saira Rolon MD [address] [place] [address] Referral ID Status Reason Start Date Expiration Date Visits Requested Visits Authorized [id number] Authorized PCP Requested Referral 03/18/2022 03/18/2023 1 1 Specialty Diagnoses / Procedures Referred By Contac t Referred To Contact Diagnoses Acute bilateral low back pain without sciatica Strain of neck muscle, initial encounter Procedures CONSULT TO [facility] Katlin Page APRN.CNP [address] [place] [address] [facility] [address] [place] [id number] Referral ID Status Reason Start Date Expiration Date V isits Requested Visits Authorized [id number] Denied PCP Requested Referral 06/15/2022 09/13/2022 1 0 Specialty Diagnoses / Procedures Referred By Contac t Referred To Contact Diagnoses Parkinson's disease with dyskinesia and fluctuating manifestations Procedures PROVIDER ORDERED FOLLOW UP OFFICE/OUTPATIENT [facility] MDM 60-74 MINUTES Vicky Ramos MD [address] [place] [id number] Referral ID Status Reason Start Date Expiration Date Visits Requested Visits Authorized [id number] Authorized PCP Requested Referral 09/29/2023 06/28/2024 1 1 Summary Purpose Family History No Family History Records FoundNo Family History Records Found Additional Source Comments Source Comments (unrecognize d section and content) In the event this informatio n is protected by the Federal Confidentiality of Alcohol and Drug Abuse Patient Records regulations: The Federal rules restrict any use of the information to criminally investigate or prosecute any alcohol or drug abuse patient.[facility] event this information is protected by the Federal Confidentiality of Alcohol and Drug Abuse Patient Records regulations: The Federal rules restrict any use of the information to criminally investigate or prosecute any alcohol or drug abuse patient.[facility] the event this information is protected by the Federal Confidentiality of Alcohol and Drug Abuse Patient Records regulations: The Federal rules restrict any use of the information to criminally investigate or prosecute any alcohol or drug abuse patient.[facility] the event this information is protected by the Federal Confidentiality of Alcohol and Drug Abuse Patient Records regulations: The Federal rules restrict any use of the information to criminally investigate or prosecute any alcohol or drug abuse patient.[facility] the event this information is protected by the Federal Confidentiality of Alcohol and Drug Abuse Patient Records regulations: The Federal rules restrict any use of the information to criminally investigate or prosecute any alcohol or drug abuse patient.[facility] the event this information is protected by the Federal Confidentiality of Alcohol and Drug Abuse Patient Records regulations: The Federal rules restrict any use of the information to criminally investigate or prosecute any alcohol or drug abuse patient.[facility] the event this information is protected by the Federal Confidentiality of Alcohol and Drug Abuse Patient Records regulations: The Federal rules restrict any use of the information to criminally investigate or prosecute any alcohol or drug abuse patient.[facility] the event this information is protected by the Federal Confidentiality of Alcohol and Drug Abuse Patient Records regulations: The Federal rules restrict any use of the information to criminally investigate or prosecute any alcohol or drug abuse patient.[facility] the event this information is protected by the Federal Confidentiality of Alcohol and Drug Abuse Patient Records regulations: The Federal rules restrict any use of the information to criminally investigate or prosecute any alcohol or drug abuse patient.[facility] the event this information is protected by the Federal Confidentiality of Alcohol and Drug Abuse Patient Records regulations: The Federal rules restrict any use of the information to criminally investigate or prosecute any alcohol or drug abuse patient.[facility] the event this information is protected by the Federal Confidentiality of Alcohol and Drug Abuse Patient Records regulations: The Federal rules restrict any use of the information to criminally investigate or prosecute any alcohol or drug abuse patient.[facility] the event this information is protected by the Federal Confidentiality of Alcohol and Drug Abuse Patient Records regulations: The Federal rules restrict any use of the information to criminally investigate or prosecute any alcohol or drug abuse patient.[facility] the event this information is protected by the Federal Confidentiality of Alcohol and Drug Abuse Patient Records regulations: The Federal rules restrict any use of the information to criminally investigate or prosecute any alcohol or drug abuse patient.[facility] the event this information is protected by the Federal Confidentiality of Alcohol and Drug Abuse Patient Records regulations: The Federal rules restrict any use of the information to criminally investigate or prosecute any alcohol or drug abuse patient.[facility] the event this information is protected by the Federal Confidentiality of Alcohol and Drug Abuse Patient Records regulations: The Federal rules restrict any use of the information to criminally investigate or prosecute any alcohol or drug abuse patient.[facility] the event this information is protected by the Federal Confidentiality of Alcohol and Drug Abuse Patient Records regulations: The Federal rules restrict any use of the information to criminally investigate or prosecute any alcohol or drug abuse patient.[facility] the event this information is protected by the Federal Confidentiality of Alcohol and Drug Abuse Patient Records regulations: The Federal rules restrict any use of the information to criminally investigate or prosecute any alcohol or drug abuse patient.[facility] the event this information is protected by the Federal Confidentiality of Alcohol and Drug Abuse Patient Records regulations: The Federal rules restrict any use of the information to criminally investigate or prosecute any alcohol or drug abuse patient.[facility] the event this information is protected by the Federal Confidentiality of Alcohol and Drug Abuse Patient Records regulations: The Federal rules restrict any use of the information to criminally investigate or prosecute any alcohol or drug abuse patient.[facility] the event this information is protected by the Federal Confidentiality of Alcohol and Drug Abuse Patient Records regulations: The Federal rules restrict any use of the information to criminally investigate or prosecute any alcohol or drug abuse patient.[facility] the event this information is protected by the Federal Confidentiality of Alcohol and Drug Abuse Patient Records regulations: The Federal rules restrict any use of the information to criminally investigate or prosecute any alcohol or drug abuse patient.[facility] the event this information is protected by the Federal Confidentiality of Alcohol and Drug Abuse Patient Records regulations: The Federal rules restrict any use of the information to criminally investigate or prosecute any alcohol or drug abuse patient.[facility] the event this information is protected by the Federal Confidentiality of Alcohol and Drug Abuse Patient Records regulations: The Federal rules restrict any use of the information to criminally investigate or prosecute any alcohol or drug abuse patient.[facility] the event this information is protected by the Federal Confidentiality of Alcohol and Drug Abuse Patient Records regulations: The Federal rules restrict any use of the information to criminally investigate or prosecute any alcohol or drug abuse patient.[facility] the event this information is protected by the Federal Confidentiality of Alcohol and Drug Abuse Patient Records regulations: The Federal rules restrict any use of the information to criminally investigate or prosecute any alcohol or drug abuse patient.[facility] the event this information is protected by the Federal Confidentiality of Alcohol and Drug Abuse Patient Records regulations: The Federal rules restrict any use of the information to criminally investigate or prosecute any alcohol or drug abuse patient.[facility] the event this information is protected by the Federal Confidentiality of Alcohol and Drug Abuse Patient Records regulations: The Federal rules restrict any use of the information to criminally investigate or prosecute any alcohol or drug abuse patient.[facility] the event this information is protected by the Federal Confidentiality of Alcohol and Drug Abuse Patient Records regulations: The Federal rules restrict any use of the information to criminally investigate or prosecute any alcohol or drug abuse patient.[facility] the event this information is protected by the Federal Confidentiality of Alcohol and Drug Abuse Patient Records regulations: The Federal rules restrict any use of the information to criminally investigate or prosecute any alcohol or drug abuse patient.[facility] the event this information is protected by the Federal Confidentiality of Alcohol and Drug Abuse Patient Records regulations: The Federal rules restrict any use of the information to criminally investigate or prosecute any alcohol or drug abuse patient.[facility] the event this information is protected by the Federal Confidentiality of Alcohol and Drug Abuse Patient Records regulations: The Federal rules restrict any use of the information to criminally investigate or prosecute any alcohol or drug abuse patient.[facility] the event this information is protected by the Federal Confidentiality of Alcohol and Drug Abuse Patient Records regulations: The Federal rules restrict any use of the information to criminally investigate or prosecute any alcohol or drug abuse patient.[facility] the event this information is protected by the Federal Confidentiality of Alcohol and Drug Abuse Patient Records regulations: The Federal rules restrict any use of the information to criminally investigate or prosecute any alcohol or drug abuse patient.[facility] the event this information is protected by the Federal Confidentiality of Alcohol and Drug Abuse Patient Records regulations: The Federal rules restrict any use of the information to criminally investigate or prosecute any alcohol or drug abuse patient.[facility] the event this information is protected by the Federal Confidentiality of Alcohol and Drug Abuse Patient Records regulations: The Federal rules restrict any use of the information to criminally investigate or prosecute any alcohol or drug abuse patient.[facility] the event this information is protected by the Federal Confidentiality of Alcohol and Drug Abuse Patient Records regulations: The Federal rules restrict any use of the information to criminally investigate or prosecute any alcohol or drug abuse patient.[facility] the event this information is protected by the Federal Confidentiality of Alcohol and Drug Abuse Patient Records regulations: The Federal rules restrict any use of the information to criminally investigate or prosecute any alcohol or drug abuse patient.[facility] the event this information is protected by the Federal Confidentiality of Alcohol and Drug Abuse Patient Records regulations: The Federal rules restrict any use of the information to criminally investigate or prosecute any alcohol or drug abuse patient.[facility] Reason for Visit (unrecogniz ed section and content) Reason Comments Follow Up has numerous concerns advised her to ronnie row to most important and will reschedule her for 40 Min follow to address the remaining concerns Reason Comments Results Reason Comments Parkinson's Disease Reason Comments Orders Reason Comments ER F/U Hypertension Reason Comments Blood Pressure Check Reason Comments headaches and blurry vision Reason Comments Refill Request Reason Comments Home Care Declined Reason Comments Patient Question Reason Comments Orders Rollator Reason Comments Home Health Orders Reason Comments Patient Update Reason Comments plan of care Reason Comments medication approval Reason Comments Admit to [facility] Reason Comments Hospital F/U Discontinued lisinop ril. Increased sinemet. Reason Comments Home Health Update Reason Comments Occupational Therapy Plan of Care Reason Comments Home Health Point of Care Results Orders Reason Onset Date Comments Refill Request 09/03/2022 Reason Comments Speech Therapy update Reason Comments Follow Up 2 month Reason Comments Results Orders Reason Onset Date Comments Refill Request 01/01/2023 Reason Comments Recheck 4 month follow up pa rkinson disease Reason Comments Parkinson's Disease Specialty Diagnoses / Procedures Referred By Lynda schultz Referred To Contact Diagnoses Parkinson disease Procedures PROVIDER ORDERED FOLLOW UP OFFICE/OUTPATIENT NEW [facility]IGH MDM 60-74 MINUTES Vicky Ramos MD [address] [address] Referral ID Status Reason Start Date Expiration Date V isits Requested Visits Authorized [id number] Closed PCP Requested Referral 04/21/2023 01/19/2024 1 1 Reason Comments Insurance Authorization [id number] anthony roval Reason Onset Date Comments Refill Request 07/05/2023 Care Teams (unrecognized sec tion and content) Automobile Wrecker Relationship Specialty Start Date End Date Saira Rolon MD [address] [place] [address] PCP - General Family Practice 12/08/17 Vicky Ramos MD [address] [id number] Home Care Physician Neurology 04/24/21 Marylu Solitario, PT [address] [place] [address] Automation Technician Post Acute Care 04/25/21 Automobile Wrecker Relationship Specialty Start Date End Date Saira Rolon MD [address] [facility] [place] [address] PCP - General Family Practice 12/08/17 Vicky Ramos MD [address] [address] Home Care Physician Neurology 04/24/21 Marylu Solitario, PT [address] [place] [address] Automation Technician Post Acute Care 04/25/21 Automobile Wrecker Relationship Specialty Start Date End Date Saira Rolon MD [address] [place] [address] PCP - General Family Practice 12/08/17 Vicky Ramos MD [address] [address] Home Care Physician Neurology 04/24/21 Marylu Solitario, PT [address] [place] [address] Automation Technician Post Acute Care 04/25/21 Automobile Wrecker Relationship Specialty Start Date End Date Saira Rolon MD [address] [place] [address] PCP - General Family Practice 12/08/17 Vicky Ramos MD [address] [address] Home Care Physician Neurology 04/24/21 Marylu Solitario, PT [address] [place] [address] Automation Technician Post Acute Care 04/25/21 Automobile Wrecker Relationship Specialty Start Date End Date Saira Rolon MD [address] [place] [address] PCP - General Family Practice 12/08/17 Vicky Ramos MD [address] [place] [address] Home Care Physician Neurology 04/24/21 Marylu Solitario, PT [address] [place] [address] Automation Technician Post Acute Care 04/25/21 Automobile Wrecker Relationship Specialty Start Date End Date Saira Rolon MD [address] [place] [address] PCP - General Family Practice 12/08/17 Vicky Ramos MD [address] [place] [address] Home Care Physician Neurology 04/24/21 Marylu Solitario, PT [address] [place] [address] Automation Technician Post Acute Care 04/25/21 Automobile Wrecker Relationship Specialty Start Date End Date Saira Rolon MD [address] [place] [address] PCP - General Family Medicine 12/08/17 Vicky Ramos MD [address] [place] [address] Home Care Provider Neurology 04/24/21 Marylu Solitario, PT [address] [place] [address] Automation Technician Post Acute Care 04/25/21 Automobile Wrecker Relationship Specialty Start Date End Date Saira Rolon MD [address] [place] [address] PCP - General Family Medicine 12/08/17 Vicky Ramos MD [address] [place] [address] Home Care Provider Neurology 04/24/21 Marylu Solitario, PT [address] [place] [address] Automation Technician Post Acute Care 04/25/21 Automobile Wrecker Relationship Specialty Start Date End Date Saira Rolon MD [address] [place] [address] PCP - General Family Medicine 12/08/17 Vicky Ramos MD [address] [address] Home Care Provider Neurology 04/24/21 Marylu Solitario, PT [address] [place] [address] Automation Technician Post Acute Care 04/25/21 Kelly Reyes, SEWAGE TREATMENT PLANT OPERATOR.DESULPHURING OPERATOR [address] [place] [address] Specialty Baseball Glove Shaper Neurology 06/17/22 Automobile Wrecker Relationship Specialty Start Date End Date Saira Rolon MD [address] [place] [address] PCP - General Family Medicine 12/08/17 Vicky Ramos MD [address] [address] Home Care Provider Neurology 04/24/21 Marylu Solitario, PT [address] [place] [address] Automation Technician Post Acute Care 04/25/21 Kelly Reyes, SEWAGE TREATMENT PLANT OPERATOR.DESULPHURING OPERATOR [address] [place] [address] Specialty Baseball Glove Shaper Neurology 06/17/22 Automobile Wrecker Relationship Specialty Start Date End Date Saira Rolon MD [address] [place] [address] PCP - General Family Medicine 12/08/17 Vicky Ramos MD [address] [address] Home Care Provider Neurology 04/24/21 Marylu Solitario, PT [address] [place] [address] Automation Technician Post Acute Care 04/25/21 Kelly Reyes, SEWAGE TREATMENT PLANT OPERATOR.DESULPHURING OPERATOR [address] [place] [address] Specialty Baseball Glove Shaper Neurology 06/17/22 Automobile Wrecker Relationship Specialty Start Date End Date Saira Rolon MD [address] [place] [address] PCP - General Family Medicine 12/08/17 Vicky Ramos MD [address] [address] Home Care Provider Neurology 04/24/21 Marylu Solitario, PT [address] [place] [address] Automation Technician Post Acute Care 04/25/21 Kelly Reyes, SEWAGE TREATMENT PLANT OPERATOR.DESULPHURING OPERATOR [address] [place] [address] Specialty Baseball Glove Shaper Neurology 06/17/22 Automobile Wrecker Relationship Specialty Start Date End Date Saira Rolon MD [address] [place] [address] PCP - General Family Medicine 12/08/17 Vicky Ramos MD [address] [address] Home Care Provider Neurology 04/24/21 Marylu Solitario, PT [address] [place] [address] Automation Technician Post Acute Care 04/25/21 Kelly Reyes, SEWAGE TREATMENT PLANT OPERATOR.DESULPHURING OPERATOR [address] [place] [address] Specialty Baseball Glove Shaper Neurology 06/17/22 Automobile Wrecker Relationship Specialty Start Date End Date Saira Rolon MD [address] [place] [address] PCP - General Family Medicine 12/08/17 Vicky Ramos MD [address] [address] Home Care Provider Neurology 04/24/21 Marylu Solitario, PT [address] [place] [address] Automation Technician Post Acute Care 04/25/21 Kelly Reyes, SEWAGE TREATMENT PLANT OPERATOR.DESULPHURING OPERATOR [address] [place] [address] Specialty Baseball Glove Shaper Neurology 06/17/22 Automobile Wrecker Relationship Specialty Start Date End Date Saira Rolon MD [address] [place] [address] PCP - General Family Medicine 12/08/17 Vicky Ramos MD [address] [address] Home Care Provider Neurology 04/24/21 Marylu Solitario, PT [address] [place] [address] Automation Technician Post Acute Care 04/25/21 Kelly Reyes, SEWAGE TREATMENT PLANT OPERATOR.DESULPHURING OPERATOR [address] [place] [address] Specialty Baseball Glove Shaper Neurology 06/17/22 Automobile Wrecker Relationship Specialty Start Date End Date Saira Rolon MD [address] [place] [address] PCP - General Family Medicine 12/08/17 Vicky Ramos MD [address] [address] Home Care Provider Neurology 04/24/21 Marylu Solitario, PT [address] [place] [address] Automation Technician Post Acute Care 04/25/21 Kelly Reyes, SEWAGE TREATMENT PLANT OPERATOR.DESULPHURING OPERATOR [address] [place] [address] Specialty Baseball Glove Shaper Neurology 06/17/22 Automobile Wrecker Relationship Specialty Start Date End Date Saira Rloon MD [address] [place] [address] PCP - General Family Medicine 12/08/17 Vicky Ramos MD [address] [address] Home Care Provider Neurology 04/24/21 Marylu Solitario, PT [address] [place] [address] Automation Technician Post Acute Care 04/25/21 Kelly Reyes, SEWAGE TREATMENT PLANT OPERATOR.DESULPHURING OPERATOR [address] [place] [address] Specialty Baseball Glove Shaper Neurology 06/17/22 Automobile Wrecker Relationship Specialty Start Date End Date Saira Rolon MD [address] [place] [address] PCP - General Family Medicine 12/08/17 Vicky Ramos MD [address] [address] Home Care Provider Neurology 04/24/21 Marylu Solitario, PT [address] [place] [address] Automation Technician Post Acute Care 04/25/21 Kelly Reyes, SEWAGE TREATMENT PLANT OPERATOR.DESULPHURING OPERATOR [address] [place] [address] Specialty Baseball Glove Shaper Neurology 06/17/22 Automobile Wrecker Relationship Specialty Start Date End Date Saira Rolon MD [address] [place] [address] PCP - General Family Medicine 12/08/17 Vicky Ramos MD [address] [facility] [address] [place] [address] Home Care Provider Neurology 04/24/21 Marylu Solitario, PT [address] [place] [address] Automation Technician Post Acute Care 04/25/21 Kelly Reyes, SEWAGE TREATMENT PLANT OPERATOR.DESULPHURING OPERATOR [address] [place] [address] Specialty Baseball Glove Shaper Neurology 06/17/22 Jennifer Haley SEWAGE TREATMENT PLANT OPERATOR.DESULPHURING OPERATOR [address] [place] [address] Specialty Baseball Glove Shaper Neurology 09/14/22 Automobile Wrecker Relationship Specialty Start Date End Date Saira Rolon MD [address] [place] [address] PCP - General Family Medicine 12/08/17 Vicky Ramos MD [address] [facility] [address] [place] [address] Home Care Provider Neurology 04/24/21 Marylu Solitario, PT [address] [place] [address] Automation Technician Post Acute Care 04/25/21 Kelly Reyes, SEWAGE TREATMENT PLANT OPERATOR.DESULPHURING OPERATOR [address] [place] [address] Specialty Baseball Glove Shaper Neurology 06/17/22 Jennifer Haley, SEWAGE TREATMENT PLANT OPERATOR.DESULPHURING OPERATOR [address] [place] [address] Specialty Baseball Glove Shaper Neurology 09/14/22 Automobile Wrecker Relationship Specialty Start Date End Date Saira Rolon MD [address] [place] [address] PCP - General Family Medicine 12/08/17 Vicky Ramos MD [address] [facility] [address] [place], [place] [id number] Home Care Provider Neurology 04/24/21 Marylu Solitario, PT [address] [place], [place] [id number] Automation Technician Post Acute Care 04/25/21 Kelly Reyes, SEWAGE TREATMENT PLANT OPERATOR.DESULPHURING OPERATOR [address] [place] [address] Specialty Baseball Glove Shaper Neurology 06/17/22 Jennifer Haley, SEWAGE TREATMENT PLANT OPERATOR.DESULPHURING OPERATOR [address] [place] [address] Specialty Baseball Glove Shaper Neurology 09/14/22 Automobile Wrecker Relationship Specialty Start Date End Date Saira Rolon MD [address] [place] [address] PCP - General Family Medicine 12/08/17 Vicky Ramos MD [address] [facility] [address] [place] [address] Home Care Provider Neurology 04/24/21 Marylu Solitario, PT [address] [place] [address] Automation Technician Post Acute Care 04/25/21 Kelly Reyes, SEWAGE TREATMENT PLANT OPERATOR.DESULPHURING OPERATOR [address] [place], [place] [id number] Specialty Baseball Glove Shaper Neurology 06/17/22 Jennifer Haley, SEWAGE TREATMENT PLANT OPERATOR.DESULPHURING OPERATOR [address] [place] [address] Specialty Baseball Glove Shaper Neurology 09/14/22 Automobile Wrecker Relationship Specialty Start Date End Date Saira Rolon MD [address] [place] [address] PCP - General Family Medicine 12/08/17 Vicky Ramos MD [address] [id number] Home Care Provider Neurology 04/24/21 Marylu Solitario, PT [address] [place], [place] [id number] Automation Technician Post Acute Care 04/25/21 Kelly Reyes, SEWAGE TREATMENT PLANT OPERATOR.DESULPHURING OPERATOR [address] [place] [address] Specialty Baseball Glove Shaper Neurology 06/17/22 Jennifer Haley, SEWAGE TREATMENT PLANT OPERATOR.DESULPHURING OPERATOR [address] [place] [address] Specialty Baseball Glove Shaper Neurology 09/14/22 Automobile Wrecker Relationship Specialty Start Date End Date Saira Rolon MD [address] [place] [address] PCP - General Family Medicine 12/08/17 Vicky Ramos MD [address] [address] Home Care Provider Neurology 04/24/21 Marylu Solitario, PT [address] [place] [address] Automation Technician Post Acute Care 04/25/21 Kelly Reyes, SEWAGE TREATMENT PLANT OPERATOR.DESULPHURING OPERATOR [address] [place] [address] Specialty Baseball Glove Shaper Neurology 06/17/22 Jennifer Haley APRN.DESULPHURING OPERATOR [address] [place] [address] Specialty Baseball Glove Shaper Neurology 09/14/22 Automobile Wrecker Relationship Specialty Start Date End Date Saira Rolon MD [address] [place] [address] PCP - General Family Medicine 12/08/17 Vicky Ramos MD [address] [id number] Home Care Provider Neurology 04/24/21 Marylu Solitario, PT [address] [place] [address] Automation Technician Post Acute Care 04/25/21 Kelly Reyes, SEWAGE TREATMENT PLANT OPERATOR.DESULPHURING OPERATOR [address] [place] [address] Specialty Baseball Glove Shaper Neurology 06/17/22 Jennifer Haley, ADILENE.DESULPHURING OPERATOR [address] [place] [address] Specialty Baseball Glove Shaper Neurology 09/14/22 Automobile Wrecker Relationship Specialty Start Date End Date Saira Rolon MD [address] [place] [address] PCP - General Family Medicine 12/08/17 Vicky Ramos MD [address] [id number] Home Care Provider Neurology 04/24/21 Marylu Solitario, PT [address] [place] [address] Automation Technician Post Acute Care 04/25/21 Kelly Reyes, SEWAGE TREATMENT PLANT OPERATOR.DESULPHURING OPERATOR [address] [place] [address] Specialty Baseball Glove Shaper Neurology 06/17/22 Jennifer Haley, SEWAGE TREATMENT PLANT OPERATOR.DESULPHURING OPERATOR [address] [place] [address] Specialty Baseball Glove Shaper Neurology 09/14/22 Automobile Wrecker Relationship Specialty Start Date End Date Saira Rolon MD [address] [place] [address] PCP - General Family Medicine 12/08/17 Vicky Ramos MD [address] [place] [id number] Home Care Provider Neurology 04/24/21 Marylu Solitario, PT [address] [place] [address] Automation Technician Post Acute Care 04/25/21 Kelly Reyes, SEWAGE TREATMENT PLANT OPERATOR.DESULPHURING OPERATOR [address] [place] [address] Specialty Baseball Glove Shaper Neurology 06/17/22 Jennifer Haley SEWAGE TREATMENT PLANT OPERATOR.DESULPHURING OPERATOR [address] [place] [address] Specialty Baseball Glove Shaper Neurology 09/14/22 Automobile Wrecker Relationship Specialty Start Date End Date Saira Rolon MD [address] [place] [address] PCP - General Family Medicine 12/08/17 Vicky Ramos MD [address] [id number] Home Care Provider Neurology 04/24/21 Marylu Solitario, PT [address] [place] [address] Automation Technician Post Acute Care 04/25/21 Kelly Reyes, SEWAGE TREATMENT PLANT OPERATOR.DESULPHURING OPERATOR [address] [place] [address] Specialty Baseball Glove Shaper Neurology 06/17/22 Jennifer Haley SEWAGE TREATMENT PLANT OPERATOR.DESULPHURING OPERATOR [address] [place] [address] Specialty Baseball Glove Shaper Neurology 09/14/22 Automobile Wrecker Relationship Specialty Start Date End Date Saira Rolon MD [address] [place], [place] [address] PCP - General Family Medicine 12/08/17 Vicky Ramos MD [address] [address] Home Care Provider Neurology 04/24/21 Marylu Solitario, PT [address] [place] [address] Automation Technician Post Acute Care 04/25/21 Kelly Reyes, SEWAGE TREATMENT PLANT OPERATOR.DESULPHURING OPERATOR [address] [place] [address] Specialty Baseball Glove Shaper Neurology 06/17/22 Jennifer Haley SEWAGE TREATMENT PLANT OPERATOR.DESULPHURING OPERATOR [address] [place] [address] Specialty Baseball Glove Shaper Neurology 09/14/22 Automobile Wrecker Relationship Specialty Start Date End Date Saira Rolon MD [address] [place] [address] PCP - General Family Medicine 12/08/17 Vicky Ramos MD [address] [place] [id number] Home Care Provider Neurology 04/24/21 Kelly Reyes, SEWAGE TREATMENT PLANT OPERATOR.DESULPHURING OPERATOR [address] [place] [address] Specialty Baseball Glove Shaper Neurology 06/17/22 Jennifer Haley, SEWAGE TREATMENT PLANT OPERATOR.DESULPHURING OPERATOR [address] [place], [place] [id number] Specialty Baseball Glove Shaper Neurology 09/14/22 Automobile Wrecker Relationship Specialty Start Date End Date Saira Rolon MD [address] [place] [address] PCP - General Family Medicine 12/08/17 Vicky Ramos MD [address] [place] [address] Home Care Provider Neurology 04/24/21 Kelly Reyes, SEWAGE TREATMENT PLANT OPERATOR.DESULPHURING OPERATOR [address] [place], [place] [id number] Specialty Baseball Glove Shaper Neurology 06/17/22 Jennifer Haley, SEWAGE TREATMENT PLANT OPERATOR.DESULPHURING OPERATOR [address] [place], [place] [id number] Specialty Baseball Glove Shaper Neurology 09/14/22 Automobile Wrecker Relationship Specialty Start Date End Date Saira Rolon MD [address] [place] [address] PCP - General Family Medicine 12/08/17 Vicky Ramos MD [address] [facility] [address] [place] [address] Home Care Provider Neurology 04/24/21 Kelly Reyes APRN.DESULPHURING OPERATOR [address] [place] [address] Specialty Baseball Glove Shaper Neurology 06/17/22 Jennifer Haley APRN.DESULPHURING OPERATOR [address] [place] [address] Specialty Baseball Glove Shaper Neurology 09/14/22 INFORMATION SOURCE (unrecogn ized section and content) DATE CREATED AUTHOR AUTHOR'S [facility] 08/21/2023 [facility] FOR RECORDS PERTAINING TO PATIENTS WHO ARE OR HAVE BEEN ENROLLED IN A CHEMICAL DEPENDENCY/SUBSTANCEABUSE PROGRAM, SOME INFORMATION MAY BE OMITTED. This clinical summary was aggregated from multiple sources. Caution should be exercised in using it in the provision of clinical care. This summary normalizes information from multiple sources, and as a consequence, information in this document may materially change the coding, format and clinical context of patient data. In addition, data may be omitted in some cases. CLINICAL DECISIONS SHOULD BE BASED ON THE PRIMARY CLINICAL RECORDS. [employer] provides no warranty or guarantee of the accuracy or completeness of information in this document.
[2023-09-07] MEDS: Potassium Chloride Oral Tablet 20 MEQ 40 MEQ PO (12:34)
[2023-09-07 12:38] VITALS: BP 125/105; PULSE 79; RESP 16; O2SAT 99
--- NOTE | 2023-09-07 12:57 | PCM.HP.STD ---
HPI - General General Date of Admission: 09/07/23 Date of Service: 09/07/23 Chief Complaint: Generalized weakness, could not stand up from the toilet seat. HPI Narrative EDSON SHEPPARD, is a 63 F who was brought to ED by EMS for not able to get up from the toilet seat. The she presents life alert and EMS brought her to ED. Usually she ambulates with a walker at home but feeling more increased weakness for last 1 week. Her grandson, 20-year-old helps with activities of daily living. Denies cough or new URI symptoms. No vomiting or diarrhea or abdominal pain. Usually she has constipation loss of bowel 1 7 days last 1 to 2 days ago. On stool softeners at home. Denies burning micturition but chronically has increased frequency. No fever or chills. Vitals in normal range. Labs done in ED reviewed. The patient further admitted. [facility] Medical History Abnormality of gait Acquired hypothyroidism Anxiety Balance problems Chest pain Chronic back pain Chronic ITP (idiopathic thrombocytopenia) CVA (cerebral vascular accident) Degenerative disc disease, lumbar Depression Dyskinesia Facet arthropathy, lumbar Gastroesophageal reflux disease Generalized weakness GERD (gastroesophageal reflux disease) Hypertension Hypertension Hypothyroid Hypothyroidism Insomnia Left foot drop Osteoarthritis Parkinson disease Parkinson's disease Rheumatoid arthritis Home Medications acetaminophen 500 mg tablet 500 mg PO Q6H PRN Pain 07/21/22 [History Last Taken 09/06/23] polyethylene glycol 3350 17 gram oral powder packet (Miralax) 17 g PO DAILY PRN Constipation 07/21/22 [History Last Taken 09/05/23] carbidopa 25 mg-levodopa 100 mg tablet 0.5 tab PO .COMPLEX 07/08/23 [History Last Taken 09/07/23] sertraline 25 mg tablet 25 mg PO DAILY 07/08/23 [History Last Taken 09/07/23] food supplemt, lactose-reduced 0.08 gram-1.5 kcal/mL oral liquid (Ensure Plus High Protein) 120 ml PO 4X/DAY #0 mL 07/13/23 [Rx Last Taken 09/04/23] peg 116-xubwhpzbnmxe-gfetjaew 1 %-0.2 %-0.2 % eye drops (Artificial Tears ([id number])) 2 drp EACH EYE Q1H PRN DRY EYES #0 mL 07/13/23 [Rx Last Taken 09/06/23] sennosides 8.6 mg-docusate sodium 50 mg tablet (Stool Softener-Stimulant Laxative) 2 tab PO BID #0 tabs 07/13/23 [Rx Last Taken Unknown] levothyroxine 88 mcg tablet 88 mcg PO DAILY 09/07/23 [History Last Taken 09/07/23] Allergy/AdvReac Type Severity Reaction Status Date / Time omeprazole Allergy Unknown Verified 07/08/23 10:20 simvastatin [From Zocor] Allergy Unknown Verified 07/08/23 10:20 ropinirole AdvReac Mild Unknown Verified 07/08/23 10:20 Family History Other Heart disease Social History household members: family housing: house Smoking Status: Former smoker ROS ROS Narrative Constitutional: Reports fatigue and weakness. No fever. HEENT: Reports systems reviewed and no addt'l complaints, except as documented Respiratory/Chest: No acute shortness of breath or respiratory distress or wheezing. CVS: Denies chest pain or shortness of breath. Gastrointestinal:Chronic constipation. Denies coffee ground emesis, hematemesis or vomiting Genitourinary: Denies burning urination or new urinary tract symptoms Musculoskeletal: Denies acute joint pain or limited range of motion. No acute injury Neurologic: Denies seizure-like symptoms. History of Parkinson disease, limited ADL, on Sinemet. On walker skin: No ulcer. No rash Endocrinology: Reports systems reviewed and no addt'l complaints, except as documented Hematologic/Lymphatic: Reports systems reviewed and no addt'l complaints, except as documented Rest 14 ROS are negative except as mentioned in HPI Vital Signs Vital Signs Vital Signs: 09/07/23 09:53 09/07/23 09:56 09/07/23 09:59 Temperature 98.3 F Temperature Source Oral Pulse Rate 85 Respiratory Rate 16 Blood Pressure 152/89 H Blood Pressure Mean 110 Pulse Ox 98 Oxygen Delivery Method Room Air 09/07/23 12:38 Temperature Temperature Source Pulse Rate 79 Respiratory Rate 16 Blood Pressure 125/105 H Blood Pressure Mean 111 Pulse Ox 99 Oxygen Delivery Method Room Air Weight Weight: 127 lb 6.835 oz Body Mass Index (BMI) 21.2 Physical Exam Narrative General: Alert, Oriented x3, Cooperative HEENT: Atraumatic, PERRLA, EOMI, Normocephalic Oral: Oral mucosa dry. No Gingival or Mucosal Lesions/ Ulcerations Neck: Supple, No JVD, Negative Carotid Bruits Lungs: Air entry diminished in bilateral lung bases. No crepitation/rhonchi Cardiovascular: Regular rate, Regular Rhythm, Normal S1, Normal S2, systolic murmur. Abdomen: Bowel Sounds Present, Soft, Non Tender, Non-Distended : No renal angle tenderness. No suprapubic tenderness. Extremities: No edema, Capillary Refill Less than 3 Seconds Skin: No rashes, No breakdown Musculoskeletal: No Tenderness to Palpation of Joints or Extremities. Could not stand up or balance. Muscle strength 4/5 at knees and hip joints. Gross insistent to touch and pain intact. Neurological: Cranial nerves II-XII grossly intact, DTR 2+/4. Increased muscle stiffness of hips and knees joint. Psych/Mental Status: Normal Affect, Appropriate. Results Lab / Micro Data 09/07/23 10:05 09/07/23 10:05 Labs: Laboratory Results - last 24 hr 09/07/23 10:05: WBC 5.1, RBC 4.19 L, Hgb 13.1, Hct 40.2, MCV 95.9, MCH 31.3, MCHC 32.6, RDW Std Deviation 45.2 H, RDW Coeff of Annie 12.8, Plt Count 248, MPV 12.2 H, Immature Gran % (Auto) 0.200, Neut % (Auto) 62.6, Lymph % (Auto) 29.5, Highland % (Auto) 6.1, Eos % (Auto) 0.8, Baso % (Auto) 0.8, Absolute Neuts (auto) 3.2, Absolute Lymphs (auto) 1.50, Nucleated RBC % 0, Sodium 142, Potassium 3.2 L, Chloride 106, Carbon Dioxide 30.0, Anion Gap 6, BUN 16, Creatinine 0.79, Estim Creat Clear Calc 63.88, Est GFR (MDRD) Af Amer 94, Est GFR (MDRD) Non-Af 78, BUN/Creatinine Ratio 20.2 H, Glucose 86, Calcium 9.0 09/07/23 10:32: Urine Color Yellow, Urine Clarity Sl. Cloudy, Urine pH 6.0, Ur Specific [place] 1.010, Urine Protein Negative, Urine Glucose (UA) Normal, Urine Ketones Negative, Urine Occult Blood 50 H, Urine Nitrite Negative, Urine Bilirubin Negative, Urine Urobilinogen Normal, Ur Leukocyte Esterase Negative, Urine RBC 0-5 SEEN, Urine WBC 0 SEEN, Ur Squamous Epith Cells 0-5 SEEN, Urine Bacteria 0 SEEN, Urine Mucus 0 SEEN Micro: Microbiology 09/07/23 10:13 Mucosa - Nasopharyngeal SARS-CoV-2, Influenza & RSV (PCR) - Final Assessment & Plan Assessment/Plan (1) Weakness: PLAN: Plan This is a 63-year-old female came to ED for generalized weakness, unable to get up from the toilet seat today and worsening of muscle stiffness, ambulation and balance for about 1 week 1. Generalized weakness and debility, muscle stiffness/gait ataxia seems worsening of Parkinson symptoms: Patient was admitted in #2022 for similar symptoms generalized weakness neck and head pain and dyskinesia after her Parkinson's medications were adjusted. She follows neurologist Dr. Brooks in [place]. I do not see dyskinesia symptoms/dysmetria but she has increased muscle rigidity. She has end of dose deterioration/on and off effect of Sinemet with progression of her Parkinson disease. During last admission Sinemet 1 tablet 4 times daily was changed to 6 times daily. Denies UTI symptoms. For further opinion, [facility] neurologist is consulted. Mild hypokalemia potassium supplement is ordered. Serum magnesium and phosphorus ordered and reported normal. 2. Parkinson's disease: Symptoms advanced as mentioned above. 3. Hypothyroidism: Continue home dose of Synthroid. TSH and free T4 ordered for tomorrow AM. 4. Anxiety/depression: Patient on Zoloft. Twelve-lead EKG shows QTc prolonged. Twelve-lead EKG shows sinus rhythm, prolonged QTc 428 ms. Sertraline seems low risk for QT prolonging concern but will hold it. 5. Chronic constipation, last BM 2 days ago: Continue stool softeners including MiraLAX, senna S and Dulcolax suppository DVT, moderate to high risk: Lovenox 40 mg subcu daily. Monitor CBC daily. Chronic ITP is listed as 1 of patient's past medical history if it shows decrease in platelet will discontinue it. Living will/advanced directive/end of life care: Patient does not have living will or advanced directive. Does not have Luis power of patent prosecution attorney for health. After discussion of benefits/risks procedures involved with full code, DNR CC arrest and DNR CC, the patient opted, that she wants CPR/chest compression, vasopressors CVS cath then DC shock but does not want intubation or ventilator. I tried to make her understand that her above wish is not given option therefore will keep as full code. Patient does want artificial life support including intubation, tube feed, ventilator and/chest compression, central venous catheter, vasopressor and DC shock if needed Total time spent in [id number] encounter in discussion of advanced directive 17 minutes. Microbiology Past 72 Hours 09/07/23 10:13 Mucosa - Nasopharyngeal SARS-CoV-2, Influenza & RSV (PCR) - Final Laboratory Results 09/07/23 10:05: WBC 5.1, RBC 4.19 L, Hgb 13.1, Hct 40.2, MCV 95.9, MCH 31.3, MCHC 32.6, RDW Std Deviation 45.2 H, RDW Coeff of Annie 12.8, Plt Count 248, MPV 12.2 H, Immature Gran % (Auto) 0.200, Neut % (Auto) 62.6, Lymph % (Auto) 29.5, Highland % (Auto) 6.1, Eos % (Auto) 0.8, Baso % (Auto) 0.8, Absolute Neuts (auto) 3.2, Absolute Lymphs (auto) 1.50, Nucleated RBC % 0, Sodium 142, Potassium 3.2 L, Chloride 106, Carbon Dioxide 30.0, Anion Gap 6, BUN 16, Creatinine 0.79, Estim Creat Clear Calc 63.88, Est GFR (MDRD) Af Amer 94, Est GFR (MDRD) Non-Af 78, BUN/Creatinine Ratio 20.2 H, Glucose 86, Calcium 9.0, Phosphorus 3.6, Magnesium 2.4 09/07/23 10:32: Urine Color Yellow, Urine Clarity Sl. Cloudy, Urine pH 6.0, Ur Specific [place] 1.010, Urine Protein Negative, Urine Glucose (UA) Normal, Urine Ketones Negative, Urine Occult Blood 50 H, Urine Nitrite Negative, Urine Bilirubin Negative, Urine Urobilinogen Normal, Ur Leukocyte Esterase Negative, Urine RBC 0-5 SEEN, Urine WBC 0 SEEN, Ur Squamous Epith Cells 0-5 SEEN, Urine Bacteria 0 SEEN, Urine Mucus 0 SEEN Charges/Coding Visit Charges Inpatient E&M: 30769 Init Hosp L3 Procedures Hospitalists Procedures: 13573 Advncd Care Plan 30 Min
--- NOTE | 2023-09-07 13:02 | CM.ED ---
Social Work SW consulted regarding patient needs. SW introduced self and role. Pt reports they tried to get her to walk and she could not. Pt is unable to ambulate. Pt reports Parkinsons and is visibly shaking, pt reports her legs are so heavy she cannot walk. Pt requests medication for Parkinsons and nursing is working on meds. Pt reports being at [facility] and discharged August 05. Pt has aides that come to the home for 3 hours a day on Tuesdays and . Pt also has mom's home delivered meals. Pt reports her son resides with her but that he has been ill, has difficulty caring for her and works third shift. Pt does not believe she can manage herself independently at home while she is this weak. SW spoke with direction home CW, Taya Fulton is her worker but she is on leave, home services confirmed as meals at home, alert button, and aides twice a week for 3 hours. Pt is likely to be admitted for placement. Pt reports she does not want to return to [facility] and that they treated her poorly. Pt is requesting to stay at the hospital if possible in TCU. Pt will likely need precert and pt/ot evaluations for SNF placement. Hospitalist to review for admission. [place] WINDSMITH, [employer] MODEL [employer]KER AND TESTER
[2023-09-07 13:16] LABS: Magnesium 2.4 mg/dL (1.6-2.6); Phosphorus 3.6 mg/dL (2.5-4.9)
--- NOTE | 2023-09-07 13:29 | EDS_ITS ---
HPI History of Present Illness Chief Complaint: Weakness Informant: patient Narrative Narrative: Presents by EMS from home increasing weakness. Does note mild symptoms past week. She ambulates with a walker at home. There is a 20-year-old grandson. She states she was on the commode she could not get up she pressed life alert. EMS came to assist. She denies cough. Denies recent vomiting or diarrhea. States has urine frequency with UTI in the past. No fever or chills. No headaches or myalgias. She states she needed to go to rehab this past June for similar. Prior similar symptoms: Yes PFSH PFS Medical History Abnormality of gait Acquired hypothyroidism Anxiety Balance problems Chest pain Chronic back pain Chronic ITP (idiopathic thrombocytopenia) CVA (cerebral vascular accident) Degenerative disc disease, lumbar Depression Dyskinesia Facet arthropathy, lumbar Gastroesophageal reflux disease Generalized weakness GERD (gastroesophageal reflux disease) Hypertension Hypertension Hypothyroid Hypothyroidism Insomnia Left foot drop Osteoarthritis Parkinson disease Parkinson's disease Rheumatoid arthritis Home Medications acetaminophen 500 mg tablet 500 mg PO Q6H PRN Pain 07/21/22 [History Last Taken 09/06/23] polyethylene glycol 3350 17 gram oral powder packet (Miralax) 17 g PO DAILY PRN Constipation 07/21/22 [History Last Taken 09/05/23] carbidopa 25 mg-levodopa 100 mg tablet 0.5 tab PO .COMPLEX 07/08/23 [History Last Taken 09/07/23] sertraline 25 mg tablet 25 mg PO DAILY 07/08/23 [History Last Taken 09/07/23] food supplemt, lactose-reduced 0.08 gram-1.5 kcal/mL oral liquid (Ensure Plus High Protein) 120 ml PO 4X/DAY #0 mL 07/13/23 [Rx Last Taken 09/04/23] peg [id number] 1 %-0.2 %-0.2 % eye drops (Artificial Tears ([id number])) 2 drp EACH EYE Q1H PRN DRY EYES #0 mL 07/13/23 [Rx Last Taken 09/06/23] sennosides 8.6 mg-docusate sodium 50 mg tablet (Stool Softener-Stimulant Laxative) 2 tab PO BID #0 tabs 07/13/23 [Rx Last Taken Unknown] levothyroxine 88 mcg tablet 88 mcg PO DAILY 09/07/23 [History Last Taken 09/07/23] Allergy/AdvReac Type Severity Reaction Status Date / Time omeprazole Allergy Unknown Verified 07/08/23 10:20 simvastatin [From Zocor] Allergy Unknown Verified 07/08/23 10:20 ropinirole AdvReac Mild Unknown Verified 07/08/23 10:20 Family History Other Heart disease Social History household members: family housing: house Smoking Status: Former smoker ROS ROS ED Constitutional Constitutional ED: Denies chills, fever(s) or sweats Eyes Eyes: Denies change in vision ENT ENT ED: Denies dysphagia or sore throat Cardiovascular Cardiovascular: Denies chest pain, leg edema, palpitations or racing heartbeat Respiratory/Chest Respiratory/Chest: Denies cough, dyspnea or dyspnea on exertion Gastrointestinal Gastrointestinal: Denies abdominal pain, diarrhea, nausea or vomiting Genitourinary Genitourinary ED: Reports urinary frequency; Denies dysuria or hematuria Musculoskeletal Musculoskeletal: Denies back pain, extremity pain or neck pain Integumentary Denies rash or wounds Neurologic Neurologic: Reports weakness; Denies headache(s) or paresthesias EXAM Physical Exam Narrative Exam Narrative: Interventions / MDM: Differential diagnosis: Weakness, electrolyte abnormalities Diagnosis considered but do not suspect: Infectious causes however urine negative for infection. No clinical pneumonia symptoms. My EKG interpretation: Sinus rate of 78, no ST or T wave changes, artifact noted at baseline. Imaging independently reviewed and interpreted by myself: N/A External documents reviewed: N/A Test considered but not ordered:N/A ED course: Patient nontoxic vital stable planing weakness increasing urine frequency. EKG sinus rhythm no acute findings. Laboratory studies checked along with a urine. Lab stable except potassium 3.2. Oral replacement. Urine Without infection. COVID and flu also negative. Attempted to ambulate patient unable to get out of bed herself. Discussed with case management, patient require hospitalization for rehab. I discussed with hospitalist Dr. Jo for admission. Re-evaluation: stable Disposition discussed with patient/family/significant other: Patient Case discussed with consulting clinician: Case management, hospitalist This note was generated with [employer] dictation software. It may contain incorrect words, spelling, and punctuation that were not noted in checking the note before signing. Const Vital Signs: 09/07/23 09:53 09/07/23 09:56 09/07/23 09:59 Temperature 98.3 F Temperature Source Oral Pulse Rate 85 Respiratory Rate 16 Blood Pressure 152/89 H Blood Pressure Mean 110 Pulse Ox 98 Oxygen Delivery Method Room Air 09/07/23 12:38 Temperature Temperature Source Pulse Rate 79 Respiratory Rate 16 Blood Pressure 125/105 H Blood Pressure Mean 111 Pulse Ox 99 Oxygen Delivery Method Room Air Positive well nourished and well developed General Appearance ED: well developed and NAD HEENT Reports moist mucous membranes normocephalic and atraumatic Eyes PERRL, EOMs intact bilaterally and conjunctivae normal General Eye ED: Yes normal appearance of both eyes Neck no lymphadenopathy and supple General: Negative for tenderness Chest Wall Chest: Negative for tenderness Resp normal respiratory effort and normal air movement Effort and Inspection: symmetric chest movement; Negative for respiratory distress Cardio regular rate, regular rhythm and no murmurs Peripheral Pulses: pulses 2+ throughout GI normal to inspection, nondistended, normoactive bowel sounds and non-tender Palpation: Negative for guarding or rebound tenderness present Back/Spine no CVA tenderness and no thoracic nor lumbar tenderness Extremity normal to inspection General Extremety ED: Negative for edema or tenderness General Extremity: Negative for edema Neuro oriented x3, CN's II-XII intact bilaterally and no sensory deficits noted Sensorium / Orientation: awake and alert Skin no rashes or lesions noted and no wounds MDM MDM Lab Data Labs: Laboratory Results - last 24 hr 09/07/23 09/07/23 10:05 10:32 WBC 5.1 RBC 4.19 L Hgb 13.1 Hct 40.2 MCV 95.9 MCH 31.3 MCHC 32.6 RDW Std Deviation 45.2 H RDW Coeff of Annie 12.8 Plt Count 248 MPV 12.2 H Immature Gran % (Auto) 0.200 Neut % (Auto) 62.6 Lymph % (Auto) 29.5 [place] % (Auto) 6.1 Eos % (Auto) 0.8 Baso % (Auto) 0.8 Absolute Neuts (auto) 3.2 Absolute Lymphs (auto) 1.50 Nucleated RBC % 0 Sodium 142 Potassium 3.2 L Chloride 106 Carbon Dioxide 30.0 Anion Gap 6 BUN 16 Creatinine 0.79 Estim Creat Clear Calc 63.88 Est GFR (MDRD) Af Amer 94 Est GFR (MDRD) Non-Af 78 BUN/Creatinine Ratio 20.2 H Glucose 86 Calcium 9.0 Phosphorus 3.6 Magnesium 2.4 Urine Color Yellow Urine Clarity Sl. Cloudy Urine pH 6.0 Ur Specific [place] 1.010 Urine Protein Negative Urine Glucose (UA) Normal Urine Ketones Negative Urine Occult Blood 50 H Urine Nitrite Negative Urine Bilirubin Negative Urine Urobilinogen Normal Ur Leukocyte Esterase Negative Urine RBC 0-5 SEEN Urine WBC 0 SEEN Ur Squamous Epith Cells 0-5 SEEN Urine Bacteria 0 SEEN Urine Mucus 0 SEEN Discharge Plan Triage Chief Complaint: Weakness Other Complaint: Lower Extremity Injury ED Provider: Dominick Snider Dx/Rx/DC Orders Clinical Impression: History of Parkinson's disease, Weakness, Hypokalemia Prescriptions: No Action polyethylene glycol 3350 [Miralax] 17 gram Powder In Packet 17 g PO DAILY PRN (Reason: Constipation) acetaminophen 500 mg Tablet 500 mg PO Q6H PRN (Reason: Pain) sertraline 25 mg tablet 25 mg PO DAILY carbidopa-levodopa 25-100 mg Tablet 0.5 tab PO .COMPLEX Patient Comments: PT STATES SHES BEEN TAKING EVERY 3 HOURS. Rx Instructions: 0.5 tabs orally TAKE .0.5 TABS 6 TIMES A DAY AT 0630,0930,1230,1530,1830,2100; 0630,0930,1230,1530,1830,2100 sennosides-docusate sodium [Stool Softener-Stimulant Laxat] 8.6-50 mg Tablet 2 tab PO BID Qty: 0 0RF Artificial Tears([id number]) 1-0.2-0.2 % Drops 2 drp EACH EYE Q1H PRN (Reason: DRY EYES) Qty: 0 0RF Ensure Plus High Protein 0.08 gram-1.5 kcal/mL Liquid 120 ml PO 4X/DAY Qty: 0 0RF levothyroxine 88 mcg tablet 88 mcg PO DAILY Primary Care Provider: Lamonte Rolon Referrals: Lamonte Rolon MD [Primary Care Provider] - Disposition Disposition: Acute Care [facility]
[2023-09-07] MEDS: Carbidopa/Levodopa 25/100 Tablet PO ×3 (13:34→21:03)
[2023-09-07 14:45] VITALS: BMI 21.2
--- NOTE | 2023-09-07 14:53 | CM.ED ---
Social Work SW notified Luis Stephens of [facility] of admission, . Pt's worker Taya Fulton is on leave and Luis requested notification if patient was admitted. SW left voicemail for Luis. [place] OFFICE SERVICES ASSISTANT, COLLATERAL ANALYST
[2023-09-07 15:00] VITALS: BP 104/73; PULSE 83; RESP 14; TEMP 36.7; O2SAT 99
[2023-09-07] MEDS: 0.9% Saline Lock 10 ML Syringe IV (15:18)
[2023-09-07] MEDS: Lactated Ringers 1,000 ML 75 ML IV (15:18)
[2023-09-07] MEDS: Enoxaparin 40 MG/0.4 ML Syringe SC (16:50)
[2023-09-07] MEDS: Senna/Docusate Sodium 1 Tablet 2 TABLET PO ×2 (16:50→21:02)
[2023-09-07] MEDS: Polyethylene Glycol 3350 17 GM PACKET PO (16:54)
[2023-09-07 18:45] VITALS: BMI 21.2
[2023-09-07 21:00] VITALS: BP 94/58; PULSE 73; RESP 18; TEMP 36.8; O2SAT 95
[2023-09-07] MEDS: Acetaminophen 325 MG Tablet 650 MG PO (21:02)
[2023-09-08 03:21] VITALS: BMI 21.2
[2023-09-08 04:18] VITALS: BP 110/68; PULSE 70; RESP 18; TEMP 36.8; O2SAT 98
[2023-09-08] MEDS: Carbidopa/Levodopa 25/100 Tablet PO ×6 (06:56→21:14)
[2023-09-08] MEDS: Levothyroxine 88 MCG Tablet PO (06:56)
[2023-09-08] MEDS: Acetaminophen 325 MG Tablet 650 MG PO ×2 (06:57→21:13)
[2023-09-08 07:33] LABS: Absolute Lymphocyte Count 1.65 X10^3/uL (0.83-4.51); Absolute Neutrophil Count 2.4 X10^3/uL (2.0-7.7); Basophil# 0.06 X10^3/uL; Basophil% 1.3 % (0-1); Eosinophil# 0.16 X10^3/uL; Eosinophils% 3.5 % (0-5); Hematocrit 37.5 % (37-47); Hemoglobin 12.1 g/dL (12.0-15.0); Lymphocyte # 1.65 X10^3/ul (0.83-4.51); Lymphocyte % 36.2 % (19-41); Mean Corp Hgb Conc 32.3 g/dL (32-36); Mean Corpuscular Hgb 31.1 pg (27.0-32.0); Mean Corpuscular Volume 96.4 fL (81-99); Mean Platelet Vol. 12.7 fl (6.2-12.0); Monocyte# 0.28 X10^3/uL; Monocyte% 6.1 % (0-10); NRBC Flagged by Analyzer 0 % (0-5); Neutrophil % 52.7 % (47-70); Platelet Count 220 K/mm3 (150-450); RBC Distribution Width CV 12.9 % (11.6-14.6); Red Blood Count 3.89 M/mm3 (4.2-5.4); White Blood Count 4.6 K/mm3 (4.4-11.0)
[2023-09-08 08:00] VITALS: O2SAT 94
[2023-09-08 08:20] LABS: Anion Gap 4 (5-15); BUN 21 mg/dL (7-18); BUN/Creat Ratio 29.5 RATIO (10-20); Calcium,Total 8.9 mg/dL (8.5-10.1); Chloride 111 mmol/L (98-107); Creatinine, Serum 0.71 mg/dL (0.55-1.02); EST Glomerular Filtration Rate 87 mL/min (>60); Est Glom Filt Rate - Afr Amer 106 mL/min (>60); Estimated Creatinine Clearance 63.09 ml/min; Glucose 93 mg/dL (74-106); Sodium Level 142 mmol/L (136-145); T4 Free Direct 1.42 ng/dL (0.76-1.46)
[2023-09-08 09:02] VITALS: BP 114/78; PULSE 65; RESP 18; TEMP 36.7; O2SAT 100
[2023-09-08] MEDS: Enoxaparin 40 MG/0.4 ML Syringe SC (09:11)
[2023-09-08] MEDS: Sertraline 50 MG Tablet 25 MG PO (09:11)
[2023-09-08] MEDS: Polyethylene Glycol 3350 17 GM PACKET PO (09:14)
[2023-09-08] MEDS: Senna/Docusate Sodium 1 Tablet 2 TABLET PO (09:14)
--- NOTE | 2023-09-08 09:34 | CASEMGMT ---
Discharge Planning A list of?SNF providers including quality and resource use data and consistent with the patient's preferred geographic region, medical needs, and insurance network was created in CarePort Guide.? This list was provided to the SW. Rhonda Schulz Discharge Planning Asst.
--- NOTE | 2023-09-08 10:28 | CASEMGMT ---
DONITA PERDOMO Assessment Face to Face with patient for initial transition planning/care coordination assessment. DONITA PERDOMO introduced self and role at [facility], pt voices understanding. Pt is A&Ox4 and is resting comfortably in bed and is calm. Care providers, pharmacy, and demographics verified. Admitting dx: Gen Weakness LACE Strata: 1 PCP: Ольга Specialists: Cecilia in [place] for her Parkinsons Preferred Pharmacy: [facility] Insurance: [employer] Prescription Benefit: Yes LNOK: Son - Omar Olivier. Sister - Sarah Fraser Living Arrangements: Pt lives with her son in an apartment/ condo setup. Pt states it only has one floor with a flat entrance. ADLs/IADLs: States mostly ind with ADLs. Manages own meds. States she needs assistance with IADLs. Pt reports that her son helps her out at home and that he is available during the day as he works assistant shift supervisor. Pt also states she has an aide through [facility] that comes on Tuesdays and to help her with IADLS. Transportation: Pt son DME: Pt states she has a walker, cane, rollator, shower chair. Denies toilet seat or bars due to no room. Pt uses the rollator mainly. Pt denies home O2 use. HHC/SNF: States she was recently at [facility] x3 weeks for therapy. Pt states that she normally has an aide come in twice per week to help with IADLs. Pt also states she has a PT come to her home but could not remember the name of the agency. Pt states that she will have a total of 14 visits from the PT. It appears the pt is active with [facility]. SW updated. Pt?s goal: Home with the continuation of her HHC. Plan: See how pt does with therapy. Pt may need SNF placement. Pt states that she does not want to return to [facility]. SW updated. Will monitor. Chon Dorado RN, CM
--- NOTE | 2023-09-08 10:33 | PCM.PN.HOSP ---
Reason for Visit Reason for Visit: Diagnoses Weakness (09/07/23) Objective Data Objective Data Vital Signs: Vital Signs Temp Pulse Resp BP Pulse Ox O2 Del Method 98.1 F 65 18 114/78 100 Room Air 09/08/23 09:02 09/08/23 09:02 09/08/23 09:02 09/08/23 09:02 09/08/23 09:02 09/08/23 09:02 Oxygen Delivery Method Room Air Weight: 127 lb 3.307 oz Body Mass Index (BMI) 21.2 Intake & Output: Intake and Output for Last 24 Hours 09/06/23 09/07/23 09/08/23 23:59 23:59 23:59 Intake Total 1240 / 1240 976.25 / 976.25 Output Total 400 / 400 400 / 400 Balance 840 / 840 576.25 / 576.25 Lab / Micro Data 09/08/23 06:41 09/08/23 06:41 Labs: Laboratory Results - last 24 hr 09/07/23 10:05: Sodium 142, Potassium 3.2 L, Chloride 106, Carbon Dioxide 30.0, Anion Gap 6, BUN 16, Creatinine 0.79, Estim Creat Clear Calc 63.88, Est GFR (MDRD) Af Amer 94, Est GFR (MDRD) Non-Af 78, BUN/Creatinine Ratio 20.2 H, Glucose 86, Calcium 9.0, Phosphorus 3.6, Magnesium 2.4 09/07/23 10:32: Urine Color Yellow, Urine Clarity Sl. Cloudy, Urine pH 6.0, Ur Specific [place] 1.010, Urine Protein Negative, Urine Glucose (UA) Normal, Urine Ketones Negative, Urine Occult Blood 50 H, Urine Nitrite Negative, Urine Bilirubin Negative, Urine Urobilinogen Normal, Ur Leukocyte Esterase Negative, Urine RBC 0-5 SEEN, Urine WBC 0 SEEN, Ur Squamous Epith Cells 0-5 SEEN, Urine Bacteria 0 SEEN, Urine Mucus 0 SEEN 09/08/23 06:41: WBC 4.6, RBC 3.89 L, Hgb 12.1, Hct 37.5, MCV 96.4, MCH 31.1, MCHC 32.3, RDW Std Deviation 46.0 H, RDW Coeff of Annie 12.9, Plt Count 220, MPV 12.7 H, Immature Gran % (Auto) 0.200, Neut % (Auto) 52.7, Lymph % (Auto) 36.2, [place] % (Auto) 6.1, Eos % (Auto) 3.5, Baso % (Auto) 1.3 H, Absolute Neuts (auto) 2.4, Absolute Lymphs (auto) 1.65, Nucleated RBC % 0, Sodium 142, Potassium 4.0, Chloride 111 H, Carbon Dioxide 27.0, Anion Gap 4 L, BUN 21 H, Creatinine 0.71, Estim Creat Clear Calc 63.09, Est GFR (MDRD) Af Amer 106, Est GFR (MDRD) Non-Af 87, BUN/Creatinine Ratio 29.5 H, Glucose 93, Calcium 8.9, TSH 0.20 L, Free T4 1.42 Micro: Microbiology 09/07/23 10:13 Mucosa - Nasopharyngeal SARS-CoV-2, Influenza & RSV (PCR) - Final Physical Exam Narrative General: Alert, Oriented x3, Cooperative HEENT: Atraumatic, PERRLA, EOMI, Normocephalic Oral: Oral mucosa dry. No Gingival or Mucosal Lesions/ Ulcerations Neck: Supple, No JVD, Negative Carotid Bruits Lungs: Air entry diminished in bilateral lung bases. No crepitation/rhonchi Cardiovascular: Regular rate, Regular Rhythm, Normal S1, Normal S2, systolic murmur. Abdomen: Bowel Sounds Present, Soft, Non Tender, Non-Distended : No renal angle tenderness. No suprapubic tenderness. Extremities: No edema, Capillary Refill Less than 3 Seconds Skin: No rashes, No breakdown Musculoskeletal: No Tenderness to Palpation of Joints or Extremities. Could not stand up or balance. Muscle strength 4/5 at knees and hip joints. Gross insistent to touch and pain intact. Neurological: Cranial nerves II-XII grossly intact, DTR 2+/4. Increased muscle stiffness of hips and knees joint. Psych/Mental Status: Normal Affect, Appropriate. Assessment & Plan Assessment/Plan (1) Weakness: PLAN: Plan This is a 63-year-old female came to ED for generalized weakness, unable to get up from the toilet seat today and worsening of muscle stiffness, ambulation and balance for about 1 week 1. Generalized weakness and debility, muscle stiffness/gait ataxia seems worsening of Parkinson symptoms: Patient was admitted in #2022 for similar symptoms generalized weakness neck and head pain and dyskinesia after her Parkinson's medications were adjusted. She follows neurologist Dr. Irene Brooks in [place]. I do not see dyskinesia symptoms/dysmetria but she has increased muscle rigidity. She has end of dose deterioration/on and off effect of Sinemet with progression of her Parkinson disease. During last admission Sinemet 1 tablet 4 times daily was changed to 6 times daily. Denies UTI symptoms. For further opinion, [facility] neurologist is consulted. 09/08/2023: Patient has cogwheel rigidity and tremors in the hand. She states she is slow and walking on the walker becomes difficult. She is almost back. She also states her eye gets dry and blurry. At the end of the dose of Sinemet she also feels tremors in her voice. [facility] neurology consult has not seen the patient yet. Mild hypokalemia potassium supplement is ordered. Serum magnesium and phosphorus ordered and reported normal. 09/08: Repeat potassium 4.0. Hypokalemia corrected. 2. Parkinson's disease: Symptoms advanced as mentioned above. 3. Hypothyroidism: Continue home dose of Synthroid. 09/08: TSH 0.2 low. Free T4 is normal 1.42. Continue same home dose. 4. Anxiety/depression: Patient on Zoloft. Twelve-lead EKG shows QTc prolonged. Twelve-lead EKG shows sinus rhythm, prolonged QTc 428 ms. Sertraline seems low risk for QT prolonging concern but will hold it. 5. Chronic constipation, last BM 2 days ago: Continue stool softeners including MiraLAX, senna S and Dulcolax suppository DVT, moderate to high risk: Lovenox 40 mg subcu daily. Monitor CBC daily. Chronic ITP is listed as 1 of patient's past medical history if it shows decrease in platelet will discontinue it. Living will/advanced directive/end of life care: Patient does not have living will or advanced directive. Does not have Luis power of land leveler for health. After discussion of benefits/risks procedures involved with full code, DNR CC arrest and DNR CC, the patient opted, that she wants CPR/chest compression, vasopressors CVS cath then DC shock but does not want intubation or ventilator. I tried to make her understand that her above wish is not given option therefore will keep as full code. Patient does want artificial life support including intubation, tube feed, ventilator and/chest compression, central venous catheter, vasopressor and DC shock if needed Microbiology Past 72 Hours 09/07/23 10:13 Mucosa - Nasopharyngeal SARS-CoV-2, Influenza & RSV (PCR) - Final Laboratory Results 09/07/23 10:05: WBC 5.1, RBC 4.19 L, Hgb 13.1, Hct 40.2, MCV 95.9, MCH 31.3, MCHC 32.6, RDW Std Deviation 45.2 H, RDW Coeff of Annie 12.8, Plt Count 248, MPV 12.2 H, Immature Gran % (Auto) 0.200, Neut % (Auto) 62.6, Lymph % (Auto) 29.5, [place] % (Auto) 6.1, Eos % (Auto) 0.8, Baso % (Auto) 0.8, Absolute Neuts (auto) 3.2, Absolute Lymphs (auto) 1.50, Nucleated RBC % 0, Sodium 142, Potassium 3.2 L, Chloride 106, Carbon Dioxide 30.0, Anion Gap 6, BUN 16, Creatinine 0.79, Estim Creat Clear Calc 63.88, Est GFR (MDRD) Af Amer 94, Est GFR (MDRD) Non-Af 78, BUN/Creatinine Ratio 20.2 H, Glucose 86, Calcium 9.0, Phosphorus 3.6, Magnesium 2.4 09/07/23 10:32: Urine Color Yellow, Urine Clarity Sl. Cloudy, Urine pH 6.0, Ur Specific [place] 1.010, Urine Protein Negative, Urine Glucose (UA) Normal, Urine Ketones Negative, Urine Occult Blood 50 H, Urine Nitrite Negative, Urine Bilirubin Negative, Urine Urobilinogen Normal, Ur Leukocyte Esterase Negative, Urine RBC 0-5 SEEN, Urine WBC 0 SEEN, Ur Squamous Epith Cells 0-5 SEEN, Urine Bacteria 0 SEEN, Urine Mucus 0 SEEN Charges/Coding Visit Charges Inpatient E&M: 49952 Subs Hosp L2
--- NOTE | 2023-09-08 12:18 | CASEMGMT ---
This RN CM calls the pt PT through the number she gave. The PT (Romeo) confirms and states that he is active with the pt through [facility].
--- NOTE | 2023-09-08 13:38 | CASEMGMT ---
Social Work SW met with pt and introduced self and role of SW. SW discussed pt progress with therapy and discharge plan. Pt does not feel she can return home at this time due to weakness, but is apprehensive about going to SNF. After much discussion about options, pt is agreeable to SNF placement. A list of SNF providers including quality and resource use data and consistent with the patient?s preferred geographic region, medical needs, and insurance network were provided from the CarePort Guide. SW reviewed options with pt. Pt states she would like to call her sister to discuss options. SW will follow up later to get SNF choices. ANANDA Rodrigez
[2023-09-08 15:13] VITALS: BP 120/58; PULSE 79; RESP 17; TEMP 37.3
--- NOTE | 2023-09-08 15:31 | CASEMGMT ---
Discharge Planning' Met with patient to follow up on SNF choices. Her preference is [facility]. Referral sent via [facility]. Rhonda Schulz, Discharge Planning Asst.
[2023-09-08] MEDS: CARBOXYMETHYLCELLULOSE SODIUM 1 DRP DROPS 2 DRP OPHTHALMIC (17:03)
[2023-09-08 21:07] VITALS: BP 94/60; PULSE 76; RESP 18; TEMP 36.6; O2SAT 97
[2023-09-08] MEDS: 0.9% Saline Lock 10 ML Syringe IV (21:17)
[2023-09-09 05:03] VITALS: BMI 21.1
[2023-09-09 06:29] VITALS: BP 114/68; PULSE 66; RESP 18; TEMP 36.6; O2SAT 99
[2023-09-09] MEDS: Acetaminophen 325 MG Tablet 650 MG PO (06:33)
[2023-09-09] MEDS: Levothyroxine 88 MCG Tablet PO (06:34)
[2023-09-09] MEDS: Carbidopa/Levodopa 25/100 Tablet PO ×6 (06:34→22:57)
[2023-09-09 08:10] VITALS: O2SAT 93
[2023-09-09 08:43] VITALS: BP 107/68; PULSE 76; RESP 18; TEMP 36.7; O2SAT 98
[2023-09-09] MEDS: Senna/Docusate Sodium 1 Tablet 2 TABLET PO (08:53)
[2023-09-09] MEDS: Enoxaparin 40 MG/0.4 ML Syringe SC (08:53)
[2023-09-09] MEDS: Sertraline 50 MG Tablet 25 MG PO (08:58)
--- NOTE | 2023-09-09 12:29 | NEURO.CONS ---
Assessment and Plan: Neuro Assessment/Plan EDSON SHEPPARD is a 63 F with a past medical history of parkinson's disease being evaluated by Tele neurology for worsening of her symptoms. She explained her symptoms as generalized weakness,tremor, difficulty getting up from bed and overall worsening of her Parkinson's symptoms. Denies any recent infection. Uses walker for walk and have tried PT multiple times in the past. She takes Carbidopa/Levadopa 25-100 6 times per day. Denies diarrhoea,dizziness. It appears worsening of her baseline disease given prolong duration of illness. Her symptoms overall gets better after taking Sinemet however lasts for 1 hour. Diagnosis: Worsening/Progression of Parkinson's disease. Plan: Recommend increasing the dose of Sinemet at every other scheduled dose ( 0.5 tablet at 0630 , 1 tablet and 0930 , 0.5 tablet at 1230 , 1 tablet at 1530 , 0.5 tablet at 1830 and 1 tablet at 2100. Transfer to [facility] for the following reasons: none I personally attended this patient and spent a total time of 55 minutes evaluating this patient including clinical assessment, review of chart, medical history imaging, and determining appropriate treatment and workup. Gi Murdock MD [facility] TeleNeurology Department HPI Consult Data Date of Consult: 09/09/23 HPI Narrative HPI Narrative: EDSON SHEPPARD, is a 63 F who presents with generalized weakness,tremor, difficulty getting up from bed and overall worsening of her parkinson's symptoms. Denies any recent infection. Uses walker for walk and have tried PT multiple times in the past. She takes Carbidopa/Levadopa 25-100 6 times per day. Denies diarrhoea,dizziness. [facility] Medical History Abnormality of gait Acquired hypothyroidism Anxiety Balance problems Chest pain Chronic back pain Chronic ITP (idiopathic thrombocytopenia) CVA (cerebral vascular accident) Degenerative disc disease, lumbar Depression Dyskinesia Facet arthropathy, lumbar Gastroesophageal reflux disease Generalized weakness GERD (gastroesophageal reflux disease) Hypertension Hypertension Hypothyroid Hypothyroidism Insomnia Left foot drop Osteoarthritis Parkinson disease Parkinson's disease Rheumatoid arthritis Home Medications acetaminophen 500 mg tablet 500 mg PO Q6H PRN Pain 07/21/22 [History Last Taken 09/06/23] polyethylene glycol 3350 17 gram oral powder packet (Miralax) 17 g PO DAILY PRN Constipation 07/21/22 [History Last Taken 09/05/23] carbidopa 25 mg-levodopa 100 mg tablet 0.5 tab PO .COMPLEX 07/08/23 [History Last Taken 09/07/23] sertraline 25 mg tablet 25 mg PO DAILY 07/08/23 [History Last Taken 09/07/23] food supplemt, lactose-reduced 0.08 gram-1.5 kcal/mL oral liquid (Ensure Plus High Protein) 120 ml PO 4X/DAY #0 mL 07/13/23 [Rx Last Taken 09/04/23] peg 700-[id number] 1 %-0.2 %-0.2 % eye drops (Artificial Tears ([id number])) 2 drp EACH EYE Q1H PRN DRY EYES #0 mL 07/13/23 [Rx Last Taken 09/06/23] sennosides 8.6 mg-docusate sodium 50 mg tablet (Stool Softener-Stimulant Laxative) 2 tab PO BID #0 tabs 07/13/23 [Rx Last Taken Unknown] levothyroxine 88 mcg tablet 88 mcg PO DAILY 09/07/23 [History Last Taken 09/07/23] Allergy/AdvReac Type Severity Reaction Status Date / Time omeprazole Allergy Unknown Verified 07/08/23 10:20 simvastatin [From Zocor] Allergy Unknown Verified 07/08/23 10:20 ropinirole AdvReac Mild Unknown Verified 07/08/23 10:20 Family History Other Heart disease Social History household members: family housing: house Smoking Status: Former smoker Vital Signs Vital Signs Vital Signs: 09/08/23 15:13 09/08/23 15:38 09/08/23 20:18 Temperature 99.2 F H Temperature Source Oral Pulse Rate 79 Pulse Strength Respiratory Rate 17 Respiratory Effort Normal Normal Respiratory Depth Normal Respiratory Pattern Normal Blood Pressure 120/58 L Blood Pressure Mean 78 Blood Pressure Source Monitor Blood Pressure Position Sitting Blood Pressure Location Right Arm Pulse Ox Oxygen Delivery Method Room Air Room Air 09/08/23 21:07 09/09/23 06:29 09/09/23 08:10 Temperature 98 F 98 F Temperature Source Oral Oral Pulse Rate 76 66 Pulse Strength Respiratory Rate 18 18 Respiratory Effort Respiratory Depth Respiratory Pattern Blood Pressure 94/60 114/68 Blood Pressure Mean 71 83 Blood Pressure Source Monitor Monitor Blood Pressure Position Semi-Fowlers Semi-Fowlers Blood Pressure Location Right Arm Right Arm Pulse Ox 97 99 93 Oxygen Delivery Method Room Air Room Air Room Air 09/09/23 08:43 09/09/23 08:46 09/09/23 10:00 Temperature 98.1 F Temperature Source Oral Pulse Rate 76 Pulse Strength Normal (2+) Respiratory Rate 18 Respiratory Effort Normal Non-Labored Respiratory Depth Normal Respiratory Pattern Normal Blood Pressure 107/68 Blood Pressure Mean 81 Blood Pressure Source Monitor Blood Pressure Position Semi-Fowlers Blood Pressure Location Right Arm Pulse Ox 98 Oxygen Delivery Method Room Air Room Air Weight Weight: 57.6 kg Body Mass Index (BMI) 21.1 Physical Exam Neuro Neuro Narrative: -? General: Laying comfortably in bed; in no acute distress. Hypomimia appreciated . -? HENT: Normal oropharynx and mucosa. Normal external appearance of ears and nose. Exophthalmos. -? Neck: Supple, no pain or tenderness -? CV:? No peripheral edema. -? Pulmonary:? Normal respiratory effort. -? Ext: No cyanosis, edema, or deformity -? Skin: No rash. Normal palpation of skin.? -? Musculoskeletal: full range of motion; no joint tenderness. Normal digits and nails by inspection. No clubbing. -? NEURO: -? Mental Status: The patient was alert and oriented to time, place, and person. Normal recent/remote memory, concentration, and general fund of knowledge. -? Language: speech is fluent with hypophonia.? Naming, repetition, fluency, and comprehension intact. -? Cranial Nerves: PERRL 2 mm/brisk. EOMI, visual sheppard full, no facial asymmetry, facial sensation intact, hearing intact, tongue midline, no evidence of atrophy or fibrillations. As performed by the nurse/BJORN Sternocleidomastoid and trapezius were equally strong. Soft palate raises equally, no uvular deviations -? Motor: normal bulk, tone, and strength throughout. No pronator drift Upper and lower extremities equal bilaterally. -? Tone: hypertonia left more than right, left upper extremity intermittent resting tremor. -? Sensation- Intact to light touch bilaterally -? Coordination: No dysmetria on [id number]. -? Gait- Gait initiation was slow, stooped posture with typical parkinsonian gait pattern Lab / Micro Data 09/08/23 06:41 09/08/23 06:41 Active Medications Active Medications Active Medications: Current Medications Generic Name Dose Route Start Last Admin Trade Name Freq PRN Reason Stop Dose Admin Acetaminophen 650 mg 09/07/23 14:31 09/09/23 06:33 Acetaminophen 325 Mg Tablet PO 650 mg Q6H PRN PRN Administration Pain 1-10 or Fever Artificial Tears 2 drp 09/07/23 15:12 09/08/23 17:03 Carboxymethylcellulose Sodium 1 Drp Drops OPHTHALMIC 2 drp Q1H PRN Administration DRY EYES Benztropine Mesylate 0.5 mg 09/09/23 11:15 Benztropine Mesylate 0.5 Mg Tablet PO BID LONI Bisacodyl 10 mg 09/07/23 14:31 Bisacodyl 10 Mg Suppository RC DAILY PRN CONSTIPATION Carbidopa/Levodopa 0.5 tablet 09/07/23 18:30 09/09/23 08:53 Carbidopa/Levodopa 25/100 Tablet PO 0.5 tablet 0630,0930,1230,1530,1830,2100 LONI Administration Enoxaparin Sodium 40 mg 09/07/23 14:31 09/09/23 08:53 Enoxaparin 40 Mg/0.4 Ml Syringe SC 40 mg DAILY LONI Administration Sodium Chloride 250 mls @ 15 mls/hr 09/07/23 14:48 IV .[id number] PRN Additional IVPB Infusion Sodium Chloride 250 mls @ 15 mls/hr 09/07/23 14:48 IV .[id number] PRN Saline Flush Levothyroxine Sodium 88 mcg 09/08/23 06:00 09/09/23 06:34 Levothyroxine 88 Mcg Tablet PO 88 mcg DAILY@0600 LONI Administration Polyethylene Glycol 17 gm 09/08/23 10:00 09/09/23 08:58 Polyethylene Glycol 3350 17 Gm Packet PO Not Given DAILY LONI Senna/Docusate Sodium 2 tablet 09/07/23 14:08 09/09/23 08:53 Senna/Docusate Sodium 1 Tablet PO 2 tablet BID LONI Administration Sertraline HCl 25 mg 09/08/23 10:00 09/09/23 08:58 Sertraline 50 Mg Tablet PO 25 mg DAILY LONI Administration Sodium Chloride 10 - 40 ml 09/07/23 14:48 09/08/23 21:17 0.9% Saline Lock 10 Ml Syringe IV 10 ml UD PRN Administration SALINE FLUSH
[2023-09-09] MEDS: Benztropine Mesylate 0.5 MG TABLET PO ×2 (13:20→22:57)
--- NOTE | 2023-09-09 13:49 | CASEMGMT ---
Social Work SW recevied a call from Rm at [facility]. Pt is currently active with [facility] PT. Rm was updated that pt plans to go to [facility] at discharge and precert is pending. REYNA checked with the [facility], precert is still pending at this time. Plan: [facility], pending precert ANANDA Rodrigez
--- NOTE | 2023-09-09 14:19 | PCM.PN.HOSP ---
Reason for Visit Reason for Visit: Diagnoses Weakness (09/07/23) Objective Data Objective Data Vital Signs: Vital Signs Temp Pulse Resp BP Pulse Ox O2 Del Method 98.1 F 76 18 107/68 98 Room Air 09/09/23 08:43 09/09/23 08:43 09/09/23 08:43 09/09/23 08:43 09/09/23 08:43 09/09/23 08:46 Oxygen Delivery Method Room Air Weight: 126 lb 15.78 oz Body Mass Index (BMI) 21.1 Intake & Output: Intake and Output for Last 24 Hours 09/07/23 09/08/23 09/09/23 23:59 23:59 23:59 Intake Total 1240 / 1240 1276.25 / 1276.25 250 / 250 Output Total 400 / 400 1550 / 1550 350 / 350 Balance 840 / 840 -273.75 / -273.75 -100 / -100 Lab / Micro Data 09/08/23 06:41 09/08/23 06:41 Micro: Microbiology 09/07/23 10:13 Mucosa - Nasopharyngeal SARS-CoV-2, Influenza & RSV (PCR) - Final Physical Exam Narrative Seen and examined. TELE-neurologist has seen the patient. Sinemet dose increased alternatively. General: Alert, Oriented x3, Cooperative HEENT: Atraumatic, PERRLA, EOMI, Normocephalic Oral: Oral mucosa dry. No Gingival or Mucosal Lesions/ Ulcerations Neck: Supple, No JVD, Negative Carotid Bruits Lungs: Air entry diminished in bilateral lung bases. No crepitation/rhonchi Cardiovascular: Regular rate, Regular Rhythm, Normal S1, Normal S2, systolic murmur. Abdomen: Bowel Sounds Present, Soft, Non Tender, Non-Distended : No renal angle tenderness. No suprapubic tenderness. Extremities: No edema, Capillary Refill Less than 3 Seconds Skin: No rashes, No breakdown Musculoskeletal: No Tenderness to Palpation of Joints or Extremities. Could not stand up or balance. Muscle strength 4/5 at knees and hip joints. Gross sensation to touch and pain intact. Neurological: Cranial nerves II-XII grossly intact, DTR 2+/4. Increased muscle stiffness of hips and knees joint. Difficulty in his speech articulation/dysarthria probably from muscle fatigue at the end of the dose Psych/Mental Status: Normal Affect, Appropriate. Assessment & Plan Assessment/Plan (1) Weakness: PLAN: Plan This is a 63-year-old female came to ED for generalized weakness, unable to get up from the toilet seat today and worsening of muscle stiffness, ambulation and balance for about 1 week 1. Generalized weakness and debility, muscle stiffness/gait ataxia seems worsening of Parkinson symptoms: Patient was admitted in #3 for similar symptoms generalized weakness neck and head pain and dyskinesia after her Parkinson's medications were adjusted. She follows neurologist Dr. Irene Brooks in [place]. I do not see dyskinesia symptoms/dysmetria but she has increased muscle rigidity. She has end of dose deterioration/on and off effect of Sinemet with progression of her Parkinson disease. During last admission Sinemet 1 tablet 4 times daily was changed to 6 times daily. Denies UTI symptoms. For further opinion, [facility] neurologist is consulted. 09/08/2023: Patient has cogwheel rigidity and tremors in the hand. She states she is slow and walking on the walker becomes difficult. She is almost back. She also states her eye gets dry and blurry. At the end of the dose of Sinemet she also feels tremors in her voice. 09/09/2023: Patient was seen by teleneurologist. Alternative dose of Sinemet was doubled. Patient also has problem with articulation of his speech/dysarthria at the end of the dose. Speech therapy events noted. Denies dysphagia Mild hypokalemia potassium supplement is ordered. Serum magnesium and phosphorus ordered and reported normal. 09/08: Repeat potassium 4.0. Hypokalemia corrected. 2. Parkinson's disease: Symptoms advanced as mentioned above. 3. Hypothyroidism: Continue home dose of Synthroid. 09/08: TSH 0.2 low. Free T4 is normal 1.42. Continue same home dose. 4. Anxiety/depression: Patient on Zoloft. Twelve-lead EKG shows QTc prolonged. Twelve-lead EKG shows sinus rhythm, prolonged QTc 428 ms. Sertraline seems low risk for QT prolonging concern but will hold it. 5. Chronic constipation, last BM 2 days ago: Continue stool softeners including MiraLAX, senna S and Dulcolax suppository DVT, moderate to high risk: Lovenox 40 mg subcu daily. Monitor CBC daily. Chronic ITP is listed as 1 of patient's past medical history if it shows decrease in platelet will discontinue it. Living will/advanced directive/end of life care: Patient does not have living will or advanced directive. Does not have Luis power of deputy attorney general for health. After discussion of benefits/risks procedures involved with full code, DNR CC arrest and DNR CC, the patient opted, that she wants CPR/chest compression, vasopressors CVS cath then DC shock but does not want intubation or ventilator. I tried to make her understand that her above wish is not given option therefore will keep as full code. Patient does want artificial life support including intubation, tube feed, ventilator and/chest compression, central venous catheter, vasopressor and DC shock if needed Microbiology Past 72 Hours 09/07/23 10:13 Mucosa - Nasopharyngeal SARS-CoV-2, Influenza & RSV (PCR) - Final Laboratory Results 09/07/23 10:05: WBC 5.1, RBC 4.19 L, Hgb 13.1, Hct 40.2, MCV 95.9, MCH 31.3, MCHC 32.6, RDW Std Deviation 45.2 H, RDW Coeff of Annie 12.8, Plt Count 248, MPV 12.2 H, Immature Gran % (Auto) 0.200, Neut % (Auto) 62.6, Lymph % (Auto) 29.5, [place] % (Auto) 6.1, Eos % (Auto) 0.8, Baso % (Auto) 0.8, Absolute Neuts (auto) 3.2, Absolute Lymphs (auto) 1.50, Nucleated RBC % 0, Sodium 142, Potassium 3.2 L, Chloride 106, Carbon Dioxide 30.0, Anion Gap 6, BUN 16, Creatinine 0.79, Estim Creat Clear Calc 63.88, Est GFR (MDRD) Af Amer 94, Est GFR (MDRD) Non-Af 78, BUN/Creatinine Ratio 20.2 H, Glucose 86, Calcium 9.0, Phosphorus 3.6, Magnesium 2.4 09/07/23 10:32: Urine Color Yellow, Urine Clarity Sl. Cloudy, Urine pH 6.0, Ur Specific [place] 1.010, Urine Protein Negative, Urine Glucose (UA) Normal, Urine Ketones Negative, Urine Occult Blood 50 H, Urine Nitrite Negative, Urine Bilirubin Negative, Urine Urobilinogen Normal, Ur Leukocyte Esterase Negative, Urine RBC 0-5 SEEN, Urine WBC 0 SEEN, Ur Squamous Epith Cells 0-5 SEEN, Urine Bacteria 0 SEEN, Urine Mucus 0 SEEN Charges/Coding Visit Charges Inpatient E&M: 16666 Subs Hosp L2
--- NOTE | 2023-09-09 15:06 | CASEMGMT ---
Discharge Planning [facility] has received auth. SW updated. Rhonda Schulz, Discharge Planning Asst.
--- NOTE | 2023-09-09 16:01 | CASEMGMT ---
Social Work Precert has been obtained for admission to the [facility] [place]. Physician notified and pt is not ready today. [facility] updated. SW met with pt and notified that precert has been obtained and discharge will likely be tomorrow. Pt agreeable. Plan: [facility], when medically ready ANANDA Rodrigez
[2023-09-09 17:30] VITALS: BP 98/63; PULSE 73; RESP 16; TEMP 36.4; O2SAT 99
[2023-09-09 21:56] VITALS: BP 91/53; PULSE 73; RESP 16; TEMP 36.8; O2SAT 98
[2023-09-09] MEDS: 0.9% Saline Lock 10 ML Syringe IV (21:58)
[2023-09-09 22:47] VITALS: BP 105/59; PULSE 66; RESP 16; TEMP 36.6; O2SAT 97
[2023-09-10 05:14] VITALS: BP 121/83; PULSE 69; RESP 16; TEMP 36.6; O2SAT 100
[2023-09-10] MEDS: Levothyroxine 88 MCG Tablet PO (05:18)
[2023-09-10] MEDS: Carbidopa/Levodopa 25/100 Tablet PO ×3 (06:34→11:56)
[2023-09-10 09:22] VITALS: BP 104/71; PULSE 70; RESP 16; TEMP 37.2; O2SAT 100
[2023-09-10] MEDS: Enoxaparin 40 MG/0.4 ML Syringe SC (09:26)
[2023-09-10] MEDS: Sertraline 50 MG Tablet 25 MG PO (09:26)
[2023-09-10] MEDS: Senna/Docusate Sodium 1 Tablet 2 TABLET PO (09:26)
[2023-09-10] MEDS: Benztropine Mesylate 0.5 MG TABLET PO (09:27)
--- NOTE | 2023-09-10 09:49 | PCM.TXEXTCAR ---
Diet Diet Order/Speech Therapy: 09/07/23 14:31 Diet: Regular - General Food consistency:: Regular Liquid Consistency:: Regular/Thin Routine Orders/Code Status Suppository Type: Dulcolax 10mg Suppository Frequency: Daily PRN Code Status: Full Code Therapies Weight Bearing: Weight bearing as tolerated Extremity Affected:: Bilateral Lower Physical Therapy: Eval and Treat Occupational Therapy: Eval and Treat Speech Therapy: Eval and Treat Problem/Diagnosis (1) Weakness: Status: Acute Code(s): R53.1 - Weakness Plan This is a 63-year-old female came to ED for generalized weakness, unable to get up from the toilet seat today and worsening of muscle stiffness, ambulation and balance for about 1 week 1. Generalized weakness and debility, muscle stiffness/gait ataxia seems worsening of Parkinson symptoms: Patient was admitted in #2022 for similar symptoms generalized weakness neck and head pain and dyskinesia after her Parkinson's medications were adjusted. She follows neurologist Dr. Irene Brooks in [place]. I do not see dyskinesia symptoms/dysmetria but she has increased muscle rigidity. She has end of dose deterioration/on and off effect of Sinemet with progression of her Parkinson disease. During last admission Sinemet 1 tablet 4 times daily was changed to 6 times daily. Denies UTI symptoms. For further opinion, [facility] neurologist is consulted. 09/08/2023: Patient has cogwheel rigidity and tremors in the hand. She states she is slow and walking on the walker becomes difficult. She is almost back. She also states her eye gets dry and blurry. At the end of the dose of Sinemet she also feels tremors in her voice. 09/09/2023: Patient was seen by teleneurologist. Alternative dose of Sinemet was doubled. Patient also has problem with articulation of his speech/dysarthria at the end of the dose. Speech therapy events noted. Denies dysphagia Mild hypokalemia potassium supplement is ordered. Serum magnesium and phosphorus ordered and reported normal. 09/08: Repeat potassium 4.0. Hypokalemia corrected. 2. Parkinson's disease: Symptoms advanced as mentioned above. 3. Hypothyroidism: Continue home dose of Synthroid. 09/08: TSH 0.2 low. Free T4 is normal 1.42. Continue same home dose. 4. Anxiety/depression: Patient on Zoloft. Twelve-lead EKG shows QTc prolonged. Twelve-lead EKG shows sinus rhythm, prolonged QTc 428 ms. Sertraline seems low risk for QT prolonging concern but will hold it. 5. Chronic constipation, last BM 2 days ago: Continue stool softeners including MiraLAX, senna S and Dulcolax suppository DVT, moderate to high risk: Lovenox 40 mg subcu daily. Monitor CBC daily. Chronic ITP is listed as 1 of patient's past medical history if it shows decrease in platelet will discontinue it. Living will/advanced directive/end of life care: Patient does not have living will or advanced directive. Does not have Luis power of deputy county attorney for health. After discussion of benefits/risks procedures involved with full code, DNR CC arrest and DNR CC, the patient opted, that she wants CPR/chest compression, vasopressors CVS cath then DC shock but does not want intubation or ventilator. I tried to make her understand that her above wish is not given option therefore will keep as full code. Patient does want artificial life support including intubation, tube feed, ventilator and/chest compression, central venous catheter, vasopressor and DC shock if needed Microbiology Past 72 Hours 09/07/23 10:13 Mucosa - Nasopharyngeal SARS-CoV-2, Influenza & RSV (PCR) - Final Laboratory Results 09/07/23 10:05: WBC 5.1, RBC 4.19 L, Hgb 13.1, Hct 40.2, MCV 95.9, MCH 31.3, MCHC 32.6, RDW Std Deviation 45.2 H, RDW Coeff of Annie 12.8, Plt Count 248, MPV 12.2 H, Immature Gran % (Auto) 0.200, Neut % (Auto) 62.6, Lymph % (Auto) 29.5, [place] % (Auto) 6.1, Eos % (Auto) 0.8, Baso % (Auto) 0.8, Absolute Neuts (auto) 3.2, Absolute Lymphs (auto) 1.50, Nucleated RBC % 0, Sodium 142, Potassium 3.2 L, Chloride 106, Carbon Dioxide 30.0, Anion Gap 6, BUN 16, Creatinine 0.79, Estim Creat Clear Calc 63.88, Est GFR (MDRD) Af Amer 94, Est GFR (MDRD) Non-Af 78, BUN/Creatinine Ratio 20.2 H, Glucose 86, Calcium 9.0, Phosphorus 3.6, Magnesium 2.4 09/07/23 10:32: Urine Color Yellow, Urine Clarity Sl. Cloudy, Urine pH 6.0, Ur Specific [place] 1.010, Urine Protein Negative, Urine Glucose (UA) Normal, Urine Ketones Negative, Urine Occult Blood 50 H, Urine Nitrite Negative, Urine Bilirubin Negative, Urine Urobilinogen Normal, Ur Leukocyte Esterase Negative, Urine RBC 0-5 SEEN, Urine WBC 0 SEEN, Ur Squamous Epith Cells 0-5 SEEN, Urine Bacteria 0 SEEN, Urine Mucus 0 SEEN Allergies/Procedures Done in Hospital Allergies omeprazole Allergy (Verified 07/08/23 10:20) Unknown simvastatin [From Zocor] Allergy (Verified 07/08/23 10:20) Unknown ropinirole Adverse Reaction (Mild, Verified 07/08/23 10:20) Unknown 'SIDE EFFECTS , DOSAGE REDUCED, PT STILL TAKES Type of Care/Length of Stay Estimated LOS: Convalescent Care Less Than 30 days Type of Care Needed: Skilled Rehab Potential: Good Prognosis: Good Additional Orders/Day of Discharge Day of Discharge: 09/10/23 Discharge Plan Admission Admit Date/Time: 09/07/23 12:50 Attending Provider: Germain Jo Primary Care Provider: Lamonte Rolon Consulting Providers: Adis Henderson; Yennifer Vargas; Starla Pineda; Hannah Maldonado; Ave Cardona; Conner Boyce; Lilly Lima; Conrad Rajput; Kulwinder Souza; Chinyere Perales; Phan Choi; Gi Murdock; Abby Carpio; Shelly uCeva; Balaji Nava; Melina Hickman; Francisco Menard; Ana Leone; Kasia Salvador Discharge Orders/Prescriptions Prescriptions: New carbidopa-levodopa 25-100 mg Tablet 1 tab PO 0930,1530,2100 Qty: 0 0RF carbidopa-levodopa 25-100 mg Tablet 0.5 tab PO 0630,1230,1830 Qty: 0 0RF levothyroxine 75 mcg tablet 75 mcg PO DAILY Qty: 30 2RF Continued polyethylene glycol 3350 [Miralax] 17 gram Powder In Packet 17 g PO DAILY PRN (Reason: Constipation) acetaminophen 500 mg Tablet 500 mg PO Q6H PRN (Reason: Pain) sertraline 25 mg tablet 25 mg PO DAILY carbidopa-levodopa 25-100 mg Tablet 0.5 tab PO .COMPLEX Patient Comments: PT STATES SHES BEEN TAKING EVERY 3 HOURS. Rx Instructions: 0.5 tabs orally TAKE .0.5 TABS 6 TIMES A DAY AT 0630,0930,1230,1530,1830,2100; 0630,0930,1230,1530,1830,2100 Artificial Tears([id number]-[id number]) 1-0.2-0.2 % Drops 2 drp EACH EYE Q1H PRN (Reason: DRY EYES) Qty: 0 0RF Ensure Plus High Protein 0.08 gram-1.5 kcal/mL Liquid 120 ml PO 4X/DAY Qty: 0 0RF sennosides-docusate sodium [Stool Softener-Stimulant Laxat] 8.6-50 mg Tablet 2 tab PO BID Qty: 0 0RF Discontinued levothyroxine 88 mcg tablet 88 mcg PO DAILY Referrals / Follow Up: Lamonte Rolon MD [Primary Care Provider] - Disposition Disposition (needs filled in before D/C Order can be placed): [facility]
--- NOTE | 2023-09-10 09:54 | PCM.DC.SUM ---
Providers Date of Admission: 09/07/23 Date of Discharge: 09/10/23 Primary Care Physician: Dr. Lamonte Rolon MD Consultations 09/07/23 14:31 neuro [Consult: Tele-Neurology] Routine Consulting Provider: [facility] Reason for Consult: Worsening of Parkinson's Ds. EMERGENT Consult: No Notified: No Date Notified: 09/07/23 Time Notified: 14:05 Method of Consult:: Telemedicine Comments:: needs meds uptitration, could not stand up. Nursing Unit Staff Notify [facility] of Tele-Neurology Consult: Yes 09/08/23 16:24 neuro [Consult: Tele-Neurology] Routine Consulting Provider: [facility] Reason for Consult: worsening of parkinsons EMERGENT Consult: No Notified: Yes Date Notified: 09/08/23 Time Notified: 16:24 Method of Notification: Answering Service Nursing Unit Staff Notify [facility] of Tele-Neurology Consult: Yes Reason For Visit: GEN WEAKNESS Diagnosis Discharge Diagnosis (1) Weakness: Status: Acute Code(s): R53.1 - Weakness Plan This is a 63-year-old female came to ED for generalized weakness, unable to get up from the toilet seat today and worsening of muscle stiffness, ambulation and balance for about 1 week 1. Generalized weakness and debility, muscle stiffness/gait ataxia seems worsening of Parkinson symptoms: Patient was admitted in for similar symptoms generalized weakness neck and head pain and dyskinesia after her Parkinson's medications were adjusted. She follows neurologist Dr. Irene Brooks in [place]. I do not see dyskinesia symptoms/dysmetria but she has increased muscle rigidity. She has end of dose deterioration/on and off effect of Sinemet with progression of her Parkinson disease. During last admission Sinemet 1 tablet 4 times daily was changed to 6 times daily. Denies UTI symptoms. For further opinion, [facility] neurologist is consulted. 09/08/2023: Patient has cogwheel rigidity and tremors in the hand. She states she is slow and walking on the walker becomes difficult. She is almost back. She also states her eye gets dry and blurry. At the end of the dose of Sinemet she also feels tremors in her voice. 09/09/2023: Patient was seen by teleneurologist. Alternative dose of Sinemet was doubled. Patient also has problem with articulation of his speech/dysarthria at the end of the dose. Speech therapy events noted. Denies dysphagia 09/10: Patient was seen by neurologist. Patient discharged home on dose of Sinemet that was prescribed by neurologist. SAVANNA Faust. Other symptomatic care like artificial eye tears for dry eyes. Bowel care. Patient is being discharged to halfway. Mild hypokalemia potassium supplement is ordered. Serum magnesium and phosphorus ordered and reported normal. 09/08: Repeat potassium 4.0. Hypokalemia corrected. 2. Parkinson's disease: Symptoms advanced as mentioned above. 3. Hypothyroidism: Continue home dose of Synthroid. 09/10: TSH 0.2 low. Free T4 is normal 1.42 but on the higher range of normal, normal ranges 0.76-1.46. TSH is suppressed. I will decrease the home dose of Synthroid from 88 mcg to 75 mcg daily. 4. Anxiety/depression: Patient on Zoloft. Twelve-lead EKG shows QTc prolonged. Twelve-lead EKG shows sinus rhythm, prolonged QTc 428 ms. Sertraline seems low risk for QT prolonging concern but will hold it. 5. Chronic constipation, last BM 2 days ago: Continue stool softeners including MiraLAX, senna S and Dulcolax suppository Patient had good bowel movement. DVT, moderate to high risk: Lovenox 40 mg subcu daily. Monitor CBC daily. Chronic ITP is listed as 1 of patient's past medical history if it shows decrease in platelet will discontinue it. Discharge medication reconciliation done. Discharge follow-up instructions completed. Discharge process discussed with the patient and all questions were answered to patient's satisfaction. Follow with PCP in 1 to 2 weeks Total time spent, exact 35 minutes on discharge meds reconciliation, examination, coordination of care with nurses and ancillary staff, review of imaging and blood test and discussion with the patient on follow-up instructions. Living will/advanced directive/end of life care: Patient does not have living will or advanced directive. Does not have Luis power of assistant county attorney for health. After discussion of benefits/risks procedures involved with full code, DNR CC arrest and DNR CC, the patient opted, that she wants CPR/chest compression, vasopressors CVS cath then DC shock but does not want intubation or ventilator. I tried to make her understand that her above wish is not given option therefore will keep as full code. Patient does want artificial life support including intubation, tube feed, ventilator and/chest compression, central venous catheter, vasopressor and DC shock if needed Medications at Discharge Home Medications acetaminophen 500 mg tablet 500 mg PO Q6H PRN Pain 07/21/22 polyethylene glycol 3350 17 gram oral powder packet (Miralax) 17 g PO DAILY PRN Constipation 07/21/22 carbidopa 25 mg-levodopa 100 mg tablet 0.5 tab PO .COMPLEX 07/08/23 sertraline 25 mg tablet 25 mg PO DAILY 07/08/23 food supplemt, lactose-reduced 0.08 gram-1.5 kcal/mL oral liquid (Ensure Plus High Protein) 120 ml PO 4X/DAY #0 mL 07/13/23 peg [id number]-hjnqgpfo 1 %-0.2 %-0.2 % eye drops (Artificial Tears ([id number])) 2 drp EACH EYE Q1H PRN DRY EYES #0 mL 07/13/23 carbidopa 25 mg-levodopa 100 mg tablet 0.5 tab PO 0630,1230,1830 #0 tabs 09/10/23 carbidopa 25 mg-levodopa 100 mg tablet 1 tab PO 0930,1530,2100 #0 tabs 09/10/23 levothyroxine 75 mcg tablet 75 mcg PO DAILY #30 tabs 09/10/23 sennosides 8.6 mg-docusate sodium 50 mg tablet (Stool Softener-Stimulant Laxative) 2 tab PO BID #0 tabs 09/10/23 Physical Exam Narrative Seen and examined. TELE-neurologist has seen the patient. Sinemet dose increased alternatively. Patient is doing well. And is swallowing well. Speech therapist recommended to continue in rehab. General: Alert, Oriented x3, Cooperative HEENT: Atraumatic, PERRLA, EOMI, Normocephalic Oral: Oral mucosa dry. No Gingival or Mucosal Lesions/ Ulcerations Neck: Supple, No JVD, Negative Carotid Bruits Lungs: Air entry diminished in bilateral lung bases. No crepitation/rhonchi Cardiovascular: Regular rate, Regular Rhythm, Normal S1, Normal S2, systolic murmur. Abdomen: Bowel Sounds Present, Soft, Non Tender, Non-Distended : No renal angle tenderness. No suprapubic tenderness. Extremities: No edema, Capillary Refill Less than 3 Seconds Skin: No rashes, No breakdown Musculoskeletal: No Tenderness to Palpation of Joints or Extremities. Muscle strength 4/5 at knees and hip joints. Gross sensation to touch and pain intact. Neurological: Cranial nerves II-XII grossly intact, DTR 2+/4. Increased muscle stiffness of hips and knees joint. Mild difficulty in his speech articulation/dysarthria probably from muscle fatigue at the end of the dose Psych/Mental Status: Normal Affect, Appropriate. Weight / BMI Weight Weight: 126 lb 15.78 oz Body Mass Index (BMI) 21.1 ABG / Lab / Microbiology Data 09/08/23 06:41 09/08/23 06:41 Microbiology: Microbiology 09/07/23 10:13 Mucosa - Nasopharyngeal SARS-CoV-2, Influenza & RSV (PCR) - Final Meaningful Use Info Meaningful Use Diagnoses (Choose all that apply): None applicable Discharge Plan Admission Admit Date/Time: 09/07/23 12:50 Attending Provider: Germain Jo Primary Care Provider: Lamonte Rolon Consulting Providers: Adis Henderson; Yennifer Vargas; Starla Pineda; Hannah Maldonado; Ave Cardona; Conner Boyce; Lilly Lima; Conrad Rajput; Kulwinder Souza; Chinyere Perales; Phan Choi; Gi Murdock; Abby Carpio; Shelly Cueva; Balaji Nava; Melina Hickman; Francisco Menard; Ana Leone; Kasia Salvador Discharge Orders/Prescriptions Prescriptions: New carbidopa-levodopa 25-100 mg Tablet 1 tab PO 0930,1530,2100 Qty: 0 0RF carbidopa-levodopa 25-100 mg Tablet 0.5 tab PO 0630,1230,1830 Qty: 0 0RF levothyroxine 75 mcg tablet 75 mcg PO DAILY Qty: 30 2RF Continued polyethylene glycol 3350 [Miralax] 17 gram Powder In Packet 17 g PO DAILY PRN (Reason: Constipation) acetaminophen 500 mg Tablet 500 mg PO Q6H PRN (Reason: Pain) sertraline 25 mg tablet 25 mg PO DAILY carbidopa-levodopa 25-100 mg Tablet 0.5 tab PO .COMPLEX Patient Comments: PT STATES SHES BEEN TAKING EVERY 3 HOURS. Rx Instructions: 0.5 tabs orally TAKE .0.5 TABS 6 TIMES A DAY AT 0630,0930,1230,1530,1830,2100; 0630,0930,1230,1530,1830,2100 Artificial Tears(ma-dzbv-vbrx) 1-0.2-0.2 % Drops 2 drp EACH EYE Q1H PRN (Reason: DRY EYES) Qty: 0 0RF Ensure Plus High Protein 0.08 gram-1.5 kcal/mL Liquid 120 ml PO 4X/DAY Qty: 0 0RF sennosides-docusate sodium [Stool Softener-Stimulant Laxat] 8.6-50 mg Tablet 2 tab PO BID Qty: 0 0RF Discontinued levothyroxine 88 mcg tablet 88 mcg PO DAILY Referrals / Follow Up: Lamonte Rolon MD [Primary Care Provider] - Disposition Disposition (needs filled in before D/C Order can be placed): Assisted Facility Charges/Coding Visit Charges Inpatient E&M: 49432 Disch Hosp >30min
--- NOTE | 2023-09-10 10:31 | PHA.DC_ITS ---
Pharmacy [facility] has performed discharge medication reconciliation and counseling for this patient. The patient's discharge medication list was reviewed for discrepancies and discrepancies were resolved. The patient was counseled on the following discharge medications and changes in medications for homegoing were reviewed. The Reason for Use, instructions for use, and potential side effects were reviewed for all new medications. The patient's questions regarding all of their medications were answered. 1. Sinemet 25/100 mg 0.5 tabs at 0630, 1230, 1830 2. Sinemet 25/100 mg 1 tabs 0930, 1530, 2100 2. Levothyroxine 75 mcg daily The patient was able to verbally demonstrate an understanding of their discharge medications. Medications at Discharge Home Medications acetaminophen 500 mg tablet 500 mg PO Q6H PRN Pain 07/21/22 polyethylene glycol 3350 17 gram oral powder packet (Miralax) 17 g PO DAILY PRN Constipation 07/21/22 sertraline 25 mg tablet 25 mg PO DAILY 07/08/23 food supplemt, lactose-reduced 0.08 gram-1.5 kcal/mL oral liquid (Ensure Plus High Protein) 120 ml PO 4X/DAY #0 mL 07/13/23 peg 432-bhgxmhgugwhs-ftjhllds 1 %-0.2 %-0.2 % eye drops (Artificial Tears ([id number])) 2 drp EACH EYE Q1H PRN DRY EYES #0 mL 07/13/23 carbidopa 25 mg-levodopa 100 mg tablet 0.5 tab PO 0630,1230,1830 #0 tabs 09/10/23 carbidopa 25 mg-levodopa 100 mg tablet 1 tab PO 0930,1530,2100 #0 tabs 09/10/23 levothyroxine 75 mcg tablet 75 mcg PO DAILY #30 tabs 09/10/23 sennosides 8.6 mg-docusate sodium 50 mg tablet (Stool Softener-Stimulant Laxative) 2 tab PO BID #0 tabs 09/10/23
--- NOTE | 2023-09-10 10:39 | CASEMGMT ---
Social Work Per physician, pt is ready for discharge today. 7000 exemption form completed in the [facility] for admission to the [facility]. DC educational/development assistant updated and will complete discharge. Disposition: [facility], skilled level of care under convalescent stay ANANDA Rodrigez
--- NOTE | 2023-09-10 10:47 | CASEMGMT ---
Discharge Planning Discharge orders, signed med list and transport time sent to [facility] via [facility]. [facility] will transport patient by wheelchair at 12:30p. Nursing, SW, and patient updated. Patient states that she will update her son and sister. Rhonda Schulz, Discharge Planning Asst.
[2023-09-10 11:46] VITALS: BP 104/72; PULSE 81; RESP 16; TEMP 37.1; O2SAT 99
--- NOTE | 2023-09-10 12:19 | NURSING ---
REPORT CALLED TO [facility]
--- NOTE | 2023-09-15 12:32 | CASEMGMT ---
Discharge Planning Discharge summary faxed to patient [facility]DOM[facility]. Rhonda Schulz, Discharge Planning Asst.
== END 2023-09-10 12:59 | disposition skilled nursing facility (03) | DRG 57 ==
LOC: ED 13:35 → MS3 14:27
PROVIDERS: Admitting Provider Internal Medicine; Emergency Provider Emergency Medicine; PCP Family Medicine; Visit Provider Internal Medicine
DX: G20.A1 Parkinson's disease without dyskinesia, without mention of fluctuations (principal); E03.9 Hypothyroidism, unspecified; F32.A Depression, unspecified; I10 Essential (primary) hypertension; E87.6 Hypokalemia; F41.9 Anxiety disorder, unspecified; K59.09 Other constipation; Z79.899 Other long term (current) drug therapy; Z86.73 Personal history of transient ischemic attack (TIA), and cerebral infarction without residual deficits; Z87.891 Personal history of nicotine dependence
CPT/HCPCS: 36415; 80048; 81001; 83735; 84100; 84439; 84443; 85025; 87631; 92522; 92610; 93005; 94668; 97116; 97162; 97166; 97530; 97535; 99285; J7030; J7120; A4216

== ENCOUNTER 2025-04-18 07:04 | Emergency (ER) | payer MEDICARE, MEDICAID, SELFPAY ==
[2025-04-18 07:05] VITALS: BP 139/90; PULSE 90; RESP 16; TEMP 36.7; O2SAT 99; BMI 20.9
--- NOTE | 2025-04-18 07:24 | CT_ITS ---
PROCEDURE: ABDOMEN/PELVIS W IV CONT ONLY 04/18/2025 REASON FOR EXAM: CONCERNED FOR PYELO TECHNIQUE: ABDOMEN/PELVIS W IV CONT ONLY Coronal and Sagittal reconstruction series were provided. CONTRAST: Isovue 370 VOLUME: 75 mL One or more dose reduction techniques were used (e.g., Automated exposure control, adjustment of the mA and/or kV according to patient size, use of iterative reconstruction technique. RADIATION DOSE SUMMARY: CTDlvol: 11.2 mGy DLP: 596.44 mGycm COMPARISON: Prior study dated July 08, 2023. FINDINGS: Lung bases: The lung bases are clear. Calcified granuloma in the right lower lobe. Mild coronary artery calcification. Liver: Normal size. No mass. Gallbladder: The gallbladder is unremarkable. Spleen: Normal size. Scattered calcified splenic granulomas. Pancreas: Normal size without evidence of mass surrounding inflammation or ductal dilation. Adrenals: Hypertrophy of the left adrenal gland. Kidneys: Minimal fullness of the left renal pelvis although no amparo hydronephrosis seen. There is homogeneous uptake by the kidneys. No evidence of pyelonephritis. Bladder: Unremarkable Reproductive Organs: The uterus is retroverted. Bowel: Colonic diverticulosis without diverticulitis. Large amount of fecal material is seen in the colon. Appendix: Unremarkable Lymph nodes: Unremarkable. Vasculature: Mild diffuse atherosclerotic calcifications are noted. Peritoneum / Retroperitoneum: Unremarkable Bones: Degenerative changes of the spine. Loss of height of the superior endplate of the L3 vertebrae. This is new as compared to prior study dated July 08, 2023. CT/Abdomen/Pelvis W IV Cont ONLY IMPRESSION: Hypertrophy of the left adrenal gland. Fullness of the left renal pelvis although no amparo hydronephrosis seen. No ev idence of pyelonephritis. Large amount of fecal material is seen in the colon. Sigmoid diverticulosis. Reading Location: [facility]
--- NOTE | 2025-04-18 07:26 | EX.ED.DYSGE1 ---
HPI History of Present Illness Chief Complaint: Flank Pain Narrative Narrative: Patient is a 64-year-old female presenting to the emergency department for pain where my kidneys are. Patient has a past medical history of Parkinson's, generalized weakness, gait abnormalities and cystitis. Patient states that for the past week she has had pain around her right flank. She states about 2 weeks ago she did have a fall in her kitchen. It was mechanical in nature. She did not hit her head did not have any loss of consciousness. Denies any neck or back pain. She endorses increased urination. Denies any dysuria or hematuria. Reports a fever yesterday of 102. Denies chest pain, shortness of breath, abdominal pain, nausea or vomiting. She lives at home with her grandson. [facility] Medical History Weakness Anxiety Depression Hypothyroidism Rheumatoid arthritis GERD (gastroesophageal reflux disease) Chest pain Hypertension Parkinson's disease Chronic back pain Degenerative disc disease, lumbar Facet arthropathy, lumbar Insomnia Generalized weakness Chronic ITP (idiopathic thrombocytopenia) Balance problems Abnormality of gait Acquired hypothyroidism Left foot drop Osteoarthritis CVA (cerebral vascular accident) Parkinson disease Hypothyroid Hypertension Gastroesophageal reflux disease Dyskinesia Home Medications ?Medication ?Instructions ?Recorded ?Last Taken ?Type acetaminophen 500 mg tablet 500 mg PO Q6H PRN Pain 07/21/22 09/06/23 History polyethylene glycol 3350 17 gram 17 g PO DAILY PRN Constipation 07/21/22 09/05/23 History oral powder packet (Miralax) sertraline 25 mg tablet 25 mg PO DAILY 07/08/23 09/07/23 History food supplemt, lactose-reduced 120 ml PO 4X/DAY #0 mL 07/13/23 09/04/23 Rx 0.08 gram-1.5 kcal/mL oral liquid (Ensure Plus High Protein) peg 585-safoezumdjyu-vpalalkx 1 2 drp EACH EYE Q1H PRN DRY EYES #0 07/13/23 09/06/23 Rx %-0.2 %-0.2 % eye drops mL (Artificial Tears ([id number])) carbidopa 25 mg-levodopa 100 mg 0.5 tab PO 0630,1230,1830 #0 tabs 09/10/23 Unknown Rx tablet carbidopa 25 mg-levodopa 100 mg 1 tab PO 0930,1530,2100 #0 tabs 09/10/23 Unknown Rx tablet levothyroxine 75 mcg tablet 75 mcg PO DAILY #30 tabs 09/10/23 Unknown Rx sennosides 8.6 mg-docusate sodium 2 tab PO BID #0 tabs 09/10/23 Unknown Rx 50 mg tablet (Stool Softener-Stimulant Laxative) Allergy/AdvReac Type Severity Reaction Status Date / Time omeprazole Allergy Unknown Verified 04/18/25 13:06 simvastatin (From Zocor) Allergy Unknown Verified 04/18/25 13:06 ropinirole AdvReac Mild Unknown Verified 04/18/25 13:06 Family History Other Heart disease Social History household members: family housing: house Smoking Status: Former smoker ROS ROS ED ROS Narrative see HPI EXAM Physical Exam Narrative Exam Narrative: Vital signs: Reviewed General: Alert and orientedx3. No acute distress. Chronically ill appearing. HEENT: Head is normocephalic and atraumatic, sinuses nontender, pupils equal round and reactive. Nares are patent. Oropharynx and throat exams normal. Neck: Supple without lymphadenopathy nontender. No midline cervical spinal tenderness palpation. No step-offs or deformities. Cardiovascular: Regular rate and rhythm, no murmurs. No rubs or gallops. Normal S1 and S2 Respiratory: Clear to auscultation bilaterally. No wheezes, rales, rhonchi Abdominal: Soft and nontender. Normal bowel sounds. No guarding or rebound. Nonsurgical abdomen. No CVA tenderness to palpation bilaterally. Extremities: No tenderness. No bruising. Normal range of motion. Normal sensation. No midline thoracic or lumbar spinal tenderness to palpation. No step-offs or deformities. There are some right lower lumbar paraspinal tenderness to palpation. No erythema or warmth. Skin: No rash or redness. Neurological: Tremors. The rest of the physical exam is unremarkable Const Vital Signs: 04/18/25 07:05 04/18/25 07:44 04/18/25 09:19 Temperature 98.1 F 98.3 F Temperature Source Oral Oral Pulse Rate 90 80 Respiratory Rate 16 17 Respiratory Effort Normal Respiratory Depth Normal Respiratory Pattern Normal Blood Pressure 139/90 H 117/93 H Blood Pressure Mean 106 101 Pulse Ox 99 100 Oxygen Delivery Method Room Air Room Air Room Air 04/18/25 10:14 04/18/25 11:00 Temperature 97.4 F L Temperature Source Pulse Rate 81 81 Respiratory Rate 18 14 Respiratory Effort Respiratory Depth Respiratory Pattern Blood Pressure 134/93 H 102/78 Blood Pressure Mean 106 86 Pulse Ox 100 97 Oxygen Delivery Method Room Air MDM MDM MDM Narrative Medical decision making narrative: Patient is a 64-year-old female presenting to the emergency department for pain or my kidney is. Patient was seen and examined. Vitals are stable. Patient resting in bed comfortably no acute distress. Differential includes but is not limited to: Nephrolithiasis, pyelonephritis, UTI, renal abscess, musculoskeletal Patient started on a fluid bolus. Offered analgesia but declined. CT of the abdomen pelvis was obtained to evaluate for nephrolithiasis versus pyelonephritis. Chest x-ray was also obtained to evaluate for any lower rib fractures from her fall 2 weeks ago. CBC with no leukocytosis and normal hemoglobin. BMP with no significant abnormalities. Urinalysis with no evidence of infection. CT of the abdomen pelvis shows hypertrophy of the left adrenal gland. Fullness of the left renal pelvis although no amparo hydronephrosis seen. No evidence of pyelonephritis. Large amount of fecal material is seen in the colon. Sigmoid diverticulosis. Chest x-ray reviewed by myself and shows no opacity or pneumothorax. No rib fracture noted. Radiology read with no acute findings. Likely musculoskeletal as the cause of the patient's pain. Instructed to follow-up with her primary care doctor as soon as possible. Patient discharged from the Emergency Department. I do not feel that the patient's evaluation reveals any acute reason for admission at this time. I instructed them to either follow-up with their primary care physician or promptly return to the Emergency Department for reevaluation should symptoms worsen or new symptoms develop. I explained what symptoms would indicate the need to return to the emergency department. Shared decision making was used. The patient voiced understanding of the treatment plan and is agreeable with it. Clinical impression: Right flank pain History & Record Review Discussion w/independent historian: Patient Lab Data Attestation: I reviewed the patient's lab results. Labs: Laboratory Results - last 24 hr 04/18/25 04/18/25 07:42 07:47 WBC 5.2 RBC 4.12 L Hgb 13.2 Hct 39.7 MCV 96.4 MCH 32.0 MCHC 33.2 RDW Std Deviation 43.9 RDW Coeff of Annie 12.4 Plt Count 270 MPV 12.0 Immature Gran % (Auto) 0.000 Neut % (Auto) 66.4 Lymph % (Auto) 26.6 [place] % (Auto) 5.0 Eos % (Auto) 1.4 Baso % (Auto) 0.6 Absolute Neuts (auto) 3.4 Absolute Lymphs (auto) 1.37 Nucleated RBC % 0 Sodium 141 Potassium 3.6 Chloride 103 Carbon Dioxide 25.7 Anion Gap 13 BUN 14 Creatinine 0.69 L Estim Creat Clear Calc 62.24 Est GFR (MDRD) Non-Af 96 BUN/Creatinine Ratio 20.4 H Glucose 90 Calcium 9.5 Urine Color Straw Urine Clarity Clear Urine pH 6.0 Ur Specific [place] 1.010 Urine Protein 15 H Urine Glucose (UA) Normal Urine Ketones Negative Urine Occult Blood 25 H Urine Nitrite Negative Urine Bilirubin Negative Urine Urobilinogen Normal Ur Leukocyte Esterase 25 H Urine RBC 0 SEEN Urine WBC 0 SEEN Ur Squamous Epith Cells 0-5 SEEN Urine Bacteria 0 SEEN Urine Mucus 0 SEEN Radiography Chest X-Ray - ED: 2 View, Read by ED Physician, Normal, No Acute Disease and No Infiltrates Diagnostic Testing: Clinical Impression(s) from Imaging Studies Abdomen/Pelvis CT 04/18/25 07:24 IMPRESSION: Hypertrophy of the left adrenal gland. Fullness of the left renal pelvis although no amparo hydronephrosis seen. No evidence of pyelonephritis. Large amount of fecal material is seen in the colon. Sigmoid diverticulosis. Reading Location: [facility] Chest X-Ray 04/18/25 07:50 IMPRESSION: NO ACUTE FINDINGS. Reading Location: [facility] Discharge Plan Triage Chief Complaint: Flank Pain Other Complaint: Asthma ED Provider: Brigida Alfaro Dx/Rx/DC Orders Clinical Impression: Flank pain, Frequent urination Instructions: ED Flank Pain with Uncertain Cause Prescriptions: No Action polyethylene glycol 3350 [Miralax] 17 gram Powder In Packet 17 g PO DAILY PRN (Reason: Constipation) acetaminophen 500 mg Tablet 500 mg PO Q6H PRN (Reason: Pain) sertraline 25 mg tablet 25 mg PO DAILY Artificial Tears(up-nuat-ghml) 1-0.2-0.2 % Drops 2 drp EACH EYE Q1H PRN (Reason: DRY EYES) Qty: 0 0RF Ensure Plus High Protein 0.08 gram-1.5 kcal/mL Liquid 120 ml PO 4X/DAY Qty: 0 0RF carbidopa-levodopa 25-100 mg Tablet 1 tab PO 0930,1530,2100 Qty: 0 0RF carbidopa-levodopa 25-100 mg Tablet 0.5 tab PO 0630,1230,1830 Qty: 0 0RF levothyroxine 75 mcg tablet 75 mcg PO DAILY Qty: 30 2RF sennosides-docusate sodium [Stool Softener-Stimulant Laxat] 8.6-50 mg Tablet 2 tab PO BID Qty: 0 0RF Primary Care Provider: Lamonte Rolon Referrals: Lamonte Rolon MD [Primary Care Provider] - 2 Days Activity Restrictions/Additional Instructions: Your evaluation in the Emergency Department did not reveal any acute reason for admission. However, I want to emphasize that you may be early in the course of a disease process or illness even if it is not present. For this reason you should follow-up within 24 hours for reevaluation with either your primary care physician or if necessary back here in the Emergency Department. You should return to the Emergency Department immediately if your symptoms worsen or new symptoms develop. Print Language: Maltese Disposition Disposition: Home, Self Care Discharge Date/Time: 04/18/25 13:30
[2025-04-18] MEDS: 0.9% Normal Saline (1000mL) 1,000 ML 1000 ML IV (07:34)
[2025-04-18 07:44] VITALS: O2SAT 100
--- NOTE | 2025-04-18 07:50 | RAD_ITS ---
PROCEDURE: CHEST PA AND LATERAL 04/18/2025 REASON FOR EXAM: FALL TWO WEEKS AGO, RULE OUT RIB FRACTURE TECHNIQUE: CHEST PA AND LATERAL COMPARISON: Prior study dated July 08, 2023. FINDINGS: Hardware: EKG electrodes are seen. Heart: The heart size is normal. Mediastinum: The mediastinal contour is unremarkable. Lungs: The lungs are clear. Bones: Degenerative changes are identified within the thoracic spine. RAD/Chest PA and Lateral IMPRESSION: NO ACUTE FINDINGS. Reading Location: [id number]
[2025-04-18 07:52] LABS: Hematocrit 39.7 % (37-47); Hemoglobin 13.2 g/dL (12.0-15.0); Immature Granulocytes Count 0.000 X10^3/uL (0.0-0.0); Mean Corp Hgb Conc 33.2 g/dL (32-36); Mean Corpuscular Volume 96.4 fL (81-99); Mean Platelet Vol. 12.0 fl (6.2-12.0); NRBC Flagged by Analyzer 0 % (0-5); Platelet Count 270 K/mm3 (150-450); RBC Distribution Width CV 12.4 % (11.6-14.6); RBC Distribution Width SD 43.9 fl (35.1-43.9); Red Blood Count 4.12 M/mm3 (4.2-5.4); White Blood Count 5.2 K/mm3 (4.4-11.0)
[2025-04-18 08:02] LABS: Mucous, Urine 0 SEEN /hpf (<or=2+); Red Blood Cells-Urine 0 SEEN /hpf (0-5)
[2025-04-18 08:06] LABS: Color, Urine Straw (Yellow); Glucose, Dipstick Normal (Normal); Ketone-Dipstick Negative (Negative); Leukocyte Esterase-Dipstick 25 /ul (Negative); Nitrite-Dipstick Negative (Negative); Occult Blood-Urine 25 /ul (Negative); Protein-Dipstick 15 mg/dl (Negative); Specific Gravity, Urine 1.010 (1.002-1.030); Urine Bilirubin Dipstick Negative (Negative)
[2025-04-18 08:13] LABS: Squamous Epithelial Cells - UA 0-5 SEEN /hpf (5-10)
[2025-04-18 08:29] LABS: Anion Gap 13 (5-15); BUN 14 mg/dL (4-19); BUN/Creat Ratio 20.4 RATIO (10-20); Calcium,Total 9.5 mg/dL (7.6-11.0); Carbon Dioxide 25.7 mmol/L (21.0-32.0); Chloride 103 mmol/L (98-108); Estimated Creatinine Clearance 62.24 ml/min (50-250); Glucose 90 mg/dL (70-99); Potassium 3.6 mmol/L (3.3-5.1)
[2025-04-18 09:19] VITALS: BP 117/93; PULSE 80; RESP 17; TEMP 36.8; O2SAT 100
--- NOTE | 2025-04-18 09:29 | ED.RN ---
PT BROUGHT HER HOME MEDS WITH HER AND ASKED IF SHE COULD TAKE HER [facility]'S MEDICATION OF CARBIDOPA-LEVODOPA 25-100MG. THIS NURSE CHECKED WITH DR SANTIAGO AND DR SANTIAGO GAVE VERBAL PERMISSION FOR PT TO TAKE HER HOME MEDICATION. PT TOOK 1 TAB
[2025-04-18 10:14] VITALS: BP 134/93; PULSE 81; RESP 18; TEMP 36.3; O2SAT 100
[2025-04-18 11:00] VITALS: BP 102/78; PULSE 81; RESP 14; O2SAT 97
== END 2025-04-18 13:30 | disposition home or self-care (01) ==
PROVIDERS: Emergency Provider Student in an Organized Health Care Education/Training Program; PCP Family Medicine; Visit Provider Student in an Organized Health Care Education/Training Program
DX: R10.9 Unspecified abdominal pain (principal); G20.A1 Parkinson's disease without dyskinesia, without mention of fluctuations; I10 Essential (primary) hypertension; J45.909 Unspecified asthma, uncomplicated; Z87.891 Personal history of nicotine dependence; R35.0 Frequency of micturition; K21.9 Gastro-esophageal reflux disease without esophagitis
CPT/HCPCS: 71046; 74177; 80048; 81001; 85025; 96360; 96361; 99285; Q9967; A4216